=== PATIENT | female | born 1960 | race Caucasian/White ===

== ENCOUNTER 2022-05-08 10:12 | Outpatient (CLI) | payer MEDICARE, BC, SELFPAY ==
--- NOTE | 2022-05-08 10:20 | MR_ITS ---
[facility] [address] [facility] [address] Phone:?[phone] Fax:?[phone] Referring Physician Information: Julio Cesar Antoine M.D. [address] [facility] [address] Phone:?[phone] Fax:?[phone] Patient:Paul Montague D.O.B:?1960 Sex:?Female Phone:?[phone] [facility] MRN:?[id number] Exam Date:?05/08/2022 ? EXAM: MRI OF THE RIGHT SHOULDER CLINICAL INFORMATION: The patient is a 62-year-old with right shoulder pain. PRIOR SURGERY: None reported. COMPARISON STUDIES: There are no prior studies available for comparison. TECHNICAL INFORMATION: Using a 1.5T MR scanner and a localizing shoulder surface coil: 3.0 mm?coronal obliques: PD, T2, STIR 3.0 mm?sagittal obliques: PD, T2 3.0 mm?axials: PD, T2 FINDINGS: Articular/Extraarticular collections: Effusion: Moderate. Low signal intensity debris within the joint space can be seen, in keeping with synovitis. Small loose bodies within the joint space cannot be excluded. Subacromial/subdeltoid: Mild to moderate fluid is seen within the subacromial/subdeltoid bursa, in keeping with changes of bursitis. Subcoracoid: No evidence for bursitis. Osseous structures: Proximal humerus: Cortical irregularity and subcortical cystic change can be seen involving the greater and lesser tuberosity regions, in keeping with the rotator cuff tendinopathy and rotator cuff pathology discussed below. No evidence for greater or lesser tuberosity fracture can be seen. No Hill-Sachs or reverse Hill-Sachs lesion is identified. Glenoid: No acute bony abnormality of the glenoid fossa or glenoid neck can be seen. Acromioclavicular joint: Mild to moderate changes of acromioclavicular joint arthrosis are present. Coracoacromial arch: Acromion morphology: Type II. No evidence for os acromiale. Acromiohumeral space: Within normal limits. Coracohumeral space: Mildly narrowed. Rotator cuff and deltoid: Supraspinatus: Mild to moderate changes of supraspinatus tendinosis can be seen. There are areas of partial-thickness deep surface tearing and fraying of the supraspinatus tendon fibers, seen to best advantage on coronal series 6 images 13 and 12. The tearing involves up to 50% of the tendon thickness and measures approximately 10 mm in greatest dimension. No full-thickness tearing or retraction of the supraspinatus tendon fibers can be seen. No atrophic changes of the supraspinatus muscle belly are present. Infraspinatus: Mild to moderate infraspinatus tendinosis can be seen. There is no evidence for full or partial-thickness tearing. No atrophic changes of the infraspinatus muscle belly are identified. Teres minor: No evidence for tendinosis, tearing, or associated muscle belly atrophy. Subscapularis: Mild to moderate subscapularis tendinosis can be seen. There is no evidence for full or partial-thickness tearing. No atrophic changes of the subscapularis muscle belly are noted. Deltoid: No evidence for strain or tearing. Biceps tendon: Intra-articular biceps tendinosis can be seen with longitudinal splitting. Additional tendinosis and splitting of the tendon can be seen within the biceps sulcus region. There is no evidence for biceps rupture. No dislocation or subluxation is identified. Glenohumeral joint and labrum: Articular Cartilage: Chondromalacia and chondral loss can be seen along the articular surfaces of the humeral head on coronal series 5 image 14. Additional chondral thinning and irregularity along the articular surfaces of the glenoid can be seen. No definite osteoarthritic changes are identified. Labrum: Degeneration of the glenoid labrum can be seen with poorly defined tearing of the superior and posterior portions. No paralabral ganglion cyst formation is identified. Capsular Soft Tissues: No definite capsular abnormalities of the glenohumeral joint are seen. No evidence for capsular tearing is present and there are no MR signs of adhesive capsulitis. CONCLUSION: 1. Supraspinatus, infraspinatus, and subscapularis tendinosis with partial- thickness deep surface tearing and fraying of the supraspinatus tendon fibers. No full-thickness tearing or retraction of the rotator cuff can be seen. 2. Mild to moderate acromioclavicular joint arthrosis. 3. Tendinosis of the long head of the biceps. There is no evidence for rupture or dislocation. 4. Chondromalacia and chondral loss along the articular surfaces of the glenohumeral joint. 5. Glenohumeral joint effusion with synovitis and/or loose bodies. 6. Mild to moderate subacromial/subdeltoid bursitis. AEC Electronically signed on 05/08/2022 1:04:00 PM by Garrick Gasca M.D.
== END 2022-05-08 10:13 | disposition home or self-care (01) ==
LOC: MRI 10:17
PROVIDERS: PCP Family Medicine; Visit Provider Family Medicine
DX: M25.511 Pain in right shoulder (principal); M75.101 Unspecified rotator cuff tear or rupture of right shoulder, not specified as traumatic; M94.211 Chondromalacia, right shoulder; M25.411 Effusion, right shoulder; M75.51 Bursitis of right shoulder
CPT/HCPCS: 73221

== ENCOUNTER 2022-07-08 09:10 | Outpatient (CLI) | payer MEDICARE, BC, SELFPAY ==
[2022-07-08 14:08] LABS: Basophils Absolute Auto 0.01 K/uL (0.00-0.30); Basophils Percent Auto 0.2 % (0.0-3.0); Eosinophils Absolute Auto 0.16 K/uL (0.00-0.50); Eosinophils Percent Auto 2.7 % (0.0-7.0); Hematocrit 42.9 % (33.0-51.0); Hemoglobin* 14.5 gm/dL (12.0-16.0); Immature Granulocytes Abs Auto 0.01 K/uL (0.00-0.30); Immature Granulocytes Pct Auto 0.2 %; Lymphocytes Absolute Auto 2.36 K/uL (0.90-2.90); Lymphocytes Percent Auto 39.7 % (20-44); Mean Corpuscular HGB Conc 34 gm/dL (32-36); Mean Corpuscular Hemoglobin 30 pg (26-34); Mean Corpuscular Volume 90 fL (80-100); Monocytes Percent Auto 7.2 % (0.0-11.0); Neutrophils Absolute Auto 2.97 K/uL (1.7-7.0); Platelet Count* 212 K/uL (140-440); RDW Coefficient of Variation % 12.5 % (11.5-15.5); Red Blood Count 4.79 m/uL (4.00-5.20); White Blood Count* 5.94 K/uL (4.50-11.00)
[2022-07-08 14:19] LABS: Slide Review Reflex No
[2022-07-08 14:47] LABS: Chloride* 106 mmol/L (96-114); Potassium* 4.8 mmol/L (3.6-5.1); Sodium* 142 mmol/L (135-149)
[2022-07-08 14:50] LABS: Blood Urea Nitrogen* 12 mg/dL (7-30); Carbon Dioxide* 28 mmol/L (20-32); Creatinine* 0.5 mg/dL (0.5-1.5); Estimated Glomerular Filt Rate 107 ml/min
[2022-07-08 14:51] LABS: Calcium* 9.3 mg/dL (8.4-10.6); Glucose* 84 mg/dL (60-115)
== END 2022-07-08 09:11 | disposition home or self-care (01) ==
LOC: FBOREF 09:10
PROVIDERS: PCP Family Medicine; Visit Provider Family Medicine
DX: Z01.818 Encounter for other preprocedural examination (principal)
CPT/HCPCS: 80048; 85025

== ENCOUNTER 2022-07-17 10:30 | Day surgery (SDC) | payer MEDICARE, BC, SELFPAY ==
[2022-07-17] VITALS (15 sets, daily range): BP systolic 120–139; BP diastolic 70–83; PULSE 56–73; RESP 12–18; TEMP 36.6–37.1; O2SAT 91–99; BMI 27.1
[2022-07-17] MEDS: EPINEPHrine 1 MG in SODIUM CHLORIDE IRRIG SOLUTION 3,000 ML 9003 MG IRRIGATION ×2 (07:20→14:35)
[2022-07-17] MEDS: MIDAZOLAM HCL 1 MG/ML inj IVP (11:25)
[2022-07-17] MEDS: fentaNYL 100 MCG/2 ML inj IVP (11:25)
[2022-07-17] MEDS: ACETAMINOPHEN 500 MG TABLET 1000 MG PO (11:25)
[2022-07-17] MEDS: LACTATED RINGERS 1000 ML 1,000 ML 100 ML IV (11:30)
[2022-07-17] MEDS: SODIUM CHLORIDE 0.9 % (FLUSH) 10 ML SYRINGE IVF (12:06)
--- NOTE | 2022-07-17 13:51 | SUR.PREOP ---
TIME?OUT:?1353 PT/RN/MDA?VERIFICATION?OF?SURGICAL?SITE,?PROCEDURE,?AND?CONSENT OBTAINED?PRIOR?TO?INVASIVE?PROCEDURE.
--- NOTE | 2022-07-17 14:00 | P.NB_ITS ---
Nerve Block Nerve Block Time Seen by Provider: 13:52 Date Seen: 07/17/22 Type of block requested by surgeon for post-operative analgesia: supraclavicular Side: right Time out performed: Yes Verification of patient name: Yes Verification of date of : Yes Site marking: site marked Name of person performing procedure: Álvaro Continuous monitoring Was continuous monitoring of O2 sat, B/P, electronic device monitor, recorded every 15 minutes?: Yes Procedure Checklist: sterile prep, needles and gloves Ultrasound guided. Images saved: Yes Medications given in 5ml increments after negative aspiration: Ropivicaine %: 0.5 mL: 20 Needle gauge: 22 Decadron (mg): 10 Precedex (mcg): 25 Patient tolerated procedure well: Yes Block Charges Block Charge (with Pro Fee): Brachial Plexus Use of Ultrasound Machine for Block: Yes- US Guidance/pain block
[2022-07-17] MEDS: CEFAZOLIN 2 GM INJ IVP (14:20)
--- NOTE | 2022-07-17 15:12 | P.ORPRC_ITS ---
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 Despite appropriate non operative management, they continue to have symptoms. Operative intervention was recommended. The risks, benefits and expected outcomes were discussed in detail. These included but were not limited to: Infection, bleeding, injury to blood vessel or nerve, venous thromboembolism. All questions were answered to their satisfaction. PROCEDURE: A supraclavicular block was placed by Anesthesia. General anesthesia was administered. The patient was placed in the high beach chair position. The right shoulder was prepped and draped in the usual sterile fashion. The glenohumeral joint was infiltrated with 20 mL of normal saline with epinephrine. The posterior portal was established, the arthroscope was introduced. The anterior portal was established, Diagnostic arthroscopy was performed with findings as follows: The biceps and biceps anchor are intact. The anterior, posterior and superior labrum show degenerative tearing . Articular surfaces on the humeral head and glenoid show focal areas of grade 4 change, with surrounding areas of grade 3 change. There is a large articular cartilage loose body in the axillary recess. The joint surface of the supraspinatus has a minimal amount of degenerative tearing. The shaver was used to debride unstable chondral flaps on glenoid and humeral head. The labrum was circumferentially debrided. The loose body in the axillary recess was removed with the grasper. The undersurface of the supraspinatus was debrided with the shaver. This does not result in high-grade partial-thickness or full-thickness tearing. The arthroscope was placed in the subacromial space, the lateral portal was established. The Arthrex [place] was used to dissect the acromion free. The CA ligament was recessed off the anterior acromion, the AC joint was exposed. Arthroscopic instruments removed the portal sites were closed with 3-0 nylon. A dry dressing, polar Care and sling were applied. The patient tolerated the procedure well. There were no apparent complications. They were carefully transferred to the hospital bed and taken to the postanesthesia care unit in satisfactory condition. PLAN: The patient will be discharged to home. Immediate, active range of motion of the shoulder, as tolerates. They can work on active range of motion of the elbow, wrist and fingers. They will follow up in the office next week for a wound check and an AP and transscapular Y-view of the shoulder prior to being seen.
--- NOTE | 2022-07-17 15:26 | W.ANESCHARGE ---
Anesthesia Charges Start Date/Time Anesthesia Start Date: 07/17/22 Anesthesia Start Time: 14:02 Stop Date/Time Anesthesia Stop Date: 07/17/22 Anesthesia Stop Time: 15:26 Summary Emergency: No
--- NOTE | 2022-07-17 15:30 | W.ANESCHARGE ---
Anesthesia Charges Start Date/Time Anesthesia Start Date: 07/17/22 Anesthesia Start Time: 14:02 Stop Date/Time Anesthesia Stop Date: 07/17/22 Anesthesia Stop Time: 15:26 Summary Emergency: No
[2022-07-17] MEDS: ONDANSETRON 2 MG/ML inj 4 MG IVP (15:47)
== END 2022-07-17 17:03 | disposition home or self-care (01) ==
PROVIDERS: PCP Family Medicine; Visit Provider Orthopaedic Surgery
PROC: (CPT 23412; principal; 2022-07-17 13:30)
DX: M75.111 Incomplete rotator cuff tear or rupture of right shoulder, not specified as traumatic (principal); M19.011 Primary osteoarthritis, right shoulder; M75.21 Bicipital tendinitis, right shoulder
CPT/HCPCS: 29823; 29826; 29824; 1630; 64415; 76942; A9270; J0171; J0330; J0690; J1100; J2250; J2370; J2405; J2704; J2795; J3010; J7120

== ENCOUNTER 2022-08-27 09:50 | Outpatient (CLI) | payer MEDICARE, BC, SELFPAY ==
[2022-08-27 15:08] LABS: Albumin* 4.2 g/dL (3.3-5.0); Chloride* 108 mmol/L (96-114); Sodium* 142 mmol/L (135-149)
[2022-08-27 15:09] LABS: Potassium* 5.2 mmol/L (3.6-5.1)
[2022-08-27 15:10] LABS: Creatinine* 0.5 mg/dL (0.5-1.5); Estimated Glomerular Filt Rate 107 ml/min
[2022-08-27 15:11] LABS: Alanine Aminotransferase* 18 U/L (4-35); Alkaline Phosphatase* 139 U/L (40-150); Aspartate Amino Transferase* 28 U/L (12-35); Bilirubin Total* 0.5 mg/dL (0.1-1.5); Blood Urea Nitrogen* 13 mg/dL (7-30); Calcium* 9.5 mg/dL (8.4-10.6); Carbon Dioxide* 27 mmol/L (20-32); Glucose* 90 mg/dL (60-115); Total Protein* 6.8 g/dL (6.0-8.3)
[2022-08-27 15:12] LABS: Magnesium* 2.2 mg/dL (1.5-2.6)
[2022-08-27 15:27] LABS: Vitamin D 25 Hydroxy* 22 ng/mL (30-80)
[2022-08-27 15:40] LABS: Thyroid Stimulating Hormone* 0.905 uIU/mL (0.270-4.20)
[2022-08-27 15:58] LABS: Vitamin B12* 596 pg/mL (243-894)
[2022-08-28 03:45] LABS: Basophils Absolute Auto 0.04 K/uL (0.00-0.30); Basophils Percent Auto 0.5 % (0.0-3.0); Eosinophils Absolute Auto 0.23 K/uL (0.00-0.50); Eosinophils Percent Auto 2.6 % (0.0-7.0); Hematocrit 42.7 % (33.0-51.0); Hemoglobin* 14.4 gm/dL (12.0-16.0); Immature Granulocytes Abs Auto 0.01 K/uL (0.00-0.30); Immature Granulocytes Pct Auto 0.1 %; Lymphocytes Absolute Auto 2.21 K/uL (0.90-2.90); Lymphocytes Percent Auto 25.5 % (20-44); Mean Corpuscular HGB Conc 34 gm/dL (32-36); Mean Corpuscular Hemoglobin 30 pg (26-34); Mean Corpuscular Volume 89 fL (80-100); Monocytes Percent Auto 5.9 % (0.0-11.0); Neutrophils Absolute Auto 5.68 K/uL (1.7-7.0); Neutrophils Percent Auto 65.4 % (42.0-72.0); Platelet Count* 236 K/uL (140-440); RDW Coefficient of Variation % 11.8 % (11.5-15.5); Red Blood Count 4.81 m/uL (4.00-5.20); White Blood Count* 8.68 K/uL (4.50-11.00)
[2022-08-28 03:48] LABS: Slide Review Reflex No
[2022-08-28 15:50] LABS: Prealbumin 24.7 mg/dL (20.0-40.0)
== END 2022-08-27 09:51 | disposition home or self-care (01) ==
PROVIDERS: PCP Family Medicine; Visit Provider Family Medicine
DX: I10 Essential (primary) hypertension (principal); E55.9 Vitamin D deficiency, unspecified; E53.8 Deficiency of other specified B group vitamins; Z98.84 Bariatric surgery status
CPT/HCPCS: 80053; 82306; 82607; 83735; 84134; 84443; 85025

== ENCOUNTER 2022-09-18 11:00 | Emergency (ER) | payer MEDICARE, BC, SELFPAY ==
[2022-09-18 11:18] VITALS: BP 168/88; PULSE 63; RESP 18; TEMP 36.2; O2SAT 98; BMI 26.7
--- NOTE | 2022-09-18 11:45 | CRLHL7_ITS ---
For Patients: As a result of the Century Cures Act, medical imaging exams and procedure reports are released immediately into your electronic medical record. You may view this report before your referring provider. If you have questions, please contact your health care provider. INDICATION: Acute diffuse abdominal pain TECHNIQUE: Axial images were obtained from the diaphragm to the pubic symphysis. Reformats were obtained in the coronal and sagittal plane. IV Contrast: 71 cc Isovue 370 Oral Contrast: None COMPARISON: None. FINDINGS: Lower chest: Basilar discoid atelectasis. Liver: Normal in contour with hypodense leisure is within the right lobe of liver measuring 7 and 3 millimeters these are too small for characterization. Statistically speaking, in the absence of a known primary malignancy these likely represent incidental findings. Gallbladder and bile ducts: Status post cholecystectomy. Spleen: Unremarkable. Normal in size without mass. Pancreas: Mild pancreatic atrophy. Adrenal glands: Unremarkable. No nodules. Kidneys: Unremarkable. No masses, stones, or hydronephrosis. Vasculature: Atherosclerosis without abdominal aortic aneurysm. GI tract: Status post gastric bypass. There are several loops of jejunum which are borderline in caliber with a suggestion of some mucosal thickening. The ileum is more decompressed although a well-defined single transition point is not seen. Colon is normal caliber with a moderate large amount of stool. Moderate colonic diverticulosis. Pelvis: Status posthysterectomy. Bones: Degenerative disc disease lumbar spine. IMPRESSION: Status post gastric bypass with borderline diameter loops of small bowel without well-defined transition point. A low-grade small bowel obstruction may be difficult to exclude although appearance would favor an enteritis/ileus. Please note that all CT scans at this facility use dose modulation, iterative reconstruction, and/or weight-based dosing when appropriate to reduce radiation dose to as low as reasonably achievable. Dictated by Alireza Yeager MD @ 09/18/2022 12:49:40 PM (Electronically Signed)
--- OUTSIDE RECORDS SUMMARY | 2022-09-18 11:58 | XMS_ITS | Continuity of Care Document ---
:1960 Author Organization [facility] Address [address] [place] [address]- Care Team Providers Name Role Phone Physician, PCP Unknown Primary Care Physician Unavailable Encounter 09/14/22 - 09/14/22 [facility] [address] [place] [address]- Discharge Disposition: Discharged to Home or Self Care Attending Physician: Brendan Vargas DO Allergies, Adverse Reactions, Alerts Substance Reaction Severity Status Atrovent Airway constriction Active oxyCODONE Vomiting Active Immunizations Not Given Vaccine Date Status Refusal Reason influenza virus vaccine 10/15/20 Not Given Patient Refuses Medications acetaminophen 650 mg/20.3 mL oral liquid Take 20.3 mL, PO, Q4h, # 1 Each, 1 Refill(s), Pharmacy: [facility] Start Date: 10/15/20 Status: OrderedAdvair Advair, Each, 0 Start Date: 01/28/21 Status: Orderedalbuterol-ipratropium 2.5 mg-0.5 mg/3 ml inhalation solution 3 mL, Nebul, Q6h, PRN Shortness of Breath, Each, 0 Refill(s) Start Date: 10/10/20 Status: OrderedtraMADol 50 mg oral tablet Take 1 Tab, PO, Q6h, PRN Pain - Moderate, # 5 Each, 0 Refill(s), Pharmacy: [facility] Start Date: 10/15/20 Status: OrderedVentolin HFA 90 mcg/inh inhalation aerosol Take 2 Puff, Inhalation, Q6h, PRN Shortness of Breath, Each, 0 Refill(s) Start Date: 10/10/20 Status: OrderedVitamin B12 1000 mcg/mL injectable solution IM, Month ([id number]), Each, 0 Refill(s) Start Date: 01/28/21 Status: OrderedVitamin D Vitamin D, 1,000 mg, Daily, Each, 0 Start Date: 01/28/21 Status: Ordered Problem List Condition Confirmation Course Effective Dates Status Health Stat us Informant Anxiety Confirmed Active Asthma Confirmed Active Depression Confirmed Active High cholesterol Confirmed Active Hypertension Confirmed Active Obesity Confirmed Active Degenerative joint Confirmed Active disease Procedures Procedure Date Related Diagnosis Body Site Status section1 Completed History of total knee replacement of both Completed knees Hysterectomy Completed 1X4 Social History Social History Type Response Smoking Status Never smoked Sex Patient Care team information Care Team PersonnelName: Physician, PCP Unknown Position: Non User Member Role: Primary Care Physician
--- NOTE | 2022-09-18 12:03 | ED.GENADULT ---
HPI - General Adult General Chief complaint: Abdominal Pain Stated complaint: Pain in upper left abdominal quadrant Time Seen by Provider: 09/18/22 11:21 Source: patient Mode of arrival: ambulatory Limitations: no limitations History of Present Illness HPI narrative: Patient is a 62-year-old female coming in today complaining of abdominal discomfort that started 3 days ago. Pain is intermittent, comes and goes. Nothing seems to make it better or worse. It is located mostly on the left side of the abdomen but radiates across into the epigastric area as well. Patient is concerned because she has felt this kind of pain twice in the past: She tells me that The 1st time she had a perforated stomach and the 2nd time she had a twisted intestine. Both times the pain was an ache as it is now, and both times she required surgery. She denies any fevers or chills, she does have chronic nausea and this is unchanged, no vomiting. Last bowel movement was this morning and was normal. She has noted urinary difficulty such as increased frequency, urgency or dysuria. She has been eating normally. She spoke to her primary care provider who recommended she come to the ER for an abdominal CT scan. Related Data Home Medications Medication Instructions Recorded Confirmed fluticasone 250 mcg-salmeterol 50 1 inh inhalation DAILY 03/11/22 09/18/22 mcg/dose blistr powdr for inhalation (Advair Diskus) ipratropium 0.5 mg-albuterol 3 mg 1 ml inhalation QID 07/06/22 09/18/22 (2.5 mg base)/3 mL nebulization soln Previous Rx's Medication Instructions Recorded cyanocobalamin (vitamin B-12) 1,000 mcg subcut Q4W #3 mL 06/09/22 1,000 mcg/mL injection solution albuterol sulfate 90 mcg/actuation 1 puff inhalation DAILY PRN 07/01/22 aerosol inhaler (Ventolin HFA) bronchospasm #6.7 grams metoclopramide HCl 5 mg tablet 5 mg PO TID #60 tabs 08/27/22 (Reglan) cholecalciferol (vitamin D3) 1,250 1,250 mcg PO QWEEK #12 caps 08/29/22 mcg (50,000 unit) capsule Allergies Allergy/AdvReac Type Severity Reaction Status Date / Time oxycodone AdvReac Intermediate nausea and Verified 09/18/22 12:26 vomiting Angiotensin-converting Allergy Intermediate Cough Uncoded 09/18/22 12:26 enzyme inhibitor Review of Systems Status of ROS: Reports: 10 or more systems reviewed and unremarkable except as noted in History and below [facility] Medical History Arthritis of right acromioclavicular joint B12 deficiency Chronic low back pain Hypertension Mild persistent asthma Perforated chronic gastric ulcer Postprandial nausea Posttraumatic stress disorder Vitamin D deficiency Surgical History History of arthroscopy of both knees History of gastric bypass (09/2020) History of shoulder surgery (07/17/22) History of tonsillectomy and adenoidectomy History of total bilateral knee replacement Hx of section S/P OWEN-BSO Social History Narrative: , former smoker Smoking Status: Former smoker How often do you have a drink containing alcohol: never AUDIT-C Alcohol total score: 0 Non-prescribed substance use: denies use Caffeine: Yes (coffee) Are you using contraception or practicing any form of control: No (meopause - hysterectomy at 29) Exam Narrative: Exam Narrative: Well-nourished well-developed patient in no acute distress. Alert and oriented. Answers questions appropriately. Mood and affect are appropriate. Thoughts are goal oriented and rational. No tangential or magical thinking noted. Patient speaks in full sentences without needing to catch their breath. HEENT: Normocephalic atraumatic. Pupils are equally round reactive to light. Extraocular muscles are intact. Conjunctivae are moist without any icterus noted. Moist mucous membranes. Posterior pharynx is normal. Neck is soft without any lymphadenopathy or thyromegaly. No masses are appreciated. Cardiovascular: Heart is regular rate and rhythm S1 and S2 are present without any murmurs. Lungs: Clear to auscultation bilaterally no wheezes rhonchi or rales are appreciated. Patient takes deep breaths without any discomfort. Abdomen: Soft and nondistended with normal bowel sounds. No guarding or rebound. No masses or organomegaly appreciated. Minimal left upper quadrant tenderness. Extremities: Bilateral lower extremities are without edema. Skin: Well perfused without any obvious rashes. Const: Vital Signs, click to edit/add: Vital Signs - 24 hr 09/18/22 11:18 Temperature 97.1 F L Pulse Rate [Right Pulse Oximeter] 63 Respiratory Rate 18 Blood Pressure [Ri ght Upper Arm] 168/88 H Pulse Oximetry 98 Oxygen Delivery Me thod Room Air Course Course Hospital Course: IV was established and labs were drawn. Labs were unremarkable. Abdominal CT showing a small area of either enteritis or ileus. Vital Signs Vital signs: Initial Vital Signs Temperature 97.1 F L 09/18/22 11:18 Temperature Source Temporal Artery Scan 09/18/22 11:18 Pulse Rate 63 09/18/22 11:18 Respiratory Rate 18 09/18/22 11:18 Blood Pressure 168/88 H 09/18/22 11:18 Blood Pressure Mean 114 09/18/22 11:18 Blood Pressure Position Sitting 09/18/22 11:18 Pulse Oximetry 98 09/18/22 11:18 Oxygen Delivery Method 09/18/22 11:18 Vital Signs Temperature 97.1 F L 09/18/22 11:18 Pulse Rate 63 09/18/22 11:18 Respiratory Rate 18 09/18/22 11:18 Blood Pressure 168/88 H 09/18/22 11:18 Pulse Oximetry 98 09/18/22 11:18 Oxygen Delivery Method 09/18/22 11:18 Temperature 97.1 F L 09/18/22 11:18 Pulse Rate 63 09/18/22 11:18 Respiratory Rate 18 09/18/22 11:18 Blood Pressure 168/88 H 09/18/22 11:18 Pulse Oximetry 98 09/18/22 11:18 Oxygen Delivery Method 09/18/22 11:18 Medical Decision Making MDM Narrative Medical decision making narrative: 62-year-old female with mild abdominal discomfort-CT scan showing and either ileus or small area of enteritis. Given her lab work is entirely normal and that her pain is mild, I do think that we can treat this with conservative management at this time. Patient states that she does have protein shakes which she will stick to for the next day or 2. We discussed bowel rest, Tylenol, increase fluid. We discussed reasons to return to the ER including fevers, worsening pain or vomiting. Patient was agreeable with everything we discussed had no other questions or concerns at this time. Differential Diagnosis Differential Diagnosis: We considered bowel perforation, ulcers, volvulus. Medical Records Medical records reviewed: Yes I reviewed the patient's medical records Lab Data Lab results reviewed: Yes I reviewed the patient's lab results Labs: Lab Results 09/18/22 09/18/22 09/18/22 Range/Units 11:46 12:10 12:10 WBC 6.53 (4.50-11.00) K/uL RBC 4.76 (4.00-5.20) m/uL Hgb 14.1 (12.0-16.0) gm/dL Hct 42.9 (33.0-51.0) % MCV 90 (80-100) fL MCH 30 (26-34) pg MCHC 33 (32-36) gm/dL RDW Coeff of Tanja 12.5 (11.5-15.5) % Plt Count 218 (140-440) K/uL Neut % (Auto) 54.3 (42.0-72.0) % Lymph % (Auto) 34.9 (20-44) % Saunders % (Auto) 7.7 (0.0-11.0) % Eos % (Auto) 2.9 (0.0-7.0) % Baso % (Auto) 0.2 (0.0-3.0) % Neut # (Auto) 3.55 (1.7-7.0) K/uL Lymph # (Auto) 2.28 (0.90-2.90) K/uL Saunders # (Auto) 0.50 (0.00-0.90) K/UL Eos # (Auto) 0.19 (0.00-0.50) K/uL Baso # (Auto) 0.01 (0.00-0.30) K/uL Sodium 142 (135-149) mmol/L Potassium 4.0 (3.6-5.1) mmol/L Chloride 108 (96-114) mmol/L Carbon Dioxide 28 (20-32) mmol/L BUN 13 (7-30) mg/dL Creatinine 0.5 (0.5-1.5) mg/dL Estimated Creat Clear 46.73 Estimated GFR 107 ml/min Glucose 91 (60-115) mg/dL Lactate (0.5-1.9) mmol/L Calcium 8.9 (8.4-10.6) mg/dL Total Bilirubin (0.1-1.5) mg/dL Direct Bilirubin (0.0-0.5) mg/dL AST (12-35) U/L ALT (4-35) U/L Alkaline Phosphatase (40-150) U/L C-Reactive Protein (0.5-1.0) mg/dL Total Protein (6.0-8.3) g/dL Albumin (3.3-5.0) g/dL Lipase (23-300) U/L Urine Color Yellow (Yellow) Urine Appearance Clear (Clear) Urine pH 6.0 (5.0-8.5) Ur Specific [place] 1.020 (1.000-1.030) Urine Protein Negative (Negative) Urine Glucose (UA) Negative (Negative) Urine Ketones Negative (Negative) Urine Blood Negative (Negative) Urine Nitrite Negative (Negative) Urine Bilirubin Negative (Negative) Urine Urobilinogen 0.2 (0.2-1.0) Ur Leukocyte Esterase Negative (Negative) Urine RBC 0-2 (0-2) Urine WBC 0-2 (0-5) Ur Squamous Epith Cells Few (None-Few) Urine Bacteria Moderate A (None) 09/18/22 09/18/22 Range/Units 12:10 12:10 WBC (4.50-11.00) K/uL RBC (4.00-5.20) m/uL Hgb (12.0-16.0) gm/dL Hct (33.0-51.0) % MCV (80-100) fL MCH (26-34) pg MCHC (32-36) gm/dL RDW Coeff of Tanja (11.5-15.5) % Plt Count (140-440) K/uL Neut % (Auto) (42.0-72.0) % Lymph % (Auto) (20-44) % Saunders % (Auto) (0.0-11.0) % Eos % (Auto) (0.0-7.0) % Baso % (Auto) (0.0-3.0) % Neut # (Auto) (1.7-7.0) K/uL Lymph # (Auto) (0.90-2.90) K/uL Saunders # (Auto) (0.00-0.90) K/UL Eos # (Auto) (0.00-0.50) K/uL Baso # (Auto) (0.00-0.30) K/uL Sodium (135-149) mmol/L Potassium (3.6-5.1) mmol/L Chloride (96-114) mmol/L Carbon Dioxide (20-32) mmol/L BUN (7-30) mg/dL Creatinine (0.5-1.5) mg/dL Estimated Creat Clear Estimated GFR ml/min Glucose (60-115) mg/dL Lactate 1.1 (0.5-1.9) mmol/L Calcium (8.4-10.6) mg/dL Total Bilirubin 0.5 (0.1-1.5) mg/dL Direct Bilirubin 0.3 (0.0-0.5) mg/dL AST 38 H (12-35) U/L ALT 30 (4-35) U/L Alkaline Phosphatase 114 (40-150) U/L C-Reactive Protein < 0.5 L (0.5-1.0) mg/dL Total Protein 7.3 (6.0-8.3) g/dL Albumin 4.4 (3.3-5.0) g/dL Lipase 63 (23-300) U/L Urine Color (Yellow) Urine Appearance (Clear) Urine pH (5.0-8.5) Ur Specific [place] (1.000-1.030) Urine Protein (Negative) Urine Glucose (UA) (Negative) Urine Ketones (Negative) Urine Blood (Negative) Urine Nitrite (Negative) Urine Bilirubin (Negative) Urine Urobilinogen (0.2-1.0) Ur Leukocyte Esterase (Negative) Urine RBC (0-2) Urine WBC (0-5) Ur Squamous Epith Cells (None-Few) Urine Bacteria (None) Imaging Data CT scan - abdomen: Attestation: I have reviewed the pertinent imaging results. Radiologist's impression: Study:?CT Abdomen/Pelvis W/ 71CC [id number]/2023 12:28:34 PM Ordering Physician:Lisa Reese Final Report: INDICATION: Acute diffuse abdominal pain TECHNIQUE: Axial images were obtained from the diaphragm to the pubic symphysis. Reformats were obtained in the coronal and sagittal plane. IV Contrast: 71 cc Isovue 370 Oral Contrast: None COMPARISON: None. FINDINGS: Lower chest: Basilar discoid atelectasis. Liver: Normal in contour with hypodense leisure is within the right lobe of liver measuring 7 and 3 millimeters these are too small for characterization. Statistically speaking, in the absence of a known primary malignancy these likely represent incidental findings. Gallbladder and bile ducts: Status post cholecystectomy. Spleen: Unremarkable. Normal in size without mass. Pancreas: Mild pancreatic atrophy. Adrenal glands: Unremarkable. No nodules. Kidneys: Unremarkable. No masses, stones, or hydronephrosis. Vasculature: Atherosclerosis without abdominal aortic aneurysm. GI tract: Status post gastric bypass. There are several loops of jejunum which are borderline in caliber with a suggestion of some mucosal thickening. The ileum is more decompressed although a well-defined single transition point is not seen. Colon is normal caliber with a moderate large amount of stool. Moderate colonic diverticulosis. Pelvis: Status posthysterectomy. Bones: Degenerative disc disease lumbar spine. IMPRESSION: Status post gastric bypass with borderline diameter loops of small bowel without well-defined transition point. A low-grade small bowel obstruction may be difficult to exclude although appearance would favor an enteritis/ileus. Discharge Plan Discharge Clinical Impression: Abdominal pain Patient Disposition: Home, Self-Care Condition: Stable Additional Instructions: Your lab work was entirely normal today which is reassuring that there is no infection or organ dysfunction occurring. Your abdominal CT scan it did show an area that was consistent with either enteritis - which is an inflammation of the small intestine wall, or ileus - which is when the bowels slow down their movement. The treatment for either 1 is what we call bowel rest-increasing fluid intake but decreasing food intake. You should not need to do this for more than 1-2 days. If you develop worsening pain, fevers, or vomiting I do recommend you return to the ER. Prescriptions: No Action fluticasone propion-salmeterol [Advair Diskus] 250-50 mcg/dose blister with device 1 inh inhalation DAILY metoclopramide HCl [Reglan] 5 mg tablet 5 mg PO TID Qty: 60 0RF Rx Instructions: Take 30 minutes AC ipratropium-albuterol 0.5 mg-3 mg(2.5 mg base)/3 mL solution for nebulization 1 ml inhalation QID cyanocobalamin (vitamin B-12) 1,000 mcg/mL solution 1,000 mcg subcut Q4W Qty: 3 3RF albuterol sulfate [Ventolin HFA] 90 mcg/actuation HFA aerosol inhaler 1 puff inhalation DAILY PRN (Reason: bronchospasm) Qty: 6.7 9RF cholecalciferol (vitamin D3) 1,250 mcg (50,000 unit) capsule 1,250 mcg PO QWEEK Qty: 12 3RF Follow Up/Referrals: Julio Cesar Antoine MD [Primary Care Provider] - Stand Alone Forms: [facility] Info Instructions
[2022-09-18 12:23] LABS: Basophils Absolute Auto 0.01 K/uL (0.00-0.30); Basophils Percent Auto 0.2 % (0.0-3.0); Eosinophils Absolute Auto 0.19 K/uL (0.00-0.50); Eosinophils Percent Auto 2.9 % (0.0-7.0); Hematocrit 42.9 % (33.0-51.0); Hemoglobin* 14.1 gm/dL (12.0-16.0); Lymphocytes Absolute Auto 2.28 K/uL (0.90-2.90); Lymphocytes Percent Auto 34.9 % (20-44); Mean Corpuscular HGB Conc 33 gm/dL (32-36); Mean Corpuscular Hemoglobin 30 pg (26-34); Mean Corpuscular Volume 90 fL (80-100); Monocytes Percent Auto 7.7 % (0.0-11.0); Neutrophils Absolute Auto 3.55 K/uL (1.7-7.0); Neutrophils Percent Auto 54.3 % (42.0-72.0); Platelet Count* 218 K/uL (140-440); RDW Coefficient of Variation % 12.5 % (11.5-15.5); Red Blood Count 4.76 m/uL (4.00-5.20); White Blood Count* 6.53 K/uL (4.50-11.00)
[2022-09-18 12:26] LABS: Slide Review Reflex No
[2022-09-18 12:28] LABS: Lactate* 1.1 mmol/L (0.5-1.9)
[2022-09-18 12:30] VITALS: BP 146/85; PULSE 65; O2SAT 99
[2022-09-18 12:36] LABS: Appearance Urine Clear (Clear); Bilirubin Urine Negative (Negative); Blood Urine Negative (Negative); Color Urine Yellow (Yellow); Glucose Urine Negative (Negative); Ketones Urine Negative (Negative); Leukocyte Esterase Urine Negative (Negative); Nitrite Urine Negative (Negative); Protein Urine Negative (Negative); Urobilinogen Urine 0.2 (0.2-1.0)
[2022-09-18 12:48] LABS: Albumin* 4.4 g/dL (3.3-5.0)
[2022-09-18 12:48] LABS: Bacteria Urine Moderate; RBC Urine 0-2 (0-2); Squamous Epithelial Cell Urine Few (None-Few); WBC Urine 0-2 (0-5)
[2022-09-18 12:51] LABS: Alkaline Phosphatase* 114 U/L (40-150); Aspartate Amino Transferase* 38 U/L (12-35); Bilirubin Direct* 0.3 mg/dL (0.0-0.5); Bilirubin Total* 0.5 mg/dL (0.1-1.5); Lipase* 63 U/L (23-300); Total Protein* 7.3 g/dL (6.0-8.3)
[2022-09-18 12:52] LABS: Alanine Aminotransferase* 30 U/L (4-35); Chloride* 108 mmol/L (96-114); Sodium* 142 mmol/L (135-149)
[2022-09-18 12:55] LABS: Blood Urea Nitrogen* 13 mg/dL (7-30); Carbon Dioxide* 28 mmol/L (20-32); Creatinine* 0.5 mg/dL (0.5-1.5); Est. Creatinine Clearance* 46.73; Estimated Glomerular Filt Rate 107 ml/min
[2022-09-18 12:56] LABS: Calcium* 8.9 mg/dL (8.4-10.6); Glucose* 91 mg/dL (60-115)
[2022-09-18 12:57] LABS: C Reactive Protein* < 0.5 mg/dL (0.5-1.0)
[2022-09-18 13:35] LABS: Erythrocyte SedimentationRate* 2 mm/hr (2-20)
== END 2022-09-18 13:31 | disposition home or self-care (01) ==
PROVIDERS: Emergency Provider Family Medicine; PCP Family Medicine
DX: R10.9 Unspecified abdominal pain (principal)
CPT/HCPCS: 36415; 74177; 80048; 80076; 81001; 83605; 83690; 85025; 85651; 86140; 87086; 87186; 99284; Q9967

== ENCOUNTER 2022-11-23 07:00 | Day surgery (SDC) | payer MEDICARE, BC, SELFPAY ==
[2022-11-23] VITALS (21 sets, daily range): BP systolic 97–154; BP diastolic 57–93; PULSE 64–74; RESP 12–16; TEMP 36.2–36.6; O2SAT 92–100; BMI 32.9
[2022-11-23] MEDS: LACTATED RINGERS 1000 ML 1,000 ML 100 ML IV (07:20)
[2022-11-23] MEDS: SODIUM CHLORIDE 0.9 % (FLUSH) 10 ML SYRINGE IVF (07:57)
--- NOTE | 2022-11-23 08:07 | W.ANESCHARGE ---
Anesthesia Charges Start Date/Time Anesthesia Start Date: 11/23/22 Anesthesia Start Time: 14:02 Stop Date/Time Anesthesia Stop Date: 11/23/22 Anesthesia Stop Time: 15:26
[2022-11-23] MEDS: CEFAZOLIN 2 GM INJ IVP (08:22)
[2022-11-23] MEDS: BUPIVACAINE 0.25% 30 ML INJECTION (09:19)
--- NOTE | 2022-11-23 09:51 | P.GSOP_ITS ---
Operative Note Date of procedure: 11/23/22 Pre-op diagnosis: 1. Symptomatic Incisional hernia and umbilical hernia. Post-op diagnosis: Same Type of Procedure: 1. Open incisional hernia repair and umbilical hernia repair with mesh. Indications: 62-year-old female with multiple abdominal surgeries including gastric bypass, perforation of the gastric remnant with exploration and repair, as well as laparoscopic lysis of adhesions for internal hernia presented to clinic for evaluation of an enlarging ventral bulge. Patient states that she initially noticed a bulge above her belly button several weeks prior to her presentation. She had an episode of the bulge being ?hard?. By next day it was softening. She presented to see her primary care doctor and was told that she has an incisional hernia. Patient described dull pressure at the bulge and stated that the bulge was almost always out. Patient had an abdominal CT obtained on September 18 2022 and that showed a small umbilical hernia. On clinical exam she had a well-healed upper abdominal exploratory laparotomy incision. Above the umbilicus there was a palpable bulge that was approximately the size of the plum. There was also small umbilical hernia palpated. Given patient's clinical history and the enlarging nature of her bulge, an open incision hernia repair was recommended. The procedure was discussed in detail. The risks associated procedure including infection, bleeding, hernia recurrence, the need for additional procedures, and injury to intra-abdominal organs were all discussed with the patient, and she agreed to proceed. Procedure Description: After discussing the risks and benefits of the procedure, the patient signed informed consent.? The operative site was marked and the patient was brought to the operating room and placed on the operating table in supine position.? Care was taken to pad the patient's pressure points.?? The patient was then intubated by anesthesia.?? The operative site was then prepped and draped in the usual sterile fashion.? A time-out was then performed. A vertical surgical incision was made through a well healed surgical scar above the umbilicus with a scalpel. Subcutaneous tissue was divided with cautery. The hernia sac was identified just above the umbilicus. Subcutaneous tissue was dissected away from the hernia sac with cautery. The hernia sac was entered with Metzenbaum scissors and no intra-abdominal structures were incarcerated in the hernia sac. The fascia was grasped and a retro rectus space was developed with cautery. This was developed circumferentially on the right and left side. The linea Alba was not clearly defined superiorly due to patient's scar tissue. I was also palpating another fascial defect just superior to the main one from patient's prior surgery. Inferiorly the umbilicus was mobilized off the anterior fascia and an umbilical fascial defect was palpated. This was fairly small. The retro rectus space was developed circumferentially to be able to place the mesh that would overlap all the hernia defects. Hemostasis was achieved with cautery. The hernia sac was then excised with cautery. Posterior sheath was closed with 2 running 0 Vicryl sutures. The main hernia defect was measuring 7 x 3 cm. Ventrio mesh 12 x 8 cm was then placed into this retrorectus space. The mesh was extra-abdominal. It was anchored to the anterior fascia with two 0-0 Nurolon sutures superiorly and inferiorly. Local anesthetic was injected into the anterior fascia. The anterior fascia was closed over mesh with a running 0-0 Maxon suture. The umbilicus was tacked down to the anterior fascia with interrupted 3-0 Vicryl sutures. Subcutaneous fat was reapproximated with interrupted 2-0 Vicryl sutures. Dermis was reapproximated with interrupted 3-0 sutures. The skin was closed with a running 4-0 Monocryl stitch. Steri-Strips and sterile dressings were placed over the incision. Abdominal binder was placed around the patient. ? The patient was then woken and transported to the recovery area in stable condition. ? The patient tolerated the procedure well. Findings: Cambodian cheese defects palpated superior to the main fascial defect. A small umbilical fascial defect was also identified. All incisional hernias and umbilical hernia were repaired with 12 x 8 cm mesh. Implants: Ventrio mesh Anesthesia: GETA Surgeon: Brad Harper MD Estimated blood loss (mL): 10 Condition: stable Disposition: PACU
--- NOTE | 2022-11-23 10:00 | W.ANESCHARGE ---
Anesthesia Charges Start Date/Time Anesthesia Start Date: 11/23/22 Anesthesia Start Time: 08:12 Stop Date/Time Anesthesia Stop Date: 11/23/22 Anesthesia Stop Time: 09:51
[2022-11-23] MEDS: fentaNYL 100 MCG/2 ML inj 50 MCG IVP ×3 (10:02→10:23)
[2022-11-23] MEDS: LACTATED RINGERS 1000 ML 1,000 ML 35 ML IV (10:35)
--- NOTE | 2022-11-23 10:35 | W.ANESCHARGE ---
Anesthesia Charges Start Date/Time Anesthesia Start Date: 11/23/22 Anesthesia Start Time: 08:12 Stop Date/Time Anesthesia Stop Date: 11/23/22 Anesthesia Stop Time: 09:51
--- NOTE | 2022-11-23 10:36 | P.NB_ITS ---
Nerve Block Nerve Block Time Seen by Provider: 10:34 Date Seen: 11/23/22 Type of block requested by surgeon for post-operative analgesia: TAP Side: bilateral Time out performed: Yes Verification of patient name: Yes Verification of date of : Yes Site marking: site marked Name of person performing procedure: Álvaro Continuous monitoring Was continuous monitoring of O2 sat, B/P, cardiac nurse, recorded every 15 minutes?: Yes Procedure Checklist: sterile prep, needles and gloves Ultrasound guided. Images saved: Yes Medications given in 5ml increments after negative aspiration: Marcaine %: 0.25 mL: 20 Needle gauge: 20 and Exparel mL: 10 Patient tolerated procedure well: Yes Additional comments: Needle noted adjacent to nerve Block Charges Block Charge (with Pro Fee): TAP Bilateral Use of Ultrasound Machine for Block: Yes- US Guidance/pain block
[2022-11-23] MEDS: ONDANSETRON 2 MG/ML inj 4 MG IVP (10:48)
[2022-11-23] MEDS: METOCLOPRAMIDE HCL 5 MG/ML INJ 10 MG IVP (11:33)
[2022-11-23] MEDS: HYDROCODONE-ACETAMIN 5-325 MG 1 TAB PO (12:16)
== END 2022-11-23 13:00 | disposition home or self-care (01) ==
PROVIDERS: PCP Family Medicine; Visit Provider Surgery
PROC: (CPT 49593; principal; 2022-11-23 08:15)
DX: K43.2 Incisional hernia without obstruction or gangrene (principal); K42.9 Umbilical hernia without obstruction or gangrene
CPT/HCPCS: 49593; 00752; 76942; A4467; A9270; C1781; C9290; J0330; J0690; J1100; J1170; J1885; J2250; J2405; J2704; J2765; J3010; J3490; J7120

== ENCOUNTER 2023-02-25 16:27 | Emergency (ER) | payer MEDICARE, BC, SELFPAY ==
[2023-02-25 16:41] VITALS: BP 155/72; PULSE 74; RESP 16; TEMP 36.2; O2SAT 97; BMI 27.4
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
--- NOTE | 2023-02-25 17:49 | ED.GENADULT ---
HPI - General Adult General Chief complaint: Extremity Pain/Injury, Lower Stated complaint: L foot injury, steel dropped on it Time Seen by Provider: 02/25/23 17:13 Source: patient Mode of arrival: ambulatory Limitations: no limitations History of Present Illness HPI narrative: 62-year-old female coming in today with foot pain. States that she dropped a 50 lb piece of metal on her foot shortly before presenting to the ED. Denies other injury. Related Data Home Medications Medication Instructions Recorded Confirmed fluticasone 250 mcg-salmeterol 50 1 inh inhalation DAILY 03/11/22 02/23/23 mcg/dose blistr powdr for inhalation (Advair Diskus) ipratropium 0.5 mg-albuterol 3 mg 1 ml inhalation QID 07/06/22 02/23/23 (2.5 mg base)/3 mL nebulization soln metoclopramide HCl 5 mg tablet 5 mg PO TID PRN 11/02/22 02/23/23 (Reglan) Previous Rx's Medication Instructions Recorded albuterol sulfate 90 mcg/actuation 2 puff inhalation Q6H PRN 09/21/22 aerosol inhaler (Ventolin HFA) bronchospasm #8.5 grams cyanocobalamin (vitamin B-12) 1,000 mcg subcut Q4W #3 mL 11/02/22 1,000 mcg/mL injection solution ondansetron 4 mg disintegrating 4 mg PO Q8H PRN nausea and 11/02/22 tablet vomiting #20 tabs scopolamine base 1 mg over 3 days 1 patch transdermal Q3D PRN nausea 11/02/22 transdermal patch and vomiting #4 ea cholecalciferol (vitamin D3) 1,250 1,250 mcg PO QWEEK #12 caps 12/21/22 mcg (50,000 unit) capsule fluoxetine 20 mg capsule (Prozac) 20 mg PO QDAY #30 caps 02/23/23 lorazepam 1 mg tablet (Ativan) 0.5 - 1 mg (0.5 - 1 x 1 mg) PO BID 02/23/23 PRN anxiety #30 tabs Allergies Allergy/AdvReac Type Severity Reaction Status Date / Time CRIS Inhibitors AdvReac Intermediate Cough Verified 02/23/23 11:38 oxycodone AdvReac Intermediate nausea and Verified 02/23/23 11:38 vomiting Review of Systems Status of ROS: Reports: 6 or more systems reviewed and unremarkable except as noted in History and below [facility] Medical History ELAN (generalized anxiety disorder) ?F41.1 - Generalized anxiety disorder (ICD-10) Ventral hernia ?K43.9 - Ventral hernia without obstruction or gangrene (ICD-10) Postprandial nausea ?R11.0 - Nausea (ICD-10) Arthritis of right acromioclavicular joint ?M19.011 - Primary osteoarthritis, right shoulder (ICD-10) B12 deficiency ?E53.8 - Deficiency of other specified B group vitamins (ICD-10) Perforated chronic gastric ulcer ?K25.5 - Chronic or unspecified gastric ulcer with perforation (ICD-10) Vitamin D deficiency ?E55.9 - Vitamin D deficiency, unspecified (ICD-10) Posttraumatic stress disorder ?F43.10 - Post-traumatic stress disorder, unspecified (ICD-10) Mild persistent asthma ?J45.30 - Mild persistent asthma, uncomplicated (ICD-10) Hypertension ?I10 - Essential (primary) hypertension (ICD-10) Chronic low back pain ?M54.50 - Low back pain, unspecified (ICD-10) ?G89.29 - Other chronic pain (ICD-10) Surgical History S/P hernia repair ?Z98.890 - Other specified postprocedural states (ICD-10) ?Z87.19 - Personal history of other diseases of the digestive system (ICD-10) H/O laparoscopy ?Z98.890 - Other specified postprocedural states (ICD-10) S/P cholecystectomy ?Z90.49 - Acquired absence of other specified parts of digestive tract (ICD-10) S/P exploratory laparotomy ?Z98.890 - Other specified postprocedural states (ICD-10) H/O exploratory laparotomy ?Z98.890 - Other specified postprocedural states (ICD-10) History of shoulder surgery (07/17/22) ?Z98.890 - Other specified postprocedural states (ICD-10) History of arthroscopy of both knees ?Z98.890 - Other specified postprocedural states (ICD-10) S/P OWEN-BSO ?Z90.710 - Acquired absence of both cervix and uterus (ICD-10) ?Z90.722 - Acquired absence of ovaries, bilateral (ICD-10) ?Z90.79 - Acquired absence of other genital organ(s) (ICD-10) History of tonsillectomy and adenoidectomy ?Z90.89 - Acquired absence of other organs (ICD-10) Hx of section ?Z98.891 - History of uterine scar from previous surgery (ICD-10) History of total bilateral knee replacement ?Z96.653 - Presence of artificial knee joint, bilateral (ICD-10) 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 Patient is currently staying home. What is your current living situation?: I presently have a place to live Problems where you live: no known problems In the past 12 months, utilities in danger of being shut off: yes In the past 12 mos, have been you worried that your food would run out before you had money to buy more?: never true In the past 12 mos, the food you bought just didn't last and you didn't have money to buy more?: never true Smoking Status: Never smoker How often do you have a drink containing alcohol: never AUDIT-C Alcohol total score: 0 Non-prescribed substance use: denies use Caffeine: Yes (coffee) How often does anyone, including family, friends and others, physically hurt you: How often does anyone, including family, friends and others, insult or talk down to you: How often does anyone, including family, friends and others, threaten you with harm: How often does anyone, including family, friends and others, scream or curse at you: Little interest or pleasure in doing things: not at all Feeling down, depressed, or hopeless: not at all Are you using contraception or practicing any form of control: No (meopause - hysterectomy at 29) Exam Narrative: Exam Narrative: Well-nourished well-developed patient in no acute distress. Alert and oriented. Answers questions appropriately. Mood and affect are appropriate. Thoughts are goal oriented and rational. No tangential or magical thinking noted. Patient speaks in full sentences without needing to catch her breath. HEENT: Normocephalic atraumatic. Pupils are equally round reactive to light. Extraocular muscles are intact. Conjunctivae are moist without any icterus noted. Moist mucous membranes. Extremities: Bilateral lower extremities are without edema. Normal DP and PT pulses. Left foot has a small ecchymoses on the dorsal surface of the 2nd toe. No significant swelling noted, no other ecchymosis, no broken skin, no significant tenderness to palpation. Skin: Well perfused without any obvious rashes. Const: Vital Signs, click to edit/add: Vital Signs - 24 hr 02/25/23 16:41 Temperature 97.2 F L Pulse Rate [Right Pulse Oximeter] 74 Respiratory Rate 16 Blood Pressure [Ri ght Upper Arm] 155/72 H Pulse Oximetry 97 Oxygen Delivery Me thod Room Air Course Course Hospital Course: X-ray of the foot was done, read by me, does not show any acute fractures. Vital Signs Vital signs: Initial Vital Signs Temperature 97.2 F L 02/25/23 16:41 Temperature Source Temporal Artery Scan 02/25/23 16:41 Pulse Rate 74 02/25/23 16:41 Pulse Rhythm Regular 02/25/23 16:41 Respiratory Rate 16 02/25/23 16:41 Blood Pressure 155/72 H 02/25/23 16:41 Blood Pressure Mean 99 02/25/23 16:41 Blood Pressure Position Sitting 02/25/23 16:41 Pulse Oximetry 97 02/25/23 16:41 Oxygen Delivery Method Room Air 02/25/23 16:41 Vital Signs Temperature 97.2 F L 02/25/23 16:41 Pulse Rate 74 02/25/23 16:41 Respiratory Rate 16 02/25/23 16:41 Blood Pressure 155/72 H 02/25/23 16:41 Pulse Oximetry 97 02/25/23 16:41 Oxygen Delivery Method Room Air 02/25/23 16:41 Temperature 97.2 F L 02/25/23 16:41 Pulse Rate 74 02/25/23 16:41 Respiratory Rate 16 02/25/23 16:41 Blood Pressure 155/72 H 02/25/23 16:41 Pulse Oximetry 97 02/25/23 16:41 Oxygen Delivery Method Room Air 02/25/23 16:41 Medical Decision Making MDM Narrative Medical decision making narrative: 62-year-old female contusion to the left foot we discussed symptomatic measures. Patient did think that a hard-soled shoe would be ideal for her since she is having pain with walking, so that was provided. We discussed follow-up as needed. Imaging Data Foot x-ray: Attestation: I have reviewed the pertinent imaging results. Radiologist's impression: FINDINGS: The left foot is examined with AP, lateral, and oblique views. There is no sign of fracture or dislocation. The soft tissues are normal in appearance without sign of radio-opaque foreign body. No degenerative changes are seen. IMPRESSION: Normal left foot. Discharge Plan Discharge Clinical Impression: Contusion of foot Patient Disposition: Home, Self-Care Condition: Stable Additional Instructions: Rest, elevate and ice the foot. Do not apply ice directly to skin. Use walking shoe when out walking for the next at least several days and then as needed. Follow-up with your primary care provider if you are not noticing that the foot is getting better over the next several days. Prescriptions: No Action fluticasone propion-salmeterol [Advair Diskus] 250-50 mcg/dose blister with device 1 inh inhalation DAILY metoclopramide HCl [Reglan] 5 mg tablet 5 mg PO TID PRN Rx Instructions: Take 30 minutes AC scopolamine base 1 mg over 3 days patch 3 day 1 patch transdermal Q3D PRN (Reason: nausea and vomiting) Qty: 4 1RF cyanocobalamin (vitamin B-12) 1,000 mcg/mL solution 1,000 mcg subcut Q4W Qty: 3 3RF ondansetron 4 mg tablet,disintegrating 4 mg PO Q8H PRN (Reason: nausea and vomiting) Qty: 20 1RF fluoxetine [Prozac] 20 mg capsule 20 mg PO QDAY Qty: 30 1RF lorazepam [Ativan] 1 mg tablet 0.5 - 1 mg PO BID PRN (Reason: anxiety) Qty: 30 0RF ipratropium-albuterol 0.5 mg-3 mg(2.5 mg base)/3 mL solution for nebulization 1 ml inhalation QID albuterol sulfate [Ventolin HFA] 90 mcg/actuation HFA aerosol inhaler 2 puff inhalation Q6H PRN (Reason: bronchospasm) Qty: 8.5 9RF cholecalciferol (vitamin D3) 1,250 mcg (50,000 unit) capsule 1,250 mcg PO QWEEK Qty: 12 3RF Follow Up/Referrals: Julio Cesar Antoine MD [Primary Care Provider] - Stand Alone Forms: [facility] Info Instructions
== END 2023-02-25 18:00 | disposition home or self-care (01) ==
PROVIDERS: Emergency Provider Family Medicine; PCP Family Medicine
DX: S90.32XA Contusion of left foot, initial encounter (principal); W20.8XXA Other cause of strike by thrown, projected or falling object, initial encounter
CPT/HCPCS: 73630; 99283; 99284

== ENCOUNTER 2023-07-29 11:34 | Emergency (ER) | payer MEDICARE, BC, SELFPAY ==
[2023-07-29] VITALS (24 sets, daily range): BP systolic 138–173; BP diastolic 78–104; PULSE 54–71; RESP 18; TEMP 36.4; O2SAT 93–99; BMI 27.4
--- NOTE | 2023-07-29 12:15 | ED_ITS ---
HPI - Chest Pain General Time Seen by Provider: 12:15 <Suyapa Flynn Filed: 07/29/23 13:37> Date Seen: 07/29/23 <Suyapa Flynn Filed: 07/29/23 13:37> Chief Complaint: Chest Pain <Suyapa Flynn Filed: 07/29/23 13:37> Stated Complaint: chest tightness, dull ache L side <Suyapa Flynn Filed: 07/29/23 13:37> Time Seen by Provider: 07/29/23 11:49 <Suyapa Flynn Filed: 07/29/23 13:37> Source: patient <Suyapa Flynn Filed: 07/29/23 13:37> Mode of arrival: ambulatory <Suyapa Flynn Filed: 07/29/23 13:37> Limitations: no limitations <Suyapa Flynn Filed: 07/29/23 13:37> History of Present Illness HPI narrative: Patient presents with an episode of left-sided chest pain radiating to her left scapula and down her left arm today which lasted for approximately 20-30 minutes. Patient has been experiencing these episodes daily for the past couple of months. Her pain is alleviated by rest and chewing 3-4 baby aspirin. The pain is aggravated by exercise. Currently, the patient's pain is a 1/10, but during the episodes it shoots to a 10/10. She describes the pain as a dull ache which then worsens to a sharp pain. Over the past few days the patient has been feeling more fatigued than normal. Denies fevers, chills, unexpected weight changes, cough, shortness of breath, abdominal pain, nausea, vomiting, urinary or bowel changes, or any other complaints at this time. No recent illness. No recent travel. No one else at home is sick. She takes 81 mg baby aspirin daily. Patient used to have hypertension, but states that after her gastric bypass she is no longer on medications. Denies hypercholesteremia. Her grandmother of a heart attack at age 93. Patient takes 50,000 of vitamin- D, Ativan, inhaler, and Prozac. She has a history of carpal tunnel in her left wrist. <Suyapa Flynn Filed: 07/29/23 13:37> Related Data Home Medications: Home Medications Medication Instructions Recorded Confirmed ipratropium 0.5 mg-albuterol 3 mg 1 ml inhalation QID 07/06/22 04/29/23 (2.5 mg base)/3 mL nebulization soln metoclopramide HCl 5 mg tablet 5 mg PO TID PRN 11/02/22 04/29/23 (Reglan) Previous Rx's Medication Instructions Recorded cyanocobalamin (vitamin B-12) 1,000 mcg subcut Q4W #3 mL 11/02/22 1,000 mcg/mL injection solution scopolamine base 1 mg over 3 days 1 patch transdermal Q3D PRN nausea 11/02/22 transdermal patch and vomiting #4 ea cholecalciferol (vitamin D3) 1,250 1,250 mcg PO QWEEK #12 caps 12/21/22 mcg (50,000 unit) capsule albuterol sulfate 90 mcg/actuation 2 puff inhalation Q6H PRN 03/09/23 aerosol inhaler (Ventolin HFA) bronchospasm #8.5 grams fluoxetine 40 mg capsule 40 mg PO QDAY #90 caps 04/29/23 ondansetron 4 mg disintegrating 4 mg PO Q8H PRN nausea and 04/29/23 tablet vomiting #20 tabs fluticasone 250 mcg-salmeterol 50 1 inh inhalation DAILY #60 ea 05/13/23 mcg/dose blistr powdr for inhalation (Advair Diskus) lorazepam 1 mg tablet (Ativan) 0.5 - 1 mg (0.5 - 1 x 1 mg) PO BID 06/25/23 PRN anxiety #30 tabs <Suyapa Cuevas - Last Filed: 07/29/23 13:37> Allergies/Adverse Reactions: Allergies Allergy/AdvReac Type Severity Reaction Status Date / Time CRIS Inhibitors AdvReac Intermediate Cough Verified 04/29/23 08:05 oxycodone AdvReac Intermediate nausea and Verified 04/29/23 08:05 vomiting <Suyapa Cuevas - Last Filed: 07/29/23 13:37> Review of Systems Const Reports: fatigue; Denies: fever, chills or change in weight <uSyapa Cuevas - Last Filed: 07/29/23 13:37> Eyes Denies: change in vision or blurry vision <Suyapa Cuevas - Last Filed: 07/29/23 13:37> ENMT Reports: neck pain (L side); Denies: throat pain <[facility] Last Filed: 07/29/23 13:37> Cardio Reports: chest pain; Denies: shortness of breath with exertion or shortness of breath when lying down <[facility] Last Filed: 07/29/23 13:37> Resp Denies: shortness of breath, cough, wheezing or pain on inspiration <[facility] Last Filed: 07/29/23 13:37> GI Denies: abdominal pain, nausea, vomiting, heartburn, diarrhea or constipation <[facility] Last Filed: 07/29/23 13:37> Denies: painful urination, urinary frequency, urinary urgency or urinary incontinence <[facility] Filed: 07/29/23 13:37> Musculo Reports: back pain (L scapular region) and neck pain (L side); Denies: extremity swelling, joint pain, limited range of motion or joint swelling <[facility] Last Filed: 07/29/23 13:37> Integ/Breast Denies: rash <[facility] Filed: 07/29/23 13:37> Neuro Denies: headache, numbness in extremities, weakness in extremities or dizziness <[facility] Last Filed: 07/29/23 13:37> Psych Denies: anxiety <[facility] Filed: 07/29/23 13:37> Endo Reports: fatigue <[facility] Filed: 07/29/23 13:37> Allergy/Immuno Denies: wheezing <[facility] Filed: 07/29/23 13:37> [facility], [facility] Medical History: Medical History (Updated 07/29/23 @ 15:47 by Rafael Molina MD) ELAN (generalized anxiety disorder) ?F41.1 - Generalized anxiety disorder (ICD-10) Ventral hernia ?K43.9 - Ventral hernia without obstruction or gangrene (ICD-10) Postprandial nausea ?R11.0 - Nausea (ICD-10) Arthritis of right acromioclavicular joint ?M19.011 - Primary osteoarthritis, right shoulder (ICD-10) B12 deficiency ?E53.8 - Deficiency of other specified B group vitamins (ICD-10) Perforated chronic gastric ulcer ?K25.5 - Chronic or unspecified gastric ulcer with perforation (ICD-10) Vitamin D deficiency ?E55.9 - Vitamin D deficiency, unspecified (ICD-10) Posttraumatic stress disorder ?F43.10 - Post-traumatic stress disorder, unspecified (ICD-10) Mild persistent asthma ?J45.30 - Mild persistent asthma, uncomplicated (ICD-10) Hypertension ?I10 - Essential (primary) hypertension (ICD-10) Chronic low back pain ?M54.50 - Low back pain, unspecified (ICD-10) ?G89.29 - Other chronic pain (ICD-10) <Suyapa Cuevas - Last Filed: 07/29/23 13:37> Surgical History: Surgical History (Updated 03/21/23 @ 17:56 by Julio Cesar Antoine MD) S/P hernia repair ?Z98.890 - Other specified postprocedural states (ICD-10) ?Z87.19 - Personal history of other diseases of the digestive system (ICD-10) H/O laparoscopy ?Z98.890 - Other specified postprocedural states (ICD-10) S/P cholecystectomy ?Z90.49 - Acquired absence of other specified parts of digestive tract (ICD- 10) S/P exploratory laparotomy ?Z98.890 - Other specified postprocedural states (ICD-10) H/O exploratory laparotomy ?Z98.890 - Other specified postprocedural states (ICD-10) History of shoulder surgery (07/17/22) ?Z98.890 - Other specified postprocedural states (ICD-10) History of arthroscopy of both knees ?Z98.890 - Other specified postprocedural states (ICD-10) S/P OWEN-BSO ?Z90.710 - Acquired absence of both cervix and uterus (ICD-10) ?Z90.722 - Acquired absence of ovaries, bilateral (ICD-10) ?Z90.79 - Acquired absence of other genital organ(s) (ICD-10) History of tonsillectomy and adenoidectomy ?Z90.89 - Acquired absence of other organs (ICD-10) Hx of section ?Z98.891 - History of uterine scar from previous surgery (ICD-10) History of total bilateral knee replacement ?Z96.653 - Presence of artificial knee joint, bilateral (ICD-10) History of gastric bypass (09/2020) ?Z98.84 - Bariatric surgery status (ICD-10) <Suyapa Cuevas - Last Filed: 07/29/23 13:37> Social History: Social History Narrative: , former smoker. Patient is currently staying home. What is your current living situation?: I presently have a place to live Problems where you live: no known problems In the past 12 months, utilities in danger of being shut off: yes In the past 12 mos, have been you worried that your food would run out before you had money to buy more?: never true In the past 12 mos, the food you bought just didn't last and you didn't have money to buy more?: never true Smoking Status: Never smoker Do you use any of these nicotine containing products: None Second hand tobacco smoke exposure: No How often do you have a drink containing alcohol: never How often do you have six or more drinks on one occasion: Never AUDIT-C Alcohol total score: 0 Non-prescribed substance use: denies use Caffeine: Yes (coffee) How often does anyone, including family, friends and others, physically hurt you : How often does anyone, including family, friends and others, insult or talk down to you: How often does anyone, including family, friends and others, threaten you with harm: How often does anyone, including family, friends and others, scream or curse at you: Little interest or pleasure in doing things: not at all Feeling down, depressed, or hopeless: not at all Are you using contraception or practicing any form of control: No (meopause - hysterectomy at 29) service: No <Suyapa Cuevas - Last Filed: 07/29/23 13:37> Exam Narrative Exam Narrative: General: Well-nourished, healthy appearing, in no apparent distress, female appearing her stated age. HENMT: Normocephalic, atraumatic, hearing grossly normal bilaterally. MMM, oropharynx normal. Eye: PERRLA, EOMs intact bilaterally, conjunctivae normal. Neck: Supple, no lymphadenopathy, no JVD. Thyroid normal. No carotid bruits. Heart: Regular rate and rhythm, S1 and S2, no rubs clicks or gallops. No tenderness to palpation. Lung: Symmetrical rise bilaterally, clear to auscultation. No wheezing, rhonchi, crackles. Abdomen: Inspection normal. Soft, nondistended, no tenderness to palpation. Back: Inspection normal, no CVA tenderness. <Suyapa Cuevas - Last Filed: 07/29/23 13:37> Const Vital Signs, click to edit/add: Vital Signs - 24 hr 07/29/23 11:43 07/29/23 11:44 07/29/23 11:45 Temperature Pulse Rate 65 63 63 Pulse Rate [Pulse Oximeter] Respiratory Rate Blood Pressure 173/98 H Blood Pressure [Left Upper Arm] Pulse Oximetry 99 99 99 Oxygen Delivery Method 07/29/23 11:47 07/29/23 12:00 07/29/23 12:02 Temperature 97.5 F L Pulse Rate 65 67 Pulse Rate [Pulse Oximeter] 71 Respiratory Rate 18 Blood Pressure 155/104 H Blood Pressure [Left Upper Arm] 173/98 H Pulse Oximetry 98 97 97 Oxygen Delivery Method Room Air 07/29/23 12:15 07/29/23 12:30 07/29/23 12:32 Temperature Pulse Rate 64 62 59 L Pulse Rate [Pulse Oximeter] Respiratory Rate Blood Pressure 147/90 H Blood Pressure [Left Upper Arm] Pulse Oximetry 99 97 96 Oxygen Delivery Method 07/29/23 12:45 07/29/23 13:00 07/29/23 13:02 Temperature Pulse Rate 61 62 65 Pulse Rate [Pulse Oximeter] Respiratory Rate Blood Pressure 148/87 H Blood Pressure [Left Upper Arm] Pulse Oximetry 96 96 95 Oxygen Delivery Method 07/29/23 13:15 07/29/23 13:30 07/29/23 13:32 Temperature Pulse Rate 62 57 L 59 L Pulse Rate [Pulse Oximeter] Respiratory Rate Blood Pressure 141/80 H Blood Pressure [Left Upper Arm] Pulse Oximetry 97 96 96 Oxygen Delivery Method 07/29/23 13:45 07/29/23 14:04 07/29/23 14:05 Temperature Pulse Rate 57 L 71 65 Pulse Rate [Pulse Oximeter] Respiratory Rate Blood Pressure Blood Pressure [Left Upper Arm] Pulse Oximetry 97 93 97 Oxygen Delivery Method 07/29/23 14:15 07/29/23 14:30 07/29/23 14:32 Temperature Pulse Rate 55 L 62 54 L Pulse Rate [Pulse Oximeter] Respiratory Rate Blood Pressure 138/80 Blood Pressure [Left Upper Arm] Pulse Oximetry 97 97 97 Oxygen Delivery Method 07/29/23 14:45 07/29/23 15:00 07/29/23 15:05 Temperature Pulse Rate 57 L 57 L 58 L Pulse Rate [Pulse Oximeter] Respiratory Rate Blood Pressure 138/78 Blood Pressure [Left Upper Arm] Pulse Oximetry 96 96 97 Oxygen Delivery Method <Suyapa Gall - Last Filed: 07/29/23 13:37> Vital Signs - 24 hr 07/29/23 11:43 07/29/23 11:44 07/29/23 11:45 Temperature Pulse Rate 65 63 63 Pulse Rate [Pulse Oximeter] Respiratory Rate Blood Pressure 173/98 H Blood Pressure [Left Upper Arm] Pulse Oximetry 99 99 99 Oxygen Delivery Method 07/29/23 11:47 07/29/23 12:00 07/29/23 12:02 Temperature 97.5 F L Pulse Rate 65 67 Pulse Rate [Pulse Oximeter] 71 Respiratory Rate 18 Blood Pressure 155/104 H Blood Pressure [Left Upper Arm] 173/98 H Pulse Oximetry 98 97 97 Oxygen Delivery Method Room Air 07/29/23 12:15 07/29/23 12:30 07/29/23 12:32 Temperature Pulse Rate 64 62 59 L Pulse Rate [Pulse Oximeter] Respiratory Rate Blood Pressure 147/90 H Blood Pressure [Left Upper Arm] Pulse Oximetry 99 97 96 Oxygen Delivery Method 07/29/23 12:45 07/29/23 13:00 07/29/23 13:02 Temperature Pulse Rate 61 62 65 Pulse Rate [Pulse Oximeter] Respiratory Rate Blood Pressure 148/87 H Blood Pressure [Left Upper Arm] Pulse Oximetry 96 96 95 Oxygen Delivery Method 07/29/23 13:15 07/29/23 13:30 07/29/23 13:32 Temperature Pulse Rate 62 57 L 59 L Pulse Rate [Pulse Oximeter] Respiratory Rate Blood Pressure 141/80 H Blood Pressure [Left Upper Arm] Pulse Oximetry 97 96 96 Oxygen Delivery Method 07/29/23 13:45 07/29/23 14:04 07/29/23 14:05 Temperature Pulse Rate 57 L 71 65 Pulse Rate [Pulse Oximeter] Respiratory Rate Blood Pressure Blood Pressure [Left Upper Arm] Pulse Oximetry 97 93 97 Oxygen Delivery Method 07/29/23 14:15 07/29/23 14:30 07/29/23 14:32 Temperature Pulse Rate 55 L 62 54 L Pulse Rate [Pulse Oximeter] Respiratory Rate Blood Pressure 138/80 Blood Pressure [Left Upper Arm] Pulse Oximetry 97 97 97 Oxygen Delivery Method 07/29/23 14:45 07/29/23 15:00 07/29/23 15:05 Temperature Pulse Rate 57 L 57 L 58 L Pulse Rate [Pulse Oximeter] Respiratory Rate Blood Pressure 138/78 Blood Pressure [Left Upper Arm] Pulse Oximetry 96 96 97 Oxygen Delivery Method <Rafael Molina MD - Last Filed: 07/29/23 15:49> Course Course ED Course: AIDET performed, vitals are stable at this time, workup will include ACS rule out, will obtain troponinI, EKG, CBC, CMP, lipase, IV placed, will give 0.4 mg nitro glycerin sublingual, as well as 324 mg baby aspirin, 15 mg IV Toradol for headache, wells criteria for PE is low risk, based on history and physical exam less likely PE or dissection, will plan to rule out and then set patient up for an exercise stress echo as an outpatient basis. Patient's calculated heart score for major cardiac events is low risk. Differential diagnosis include but not limited to ACS, NSTEMI, STEMI, aortic dissection, pulmonary embolism, pleurisy, costochondritis, pneumonia, myocarditis, pericarditis, GERD, pancreatitis, pneumothorax as well as other etiologies. <Rafael Molina MD - Last Filed: 07/29/23 15:49> Reevaluation(s) Time of Reevaluation #1: 13:54 <Rafael Molina MD - Last Filed: 07/29/23 15:49> Reevaluation #1: Sublingual nitroglycerin, no real changes, may patient's headache worse, this improved after IV Toradol 15 mg. EKG showed a normal sinus rhythm, bpm 67, no ectopy or acute ST changes, no comparisons. Point of care troponin 0.00, CBC showed mild anemia hemoglobin 10.0, no leukocytosis, metabolic panel within normal limits, patient is feeling better after above care given, will plan to obtain imaging XR chest PA and lateral <Rafael Molina MD - Last Filed: 07/29/23 15:49> Time of Reevaluation #2: 14:48 <Rafael Molina MD - Last Filed: 07/29/23 15:49> Reevaluation #2: Imaging showed no acute cardiopulmonary process. Plan to repeat 2nd troponinI to make sure no delta, patient is pain-free at this time. <Rafael Molina MD - Last Filed: 07/29/23 15:49> Time of Reevaluation #3: 15:48 <Rafael Molina MD - Last Filed: 07/29/23 15:49> Reevaluation #3: Second troponin<0.01, patient is doing well emergency department, exercise stress test set for 08/10, she also reach out to Dr. Antoine set up follow-up appointment over the next 7-10 days, return if worsening symptoms. <Rafael Molina MD - Last Filed: 07/29/23 15:49> Vital Signs Vital signs: Initial Vital Signs Pulse Rate 65 07/29/23 11:43 Blood Pressure 173/98 H 07/29/23 11:43 Blood Pressure Mean 123 H 07/29/23 11:43 Pulse Oximetry 99 07/29/23 11:43 Vital Signs Pulse Rate 65 07/29/23 11:43 Blood Pressure 173/98 H 07/29/23 11:43 Pulse Oximetry 99 07/29/23 11:43 Temperature 97.5 F L 07/29/23 11:47 Pulse Rate 58 L 07/29/23 15:05 Respiratory Rate 18 07/29/23 11:47 Blood Pressure 138/78 07/29/23 15:05 Pulse Oximetry 97 07/29/23 15:05 Oxygen Delivery Method Room Air 07/29/23 11:47 <Suyapa Cuevas - Last Filed: 07/29/23 13:37> Initial Vital Signs Pulse Rate 65 07/29/23 11:43 Blood Pressure 173/98 H 07/29/23 11:43 Blood Pressure Mean 123 H 07/29/23 11:43 Pulse Oximetry 99 07/29/23 11:43 Vital Signs Pulse Rate 65 07/29/23 11:43 Blood Pressure 173/98 H 07/29/23 11:43 Pulse Oximetry 99 07/29/23 11:43 Temperature 97.5 F L 07/29/23 11:47 Pulse Rate 58 L 07/29/23 15:05 Respiratory Rate 18 07/29/23 11:47 Blood Pressure 138/78 07/29/23 15:05 Pulse Oximetry 97 07/29/23 15:05 Oxygen Delivery Method Room Air 07/29/23 11:47 <Rafael Molina MD - Last Filed: 07/29/23 15:49> Medications Administered Medications: Discontinued Medications Generic Name Dose Route Start Last Admin Trade Name Freq PRN Reason Stop Dose Admin Aspirin 324 mg 07/29/23 12:43 07/29/23 13:03 Aspirin 81 Mg Tab.Chew PO 07/29/23 12:44 324 mg ONCE ONE Administration Sodium Chloride 1,000 mls @ 1,000 mls/hr 07/29/23 12:43 07/29/23 13:56 0.9 % Sodium Chloride 1000 Ml IV 07/29/23 13:42 Infused .Q1H KEYANA Infusion Nitroglycerin 0.4 mg 07/29/23 12:43 07/29/23 13:03 Nitroglycerin 0.4 Mg Tab.Subl SUBLINGUAL 07/29/23 12:44 0.4 mg ONCE ONE Administration <Suyapa Cuevas - Last Filed: 07/29/23 13:37> Discontinued Medications Generic Name Dose Route Start Last Admin Trade Name Freq PRN Reason Stop Dose Admin Aspirin 324 mg 07/29/23 12:43 07/29/23 13:03 Aspirin 81 Mg Tab.Chew PO 07/29/23 12:44 324 mg ONCE ONE Administration Sodium Chloride 1,000 mls @ 1,000 mls/hr 07/29/23 12:43 07/29/23 13:56 0.9 % Sodium Chloride 1000 Ml IV 07/29/23 13:42 Infused .Q1H KEYANA Infusion Nitroglycerin 0.4 mg 07/29/23 12:43 07/29/23 13:03 Nitroglycerin 0.4 Mg Tab.Subl SUBLINGUAL 07/29/23 12:44 0.4 mg ONCE ONE Administration <Rafael Molina MD - Last Filed: 07/29/23 15:49> MDM - Chest Pain MDM Narrative Medical decision making narrative: Patient is a 63-year-old female with a pertinent history of hypertension, asthma, and gastric bypass who presents today with an episode of exercise induced left-sided chest pain radiating to her left scapula and down her left arm. Patient has been experiencing similar episodes daily for the past few months. She takes 81 mg aspirin daily, but during these 20 to 30 minute episodes of chest pain she chews 3-4 additional tablets. Her chest pain is alleviated by rest. On exam, patient is afebrile, well-appearing, and answering questions appropriately without any difficulty. She is hypertensive, otherwise vital signs are stable. Patient is experiencing some heaviness in her chest, will give aspirin and nitro. Regular rate and rhythm and lungs are clear to auscultation, physical exam is otherwise unremarkable. No tenderness to palpation of the chest, therefore low suspicion of costochondritis. Based on her history, it is likely the patient is experiencing stable angina, but will order troponin, EKG, and labs to rule out unstable angina, CAD, STEMI, and NSTEMI. EKG is unremarkable today, no comparisons. Considered a D-dimer, but per Wells criteria, patient is not tachycardic, tachypneic, or hypoxic, with no pleuritic chest pain or shortness of breath on physical exam, I do not feel this is necessary at this time. Patient's heart score is low (3) with a negative Troponin, will repeat in 2 hours. Second troponin was Patient is anemic as CBC shows low hemoglobin of 10.3, low MCV at 73, low MCH at 22. Will recommend the patient follow up with her primary care provider to have this further assessed and possibly started on iron pills. Her AST is mildly elevated today. Patient is scheduled for a treadmill stress test for August 10. <Suyapa Cuevas Gee Filed: 07/29/23 13:37> Differential Diagnosis Differential diagnosis: Likely stable angina, unstable angina pectoris, atypical chest pain, st elevation myocardial infarction and chest pain <Suyapa Flynn Filed: 07/29/23 13:37> Medical Records Data Attestation: I reviewed the patient's medical records. <Suyapa Flynn Filed: 07/29/23 13:37> Lab Data Attestation: I reviewed the patient's lab results. <Suyapa Flynn Filed: 07/29/23 13:37> Labs: Lab Results 07/29/23 07/29/23 Range/Units 12:05 14:48 WBC 6.50 (4.50-11.00) K/uL RBC 4.69 (4.00-5.20) m/uL Hgb 10.3 L (12.0-16.0) gm/dL Hct 34.1 (33.0-51.0) % MCV 73 L (80-100) fL MCH 22 L (26-34) pg MCHC 30 L (32-36) gm/dL RDW Coeff of Tanja 17.6 H (11.5-15.5) % Plt Count 264 (140-440) K/uL Neut % (Auto) 57.1 (42.0-72.0) % Lymph % (Auto) 31.4 (20-44) % [place] % (Auto) 8.0 (0.0-11.0) % Eos % (Auto) 2.8 (0.0-7.0) % Baso % (Auto) 0.5 (0.0-3.0) % Neut # (Auto) 3.72 (1.7-7.0) K/uL Lymph # (Auto) 2.04 (0.90-2.90) K/uL [place] # (Auto) 0.50 (0.00-0.90) K/UL Eos # (Auto) 0.18 (0.00-0.50) K/uL Baso # (Auto) 0.03 (0.00-0.30) K/uL Abs Immat Gran (auto) 0.01 (0.00-0.30) K/uL Imm/Tot Granulo (auto) 0.2 % Sodium 138 (135-149) mmol/L Potassium 4.0 (3.6-5.1) mmol/L Chloride 106 (96-114) mmol/L Carbon Dioxide 25 (20-32) mmol/L Anion Gap 7 (7-15) mEq/L BUN 11 (7-30) mg/dL Creatinine 0.6 (0.5-1.5) mg/dL Estimated Creat Clear 46.13 Estimated GFR 101 ml/min Glucose 96 (60-115) mg/dL Calcium 8.7 (8.4-10.6) mg/dL Total Bilirubin 0.2 (0.1-1.5) mg/dL AST 37 H (12-35) U/L ALT 22 (4-35) U/L Alkaline Phosphatase 107 (40-150) U/L Troponin I < 0.01 L (0.01-0.04) ng/mL Total Protein 6.9 (6.0-8.3) g/dL Albumin 4.2 (3.3-5.0) g/dL Lipase 54 (23-300) U/L POC Troponin I 0.00 L (0.01-0.04) ng/ml <Suyapa Cuevas - Gee Filed: 07/29/23 13:37> Lab Results 07/29/23 07/29/23 Range/Units 12:05 14:48 WBC 6.50 (4.50-11.00) K/uL RBC 4.69 (4.00-5.20) m/uL Hgb 10.3 L (12.0-16.0) gm/dL Hct 34.1 (33.0-51.0) % MCV 73 L (80-100) fL MCH 22 L (26-34) pg MCHC 30 L (32-36) gm/dL RDW Coeff of Tanja 17.6 H (11.5-15.5) % Plt Count 264 (140-440) K/uL Neut % (Auto) 57.1 (42.0-72.0) % Lymph % (Auto) 31.4 (20-44) % [place] % (Auto) 8.0 (0.0-11.0) % Eos % (Auto) 2.8 (0.0-7.0) % Baso % (Auto) 0.5 (0.0-3.0) % Neut # (Auto) 3.72 (1.7-7.0) K/uL Lymph # (Auto) 2.04 (0.90-2.90) K/uL [place] # (Auto) 0.50 (0.00-0.90) K/UL Eos # (Auto) 0.18 (0.00-0.50) K/uL Baso # (Auto) 0.03 (0.00-0.30) K/uL Abs Immat Gran (auto) 0.01 (0.00-0.30) K/uL Imm/Tot Granulo (auto) 0.2 % Sodium 138 (135-149) mmol/L Potassium 4.0 (3.6-5.1) mmol/L Chloride 106 (96-114) mmol/L Carbon Dioxide 25 (20-32) mmol/L Anion Gap 7 (7-15) mEq/L BUN 11 (7-30) mg/dL Creatinine 0.6 (0.5-1.5) mg/dL Estimated Creat Clear 46.13 Estimated GFR 101 ml/min Glucose 96 (60-115) mg/dL Calcium 8.7 (8.4-10.6) mg/dL Total Bilirubin 0.2 (0.1-1.5) mg/dL AST 37 H (12-35) U/L ALT 22 (4-35) U/L Alkaline Phosphatase 107 (40-150) U/L Troponin I < 0.01 L (0.01-0.04) ng/mL Total Protein 6.9 (6.0-8.3) g/dL Albumin 4.2 (3.3-5.0) g/dL Lipase 54 (23-300) U/L POC Troponin I 0.00 L (0.01-0.04) ng/ml <Rafael Molina MD - Last Filed: 07/29/23 15:49> ECG Data Attestation: I personally reviewed and interpreted this ECG as follows: <Suyapa Mason Filed: 07/29/23 13:37> ECG interpretation date: 07/29/23 <Suyapa Mason [employer] Last Filed: 07/29/23 13:37> ECG interpretation time: 12:25 <Suyapa PerfectPost Filed: 07/29/23 13:37> Prior ECG tracings: not available for review <Suyapa PerfectPost Filed: 07/29/23 13:37> Interpretation: Normal sinus rhythm 67 bpm No axis deviation Normal OH interval Normal QT interval Nonspecific ST changes No comparison <Suyapa PerfectPost Filed: 07/29/23 13:37> Discharge Plan Discharge Clinical Impression: Chest pain <Suyapa PerfectPost Filed: 07/29/23 13:37> Patient Disposition: Home, Self-Care <[employer] Filed: 07/29/23 13:37> Condition: Improved <[employer] Filed: 07/29/23 13:37> Instructions: Chest Pain (ED), Chest Pain (DC) <Suyapa Cuevas - Filed: 07/29/23 13:37> Additional Instructions: Your Stress Treadmill Echo is scheduled for 08/10 with a 1:45pm arrival time. Please enter through the [place] [facility] and check in at the dental front office assistant. Please follow the instructions that was provided to you on the Stress Test pamphlet. You will receive a reminder call a day before your Stress Test. If you have any questions or need to reschedule, please call [phone]. To follow up with Dr. Antoine, over the next 7-10 days for ER follow-up and recheck. Return if worsening symptoms. <Suyapa Flynn Filed: 07/29/23 13:37> Prescriptions: No Action metoclopramide HCl [Reglan] 5 mg tablet 5 mg PO TID PRN Rx Instructions: Take 30 minutes AC scopolamine base 1 mg over 3 days patch 3 day 1 patch transdermal Q3D PRN (Reason: nausea and vomiting) Qty: 4 1RF cyanocobalamin (vitamin B-12) 1,000 mcg/mL solution 1,000 mcg subcut Q4W Qty: 3 3RF fluoxetine 40 mg capsule 40 mg PO QDAY Qty: 90 1RF ondansetron 4 mg tablet,disintegrating 4 mg PO Q8H PRN (Reason: nausea and vomiting) Qty: 20 1RF ipratropium-albuterol 0.5 mg-3 mg(2.5 mg base)/3 mL solution for nebulization 1 ml inhalation QID cholecalciferol (vitamin D3) 1,250 mcg (50,000 unit) capsule 1,250 mcg PO QWEEK Qty: 12 3RF albuterol sulfate [Ventolin HFA] 90 mcg/actuation HFA aerosol inhaler 2 puff inhalation Q6H PRN (Reason: bronchospasm) Qty: 8.5 9RF fluticasone propion-salmeterol [Advair Diskus] 250-50 mcg/dose blister with device 1 inh inhalation DAILY Qty: 60 5RF lorazepam [Ativan] 1 mg tablet 0.5 - 1 mg PO BID PRN (Reason: anxiety) Qty: 30 0RF <Suyapa Flynn Filed: 07/29/23 13:37> Follow Up/Referrals: Julio Cesar Antoine MD [Primary Care Provider] - <Suyapa Cuevas - Last Filed: 07/29/23 13:37> Stand Alone Forms: MyHealth Info Instructions <Suyapa Cuevas - Last Filed: 07/29/23 13:37>
[2023-07-29 12:17] LABS: Basophils Absolute Auto 0.03 K/uL (0.00-0.30); Basophils Percent Auto 0.5 % (0.0-3.0); Eosinophils Absolute Auto 0.18 K/uL (0.00-0.50); Eosinophils Percent Auto 2.8 % (0.0-7.0); Hematocrit 34.1 % (33.0-51.0); Hemoglobin* 10.3 gm/dL (12.0-16.0); Immature Granulocytes Abs Auto 0.01 K/uL (0.00-0.30); Immature Granulocytes Pct Auto 0.2 %; Lymphocytes Absolute Auto 2.04 K/uL (0.90-2.90); Lymphocytes Percent Auto 31.4 % (20-44); Mean Corpuscular HGB Conc 30 gm/dL (32-36); Mean Corpuscular Hemoglobin 22 pg (26-34); Mean Corpuscular Volume 73 fL (80-100); Neutrophils Absolute Auto 3.72 K/uL (1.7-7.0); Neutrophils Percent Auto 57.1 % (42.0-72.0); Platelet Count* 264 K/uL (140-440); RDW Coefficient of Variation % 17.6 % (11.5-15.5); Red Blood Count 4.69 m/uL (4.00-5.20)
[2023-07-29 12:31] LABS: Slide Review Reflex No
[2023-07-29 12:33] LABS: Albumin* 4.2 g/dL (3.3-5.0); Chloride* 106 mmol/L (96-114); Sodium* 138 mmol/L (135-149)
[2023-07-29 12:36] LABS: Alanine Aminotransferase* 22 U/L (4-35); Alkaline Phosphatase* 107 U/L (40-150); Anion Gap 7 mEq/L (7-15); Aspartate Amino Transferase* 37 U/L (12-35); Bilirubin Total* 0.2 mg/dL (0.1-1.5); Blood Urea Nitrogen* 11 mg/dL (7-30); Carbon Dioxide* 25 mmol/L (20-32); Creatinine* 0.6 mg/dL (0.5-1.5); Est. Creatinine Clearance* 46.13; Estimated Glomerular Filt Rate 101 ml/min; Glucose* 96 mg/dL (60-115); Total Protein* 6.9 g/dL (6.0-8.3)
[2023-07-29 12:37] LABS: Calcium* 8.7 mg/dL (8.4-10.6); Lipase* 54 U/L (23-300)
[2023-07-29] MEDS: 0.9 % SODIUM CHLORIDE 1000 ml 1,000 ML IV (13:03)
[2023-07-29] MEDS: NITROGLYCERIN 0.4 MG TAB.SUBL SUBLINGUAL (13:03)
[2023-07-29] MEDS: ASPIRIN 81 MG TAB.CHEW 324 MG PO (13:03)
--- NOTE | 2023-07-29 13:12 | ED.NURSE ---
reports that the pain is gone after the nitro and aspirin, headache remains. is feeling blah though.
--- NOTE | 2023-07-29 13:49 | CRLHL7_ITS ---
For Patients: As a result of the Century Cures Act, medical imaging exams and procedure reports are released immediately into your electronic medical record. You may view this report before your referring provider. If you have questions, please contact your health care provider. Indication: Left-sided chest pain Technique: Chest 2 views Comparison: None Findings/Impression: Cardiovascular and mediastinum: Normal heart size with atherosclerotic calcification. Lungs and pleural spaces: Lungs are clear. No sign of infiltrate or mass. No sign of pleural effusion. No pneumothorax. Bones and soft tissues: Surgical clips within the upper abdomen. Borderline diameter loops of small bowel within the left upper quadrant. Dictated by Alireza Yeager MD @ 07/29/2023 2:29:58 PM (Electronically Signed)
[2023-07-29 15:33] LABS: Troponin I* < 0.01 ng/mL (0.01-0.04)
== END 2023-07-29 16:03 | disposition home or self-care (01) ==
PROVIDERS: Emergency Provider Student in an Organized Health Care Education/Training Program; PCP Family Medicine
DX: R07.9 Chest pain, unspecified (principal)
CPT/HCPCS: 36415; 71046; 80053; 83690; 84484; 85025; 93005; 96360; 99283; 99284; 99285; A9270; J7030

== ENCOUNTER 2023-08-10 13:27 | Outpatient (CLI) | payer MEDICARE, BC, SELFPAY ==
[2023-08-10 14:38] VITALS: BP 144/80; PULSE 73; RESP 16
--- NOTE | 2023-08-10 16:22 | P.STN_ITS ---
Stress Test Note Date Date of test: 08/10/23 Providers Primary care provider: Julio Cesar Antoine Stress test physician: Wily Lopez Stress Test Note Stress test ordered: Stress Echo Indication for test: Chest pain Results discussion: Patient is a very pleasant 63-year-old female who presents here with the above- stated complaint, cardiac stress test medical history form is reviewed entirely, and the risks benefits and side effects of this test are discussed in detail she except season would like to proceed. Pretest EKG shows normal sinus rhythm with a ventricular rate of 59, blood pressure 150/84. No acute ST wave changes are notable. Standard Ender protocol is employed over a time course of 5 minutes 32 seconds and she achieved a metabolic equivalent of 7.1 Mets, test is terminated because of attainment of maximum heart rate, overall fatigue. She did not have any chest pain suggestive of ischemia, there is no significant ST wave changes suggestive also. There is no dysrhythmias. Impression: Negative electrographic portion of stress echo Follow up suggested: Await echo images, these will be read by Cardiology, clinical correlation with these will be needed. She left this testing facility in excellent condition.
== END 2023-08-10 13:28 | disposition home or self-care (01) ==
LOC: STRESS 13:28
PROVIDERS: PCP Family Medicine; Visit Provider Family Medicine
DX: R07.89 Other chest pain (principal)
CPT/HCPCS: 93016; 93325; 93351

== ENCOUNTER 2023-08-16 15:00 | Outpatient (CLI) | payer MEDICARE, BC, SELFPAY | END 2023-08-16 15:01 | disposition home or self-care (01) | PROVIDERS: PCP Family Medicine; Visit Provider Family Medicine | DX: D50.9 Iron deficiency anemia, unspecified (principal) | CPT/HCPCS: 82728; 83540; 85025 ==

== ENCOUNTER 2023-08-27 07:22 | Outpatient (RCR) | payer MEDICARE, BC, SELFPAY ==
--- NOTE | 2023-08-17 15:17 | URNOTE ---
REceived request for prior auth for Ferric Carboxymaltose ([id number]). No PA required as Pt has medicare primary. Services are based on medical necessity and follow medicare guidelines
[2023-08-20 08:24] VITALS: BP 137/78; PULSE 67; RESP 16; TEMP 36.7; O2SAT 99
[2023-08-20] MEDS: FERRIC CARBOXYMALTOSE 750 MG in 0.9 % SODIUM CHLORIDE 250 ml 250 ML 1060 MG IVPB (08:49)
[2023-08-20 09:18] VITALS: BP 137/82; PULSE 67; RESP 16; TEMP 36.7; O2SAT 97
[2023-08-20 10:00] VITALS: BP 144/84; PULSE 76; RESP 16; TEMP 36.7; O2SAT 97
[2023-08-27 09:10] VITALS: BP 108/73; PULSE 68; RESP 16; TEMP 36.4; O2SAT 97
[2023-08-27] MEDS: FERRIC CARBOXYMALTOSE 750 MG in 0.9 % SODIUM CHLORIDE 250 ml 250 ML 1060 MG IVPB (09:25)
[2023-08-27] MEDS: 0.9 % SODIUM CHLORIDE 250 ml IV (09:26)
[2023-08-27] MEDS: SODIUM CHLORIDE 0.9 % (FLUSH) 10 ML SYRINGE IVF (09:26)
[2023-08-27 10:03] VITALS: BP 131/74; PULSE 58; RESP 14; TEMP 36.9; O2SAT 95
[2023-08-27 11:02] VITALS: BP 148/78; PULSE 60; RESP 14; TEMP 36.8; O2SAT 97
== END 2024-02-16 23:59 | disposition home or self-care (01) ==
LOC: CCIC 07:22
PROVIDERS: PCP Family Medicine; Referring Provider Family Medicine; Visit Provider Family Medicine
DX: D50.9 Iron deficiency anemia, unspecified (principal)
CPT/HCPCS: 96365; 96374; J1439; J7050

== ENCOUNTER 2023-09-02 11:27 | Outpatient (CLI) | payer MEDICARE, BC, SELFPAY ==
--- NOTE | 2023-09-02 12:50 | W.ANESCHARGE ---
Anesthesia Charges Start Date/Time Anesthesia Start Date: 09/02/23 Anesthesia Start Time: 12:25 Stop Date/Time Anesthesia Stop Date: 09/02/23 Anesthesia Stop Time: 12:56
--- NOTE | 2023-09-02 12:58 | W.ANESCHARGE ---
Anesthesia Charges Start Date/Time Anesthesia Start Date: 09/02/23 Anesthesia Start Time: 12:25 Stop Date/Time Anesthesia Stop Date: 09/02/23 Anesthesia Stop Time: 12:56
== END 2023-09-02 11:28 | disposition home or self-care (01) ==
LOC: OP CLINIC 11:28
PROVIDERS: PCP Family Medicine; Visit Provider Internal Medicine
DX: D50.9 Iron deficiency anemia, unspecified (principal); K57.30 Diverticulosis of large intestine without perforation or abscess without bleeding; K21.9 Gastro-esophageal reflux disease without esophagitis; Z87.11 Personal history of peptic ulcer disease
CPT/HCPCS: 00813; 43239; 45378; 88305; J2704

== ENCOUNTER 2023-09-09 10:32 | Outpatient (CLI) | payer MEDICARE, BC, SELFPAY ==
--- OUTSIDE RECORDS SUMMARY | 2023-09-09 10:35 | XMS_ITS | Referral Summary ---
Author Name Unknown Organization [facility] Address [address] [place] [address] Phone Care Team Providers Care Customer Engineering Specialist Name Role Phone Julio Cesar Antoine Primary Care Provider [phone] Brendan Vargas Unavailable [phone] Source Comments This disclosure is being made pursuant to the Care Everywhere program,applicable federal and state laws, and may not contain all informationavailable regarding this patient.[facility] Practices Allergies Active Allergy Reactions Criticality Noted Date Comments Oxycodone Nausea & Vomiting Low 04/06/2022 Medications Medication Sig Dispensed Refills Start Date End Date Status fluticasone-salme terol (ADVAIR DISKUS 250-50) 250-50 mcg/dose diskus inhaler Use 1 puff by inhalation 2 times daily. 0 Active albuterol 90 mcg/actuation HFA inhaler Use 2 puffs by inhalation every 4 hours as needed. 0 Active OTHER BariMelts Multivitamin - Take 1 tablet by mouth daily. 0 Active acetaminophen 160 mg/5 mL oral suspensionIndicat ions:Perforated viscus Take 20.5 mL (650 mg total) by mouth every 6 hours. 472 mL 0 04/09/2022 Active pantoprazole 40 mg delayed release tabletIndications :Perforated viscus,Pneumoperi toneum Take 1 tablet (40 mg total) by mouth daily. 30 tablet 0 04/09/2022 Active cholecalciferol (VITAMIN D3) 25 mcg (1,000 unit) capsule Take 1,000 mg by mouth daily. 0 01/28/2021 Active cyanocobalamin (VITAMIN B-12) 1,000 mcg/mL injection Inject intramuscularly every month. 0 01/28/2021 Active Active Problems Problem Noted Date Diagnosed Date S/P exploratory laparotomy 04/24/2022 Asthma 04/09/2022 Overview: Monitor vitals, resume home medications as appropriate Hypercholesterolemia 04/09/2022 Overview: Resume home medications as appropriate Hypertension 04/09/2022 Overview: Monitor vitals, resume home medications as appropriate Pneumoperitoneum 04/06/2022 Overview: Patient taken to the OR and found to have a perforation in the distal gastric remnant. Surgically repaired and treated with antibiotics. Social History Tobacco Use Types Packs/Day Years Used Date Smoking Tobacco: Former Cigarettes Q uit: 08/30/2010 Smokeless Tobacco: Never Alcohol Use Standard Drinks/Week Comments Never 0 (1 standard drink = 0.6 oz pur e alcohol) Sex and Gender Information Value Date Recorded Sex Assigned at Not on file Gender Identity Not on file Sexual Orientation Not on file Last Filed Vital Signs Vital Sign Reading Time Taken Comments Blood Pressure 140/81 04/24/2022 1:51 PM CDT Pulse 77 04/24/2022 1:51 PM CDT Temperature 36.5 ??C (97.7 ??F) 04/24/2022 1:51 PM CD T Respiratory Rate 18 04/09/2022 12:38 PM CDT Oxygen Saturation 97% 04/09/2022 7:32 AM CDT Inhaled Oxygen Concentration - - Weight 67.4 kg (148 lb 9.4 oz) 04/24/2022 1:51 P M CDT Height 157.5 cm (5' 2) 04/24/2022 1:51 PM CDT Body Mass Index 27.18 04/24/2022 1:51 PM CDT Plan of Treatment Not on file Advance Directives For more information, please contact: [phone] Latest Code Status on File Code Status Date Activated Date Inactivated Comments Full Code 04/06/2022 8:57 AM 04/09/2022 5:04 PM Code Status History Code Status Date Activated Date Inactivated Comments Full Code 04/06/2022 2:42 AM 04/06/2022 8:57 AM Care Teams Customer Engineering Specialist Relationship Specialty Start Date End Date Julio Cesar Antoine [address] [place], [place] [address] [address] PCP - General Family Practice 04/06/22 Brendan Vargas [address] [place] [address] Restaurant Bartender General Surgery 04/07/22
--- OUTSIDE RECORDS SUMMARY | 2023-09-09 10:35 | XMS_ITS | Encounter Summary ---
Author Name Unknown Organization [facility] Address [address] [place] [address] Phone Care Team Providers Care Darklight Inspector Name Role Phone Julio Cesar Antoine Primary Care Provider [phone] Brendan Vargas Unavailable [phone] Encounter Details Date Type Department Care Team (Late st Contact Info) Description 04/09/2022 Pharmacy Visit [facility] [address] [place] [address] Social History Tobacco Use Types Packs/Day Years Used Date Smoking Tobacco: Former Cigarettes Q uit: 08/30/2010 Smokeless Tobacco: Never Alcohol Use Standard Drinks/Week Comments Never 0 (1 standard drink = 0.6 oz pur e alcohol) Sex and Gender Information Value Date Recorded Sex Assigned at Not on file Gender Identity Not on file Sexual Orientation Not on file documented as of this encounter Plan of Treatment Not on file documented as of this encounter Visit Diagnoses Not on filedocumented in this encounter Care Teams Darklight Inspector Relationship Specialty Start Date End Date Julio Cesar Antoine [address] [place] [id number] PCP - General Family Practice 04/06/22 Brendan Vargas [address] [place] [address] Molasses Preparer General Surgery 04/07/22 documented as of this encounter
--- OUTSIDE RECORDS SUMMARY | 2023-09-09 10:35 | XMS_ITS | Clinical Summary ---
Author Name Unknown Organization [facility] Address [address] [place] [address] Phone Care Team Providers Care Seat Nailer Name Role Phone Julio Cesar Antoine Primary Care Provider [phone] Brendan Vargas Unavailable [phone] Source Comments This disclosure is being made pursuant to the Care Everywhere program,applicable federal and state laws, and may not contain all informationavailable regarding this patient.[facility] and [facility] Practices Allergies Active Allergy Reactions Criticality Noted [...] 04/24/2022 1:51 PM CDT Plan of Treatment Health Maintenance Due Date Last Done Comments Prediabetes and Type 2 Diabetes Screening 1961 [id number] Vaccine (#1) 1961 Annual Physical Visit 1964 HIV [place] Screening 1976 HCV Screening 1979 Tetanus Diphtheria Pertussis (1 - Tdap) 1980 Cervical Cancer Screening 1982 Lipid Disorder Screening [address] Colonography 2006 Colonoscopy 2006 Colorectal Screening 2006 FIT-DNA 2006 FIT 2006 FOBT 2006 Flex Sigmoidoscopy 2006 Zoster Vaccine (1 of 2) 2011 RSV Vaccine (1 - 1-dose 60+ series) 2021 Influenza Vaccine: Seasonal (#1) 03/30/2023 Advance Directives For more information, please contact: [phone] Latest Code Status on File Code Status Date Activated Date Inactivated Comments Full Code 04/06/2022 8:57 AM 04/09/2022 5:04 PM Code Status History Code Status Date Activated Date Inactivated Comments Full Code 04/06/2022 2:42 AM 04/06/2022 8:57 AM Care Teams Seat Nailer Relationship Specialty Start Date End Date Julio Cesar Antoine [address] [place] [address] PCP - General Family Practice 04/06/22 Brendan Vargas [address] [place] [address] Shaker Out General Surgery 04/07/22
--- OUTSIDE RECORDS SUMMARY | 2023-09-09 10:35 | XMS_ITS | Clinical Summary ---
Author Name Unknown Organization [facility] Address [address] [place] [id number] Care Team Providers Care Slate Trimmer Name Role Phone Patient, None Per Primary Care Provider Unavaila ble Source Comments This disclosure is being made pursuant to the [employer] program and maynot contain all information available regarding this patient.[facility] Medications Medication Sig Dispensed Refills Start Date End Date Status fluticasone-salmete rol (ADVAIR DISKUS) 250-50 MCG/ACT inhaler Inhale 1 puff into the lungs 2 (two) times daily. 0 Active albuterol (PROVENTIL) (2.5 MG/3ML) 0.083% nebulizer solution Take 2.5 mg by nebulization every 4 (four) hours as needed for Wheezing. 0 Active Active Problems No known active problems Social History Tobacco Use Types Packs/Day Years Used Date Smoking Tobacco: Former Smokeless Tobacco: Never Sex and Gender Information Value Date Recorded Sex Assigned at Not on file Gender Identity Not on file Sexual Orientation Not on file Job Start Date Occupation Industry Not on file Not on file Not on file Last Filed Vital Signs Vital Sign Reading Time Taken Comments Blood Pressure 149/86 04/05/2022 9:39 PM CDT Pulse 82 04/05/2022 9:25 PM CDT Temperature 36.4 ??C (97.5 ??F) 04/05/2022 9:25 PM CD T Respiratory Rate 16 04/05/2022 9:25 PM CDT Oxygen Saturation 94% 04/05/2022 9:39 PM CDT Inhaled Oxygen Concentration - - Weight 69.4 kg (153 lb) 04/05/2022 5:13 PM CDT Height 157.5 cm (5' 2) 04/05/2022 5:13 PM CDT Body Mass Index 27.98 04/05/2022 5:13 PM CDT Plan of Treatment Health Maintenance Due Date Last Done Comments Breast Cancer Screening-Mammogram 1961 CT Colonography 1961 Colonoscopy 1961 Colorectal Cancer Screening 1961 Fecal DNA Test 1961 Lab-Cholesterol Screening 1961 Lab-Hepatitis C Screening 1961 Sigmoidoscopy 1961 COVID-19 Vaccine (#1) 1961 Annual Wellness Visit 1979 Tetanus/Pertussis Vaccine Teen/Adult (1 - Tdap) 1980 FOBT/FIT 1981 Cervical Cancer Screening-Pap Smear 1982 Zoster (Shingles) Vaccine 50 + (1 of 2) 2011 RSV Adult (1 - 1-dose 60+ series) 2021 Influenza Vaccine (#1) 2023 HIB Vaccine Aged Out No longer eligi ble based on patient's age to complete this topic HPV Vaccine ([id number],M: 9-22) Aged Out No longer eligible based on patient's age to complete this topic Hepatitis A Vaccine Aged Out No longe r eligible based on patient's age to complete this topic IPV Vaccine Aged Out No longer eligi ble based on patient's age to complete this topic Meningococcal Conjugate Vaccine Aged Out No longer eligible based on patient's age to complete this topic Pneumococcal Vaccines 0-64 yo Aged Out No longer eligible based on patient's age to complete this topic RSV < 20 Months Aged Out No longer el igible based on patient's age to complete this topic Care Teams Slate Trimmer Relationship Specialty Start Date End Date Patient, None Per PCP - General 04/05/22
--- OUTSIDE RECORDS SUMMARY | 2023-09-09 10:35 | XMS_ITS | Clinical Summary ---
Author Name Unknown Organization [employer] Address [place], [place] [address] Care Team Providers Care Manager Cardiovascular Name Role Phone Julio Cesar Antoine MD Primary Care Provider + [facility] - Unavailabl e Allergies Active Allergy Reactions Criticality Noted Date Comments Ipratropium *Unknown,Angioedema 08/01/2022 Oxycodone *Unknown,Nausea And Vomiting Low 022 Medications Medication Sig Dispensed Refills Start Date End Date Status CITALOPRAM HYDROBROMIDE (CELEXA ORAL) Take 20 mg by mouth at bedtime. 0 Active ASPIRIN ORAL Take 81 mg by mouth once daily. 0 Active metoprolol (LOPRESSOR) 25 mg tablet Take 0.5 tablets by mouth 2 times daily. 30 tablet 0 07/06/2012 Active rx HYDROcodone-acetamin ophen, 5-325 mg, (NORCO) tablet (ED DC MED)Indications:Acut e pain of right wrist Take 1 tablet by mouth every 4 hours if needed 4 tablet 0 07/21/2017 Active traMADoL (ULTRAM) 50 mg tablet Take 50 mg by mouth every 8 hours if needed for Pain. 0 Active fluticasone propion-salmeteroL (ADVAIR) 250-50 mcg/Dose diskus inhaler Inhale 1 Puff by mouth every 12 hours. 0 Active albuterol HFA (PRO-AIR; VENTOLIN; PROVENTIL) 90 mcg/actuation inhaler Inhale 1 Puff by mouth once daily if needed. 0 Active cyanocobalamin (VITAMIN B12) 1,000 mcg/mL injection Inject 1,000 mcg intramuscular every 4 weeks. 0 Active HYDROcodone-acetamin ophen (NORCO) 5-325 mg per tablet Take 1 Tablet by mouth every 6 hours if needed for Pain. Max acetaminophen dose: 4000 mg in 24 hrs. 0 Active scopolamine 1mg over 3 days (TRANSDERM SCOP) patch Apply 1 Patch on dry, clean, hairless skin every 72 hours if needed. 0 Active multivitamin (MVI) tablet Take 1 Tablet by mouth once daily. (BariMelts fast-melting tablets) 0 Active BIOTIN ORAL Take 1 Tablet by mouth once daily. (Dissolvable tablet) 0 Active traMADoL (ULTRAM) 50 mg tabletIndications:Sm all bowel volvulus (HC) Take 1 Tablet (50 mg) by mouth every 4 hours if needed for Severe Pain. 15 Tablet 0 08/03/2022 Active acetaminophen (TYLENOL EXTRA STRGTH) 500 mg tablet Take 2 Tablets (1,000 mg) by mouth every 6 hours if needed for Pain (For mild pain 1st choice. May take either Tylenol tablet or liquid, if both ordered.). Max acetaminophen dose: 4000mg in 24 hrs. 0 08/03/2022 Active ondansetron (ZOFRAN ODT) 4 mg disintegrating tabletIndications:Sm all bowel volvulus (HC) Place 1 Tablet (4 mg) on the tongue every 8 hours if needed for Nausea/Vomiting. 30 Tablet 0 08/03/2022 Active scopolamine 1mg over 3 days (TRANSDERM SCOP) patchIndications:Pos t-operative nausea and vomiting Apply 1 Patch on dry, clean, hairless skin every 72 hours. 4 Patch 0 08/03/2022 Active Active Problems Problem Noted Date Diagnosed Date Anxiety 08/01/2022 Depressive disorder 08/01/2022 Hypercholesterolemia 08/01/2022 Obesity 08/01/2022 Osteoarthritis 08/01/2022 Asthma 04/09/2022 Overview: Monitor vitals, resume home medications as appropriate Hypertension 04/09/2022 Overview: Monitor vitals, resume home medications as appropriate Pneumoperitoneum 04/06/2022 Overview: Patient taken to the OR and found to have a perforation in the distal gastric remnant. Surgically repaired and treated with antibiotics. Chest pain, unspecified 07/05/2012 Anxiety state, unspecified 07/05/2012 Unspecified asthma(493.90) 07/05/2012 Overview: Has been hospitalized for this many years ago. Small bowel volvulus Encounters Date Type Department Care Team Description 08/10/2023 2:00 PM UNIT ASSISTANT Orders Only [facility] & [address] [address] 2 scans: (2-Ord) ECHO STRESS EXERCISE WO CONTRAST W COLOR ([id number]) from Last 3 Months Family History Medical History Relation Name Comments Good Health Brother 4 Cancer Father Good Health Mother Good Health Sister 3 Relation Name Status Comments Brother 1 Alive Brother 2 Other 1/2 sib, good h ealth Brother 3 Other 1/2 sib, good h ealthg Brother 4 Father Mother Alive Sister 1 Alive Sister 2 Other 1/2 sib, good h ealth Sister 3 Social History Tobacco Use Types Packs/Day Years Used Date Smoking Tobacco: Former Cigarettes Q uit: 07/07/2011 Alcohol Use Standard Drinks/Week Comments Not Asked 0 (1 standard drink = 0.6 oz pur e alcohol) Social Connections Answer Date Recorded Frequency of Communication with Friends and Fami ly Not on file 12/08/2022 Sex and Gender Information Value Date Recorded Sex Assigned at Not on file Gender Identity Not on file Sexual Orientation Not on file Obstetrics History Last Filed Vital Signs Vital Sign Reading Time Taken Comments Blood Pressure 145/70 08/03/2022 8:00 AM UNIT ASSISTANT Pulse 86 08/03/2022 8:00 AM UNIT ASSISTANT Temperature 36.7 ??C (98 ??F) 08/03/2022 8:00 AM UNIT ASSISTANT Respiratory Rate 16 08/03/2022 8:00 AM UNIT ASSISTANT Oxygen Saturation 95% 08/03/2022 8:00 AM UNIT ASSISTANT Inhaled Oxygen Concentration - - Weight 66.7 kg (147 lb) 08/01/2022 10:35 PM UNIT ASSISTANT Height 157.5 cm (5' 2) 08/01/2022 10:35 PM UNIT ASSISTANT Body Mass Index 26.89 08/01/2022 10:35 PM UNIT ASSISTANT Plan of Treatment Health Maintenance Due Date Last Done Comments COVID-19 vaccine series (#1) 1961 Tdap 1972 Depression screening for age 12+ 1973 HIV for age 15-65 1976 BMI (ht and wt on same day) for age 18+ 1979 Hepatitis C screening for ag e 18-79 1979 Tetanus booster 1981 Pap test for age 21-65 1982 Colonoscopy through age 75 2006 Mammogram for age 45-75 2006 Zoster (shingles) series for age 50+ (1 of 2) 2011 Lipids for age 45-75 07/06/2017 07/06/2012 Influenza for age 50-64 04/30/2023 Pneumococcal series for age 6-64 Aged Out No longer eligible based on patient's age to complete this topic Procedures Procedure Name Priority Date/Time Associated Diagnosis Comments ECHO STRESS EXERCISE WO CONTRAST W COLOR Routine 08/10/2023 2:36 PM UNIT ASSISTANT Chest pain from Last 3 Months Results * ECHO STRESS EXERCISE WO CONTRAST W COLOR (08/10/2023 2:36 PM UNIT ASSISTANT) LVEDD 4.4 cm Anatomical Region Laterality Modality Ultrasound 08/10/2023 2:12 PM UNIT ASSISTANT Narrative 08/10/2023 2:56 PM UNIT ASSISTANT STRESS ECHOCARDIOGRAM ROSEANNA MONTAGUE ?Accession#: ?? [id number] : ?1960 63 years Study Date: ?? 08/10/2023 2:12:56 PM Gender: F ? BP: ? 150/84 mmHg Height: 157.00 cm ? BSA: ?1.69 m? ? ? Weight: 68.00 kg ?Tech: ? MHR ?Referring MD: RAFAEL MOLINA Site: ? [facility] Reading Location: MOBILE OP Patient Location: Outpatient. Procedure: Stress Echo and Color Doppler. Ender stress echo. Indication for study: chest pain Cardiac Rhythm: Regular.Study quality: Fair. Final Impressions: 1. Fair exercise duration and workload. 2. Maximum stress test with 88.2% of age predicted maximum heart rate achieved. 3. During stress exam the patient developed shortness of breath and knee pain. 4. See separate report for EKG interpretation. 5. Post stress, normal left ventricular size, normal global systolic function with an estimated EF of >75%. 6. Negative stress echo for ischemia. Stress Data: ? HR ?Systolic Diastolic Time Duration Minutes Seconds Baseline 55 bpm ?150 ?84 mmHg ?5 :32 ? Peak ? 139 bpm ?? 158 ?78 mmHg Max Pred HR ?158 % of Max ? 88% Double Product [id number] Echo Findings:This is a negative stress echo test for ischemia. Post stress, normal left ventricular size, normal global systolic function with an estimated EF of >75%. LV regional wall motion abnormalities are not present post exercise. EKG:See separate report for EKG interpretation. Exam Protocol:The patient presents with no significant symptoms at baseline. The patient exercised 5 min 32 sec to stage II according to the Ender stress echo protocol. Test terminated due to shortness of breath and knee pain. 7.0 METS were achieved. The patient achieved a heart rate of 139 bpm which is 88.2% of maximum predicted heart rate. Maximum systolic blood pressure was 158 [place] [address]. Maximum stress test with 88.2% of age predicted maximum heart rate achieved. The blood pressure response was normal. Exercise duration and workload were fair. The patient developed shortness of breath and knee pain during the stress exam. Symptoms resolved with rest. Low (less than 1% annual mortality rate) non invasive risk stratification. Chamber Sizes and Function Normal left ventricular size, normal global systolic function. LV regional wall motion abnormalities are not present. Valves, RV Pressures and Diastolic Function The aortic valve is trileaflet and calcified, no stenosis and no regurgitation. The mitral valve is sclerotic, trace mitral regurgitation. MEASUREMENTS AND CALCULATIONS 2-D Measurements and LV Function: LVID (d) ?4.4 cm LV FS% (2D) ?? 26 % LVID (s) ?3.3 cm LVOT diameter 2.0 cm IVS (d) ? 1.3 cm HR ?55 bpm LVPW (d) ?1.1 cm RV Max 4C (d) 2.7 cm Ao Sinus ?3.[address] junct 2.7 cm Asc Ao ?2.6 cm LA ?3.9 cm . This study was interpreted by an [facility] accredited facility. CC: [facility]. ??Final ?? Procedure Note Kulwant Gomez MD - 08/11/2023 STRESS ECHOCARDIOGRAM ROSEANNA MONTAGUE : 1960 63 years Study Date: 08/10/2023 2:12:56 PM Gender: F BP: 150/84 mmHg Height: 157.00 cm BSA: 1.69 m? ? ? Weight: 68.00 kg Tech: R Referring MD: RAFAEL MOLINA Site: [facility] Reading Location: MOBILE OP Patient Location: Outpatient. Procedure: Stress Echo and Color Doppler. Ender stress echo. Indication for study: chest pain Cardiac Rhythm: Regular.Study quality: Fair. Final Impressions: 1. Fair exercise duration and workload. 2. Maximum stress test with 88.2% of age predicted maximum heart rateachieved. 3. During stress exam the patient developed shortness of breath and kneepain. 4. See separate report for EKG interpretation. 5. Post stress, normal left ventricular size, normal global systolicfunction with an estimated EF of >75%. 6. Negative stress echo for ischemia. Stress Data: HR Systolic Diastolic Time Duration Minutes Seconds Baseline 55 bpm 150 84 mmHg 5 :32 Peak 139 bpm 158 78 mmHg Max Pred HR 158 % of Max 88% Double Product [id number] Echo Findings:This is a negative stress echo test for ischemia. Poststress, normal left ventricular size, normal global systolic function withan estimated EF of >75%. LV regional wall motion abnormalities are notpresent post exercise. EKG:See separate report for EKG interpretation. Exam Protocol:The patient presents with no significant symptoms atbaseline. The patient exercised 5 min 32 sec to stage II according to [facility] stress echo protocol. Test terminated due to shortness of breath andknee pain. 7.0 METS were achieved. The patient achieved a heart rate of139 bpm which is 88.2% of maximum predicted heart rate. Maximum systolicblood pressure was 158 [place] [address]. Maximumstress test with 88.2% of age predicted maximum heart rate achieved. Theblood pressure response was normal. Exercise duration and workload werefair. The patient developed shortness of breath and knee pain during thestress exam. Symptoms resolved with rest. Low (less than 1% annualmortality rate) non invasive risk stratification. Chamber Sizes and Function Normal left ventricular size, normal global systolic function. LV regionalwall motion abnormalities are not present. Valves, RV Pressures and Diastolic Function The aortic valve is trileaflet and calcified, no stenosis and noregurgitation. The mitral valve is sclerotic, trace mitralregurgitation. MEASUREMENTS AND CALCULATIONS 2-D Measurements and LV Function: LVID (d) 4.4 cm LV FS% (2D) 26 % LVID (s) 3.3 cm LVOT diameter 2.0 cm IVS (d) 1.3 cm HR 55 bpm LVPW (d) 1.1 cm RV Max 4C (d) 2.7 cm Ao Sinus 3.[address] junct 2.7 cm Asc Ao 2.6 cm LA 3.9 cm . This study was interpreted by an [facility] accredited facility. CC: [facility] (med records) [facility]. Final Rafael Molina MD ECHO ORD from Last 3 Months Advance Directives Latest Code Status on File Code Status Date Activated Date Inactivated Comments Full Code 08/02/2022 12:22 AM 08/03/2022 4:29 PM Question Answer Comments Code Status Discussion: Other Code Status History Code Status Date Activated Date Inactivated Comments Full Code 07/05/2012 10:28 PM 07/06/2012 3:11 PM Care Teams Manager Cardiovascular Relationship Specialty Start Date End Date Julio Cesar Antoine MD [address] [place] [address] PCP - General Family Practice 08/01/22 A[facility] - [address] [place] [address] 08/01/22
== END 2023-09-09 10:33 | disposition home or self-care (01) ==
PROVIDERS: PCP Family Medicine; Visit Provider Family Medicine
DX: I10 Essential (primary) hypertension (principal); D50.9 Iron deficiency anemia, unspecified; E53.8 Deficiency of other specified B group vitamins; E55.9 Vitamin D deficiency, unspecified
CPT/HCPCS: 82728; 85025

== ENCOUNTER 2023-10-14 10:16 | Outpatient (CLI) | payer MEDICARE, BC, SELFPAY ==
--- OUTSIDE RECORDS SUMMARY | 2023-10-14 10:21 | XMS_ITS | Clinical Summary ---
Author Name Unknown Organization [facility] Address [address] [place] [address] Phone Care Team Providers Care Surveillance Operator Name Role Phone Julio Cesar Antoine Primary Care Provider [phone] Brendan Vargas Unavailable [phone] Source Comments This disclosure is being made pursuant to the Care Everywhere program,applicable federal and state laws, and may not contain all informationavailable regarding this patient.[facility] Practices Allergies Active Allergy Reactions Criticality [...] Prediabetes and Type 2 Diabetes Screening 1961 Annual Physical Visit 1964 HIV Jeff Screening 1976 HCV Screening 1979 Tetanus Diphtheria Pertussis (1 - Tdap) 1980 Cervical Cancer Screening 1982 Lipid Disorder Screening [address] Colonography 2006 Colonoscopy 2006 Colorectal Screening 2006 FIT-DNA 2006 FIT 2006 FOBT 2006 Flex Sigmoidoscopy 2006 Zoster Vaccine (1 of 2) 2011 RSV Vaccine (1 - 1-dose 60+ series) 2021 Influenza Vaccine: Seasonal (#1) 03/30/2023 [id number] Vaccine ( season) 20 23 Advance Directives For more information, please contact: [phone] Latest Code Status on File Code Status Date Activated Date Inactivated Comments Full Code 04/06/2022 8:57 AM 04/09/2022 5:04 PM Code Status History Code Status Date Activated Date Inactivated Comments Full Code 04/06/2022 2:42 AM 04/06/2022 8:57 AM Care Teams Surveillance Operator Relationship Specialty Start Date End Date Julio Cesar Antoine [address] [place] [address] PCP - General Family Practice 04/06/22 Brendan Vargas [address] [place] [address] Residential Manager General Surgery 04/07/22
--- OUTSIDE RECORDS SUMMARY | 2023-10-14 10:21 | XMS_ITS | Clinical Summary ---
Author Name Unknown Organization [employer] Address [place], [place] [address] Care Team Providers Care Corporate Safety Coordinator Name Role Phone Julio Cesar Antoine MD Primary Care Provider + [facility] - Unavailabl e Allergies Active Allergy Reactions [...] Encounters Date Type Department Care Team Description 09/02/2023 Lab Requisition [facility] [phone] José Luis Shields MD 08/10/2023 2:00 PM ADMINISTRATOR PESTICIDE Orders Only [facility] at [facility] & [address] [address] 2 scans: (2-Ord) ECHO STRESS EXERCISE WO CONTRAST W COLOR ([id number]) from Last 3 Months Family History Medical [...] Comments Blood Pressure 145/70 08/03/2022 8:00 AM ADMINISTRATOR PESTICIDE Pulse 86 08/03/2022 8:00 AM ADMINISTRATOR PESTICIDE Temperature 36.7 ??C (98 ??F) 08/03/2022 8:00 AM ADMINISTRATOR PESTICIDE Respiratory Rate 16 08/03/2022 8:00 AM ADMINISTRATOR PESTICIDE Oxygen Saturation 95% 08/03/2022 8:00 AM ADMINISTRATOR PESTICIDE Inhaled Oxygen Concentration - - Weight 66.7 kg (147 lb) 08/01/2022 10:35 PM ADMINISTRATOR PESTICIDE Height 157.5 cm (5' 2) 08/01/2022 10:35 PM ADMINISTRATOR PESTICIDE Body Mass Index 26.89 08/01/2022 10:35 PM ADMINISTRATOR PESTICIDE Plan of Treatment Health Maintenance Due Date [...] Procedure Name Priority Date/Time Associated Diagnosis Comments LAB TRACKING EVENT Routine 09/02/2023 12 :33 PM ADMINISTRATOR PESTICIDE PATH TISSUE EXAM Routine 09/02/2023 12:3 3 PM ADMINISTRATOR PESTICIDE ECHO STRESS EXERCISE WO CONTRAST W COLOR Routine 08/10/2023 2:36 PM ADMINISTRATOR PESTICIDE Chest pain from Last 3 Months Results * LAB TRACKING EVENT (09/02/2023 12:33 PM ADMINISTRATOR PESTICIDE) Other (Other) Client Collect / Unknown 09/02/2023 12:33 PM ADMINISTRATOR PESTICIDE 09/02/2023 9:06 PM ADMINISTRATOR PESTICIDE José Luis Shields MD LAB BILL ONLY [facility] [address] [place] [address], * PATH TISSUE EXAM (09/02/2023 12:33 PM ADMINISTRATOR PESTICIDE) Case Report Pathology Report ?Case: [id number] ? Authorizing Provider: ??Cornelius, Ordonez, MD ?Collected: ? 09/02/2023 1233 ? Ordering Location: ? [facility] ?Received: ?09/02/20232112 ? Pathologist: ? Ifrah, Edison Garcia, ? MD ? Specimens: ?? A) - Duodenal ? B) - Stomach ? 09/03/2023 3:36 PM ADMINISTRATOR PESTICIDE [facility] Final Diagnosis A) DUODENUM, BIOPSY: 1. Normal duodenal mucosa 2. Negative for celiac disease and other enteropathy B) DESIGNATED STOMACH, BIOPSY: 1. Normal duodenal mucosa only 2. Negative for celiac disease and other enteropathy 3. No gastric mucosa is present for evaluation 09/03/2023 3:36 PM [facility] Clinical Information Ms. Montague is a 63 y.o. undergoing evaluation for iron deficiency anemia. EGD reveals a regular Z-line at 35 cm. The esophagus was normal. The stomach was normal. The duodenum was normal. 09/03/2023 3:36 PM [facility] Gross Description A) Received in formalin is a molina mucosal fragment measuring 8 mm in greatest dimension, which is entirely submitted in one cassette. It is labeled with the patient's name and designated duodenum. B) Received in formalin are 3 molina mucosal fragments averaging 3 mm in greatest dimension, which are entirely submitted in one cassette. It is labeled with the patient's name and designated random stomach. Paola Langford 09/02/2023 9:18 PM 09/03/2023 3:36 PM [facility] Microscopic Description The final diagnosis is based on microscopic examination of appropriate sections of all specimens. 09/03/2023 3:36 PM ADMINISTRATOR PESTICIDE [facility] Additional Information Interpreted at [facility] - [address] [facility] [address], [place] [address] 09/03/2023 3:36 PM ADMINISTRATOR PESTICIDE [facility] Other SPECIMEN FROM STOMACH / Unknown 09/02/2023 12:33 PM ADMINISTRATOR PESTICIDE 09/02/2023 9:13 PM ADMINISTRATOR PESTICIDE Specimen (specimen) SPECIMEN FROM STOMACH / Unknown 09/02/2023 12:33 PM ADMINISTRATOR PESTICIDE 09/02/2023 9:13 PM ADMINISTRATOR PESTICIDE José Luis Shields MD PATHOLOGY/CYTOLOGY [facility] [address] * ECHO STRESS EXERCISE WO CONTRAST W COLOR (08/10/2023 2:36 PM ADMINISTRATOR PESTICIDE) LVEDD 4.4 cm Anatomical Region Laterality Modality Ultrasound 08/10/2023 2:12 PM ADMINISTRATOR PESTICIDE Narrative 08/10/2023 2:56 PM ADMINISTRATOR PESTICIDE STRESS ECHOCARDIOGRAM ROSEANNA MONTAGUE ?Accession#: ?? [id number] : ?1960 63 years Study Date: ?? 08/10/2023 2:12:56 PM Gender: F ? BP: ? 150/84 mmHg Height: 157.00 cm ? BSA: ?1.69 m? ? ? Weight: 68.00 kg ?Tech: ? MHR ?Referring MD: RAFAEL TRIANA Site: ? [facility] Reading Location: MOBILE OP Patient Location: [...] % of Max ? 88% Double Product [id number] Echo Findings:This is a negative stress echo [...] [place] [address]. Maximum stress test with 88.2% of age [...] . This study was interpreted by an [facility] accredited facility. CC: [facility] (med records) [facility]. ??Final ?? Procedure Note Kulwant Gomez MD - 08/11/2023 STRESS ECHOCARDIOGRAM ROSEANNA MONTAGUE : 1960 63 years Study Date: 08/10/2023 2:12:56 PM Gender: F BP: 150/84 mmHg Height: 157.00 cm BSA: 1.69 m? ? ? Weight: 68.00 kg Tech: R Referring MD: RAFAEL TRIANA Site: [facility] Reading Location: MOBILE OP Patient [...] 158 % of Max 88% Double Product [id number] Echo Findings:This is a negative stress echo test for ischemia. Poststress, normal left ventricular size, normal global systolic function withan estimated EF of >75%. LV regional wall motion abnormalities are notpresent post exercise. EKG:See separate report for EKG interpretation. Exam Protocol:The patient presents with no significant symptoms atbaseline. The patient exercised 5 min 32 sec to stage II according to [facility] stress echo protocol. Test terminated due to shortness of breath andknee pain. 7.0 METS were achieved. The patient achieved a heart rate of139 bpm which is 88.2% of maximum predicted heart rate. Maximum systolicblood pressure was 158 [place] [address]. Maximumstress test with 88.2% of age predicted [...] interpreted by an [facility] accredited facility. CC: [facility] (med [facility]) [facility]. Final Rafael Triana MD ECHO ORD from Last 3 Months Advance Directives Latest Code Status on File Code Status Date Activated Date Inactivated Comments Full Code 08/02/2022 12:22 AM 08/03/2022 4:29 PM Question Answer Comments Code Status Discussion: Other Code Status History Code Status Date Activated Date Inactivated Comments Full Code 07/05/2012 10:28 PM 07/06/2012 3:11 PM Care Teams Corporate Safety Coordinator Relationship Specialty Start Date End Date Julio Cesar Antoine MD [address] [place] [address] PCP - General Family Practice 08/01/22 [facility] - [address] [place] [address] 08/01/22
--- OUTSIDE RECORDS SUMMARY | 2023-10-14 10:21 | XMS_ITS | Referral Summary ---
Author Name Unknown Organization [facility] Address [address] [place] [address] Phone Care Team Providers Care Switch Tender Name Role Phone Julio Cesar Antoine Primary Care Provider [phone] Brendan Vargas Unavailable [phone] Source Comments This disclosure is being made pursuant to the Care Everywhere program,applicable federal and state laws, and may not contain all informationavailable regarding this patient.[facility] and [facility] Practices Allergies Active Allergy Reactions Criticality [...] Advance Directives For more information, please contact: [phone] Latest Code Status on File Code Status Date Activated Date Inactivated Comments Full Code 04/06/2022 8:57 AM 04/09/2022 5:04 PM Code Status History Code Status Date Activated Date Inactivated Comments Full Code 04/06/2022 2:42 AM 04/06/2022 8:57 AM Care Teams Switch Tender Relationship Specialty Start Date End Date Julio Cesar Antoine [address] [place], [place] [address] [address] PCP - General Family Practice 04/06/22 Brendan Vargas [address] [place] [address] Plan Nurse General Surgery 04/07/22
--- OUTSIDE RECORDS SUMMARY | 2023-10-14 10:21 | XMS_ITS | Clinical Summary ---
Author Name Unknown Organization [facility] Address [address] [place] [address] Care Team Providers Care Enterprise Resource Planning Consultant Name Role Phone Patient, None Per Primary Care Provider Unavaila ble Source Comments This disclosure is being made pursuant to the [employer] program and maynot contain all information available regarding this patient.[facility] Medications Medication Sig Dispensed Refills Start Date [...] age to complete this topic Care Teams Enterprise Resource Planning Consultant Relationship Specialty Start Date End Date Patient, None Per PCP - General 04/05/22
--- OUTSIDE RECORDS SUMMARY | 2023-10-14 10:21 | XMS_ITS | Encounter Summary ---
Author Name Unknown Organization [facility] Address [address] [place] [address] Phone Care Team Providers Care Lightout Examiner Name Role Phone Julio Cesar Antoine Primary Care Provider [phone] Brendan Vargas Unavailable [phone] Encounter Details Date Type Department Care Team (Late st Contact Info) Description 04/09/2022 Pharmacy Visit [facility] [address] [place] [address] Social History Tobacco Use Types [...] on filedocumented in this encounter Care Teams Lightout Examiner Relationship Specialty Start Date End Date Julio Cesar Antoine [address] [place] [address] PCP - General Family Practice 04/06/22 Brendan Vargas [address] [place] [address] Roofer Helper [employer] General Surgery 04/07/22 documented as of this encounter
== END 2023-10-14 10:17 | disposition home or self-care (01) ==
PROVIDERS: PCP Family Medicine; Visit Provider Family Medicine
DX: D50.9 Iron deficiency anemia, unspecified (principal)
CPT/HCPCS: 82728; 83540; 83550

== ENCOUNTER 2023-12-31 19:31 | Emergency (ER) | payer MEDICARE, BC, SELFPAY ==
[2023-12-31 19:58] VITALS: BP 178/84; PULSE 64; RESP 20; TEMP 37; O2SAT 97; BMI 28.3
--- NOTE | 2023-12-31 20:02 | XR_ITS ---
Patient: ALISTAIR SKY Facility:?[facility] Patient ID:?[id number] Site Patient ID:?[id number] Site :?1960 Study:?XRay-Extremity Left [id number]-2/3/2024 8:33:17 PM Ordering Physician:CIELO Final Report: Indication: Elbow pain and swelling. Technique: Three view(s) of the left elbow. Comparison: None available. Findings: There is an elbow joint effusion that raises concern for radiographically occult radial neck fracture if there is history of trauma. Elbow alignment is anatomic and joint spaces are maintained. Mild enthesopathic changes are seen at the olecranon process as well as the medial and lateral epicondyles. Amorphous appearing calcifications adjacent to the medial epicondyle are likely degenerative versus secondary to calcific periarthritis. Soft tissues are unremarkable. Impression: Elbow joint effusion. If this patient has history of trauma, findings are concerning for a radiographically occult radial head/neck fracture. If there is no history of trauma, findings may be infectious, inflammatory or secondary to overuse. Dictated by Sara Braun MD @ 12/31/2023 8:42:44 PM Signed by:?Sara Braun MD @12/31/2023 8:42:44 PM (Electronic Signature)
--- NOTE | 2023-12-31 20:58 | ED_ITS ---
HPI - General Adult General Time Seen by Provider: 20:58 Date Seen: 12/31/23 Chief complaint: Extremity Pain/Injury, Upper Stated complaint: L elbow pain-possible trauma Time Seen by Provider: 12/31/23 20:57 Source: patient and RN notes reviewed Mode of arrival: ambulatory Limitations: no limitations History of Present Illness HPI narrative: This 63-year-old female is coming in with left elbow pain that has gotten progressively worse since Wednesday night. She has tried Tylenol, tried ice. It is getting more and more painful, hurts to move her arm. The only thing that she can remember doing is going down the stairs on Wednesday, missing the last step and reaching behind her with her left arm to catch herself from falling. There was no significant pain at the time. She has had no fevers or chills. No other joints are bothering her. She has no history of gout, no history of joint issues. She has had a gastric bypass, has had a history of perforated gastric ulcer per report. She really is not able to take oral NSAIDs. She does states she drove herself here. Any movement of the arms excruciating, points to the medial elbow where it is bothering her. She got a neoprene type splint, did not help at all. She has carpal tunnel in this hand, does have some chronic numbness tingling in the fingers. She does have an appointment with Dr. Antoine next Wednesday but states she just cannot wait until then. Related Data Home Medications Medication Instructions Recorded Confirmed ipratropium 0.5 mg-albuterol 3 mg 1 ml inhalation QID PRN 07/06/22 10/14/23 (2.5 mg base)/3 mL nebulization soln metoclopramide HCl 5 mg tablet 5 mg PO TID PRN 11/02/22 12/31/23 (Reglan) Previous Rx's Medication Instructions Recorded scopolamine base 1 mg over 3 days 1 patch transdermal Q3D PRN nausea 11/02/22 transdermal patch and vomiting #4 ea cholecalciferol (vitamin D3) 1,250 1,250 mcg PO QWEEK #12 caps 12/21/22 mcg (50,000 unit) capsule albuterol sulfate 90 mcg/actuation 2 puff inhalation Q6H PRN 03/09/23 aerosol inhaler (Ventolin HFA) bronchospasm #8.5 grams fluoxetine 40 mg capsule 40 mg PO QDAY #90 caps 04/29/23 ondansetron 4 mg disintegrating 4 mg PO Q8H PRN nausea and 04/29/23 tablet vomiting #20 tabs fluticasone 250 mcg-salmeterol 50 1 inh inhalation DAILY #60 ea 05/13/23 mcg/dose blistr powdr for inhalation (Advair Diskus) omeprazole 20 mg capsule,delayed 20 mg PO BID #60 caps 08/17/23 release cyanocobalamin (vitamin B-12) 1,000 mcg subcut Q4W #3 mL 11/03/23 1,000 mcg/mL injection solution lorazepam 1 mg tablet (Ativan) 0.5 - 1 mg (0.5 - 1 x 1 mg) PO BID 11/03/23 PRN anxiety #30 tabs Allergies Allergy/AdvReac Type Severity Reaction Status Date / Time CRIS Inhibitors AdvReac Intermediate Cough Verified 12/31/23 19:58 oxycodone AdvReac Intermediate nausea and Verified 12/31/23 19:58 vomiting Review of Systems Narrative: As per HPI. [facility] Medical History Primary hypertension ?I10 - Essential (primary) hypertension (ICD-10) Iron deficiency anemia ?D50.9 - Iron deficiency anemia, unspecified (ICD-10) GERD (gastroesophageal reflux disease) ?K21.9 - Gastro-esophageal reflux disease without esophagitis (ICD-10) ELAN (generalized anxiety disorder) ?F41.1 - Generalized anxiety disorder (ICD-10) Ventral hernia ?K43.9 - Ventral hernia without obstruction or gangrene (ICD-10) Postprandial nausea ?R11.0 - Nausea (ICD-10) Arthritis of right acromioclavicular joint ?M19.011 - Primary osteoarthritis, right shoulder (ICD-10) B12 deficiency ?E53.8 - Deficiency of other specified B group vitamins (ICD-10) Perforated chronic gastric ulcer ?K25.5 - Chronic or unspecified gastric ulcer with perforation (ICD-10) Vitamin D deficiency ?E55.9 - Vitamin D deficiency, unspecified (ICD-10) Posttraumatic stress disorder ?F43.10 - Post-traumatic stress disorder, unspecified (ICD-10) Mild persistent asthma ?J45.30 - Mild persistent asthma, uncomplicated (ICD-10) Chronic low back pain ?M54.50 - Low back pain, unspecified (ICD-10) ?G89.29 - Other chronic pain (ICD-10) Surgical History S/P hernia repair ?Z98.890 - Other specified postprocedural states (ICD-10) ?Z87.19 - Personal history of other diseases of the digestive system (ICD-10) H/O laparoscopy ?Z98.890 - Other specified postprocedural states (ICD-10) S/P cholecystectomy ?Z90.49 - Acquired absence of other specified parts of digestive tract (ICD- 10) S/P exploratory laparotomy ?Z98.890 - Other specified postprocedural states (ICD-10) H/O exploratory laparotomy ?Z98.890 - Other specified postprocedural states (ICD-10) History of shoulder surgery (07/17/22) ?Z98.890 - Other specified postprocedural states (ICD-10) History of arthroscopy of both knees ?Z98.890 - Other specified postprocedural states (ICD-10) S/P OWEN-BSO ?Z90.710 - Acquired absence of both cervix and uterus (ICD-10) ?Z90.722 - Acquired absence of ovaries, bilateral (ICD-10) ?Z90.79 - Acquired absence of other genital organ(s) (ICD-10) History of tonsillectomy and adenoidectomy ?Z90.89 - Acquired absence of other organs (ICD-10) Hx of section ?Z98.891 - History of uterine scar from previous surgery (ICD-10) History of total bilateral knee replacement ?Z96.653 - Presence of artificial knee joint, bilateral (ICD-10) 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 Patient is currently staying home. What is your current living situation?: I presently have a place to live Problems where you live: no known problems In the past 12 months, utilities in danger of being shut off: yes In the past 12 mos, have been you worried that your food would run out before you had money to buy more?: never true In the past 12 mos, the food you bought just didn't last and you didn't have money to buy more?: never true Smoking Status: Former smoker Do you use any of these nicotine containing products: None Second hand tobacco smoke exposure: No How often do you have a drink containing alcohol: never How often do you have six or more drinks on one occasion: Never AUDIT-C Alcohol total score: 0 Non-prescribed substance use: denies use Caffeine: Yes (coffee) How often does anyone, including family, friends and others, physically hurt you : How often does anyone, including family, friends and others, insult or talk down to you: How often does anyone, including family, friends and others, threaten you with harm: How often does anyone, including family, friends and others, scream or curse at you: Little interest or pleasure in doing things: not at all Feeling down, depressed, or hopeless: not at all Are you using contraception or practicing any form of control: No (meopause - hysterectomy at 29) service: No Exam Const: Vital Signs, click to edit/add: Vital Signs - 24 hr 12/31/23 19:58 Temperature 98.6 F Pulse Rate [Right Pulse Oximeter] 64 Respiratory Rate 20 Blood Pressure [Ri ght Upper Arm] 178/84 H Pulse Oximetry 97 Oxygen Delivery Me thod Room Air Patient is alert, interactive, no apparent distress as long as I am not attempting to touch her medial elbow or manipulate her elbow at all. Any palpation of the medial elbow or attempts at moving the elbow or extremely painful for her. Normal vascularity the fingers and wrist is noted. No acute neurologic change, skin is warm and dry. She really does not tolerate any extension of her elbow, is most comfortable just with her arm around 90?. She is not tender over the radial head but is exquisitely tender over the medial epicondyle area. Really not tender over the olecranon process. There is no warmth or erythema, do not feel a significant effusion. Documenting provider has reviewed patient's vital signs: yes Course Course ED Course: I did have her elbow x-ray report from Radiology when I did see her, we reviewed there is an effusion. She is not tender laterally over where a radial head fracture would be. She has medial elbow pain that is quite exquisite. I did do a long-arm posterior splint, she did have some pain with getting the splint on but after the splint was in place it did provide her with some comfort. We did discuss doing IM Toradol which she should be safe to do. We will give her 30 mg IM. She will be fine driving with this. I do think we will proceed with a CT of her left elbow given the exquisite tenderness and unanswered questions as to why this is. Reevaluation(s) Time of Reevaluation #1: 21:47 Reevaluation #1: Patient is back from having her CT imaging. She does feel that the posterior splint is helping to stabilize her elbow, does feel better. Time of Reevaluation #2: 22:34 Reevaluation #2: Reviewed with patient her CT findings. Did discuss conversation with Dr. Singer as well. Will get her a sling. Will discharge her to home, will send her with a prescription of tramadol from [facility], 15 tablets provided which is the smallest amount. Consultations Consultation #1: Spoke with orthopedist on-call Dr. Singer. We reviewed images, patient history. He agrees with immobilization, follow up with Orthopedics next week. Did ask what potentially would be next steps, we did talk about MRI if she is not improving or has ongoing issues. Note, MRI is not indicated emergently at this time nor is it available for us at this time. Time: 22:22 Vital Signs Vital signs: Initial Vital Signs Temperature 98.6 F 12/31/23 19:58 Temperature Source Temporal Artery Scan 12/31/23 19:58 Pulse Rate 64 12/31/23 19:58 Pulse Rhythm Regular 12/31/23 19:58 Pulse Strength 3+ Normal 12/31/23 19:58 Respiratory Rate 20 12/31/23 19:58 Blood Pressure 178/84 H 12/31/23 19:58 Blood Pressure Mean 115 H 12/31/23 19:58 Blood Pressure Position Sitting 12/31/23 19:58 Pulse Oximetry 97 12/31/23 19:58 Oxygen Delivery Method Room Air 12/31/23 19:58 Vital Signs Temperature 98.6 F 12/31/23 19:58 Pulse Rate 64 12/31/23 19:58 Respiratory Rate 20 12/31/23 19:58 Blood Pressure 178/84 H 12/31/23 19:58 Pulse Oximetry 97 12/31/23 19:58 Oxygen Delivery Method Room Air 12/31/23 19:58 Temperature 98.6 F 12/31/23 19:58 Pulse Rate 64 12/31/23 19:58 Respiratory Rate 20 12/31/23 19:58 Blood Pressure 178/84 H 12/31/23 19:58 Pulse Oximetry 97 12/31/23 19:58 Oxygen Delivery Method Room Air 12/31/23 19:58 Medications Administered Medications: Discontinued Medications Generic Name Dose Route Start Last Admin Trade Name Freq PRN Reason Stop Dose Admin Ketorolac Tromethamine 30 mg 12/31/23 21:12 12/31/23 21:19 Ketorolac 30 Mg/Ml Inj IM 12/31/23 21:13 30 mg ONCE ONE Administration Medical Decision Making Imaging Data XR left elbow: Attestation: I have reviewed the pertinent imaging results. Radiologist's impression: Patient: ALISTAIR Chapman [facility] Facility:?[facility] Patient ID:?[id number] Site Patient ID:?[id number] Site :?1960 Study:?XRay-Extremity Left ALERC5V-2/3/2024 8:33:17 PM Ordering Physician:CIELO Final Report: Indication: Elbow pain and swelling. Technique: Three view(s) of the left elbow. Comparison: None available. Findings: There is an elbow joint effusion that raises concern for radiographically occult radial neck fracture if there is history of trauma. Elbow alignment is anatomic and joint spaces are maintained. Mild enthesopathic changes are seen at the olecranon process as well as the medial and lateral epicondyles. Amorphous a ppearing calcifications adjacent to the medial epicondyle are likely degenerative versus secondary to calcific periarthritis. Soft tissues are unremarkable. Impression: Elbow joint effusion. If this patient has history of trauma, findings are concerning for a radiographically occult radial head/neck fracture. If there is no history of trauma, findings may be infectious, inflammatory or secondary to overuse. Dictated by Sara Braun MD @ 12/31/2023 8:42:44 PM (Electronic Signature) CT- Other: Attestation: I have reviewed the pertinent imaging results. Radiologist's impression: Patient: ALISTAIR SKY Facility:?[facility] Patient ID:?[id number] Site Patient ID:?[id number] Site :?1960 Study:?CT-Extremity Left ELBOW-12/31/2023 9:44:10 PM Ordering Physician:MARY ANN BOYD Final Report: Indication: Severe pain, no trauma Technique: Noncontrast CT of the left elbow. Please note that all CT scans at this facility use dose modulation, iterative reconstruction, and/or weight-based dosing when appropriate to reduce radiation dose to as low as reasonably achievable. Comparison: Left elbow radiographs from the same day. Findings: Elbow joint effusion. No acute fracture or dislocation. No aggressive osseous lesion. Amorphous calcifications about the medial epicondyle. Mild degenerative changes of the ulnohumeral joint. The soft tissues are unremarkable. Impression: 1. Elbow joint effusion without acute bony abnormality. 2. Amorphous calcifications about the medial epicondyle, suspicious for acute calcific periarthritis. Please note that all CT scans at this facility use dose modulation, iterative reconstruction, and/or weight-based dosing when appropriate to reduce radiation dose to as low as reasonably achievable. Dictated by Kulwant Beebe MD @ 12/31/2023 10:02:24 PM (Electronic Signature) Discharge Plan Discharge Clinical Impression: Left elbow pain, Effusion of elbow joint, left Patient Disposition: Home, Self-Care Condition: Stable Additional Instructions: Use sling for comfort. Leave posterior splint on, this needs to stay clean and dry. Can ice the medial elbow area to help decrease pain and swelling. Tylenol 1000 mg 3 times a day baseline for pain. Have written for tramadol, follow prescription instructions for dosing. Need to contact the orthopedic clinic on Wednesday to get scheduled for follow-up with them, phone number is [phone]. If there is any issue with getting in, let them know that we did speak with Dr. Singer Wednesday night. Prescriptions: No Action metoclopramide HCl [Reglan] 5 mg tablet 5 mg PO TID PRN Rx Instructions: Take 30 minutes AC scopolamine base 1 mg over 3 days patch 3 day 1 patch transdermal Q3D PRN (Reason: nausea and vomiting) Qty: 4 1RF fluoxetine 40 mg capsule 40 mg PO QDAY Qty: 90 1RF ondansetron 4 mg tablet,disintegrating 4 mg PO Q8H PRN (Reason: nausea and vomiting) Qty: 20 1RF ipratropium-albuterol 0.5 mg-3 mg(2.5 mg base)/3 mL solution for nebulization 1 ml inhalation QID PRN cholecalciferol (vitamin D3) 1,250 mcg (50,000 unit) capsule 1,250 mcg PO QWEEK Qty: 12 3RF albuterol sulfate [Ventolin HFA] 90 mcg/actuation HFA aerosol inhaler 2 puff inhalation Q6H PRN (Reason: bronchospasm) Qty: 8.5 9RF fluticasone propion-salmeterol [Advair Diskus] 250-50 mcg/dose blister with device 1 inh inhalation DAILY Qty: 60 5RF omeprazole 20 mg capsule,delayed release(DR/EC) 20 mg PO BID Qty: 60 5RF lorazepam [Ativan] 1 mg tablet 0.5 - 1 mg PO BID PRN (Reason: anxiety) Qty: 30 0RF cyanocobalamin (vitamin B-12) 1,000 mcg/mL solution 1,000 mcg subcut Q4W Qty: 3 3RF Follow Up/Referrals: Julio Cesar Antoine MD [Primary Care Provider] - Stand Alone Forms: [facility] Instructions Procedures Orthopedic Splinting/Casting Posterior long-arm, left side: Side: left Upper extremity immobilizer: posterior splint (Posterior long-arm splint placed with Ortho Glass, attempted to get elbow as close to 90? as possible.) Applied by clinician: /DO Conclusion: patient tolerated procedure
--- NOTE | 2023-12-31 21:11 | CT_ITS ---
Patient: ALISTAIR SKY Facility:?[facility] Patient ID:?[id number] Site Patient ID:?[id number] Site :?1960 Study:?CT-Extremity Left ELBOW-12/31/2023 9:44:10 PM Ordering Physician:DIANE BOYD Final Report: Indication: Severe pain, no trauma Technique: Noncontrast CT of the left elbow. Please note that all CT scans at this facility use dose modulation, iterative reconstruction, and/or weight-based dosing when appropriate to reduce radiation dose to as low as reasonably achievable. Comparison: Left elbow radiographs from the same day. Findings: Elbow joint effusion. No acute fracture or dislocation. No aggressive osseous lesion. Amorphous calcifications about the medial epicondyle. Mild degenerative changes of the ulnohumeral joint. The soft tissues are unremarkable. Impression: 1. Elbow joint effusion without acute bony abnormality. 2. Amorphous calcifications about the medial epicondyle, suspicious for acute calcific periarthritis. Please note that all CT scans at this facility use dose modulation, iterative reconstruction, and/or weight-based dosing when appropriate to reduce radiation dose to as low as reasonably achievable. Dictated by Kulwant Beebe MD @ 12/31/2023 10:02:24 PM Signed by:?Kulwant Beebe MD @12/31/2023 10:02:24 PM (Electronic Signature)
[2023-12-31] MEDS: KETOROLAC 30 MG/ML inj IM (21:19)
--- OUTSIDE RECORDS SUMMARY | 2023-12-31 21:19 | XMS_ITS | Clinical Summary ---
Author Name Unknown Organization [facility] Address [address] [place] [address] Phone Care Team Providers Care Chemical Processing Supervisor Name Role Phone Julio Cesar Antoine Primary Care Provider [phone] Brendan Vargas Unavailable [phone] Source Comments This disclosure is being made pursuant to the Care Everywhere program,applicable federal and state laws, and may not contain all informationavailable regarding this patient.[facility] and [facility] Practices Allergies Active [...] Diabetes Screening 1960 Annual Physical Visit 1964 Pneumococcal Vaccine (1 of 2 - PCV) 1967 HIV [place] Screening 1976 HCV Screening 1979 Tetanus Diphtheria Pertussis (1 - Tdap) 1980 Cervical Cancer Screening 1982 Lipid Disorder Screening [address] Colonography 2006 Colonoscopy 2006 Colorectal Screening 2006 FIT-DNA 2006 FIT 2006 FOBT 2006 Flex Sigmoidoscopy 2006 Zoster Vaccine (1 of 2) 2011 RSV Vaccine (1 - 1-dose 60+ series) 2021 DNIPE-MXCA-QaG-2 Vaccine ( season) 20 Influenza Vaccine: Seasonal (Season Ended) 2024 Advance Directives For more information, please contact: [phone] * Full Code (Latest Code Status on File) Date Activated Date Inactivated Comments 04/06/2022 8:57 AM 04/09/2022 5:04 PM * Full Code Date Activated Date Inactivated Comments 04/06/2022 2:42 AM 04/06/2022 8:57 AM Care Teams Chemical Processing Supervisor Relationship Specialty Start Date End Date Julio Cesar Antoine [address] [facility] [place] [address] PCP - General Family Practice 04/06/22 Brendan Vargas [address] [place] [address] State Manager General Surgery 04/07/22
--- OUTSIDE RECORDS SUMMARY | 2023-12-31 21:19 | XMS_ITS | Clinical Summary ---
Author Name Unknown Organization [facility] Address [address] [place] [address] Care Team Providers Care Knuckle Bender Name Role Phone Patient, None Per Primary Care Provider Unavaila ble Source Comments This disclosure is being made pursuant to the VoteIt program and maynot contain all information available regarding this patient.[facility] Medications Medication Sig Dispensed Refills Start Date [...] age to complete this topic Care Teams Knuckle Bender Relationship Specialty Start Date End Date Patient, None Per PCP - General 04/05/22
--- OUTSIDE RECORDS SUMMARY | 2023-12-31 21:19 | XMS_ITS | Referral Summary ---
Author Name Unknown Organization [facility] Address [address] [place] [address] Phone Care Team Providers Care Prison Teacher Name Role Phone Julio Cesar Antoine Primary Care Provider [phone] Brendan Vargas Unavailable [phone] Source Comments This disclosure is being made pursuant to the Care Everywhere program,applicable federal and state laws, and may not contain all informationavailable regarding this patient.[facility] and [facility] Practices Allergies Active Allergy Reactions Criticality [...] Advance Directives For more information, please contact: [phone] * Full Code (Latest Code Status on File) Date Activated Date Inactivated Comments 04/06/2022 8:57 AM 04/09/2022 5:04 PM * Full Code Date Activated Date Inactivated Comments 04/06/2022 2:42 AM 04/06/2022 8:57 AM Care Teams Prison Teacher Relationship Specialty Start Date End Date Julio Cesar Antoine [address] [place], [place] [address] [address] PCP - General Family Practice 04/06/22 Brendan Vargas [address] [place] [address] Customs Broker General Surgery 04/07/22
--- OUTSIDE RECORDS SUMMARY | 2023-12-31 21:19 | XMS_ITS | Encounter Summary ---
Author Name Unknown Organization [facility] Address [address] [place] [address] Phone Care Team Providers Care Enamel Pulverizer Name Role Phone Julio Cesar Antoine Primary Care Provider [phone] Brendna Vargas Unavailable [phone] Encounter Details Date Type Department Care Team (Late st Contact Info) Description 04/09/2022 Pharmacy Visit RX DISCHARGE PHARMACY [address] [place] [address] Social History Tobacco Use Types [...] on filedocumented in this encounter Care Teams Enamel Pulverizer Relationship Specialty Start Date End Date Julio Cesar Antoine [address] [place] [address] PCP - General Family Practice 04/06/22 Brendan Vargas [address] [place] [address] Assistant Office Manager General Surgery 04/07/22 documented as of this encounter
--- OUTSIDE RECORDS SUMMARY | 2023-12-31 21:20 | XMS_ITS | Clinical Summary ---
Author Name Unknown Organization [employer] [facility] Address [place], [place] [address] Care Team Providers Care Machine Set Up Operator Paper Goods Name Role Phone Julio Cesar Antoine MD Primary Care Provider + Alycia [facility] - Unavailabl e Allergies Active Allergy Reactions Criticality Noted Date Comments Ipratropium *Unknown,Angioedema 08/01/2022 Oxycodone *Unknown,Nausea And Vomiting Low 022 Medications Medication Sig Dispensed Refills Start Date End Date Status CITALOPRAM HYDROBROMIDE (CELEXA ORAL) Take 20 mg by mouth at bedtime. Active ASPIRIN ORAL Take 81 mg by mouth once daily. Active metoprolol (LOPRESSOR) 25 mg tablet Take 0.5 tablets by mouth 2 times daily. 30 tablet 0 07/06/2012 Active rx HYDROcodone-acetamin ophen, 5-325 mg, (NORCO) tablet (ED DC MED)Indications:Acut e pain of right wrist Take 1 tablet by mouth every 4 hours if needed 4 tablet 07/21/2017 Active traMADoL (ULTRAM) 50 mg tablet Take 50 mg by mouth every 8 hours if needed for Pain. Active fluticasone propion-salmeteroL (ADVAIR) 250-50 mcg/Dose diskus inhaler Inhale 1 Puff by mouth every 12 hours. Active albuterol HFA (PRO-AIR; VENTOLIN; PROVENTIL) 90 mcg/actuation inhaler Inhale 1 Puff by mouth once daily if needed. Active cyanocobalamin (VITAMIN B12) 1,000 mcg/mL injection Inject 1,000 mcg intramuscular every 4 weeks. Active HYDROcodone-acetamin ophen (NORCO) 5-325 mg per tablet Take 1 Tablet by mouth every 6 hours if needed for Pain. Max acetaminophen dose: 4000 mg in 24 hrs. Active scopolamine 1mg over 3 days (TRANSDERM SCOP) patch Apply 1 Patch on dry, clean, hairless skin every 72 hours if needed. Active multivitamin (MVI) tablet Take 1 Tablet by mouth once daily. (BariMelts fast-melting tablets) Active BIOTIN ORAL Take 1 Tablet by mouth once daily. (Dissolvable tablet) Active traMADoL (ULTRAM) 50 mg tabletIndications:Sm all bowel volvulus (HC) Take 1 Tablet (50 mg) by mouth every 4 hours if needed for Severe Pain. 15 Tablet 08/03/2022 Active acetaminophen (TYLENOL EXTRA STRGTH) 500 [...] hours if needed for Nausea/Vomiting. 30 Tablet 08/03/2022 Active scopolamine 1mg over 3 days (TRANSDERM SCOP) patchIndications:Pos t-operative nausea and vomiting Apply 1 Patch on dry, clean, hairless skin every 72 hours. 4 Patch 08/03/2022 Active Active Problems Problem Noted Date [...] this many years ago. Small bowel volvulus Family History Medical History Relation Name Comments [...] Comments Blood Pressure 145/70 08/03/2022 8:00 AM WEIGHT REDUCTION SPECIALIST Pulse 86 08/03/2022 8:00 AM WEIGHT REDUCTION SPECIALIST Temperature 36.7 ??C (98 ??F) 08/03/2022 8:00 AM WEIGHT REDUCTION SPECIALIST Respiratory Rate 16 08/03/2022 8:00 AM WEIGHT REDUCTION SPECIALIST Oxygen Saturation 95% 08/03/2022 8:00 AM WEIGHT REDUCTION SPECIALIST Inhaled Oxygen Concentration - - Weight 66.7 kg (147 lb) 08/01/2022 10:35 PM WEIGHT REDUCTION SPECIALIST Height 157.5 cm (5' 2) 08/01/2022 10:35 PM WEIGHT REDUCTION SPECIALIST Body Mass Index 26.89 08/01/2022 10:35 PM WEIGHT REDUCTION SPECIALIST Plan of Treatment Health Maintenance Due Date Last Done Comments Tdap 1972 Depression screening for age 12+ [...] 2011 Lipids for age 45-75 07/06/2017 07/06/2012 COVID-19 vaccine series (2022-24 season) 2023 Influenza for age 50-64 04/30/2024 Pneumococcal series for age 6-64 Aged Out No longer eligible based on patient's age to complete this topic Procedures Procedure Name Priority Date/Time Associated Diagnosis Comments LIPID PANEL Early AM 07/06/2012 6:15 AM WEIGHT REDUCTION SPECIALIST from Last 3 Months or Most Recently Relevant to Health Maintenance Results * (ABNORMAL) LIPID PANEL (07/06/2012 6:15 AM WEIGHT REDUCTION SPECIALIST) CHOLESTEROL,TOTA L 220(H) 100 - 199 mg/dL [facility] TRIGLYCERIDES 109 <150 mg/dL [facility] HDL CHOLESTEROL 39(L) >40 mg/dL [facility] CHOL/HDL RATIO 5.64(H) <4.50 [facility] NON-HDL CHOLESTEROL 181 Undefined mg/dL [facility] LDL CHOLESTEROL 159(H) <131 mg/dL [facility] PATIENT STATUS Fasting [facility] Blood specimen (specimen) BLOOD SPECIMEN / Unknown 07/06/2012 6:15 AM WEIGHT REDUCTION SPECIALIST 07/05/2012 10:36 PM WEIGHT REDUCTION SPECIALIST Jody Zapata MD CHEMISTRY [facility] [place]NAL ZIP [id number] [place], [place] [id number] from Last 3 Months or Most Recently Relevant to Health Maintenance Advance Directives * Full Code (Latest Code Status on File) Date Activated Date Inactivated Comments 08/02/2022 12:22 AM 08/03/2022 4:29 PM Question Answer Comments Code Status Discussion: Other * Full Code Date Activated Date Inactivated Comments 07/05/2012 10:28 PM 07/06/2012 3:11 PM Care Teams Machine Set Up Operator Paper Goods Relationship Specialty Start Date End Date Julio Cesar Antoine MD [address] [place] [address] PCP - General Family Practice 08/01/22 Alycia [facility] - [address] [place] [address] 08/01/22
== END 2023-12-31 22:48 | disposition home or self-care (01) ==
PROVIDERS: Emergency Provider Family Medicine; PCP Family Medicine
DX: M25.422 Effusion, left elbow (principal)
CPT/HCPCS: 73080; 73200; 96372; 99284; J1885

== ENCOUNTER 2024-01-07 09:08 | Outpatient (CLI) | payer MEDICARE, BC, SELFPAY ==
--- OUTSIDE RECORDS SUMMARY | 2024-01-07 09:10 | XMS_ITS | Referral Summary ---
Author Name Unknown Organization [facility] Care Address [address] [place] [address] Phone Care Team Providers Care Automotive Brake Specialist Name Role Phone Julio Cesar Antoine Primary Care Provider [phone] Brendan Vargas Unavailable [phone] Source Comments This disclosure is being made pursuant to the Care Everywhere program,applicable federal and state laws, and may not contain all informationavailable regarding this patient.[facility] Practices Allergies Active Allergy Reactions Criticality [...] Advance Directives For more information, please contact: [phone] * Full Code (Latest Code Status on File) Date Activated Date Inactivated Comments 04/06/2022 8:57 AM 04/09/2022 5:04 PM * Full Code Date Activated Date Inactivated Comments 04/06/2022 2:42 AM 04/06/2022 8:57 AM Care Teams Automotive Brake Specialist Relationship Specialty Start Date End Date Julio Cesar Antoine [address] [place], [place] [address] [address] PCP - General Family Practice 04/06/22 Brendan Vargas [address] [place] [address] Oncology Social Work General Surgery 04/07/22
--- OUTSIDE RECORDS SUMMARY | 2024-01-07 09:10 | XMS_ITS | Clinical Summary ---
Author Name Unknown Organization [facility] Care Address [address] [place] [address] Phone Care Team Providers Care Senior Web Developer Name Role Phone Julio Cesar Antoine Primary Care Provider [phone] Brendan Vargas Unavailable [phone] Source Comments This disclosure is being made pursuant to the Care Everywhere program,applicable federal and state laws, and may not contain all informationavailable regarding this patient.[facility] and [facility] Practices Allergies Active Allergy Reactions [...] (1 of 2 - PCV) 1967 HIV [place] Screening 1976 HCV Screening 1979 Tetanus Diphtheria Pertussis (1 - Tdap) 1980 Cervical Cancer Screening 1982 Lipid Disorder Screening [address] Colonography 2006 Colonoscopy 2006 Colorectal Screening 2006 FIT-DNA 2006 FIT 2006 FOBT 2006 Flex Sigmoidoscopy 2006 Zoster Vaccine (1 of 2) 2011 RSV Vaccine (1 - 1-dose 60+ series) 2021 [id number]-[id number]-[id number]-2 Vaccine ( season) 20 Influenza Vaccine: Seasonal (Season Ended) 2024 Advance Directives For more information, please contact: [phone] * Full Code (Latest Code Status on File) Date Activated Date Inactivated Comments 04/06/2022 8:57 AM 04/09/2022 5:04 PM * Full Code Date Activated Date Inactivated Comments 04/06/2022 2:42 AM 04/06/2022 8:57 AM Care Teams Senior Web Developer Relationship Specialty Start Date End Date Julio Cesar Antoine [address] [place] [address] PCP - General Family Practice 04/06/22 Brendan Vargas [address] [place] [address] Car Hiker General Surgery 04/07/22
--- OUTSIDE RECORDS SUMMARY | 2024-01-07 09:10 | XMS_ITS | Encounter Summary ---
Author Name Unknown Organization [facility] Care Address [address] [place] [address] Phone Care Team Providers Care Raise Drill Operator Name Role Phone Julio Cesar Antoine Primary Care Provider [phone] Brendan Vargas Unavailable [phone] Encounter Details Date Type Department Care Team (Late st Contact Info) Description 04/09/2022 Pharmacy Visit [facility] - Pharmacy - Discharge [address] [place] [address] Social History Tobacco Use Types [...] on filedocumented in this encounter Care Teams Raise Drill Operator Relationship Specialty Start Date End Date Julio Cesar Antoine [address] [place] [address] PCP - General Family Practice 04/06/22 Brendan Vargas [address] [place] [address] Shuttlecock Feather Trimmer General Surgery 04/07/22 documented as of this encounter
--- OUTSIDE RECORDS SUMMARY | 2024-01-07 09:10 | XMS_ITS | Clinical Summary ---
Author Name Unknown Organization [employer] [facility] Address [place], [place] [address] Care Team Providers Care Chain Maker Loom Control Name Role Phone Julio Cesar Antoine MD Primary Care Provider + Alycia [facility] - Unavailabl e Allergies Active Allergy Reactions [...] Comments Blood Pressure 145/70 08/03/2022 8:00 AM CIGARETTE STAMPER Pulse 86 08/03/2022 8:00 AM CIGARETTE STAMPER Temperature 36.7 ??C (98 ??F) 08/03/2022 8:00 AM CIGARETTE STAMPER Respiratory Rate 16 08/03/2022 8:00 AM CIGARETTE STAMPER Oxygen Saturation 95% 08/03/2022 8:00 AM CIGARETTE STAMPER Inhaled Oxygen Concentration - - Weight 66.7 kg (147 lb) 08/01/2022 10:35 PM CIGARETTE STAMPER Height 157.5 cm (5' 2) 08/01/2022 10:35 PM CIGARETTE STAMPER Body Mass Index 26.89 08/01/2022 10:35 PM CIGARETTE STAMPER Plan of Treatment Health Maintenance Due Date [...] LIPID PANEL Early AM 07/06/2012 6:15 AM CIGARETTE STAMPER from Last 3 Months or Most Recently Relevant to Health Maintenance Results * (ABNORMAL) LIPID PANEL (07/06/2012 6:15 AM CIGARETTE STAMPER) CHOLESTEROL,TOTA L 220(H) 100 - 199 mg/dL [facility] TRIGLYCERIDES 109 <150 mg/dL [facility] HDL CHOLESTEROL 39(L) >40 mg/dL [facility] CHOL/HDL RATIO 5.64(H) <4.50 [facility] NON-HDL CHOLESTEROL 181 Undefined mg/dL [facility] LDL CHOLESTEROL 159(H) <131 mg/dL [facility] PATIENT STATUS Fasting [facility] Blood specimen (specimen) BLOOD SPECIMEN / Unknown 07/06/2012 6:15 AM CIGARETTE STAMPER 07/05/2012 10:36 PM CIGARETTE STAMPER Jody Zapata MD CHEMISTRY [facility] INTERNAL ZIP [id number] [place], [place] [id number] from Last 3 Months or Most Recently Relevant to Health Maintenance Advance Directives * Full Code (Latest Code Status on File) Date Activated Date Inactivated Comments 08/02/2022 12:22 AM 08/03/2022 4:29 PM Question Answer Comments Code Status Discussion: Other * Full Code Date Activated Date Inactivated Comments 07/05/2012 10:28 PM 07/06/2012 3:11 PM Care Teams Chain Maker Loom Control Relationship Specialty Start Date End Date Julio Cesar Antoine MD [address] [place] [address] PCP - General Family Practice 08/01/22 Alycia [facility] - [address] [place] [address] 08/01/22
--- OUTSIDE RECORDS SUMMARY | 2024-01-07 09:10 | XMS_ITS | Clinical Summary ---
Author Name Unknown Organization [facility] Address [address] [place] [address] Care Team Providers Care Audio Production Instructor Name Role Phone Patient, None Per Primary Care Provider Unavaila ble Source Comments This disclosure is being made pursuant to the Telepathy program and maynot contain all information available regarding this patient.[facility] Medications Medication Sig Dispensed Refills Start Date [...] age to complete this topic Care Teams Audio Production Instructor Relationship Specialty Start Date End Date Patient, None Per PCP - General 04/05/22
--- NOTE | 2024-01-07 09:15 | MR_ITS ---
[facility] [address] [facility] [address] Phone:?[phone] Fax:?[phone] Referring Physician Information: Robinson Moran M.D. [address] [place] [address] Phone:?[phone] Fax:?[phone] Patient:Paul Montague D.O.B:?1960 Sex:?Female Phone:?[phone] [facility] MRN:?[id number] Exam Date:?01/07/2024 EXAM: MRI of the LEFT ELBOW, without contrast CLINICAL INFORMATION: Female, 63 years old, with left elbow pain. INDICATION: Evaluate medial ulnar collateral ligament. PRIOR SURGERY: None reported. PLAIN FILMS: None available. COMPARISONS: No prior MRIs available. TECHNICAL INFORMATION: Using a 1.5T MR scanner and a localizing surface coil: coronals: T1, PD, T2, STIR sagittals: PD, T2 axials: PD, T2 SEDATION: None CONTRAST: None FINDINGS: Elbow joint: Effusion: Small elbow joint effusion. Ganglion cyst: None. Radiohumeral plica: No pathologic thickening or enlargement. Osteochondral surfaces: No osteochondral abnormality. Loose bodies: No demonstrable loose bodies. Bursae: No pathologic olecranon or bicipitoradial bursal thickening/bursitis. Bones: Humerus: No fracture, osteochondritis dissecans or marrow edema/pathology. Radius: No fracture or marrow edema. Ulna: No fracture or marrow edema. Myotendinous structures: Biceps: Intact, without tendinopathy or tear. Triceps: Intact posterior tendinous and anterior muscular insertions and lateral aponeurotic component, without tendinopathy, strain or tear. Brachialis: No strain/tear. Supinator: No strain/tear. Forearm extensors: No tear or tendinopathy. Forearm flexors: No tear or tendinopathy. Ligaments: Medial ulnar collateral: Abnormal intrasubstance signal and ill-defined low- intermediate grade partial tearing of the anterior bundle is present at its humeral attachment (coronal STIR series 5 images 14-16). The sublime tubercle attachment and posterior bundle are unremarkable. Radial collateral proper: Normal. Lateral ulnar collateral: Normal. Annular: Normal. Nerves: Ulnar: Normal, without appreciable edema, thickening or mass. No anconeus epitrochlearis accessory muscle over the cubital tunnel. Median: Normal. Radial: Normal. IMPRESSION: 1. Grade 2 sprain of the anterior bundle of the medial ulnar collateral ligament, which demonstrates low-intermediate grade partial tearing at its humeral attachment. 2. Small elbow joint effusion. No chondromalacia or osteochondral lesion. 3. No myotendinous abnormality. 4. No other ligamentous sprain/tear. 5. No fracture or osseous stress reaction. BC Electronically signed on 01/07/2024 1:16:00 PM by Steffen Oneil M.D.
== END 2024-01-07 09:09 | disposition home or self-care (01) ==
LOC: MRI 09:08
PROVIDERS: PCP Family Medicine; Visit Provider Orthopaedic Surgery
DX: M25.522 Pain in left elbow (principal); S53.442A Ulnar collateral ligament sprain of left elbow, initial encounter; M25.422 Effusion, left elbow
CPT/HCPCS: 73221

== ENCOUNTER 2024-04-07 11:14 | Outpatient (CLI) | payer MEDICARE, BC, SELFPAY ==
--- OUTSIDE RECORDS SUMMARY | 2024-04-07 11:19 | XMS_ITS | Clinical Summary ---
Author Organization [employer] [facility] Address [place], [place] [address] Care Team Providers Care Orchard Hand Name Role Phone Julio Cesar Antoine MD Primary Care Provider + Alycia [facility] - Unavailabl e Allergies Active Allergy Reactions [...] Comments Blood Pressure 145/70 08/03/2022 8:00 AM POWER PROJECT MANAGER Pulse 86 08/03/2022 8:00 AM POWER PROJECT MANAGER Temperature 36.7 ??C (98 ??F) 08/03/2022 8:00 AM POWER PROJECT MANAGER Respiratory Rate 16 08/03/2022 8:00 AM POWER PROJECT MANAGER Oxygen Saturation 95% 08/03/2022 8:00 AM POWER PROJECT MANAGER Inhaled Oxygen Concentration - - Weight 66.7 kg (147 lb) 08/01/2022 10:35 PM POWER PROJECT MANAGER Height 157.5 cm (5' 2) 08/01/2022 10:35 PM POWER PROJECT MANAGER Body Mass Index 26.89 08/01/2022 10:35 PM POWER PROJECT MANAGER Plan of Treatment Health Maintenance Due Date [...] LIPID PANEL Early AM 07/06/2012 6:15 AM POWER PROJECT MANAGER from Last 3 Months or Most Recently Relevant to Health Maintenance Results * (ABNORMAL) LIPID PANEL (07/06/2012 6:15 AM POWER PROJECT MANAGER) CHOLESTEROL,TOTA L 220(H) 100 - 199 mg/dL [facility] TRIGLYCERIDES 109 <150 mg/dL [facility] HDL CHOLESTEROL 39(L) >40 mg/dL [facility] CHOL/HDL RATIO 5.64(H) <4.50 [facility] NON-HDL CHOLESTEROL 181 Undefined mg/dL [facility] LDL CHOLESTEROL 159(H) <131 mg/dL [facility] PATIENT STATUS Fasting [facility] Blood specimen (specimen) BLOOD SPECIMEN / Unknown 07/06/2012 6:15 AM POWER PROJECT MANAGER 07/05/2012 10:36 PM POWER PROJECT MANAGER Jody Zapata MD CHEMISTRY [facility] INTERNAL ZIP [address] [place] [id number] from Last 3 Months or Most Recently Relevant to Health Maintenance Advance Directives * Full Code (Latest Code Status on File) Date Activated Date Inactivated Comments 08/02/2022 12:22 AM 08/03/2022 4:29 PM Question Answer Comments Code Status Discussion: Other * Full Code Date Activated Date Inactivated Comments 07/05/2012 10:28 PM 07/06/2012 3:11 PM Care Teams Orchard Hand Relationship Specialty Start Date End Date Julio Cesar Antoine MD [address] [place] [address] PCP - General Family Practice 08/01/22 Alycia [facility] - [address] [place] [address] 08/01/22
--- OUTSIDE RECORDS SUMMARY | 2024-04-07 11:19 | XMS_ITS | Clinical Summary ---
Author Organization [facility] Care Address [address] [place] [address] Phone Care Team Providers Care Manager Of Photography Name Role Phone Julio Cesar Antoine Primary Care Provider [phone] Brendan Vargas Unavailable [phone] Source Comments This disclosure is being made pursuant to the Care Everywhere program,applicable federal and state laws, and may not contain all informationavailable regarding this patient.[facility] and [facility] Practices [...] (1 of 2 - PCV) 1967 HIV [place] Screening 1976 HCV Screening 1979 Tetanus Diphtheria Pertussis (1 - Tdap) 1980 Cervical Cancer Screening 1982 Lipid Disorder Screening [address] Colonography 2006 Colonoscopy 2006 Colorectal Screening 2006 FIT-DNA 2006 FIT 2006 FOBT 2006 Flex Sigmoidoscopy 2006 Zoster Vaccine (1 of 2) 2011 RSV Vaccine (1 - 1-dose 60+ series) 2021 [id number]-[id number]-TuX-2 Vaccine ( season) 20 Influenza Vaccine: Seasonal (#1) 04/30/2024 Advance Directives For more information, please contact: [phone] * Full Code (Latest Code Status on File) Date Activated Date Inactivated Comments 04/06/2022 8:57 AM 04/09/2022 5:04 PM * Full Code Date Activated Date Inactivated Comments 04/06/2022 2:42 AM 04/06/2022 8:57 AM Care Teams Manager Of Photography Relationship Specialty Start Date End Date Julio Cesar Antoine [address] [place] [address] PCP - General Family Practice 04/06/22 Brendan Vargas [address] [place] [address] Dialysis Chief Equipment Technician General Surgery 04/07/22
--- OUTSIDE RECORDS SUMMARY | 2024-04-07 11:19 | XMS_ITS | Encounter Summary ---
Author Organization [facility] Care Address [address] [place] [address] Phone Care Team Providers Care Mixing Picker Tender Name Role Phone Julio Cesar Antoine Primary Care Provider [phone] Brendan Vargas Unavailable [phone] Encounter Details Date Type Department Care Team (Late st Contact Info) Description 04/09/2022 Pharmacy Visit [facility] - Pharmacy - Discharge [address] [place] [address] Social History Tobacco Use Types [...] Diagnoses Not on filedocumented in this encounter Additional Health Concerns Assessment Noted Time A fall risk assessment has been complete d for the patient 04/06/2022 9:07 AM CDT documented as of this encounter Care Teams Mixing Picker Tender Relationship Specialty Start Date End Date Julio Cesar Antoine [address] [place] [address] PCP - General Family Practice 04/06/22 Brendan Vargas [address] [place] [address] Director Digital Analytics General Surgery 04/07/22 documented as of this encounter
--- OUTSIDE RECORDS SUMMARY | 2024-04-07 11:19 | XMS_ITS | Referral Summary ---
Author Organization [facility] Care Address [address] [place] [address] Phone Care Team Providers Care Driving Instructor Name Role Phone Julio Cesar Antoine Primary Care Provider [phone] Brendan Vargas Unavailable [phone] Source Comments This disclosure is being made pursuant to the Care Everywhere program,applicable federal and state laws, and may not contain all informationavailable regarding this patient.[facility] Practices Allergies Active Allergy Reactions [...] Advance Directives For more information, please contact: [phone] * Full Code (Latest Code Status on File) Date Activated Date Inactivated Comments 04/06/2022 8:57 AM 04/09/2022 5:04 PM * Full Code Date Activated Date Inactivated Comments 04/06/2022 2:42 AM 04/06/2022 8:57 AM Care Teams Driving Instructor Relationship Specialty Start Date End Date Julio Cesar Antoine [address] [place] [address] [place] [address] PCP - General Family Practice 04/06/22 Brendan Vargas [address] [place] [place] [address] Computational Chemist General Surgery 04/07/22
--- OUTSIDE RECORDS SUMMARY | 2024-04-07 11:19 | XMS_ITS | Clinical Summary ---
Author Organization [employer] [facility] [employer] Address [address] [place] [address] Care Team Providers Care Director Geothermal Operations Name Role Phone Patient, None Per Primary Care Provider Unavaila ble Source Comments This disclosure is being made pursuant to the [employer] [place] program and maynot contain all information available regarding this patient.[facility] Medications Medication Sig Dispensed Refills Start Date End Date Status fluticasone-salmete rol (ADVAIR DISKUS) 250-50 MCG/ACT inhaler Inhale 1 puff into the lungs 2 (two) times daily. Active albuterol (PROVENTIL) (2.5 MG/3ML) 0.083% nebulizer solution Take 2.5 mg by nebulization every 4 (four) hours as needed for Wheezing. Active Active Problems No known active problems [...] 1960 Lab-Hepatitis C Screening 1961 Sigmoidoscopy 1961 Annual Wellness Visit 1979 Tetanus/Pertussis Vaccine Teen/Adult (1 - Tdap) 1980 FOBT/FIT 1981 Cervical Cancer Screening-Pap Smear 1982 Zoster (Shingles) Vaccine 50 + (1 of 2) 2011 RSV Adult (1 - 1-dose 60+ series) 2021 COVID-19 Vaccine ( - 2022-2 4 season) 2023 Influenza Vaccine (#1) 2024 HIB Vaccine Aged Out No longer eligi [...] age to complete this topic Care Teams Director Geothermal Operations Relationship Specialty Start Date End Date Patient, None Per PCP - General 04/05/22
== END 2024-04-07 11:15 | disposition home or self-care (01) ==
PROVIDERS: PCP Family Medicine; Visit Provider Family Medicine
DX: E16.2 Hypoglycemia, unspecified (principal); D50.9 Iron deficiency anemia, unspecified; I10 Essential (primary) hypertension; Z98.84 Bariatric surgery status
CPT/HCPCS: 80053; 82150; 82728; 83690; 85025

== ENCOUNTER 2024-04-12 07:18 | Outpatient (CLI) | payer MEDICARE, BC, SELFPAY ==
--- OUTSIDE RECORDS SUMMARY | 2024-04-12 07:20 | XMS_ITS | Clinical Summary ---
Author Organization [facility] Address [address] [place] [address] Phone Care Team Providers Care Supervisor Education Name Role Phone Julio Cesar Antoine Primary Care Provider [phone] Brendan Vargas Unavailable [phone] Source Comments This disclosure is being made pursuant to the Care Everywhere program,applicable federal and state laws, and may not contain all informationavailable regarding this patient.[facility] and [facility] Practices Allergies Active Allergy [...] of 2 - PCV) 1967 HIV [place] Screening 1976 HCV Screening 1979 Tetanus Diphtheria Pertussis (1 - Tdap) 1980 Cervical Cancer Screening 1982 Lipid Disorder Screening [address] Colonography 2006 Colonoscopy 2006 Colorectal Screening 2006 FIT-DNA 2006 FIT 2006 FOBT 2006 Flex Sigmoidoscopy 2006 Zoster Vaccine (1 of 2) 2011 RSV Vaccine (1 - 1-dose 60+ series) 2021 ZANTH-AZWW-SnJ-2 Vaccine ( season) 20 Influenza Vaccine: Seasonal (#1) 04/30/2024 Advance Directives For more information, please contact: [phone] * Full Code (Latest Code Status on File) Date Activated Date Inactivated Comments 04/06/2022 8:57 AM 04/09/2022 5:04 PM * Full Code Date Activated Date Inactivated Comments 04/06/2022 2:42 AM 04/06/2022 8:57 AM Care Teams Supervisor Education Relationship Specialty Start Date End Date Julio Cesar Antoine [address] [place] [id number] PCP - General Family Practice 04/06/22 Brendan Vargas [address] [place] [address] Lieutenant Fire Fighter General Surgery 04/07/22
--- OUTSIDE RECORDS SUMMARY | 2024-04-12 07:21 | XMS_ITS | Clinical Summary ---
Author Organization [facility] Address [place], [place] [address] Care Team Providers Care Slicing Machine Tender Name Role Phone Julio Cesar Antoine MD Primary Care Provider + [facility] - Unavailabl e Allergies Active Allergy [...] Comments Blood Pressure 145/70 08/03/2022 8:00 AM BORE MILL OPERATOR FOR PLASTIC Pulse 86 08/03/2022 8:00 AM BORE MILL OPERATOR FOR PLASTIC Temperature 36.7 ??C (98 ??F) 08/03/2022 8:00 AM BORE MILL OPERATOR FOR PLASTIC Respiratory Rate 16 08/03/2022 8:00 AM BORE MILL OPERATOR FOR PLASTIC Oxygen Saturation 95% 08/03/2022 8:00 AM BORE MILL OPERATOR FOR PLASTIC Inhaled Oxygen Concentration - - Weight 66.7 kg (147 lb) 08/01/2022 10:35 PM BORE MILL OPERATOR FOR PLASTIC Height 157.5 cm (5' 2) 08/01/2022 10:35 PM BORE MILL OPERATOR FOR PLASTIC Body Mass Index 26.89 08/01/2022 10:35 PM BORE MILL OPERATOR FOR PLASTIC Plan of Treatment Health Maintenance Due Date [...] LIPID PANEL Early AM 07/06/2012 6:15 AM BORE MILL OPERATOR FOR PLASTIC from Last 3 Months or Most Recently Relevant to Health Maintenance Results * (ABNORMAL) LIPID PANEL (07/06/2012 6:15 AM BORE MILL OPERATOR FOR PLASTIC) CHOLESTEROL,TOTA L 220(H) 100 - 199 mg/dL [facility] TRIGLYCERIDES 109 <150 mg/dL [facility] HDL CHOLESTEROL 39(L) >40 mg/dL [facility] CHOL/HDL RATIO 5.64(H) <4.50 [facility] NON-HDL CHOLESTEROL 181 Undefined mg/dL [facility] LDL CHOLESTEROL 159(H) <131 mg/dL [facility] PATIENT STATUS Fasting [facility] Blood specimen (specimen) BLOOD SPECIMEN / Unknown 07/06/2012 6:15 AM BORE MILL OPERATOR FOR PLASTIC 07/05/2012 10:36 PM BORE MILL OPERATOR FOR PLASTIC Jody Zapata MD CHEMISTRY [facility] INTERNAL ZIP [id number] [place] [address] [phone] from Last 3 Months or Most Recently Relevant to Health Maintenance Advance Directives * Full Code (Latest Code Status on File) Date Activated Date Inactivated Comments 08/02/2022 12:22 AM 08/03/2022 4:29 PM Question Answer Comments Code Status Discussion: Other * Full Code Date Activated Date Inactivated Comments 07/05/2012 10:28 PM 07/06/2012 3:11 PM Care Teams Slicing Machine Tender Relationship Specialty Start Date End Date Julio Cesar Antoine MD [address] [place] [address] PCP - General Family Practice 08/01/[address] [facility] - [address] [place] [address] 08/01/22
--- OUTSIDE RECORDS SUMMARY | 2024-04-12 07:21 | XMS_ITS | Clinical Summary ---
Author Organization [facility] Address [address] [place] [address] Care Team Providers Care Chief Ii Dispatcher Name Role Phone Patient, None Per Primary Care Provider Unavaila ble Source Comments This disclosure is being made pursuant to the Crowdfynd program and maynot contain all information available regarding this patient.[facility] Medications Medication Sig Dispensed Refills Start Date [...] age to complete this topic Care Teams Chief Ii Dispatcher Relationship Specialty Start Date End Date Patient, None Per PCP - General 04/05/22
--- OUTSIDE RECORDS SUMMARY | 2024-04-12 07:21 | XMS_ITS | Encounter Summary ---
Author Organization [facility] Address [address] [place] [address] Phone Care Team Providers Care Dog License Officer Supervisor Name Role Phone Julio Cesar Antoine Primary Care Provider [phone] Brendan Vargas Unavailable [phone] Encounter Details Date Type Department Care Team (Late st Contact Info) Description 04/09/2022 Pharmacy Visit [facility] - Pharmacy - Discharge [address] [place] [address] Social History Tobacco Use Types [...] documented as of this encounter Care Teams Dog License Officer Supervisor Relationship Specialty Start Date End Date Julio Cesar Antoine [address] [place] [address] PCP - General Family Practice 04/06/22 Brendan Vargas [address] [place] [place] [address] Security Services Manager General Surgery 04/07/22 documented as of this encounter
--- OUTSIDE RECORDS SUMMARY | 2024-04-12 07:21 | XMS_ITS | Referral Summary ---
Author Organization [facility] Address [address] [place] [address] Phone Care Team Providers Care Social Service Assistant Name Role Phone Julio Cesar Antoine Primary Care Provider [phone] Brendan Vargas Unavailable [phone] Source Comments This disclosure is being made pursuant to the Care Everywhere program,applicable federal and state laws, and may not contain all informationavailable regarding this patient.[facility] and [facility] Practices Allergies Active Allergy Reactions Criticality Noted [...] Advance Directives For more information, please contact: [phone] * Full Code (Latest Code Status on File) Date Activated Date Inactivated Comments 04/06/2022 8:57 AM 04/09/2022 5:04 PM * Full Code Date Activated Date Inactivated Comments 04/06/2022 2:42 AM 04/06/2022 8:57 AM Care Teams Social Service Assistant Relationship Specialty Start Date End Date Julio Cesar Antoine [address] [place] [address] [place] [address] PCP - General Family Practice 04/06/22 Brendan Vargas [address] [place] [address] Bowling Pin Refinisher General Surgery 04/07/22
--- NOTE | 2024-04-12 08:00 | CRLHL7_ITS ---
For Patients: As a result of the Century Cures Act, medical imaging exams and procedure reports are released immediately into your electronic medical record. You may view this report before your referring provider. If you have questions, please contact your health care provider. INDICATION: Upper left abdominal pain, nausea, post periodic surgery, hypoglycemia TECHNIQUE: CT abdomen and pelvis acquired with 79 mL Isovue 370 IV contrast. COMPARISON: 09/18/[address] FINDINGS: Lower chest: Unremarkable. Liver: Tiny right hepatic lobe cysts. Normal in size and attenuation. No suspicious masses. Gallbladder and bile ducts: Cholecystectomy. Pancreas: Unremarkable. No mass or inflammation. Spleen: Unremarkable. Normal in size. No masses. Adrenal glands: Unremarkable. No nodules. Kidneys: Unremarkable. No masses, stones, or hydronephrosis. GI tract: Gastric bypass. Sigmoid diverticulosis. No diverticulitis. No obstruction or inflammation. Normal appendix. Vasculature: Mild atherosclerosis. Mesenteric arteries are patent. Lymph nodes: No lymphadenopathy. Omentum/Peritoneum/Abdominal Wall: Unremarkable. No sign of mass or infiltration. No free air or significant free fluid. Pelvis: Unremarkable. Bones: Unremarkable for age. IMPRESSION: 1. No specific cause for left upper abdominal pain identified. 2. Gastric bypass changes. Please note that all CT scans at this facility use dose modulation, iterative reconstruction, and/or weight-based dosing when appropriate to reduce radiation dose to as low as reasonably achievable. Dictated by Gerardo Thomas MD @ 04/12/2024 11:32:00 AM (Electronically Signed)
== END 2024-04-12 07:19 | disposition home or self-care (01) ==
LOC: CT 07:19
PROVIDERS: PCP Family Medicine; Visit Provider Family Medicine
DX: R10.12 Left upper quadrant pain (principal); E16.2 Hypoglycemia, unspecified; Z98.84 Bariatric surgery status
CPT/HCPCS: 74177; Q9967

== ENCOUNTER 2024-07-05 10:23 | Observation (INO) | payer MEDICARE, BC, SELFPAY ==
[2024-07-05] VITALS (42 sets, daily range): BP systolic 97–122; BP diastolic 59–71; PULSE 66–94; RESP 16–18; TEMP 36.4–37.1; O2SAT 91–96; BMI 29.3; BMI 30.7
--- NOTE | 2024-07-05 11:16 | ED_ITS ---
HPI - General Adult General Chief complaint: Unspecified Complaint, Adult Stated complaint: dizzy,low blood sugar, chest pain x 2 days Time Seen by Provider: 07/05/24 10:46 History of Present Illness HPI narrative: 64-year-old female comes in stating that she is not feeling well. She reports some episodes of lightheadedness. Last evening she got up in the night to the bathroom and felt lightheaded such that she needed to lay back down to avoid passing out. She does arrive here with blood pressure that is lower than what is normal for her. She does not report any fever or signs of infection. She does have a history of gastric bypass and anemia but her last hemoglobin and iron levels were in normal range. She does have episodes of upper epigastric pain and yesterday stated that she had some chest pain but also this was in her upper abdomen. She took her 's nitroglycerin and states that she started to feel better. She does not report any exercise intolerance. She has not had any nausea or vomiting or shortness of breath. She also states that she has episodes where her blood glucose gets low. She states that she has checked glucose levels that have been down in the 40s and 50s on various occasions. There are other times where it spikes rather high after taking food. She reports readings at 250 or 300 after taking food. She does have an appointment with an refinery operator visbreaking in a couple weeks. Related Data Home Medications ?Medication ?Instructions ?Recorded ?Confirmed ipratropium 0.5 mg-albuterol 3 mg 1 ml inhalation QID PRN 07/06/22 04/07/24 (2.5 mg base)/3 mL nebulization soln metoclopramide HCl 5 mg tablet 5 mg PO TID PRN 11/02/22 04/07/24 (Reglan) Previous Rx's ?Medication ?Instructions ?Recorded cholecalciferol (vitamin D3) 1,250 1,250 mcg PO QWEEK #12 caps 12/21/22 mcg (50,000 unit) capsule fluoxetine 40 mg capsule 40 mg PO QDAY #90 caps 04/29/23 ondansetron 4 mg disintegrating 4 mg PO Q8H PRN nausea and 04/29/23 tablet vomiting #20 tabs fluticasone 250 mcg-salmeterol 50 1 inh inhalation DAILY #60 ea 05/13/23 mcg/dose blistr powdr for inhalation (Advair Diskus) omeprazole 20 mg capsule,delayed 20 mg PO BID #60 caps 08/17/23 release cyanocobalamin (vitamin B-12) 1,000 mcg subcut Q4W #3 mL 11/03/23 1,000 mcg/mL injection solution Diabetic Test Strips #50 ea 01/28/24 albuterol sulfate 90 mcg/actuation 2 puff inhalation Q6H PRN 03/22/24 aerosol inhaler (Ventolin HFA) bronchospasm #8.5 grams lorazepam 1 mg tablet (Ativan) 0.5 - 1 mg (0.5 - 1 x 1 mg) PO BID 07/03/24 PRN anxiety #30 tabs Allergies Allergy/AdvReac Type Severity Reaction Status Date / Time CRIS Inhibitors AdvReac Intermediate Cough Verified 04/07/24 10:37 oxycodone AdvReac Intermediate nausea and Verified 04/07/24 10:37 vomiting Review of Systems Status of ROS: Reports: 10 or more systems reviewed and unremarkable except as noted in History and below Narrative: Constitutional: No fevers, no weight gain or loss. Eyes: No discharge. No vision changes. HENT: No congestion, no sore throat, no ear pain. Cardiovascular: No palpitations. Respiratory: No shortness of breath, no wheezes, no cough. Gastrointestinal: No abdominal pain, no vomiting, no diarrhea. Genitourinary: No dysuria, no hematuria. Musculoskeletal: Normal range of motion. Skin: No rashes, no pruritis. Neurological: No weakness, sensory change, speech change. She reports lightheadedness episodes as described above. Endo/Heme/Allergies: No bruising or bleeding. No polydipsia. Pysch: no suicidality, no anxiety, no insomnia. All other systems reviewed and are negative. [facility] Medical History (Updated 07/05/24 @ 15:12 by Baltazar Villarreal MD) Primary hypertension ?I10 - Essential (primary) hypertension (ICD-10) Iron deficiency anemia ?D50.9 - Iron deficiency anemia, unspecified (ICD-10) GERD (gastroesophageal reflux disease) ?K21.9 - Gastro-esophageal reflux disease without esophagitis (ICD-10) ELAN (generalized anxiety disorder) ?F41.1 - Generalized anxiety disorder (ICD-10) Ventral hernia ?K43.9 - Ventral hernia without obstruction or gangrene (ICD-10) Postprandial nausea ?R11.0 - Nausea (ICD-10) Arthritis of right acromioclavicular joint ?M19.011 - Primary osteoarthritis, right shoulder (ICD-10) B12 deficiency ?E53.8 - Deficiency of other specified B group vitamins (ICD-10) Perforated chronic gastric ulcer ?K25.5 - Chronic or unspecified gastric ulcer with perforation (ICD-10) Vitamin D deficiency ?E55.9 - Vitamin D deficiency, unspecified (ICD-10) Posttraumatic stress disorder ?F43.10 - Post-traumatic stress disorder, unspecified (ICD-10) Mild persistent asthma ?J45.30 - Mild persistent asthma, uncomplicated (ICD-10) Chronic low back pain ?M54.50 - Low back pain, unspecified (ICD-10) ?G89.29 - Other chronic pain (ICD-10) Surgical History (Updated 04/07/24 @ 11:49 by Julio Cesar Antoine MD) History of gastric bypass (09/2020) ?Z98.84 - Bariatric surgery status (ICD-10) S/P hernia repair (11/23/22) ?Z98.890 - Other specified postprocedural states (ICD-10) ?Z87.19 - Personal history of other diseases of the digestive system (ICD-10) H/O laparoscopy ?Z98.890 - Other specified postprocedural states (ICD-10) S/P cholecystectomy ?Z90.49 - Acquired absence of other specified parts of digestive tract (ICD- 10) S/P exploratory laparotomy ?Z98.890 - Other specified postprocedural states (ICD-10) H/O exploratory laparotomy ?Z98.890 - Other specified postprocedural states (ICD-10) History of shoulder surgery (07/17/22) ?Z98.890 - Other specified postprocedural states (ICD-10) History of arthroscopy of both knees ?Z98.890 - Other specified postprocedural states (ICD-10) S/P OWEN-BSO ?Z90.710 - Acquired absence of both cervix and uterus (ICD-10) ?Z90.722 - Acquired absence of ovaries, bilateral (ICD-10) ?Z90.79 - Acquired absence of other genital organ(s) (ICD-10) History of tonsillectomy and adenoidectomy ?Z90.89 - Acquired absence of other organs (ICD-10) Hx of section ?Z98.891 - History of uterine scar from previous surgery (ICD-10) History of total bilateral knee replacement ?Z96.653 - Presence of artificial knee joint, bilateral (ICD-10) Social History (Updated 01/06/24 @ 08:50 by Sia Andrade ~ [facility], [facility]) Narrative: , former smoker. Patient is currently staying home. What is your current living situation?: I presently have a place to live Problems where you live: no known problems In the past 12 months, utilities in danger of being shut off: no In past 12 months, lack of transportation kept you from medical appts, meetings, work, or getting things needed for daily living: no In the past 12 mos, have been you worried that your food would run out before you had money to buy more?: never true In the past 12 mos, the food you bought just didn't last and you didn't have money to buy more?: never true Smoking Status: Former smoker Do you use any of these nicotine containing products: None Second hand tobacco smoke exposure: No How often do you have a drink containing alcohol: never How often do you have six or more drinks on one occasion: Never AUDIT-C Alcohol total score: 0 Non-prescribed substance use: denies use Caffeine: Yes (coffee) How often does anyone, including family, friends and others, physically hurt you : never How often does anyone, including family, friends and others, insult or talk down to you: never How often does anyone, including family, friends and others, threaten you with harm: never How often does anyone, including family, friends and others, scream or curse at you: never Little interest or pleasure in doing things: several days Feeling down, depressed, or hopeless: several days Are you using contraception or practicing any form of control: No (meopause - hysterectomy at 29) service: No Exam Narrative: Exam Narrative: Constitutional: Well-developed, well-nourished, no acute distress. HEENT: Normocephalic, atraumatic. Neck: Normal range of motion. Nontender. Supple. Heart: Regular. No murmurs. Normal rate. Intact distal pulses. Lungs: Clear to auscultation. No chest discomfort. No wheezes, rhonchi, or rales. Abdomen: Normal bowel sounds. Nontender. No rebound tenderness. Genitalia: Deferred. Back: No midline tenderness. Normal range of motion. Extremities: Normal range of motion. No injury. Skin: Intact. No rash. Warm. No erythema or pallor. Neurologic: No altered sensation. No weakness. Alert and oriented. Psychiatric: No suicidality. No anxiety or depression. No insomnia. Nursing notes and vitals signs are reviewed. Const: Vital Signs, click to edit/add: Vital Signs - 24 hr 07/05/24 10:39 07/05/24 10:46 07/05/24 10:50 Temperature 97.6 F Pulse Rate Pulse Rate [Pulse Oximeter] 79 Respiratory Rate 18 Blood Pressure Blood Pressure [Ri ght Upper Arm] 101/62 Pulse Oximetry 94 93 94 Oxygen Delivery Me thod Room Air 07/05/24 11:00 07/05/24 11:02 07/05/24 11:10 Temperature Pulse Rate Pulse Rate [Pulse Oximeter] Respiratory Rate Blood Pressure Blood Pressure [Ri ght Upper Arm] Pulse Oximetry 95 94 92 Oxygen Delivery Me thod 07/05/24 11:15 07/05/24 11:20 07/05/24 11:22 Temperature Pulse Rate 83 Pulse Rate [Pulse Oximeter] Respiratory Rate Blood Pressure Blood Pressure [Ri ght Upper Arm] Pulse Oximetry 93 92 92 Oxygen Delivery Me thod 07/05/24 11:30 07/05/24 11:40 07/05/24 11:42 Temperature Pulse Rate Pulse Rate [Pulse Oximeter] Respiratory Rate Blood Pressure Blood Pressure [Ri ght Upper Arm] Pulse Oximetry 95 93 95 Oxygen Delivery Me thod 07/05/24 11:42 07/05/24 11:45 07/05/24 11:50 Temperature Pulse Rate 72 Pulse Rate [Pulse Oximeter] Respiratory Rate Blood Pressure Blood Pressure [Ri ght Upper Arm] Pulse Oximetry 95 92 94 Oxygen Delivery Me thod 07/05/24 12:00 07/05/24 12:02 07/05/24 12:10 Temperature Pulse Rate 68 67 Pulse Rate [Pulse Oximeter] Respiratory Rate Blood Pressure Blood Pressure [Ri ght Upper Arm] Pulse Oximetry 92 93 93 Oxygen Delivery Me thod 07/05/24 12:15 07/05/24 12:20 07/05/24 12:22 Temperature Pulse Rate 66 79 Pulse Rate [Pulse Oximeter] Respiratory Rate Blood Pressure 97/59 L Blood Pressure [Ri ght Upper Arm] Pulse Oximetry 94 95 95 Oxygen Delivery Me thod 07/05/24 12:30 07/05/24 12:40 07/05/24 12:42 Temperature Pulse Rate 76 75 Pulse Rate [Pulse Oximeter] Respiratory Rate Blood Pressure 104/67 Blood Pressure [Ri ght Upper Arm] Pulse Oximetry 95 95 94 Oxygen Delivery Me thod 07/05/24 12:45 07/05/24 12:50 07/05/24 13:00 Temperature Pulse Rate 78 Pulse Rate [Pulse Oximeter] Respiratory Rate Blood Pressure Blood Pressure [Ri ght Upper Arm] Pulse Oximetry 91 93 94 Oxygen Delivery Me thod 07/05/24 13:02 07/05/24 13:10 07/05/24 13:15 Temperature Pulse Rate 72 Pulse Rate [Pulse Oximeter] Respiratory Rate Blood Pressure Blood Pressure [Ri ght Upper Arm] Pulse Oximetry 94 94 94 Oxygen Delivery Me thod 07/05/24 13:20 07/05/24 13:22 07/05/24 13:30 Temperature Pulse Rate Pulse Rate [Pulse Oximeter] Respiratory Rate Blood Pressure Blood Pressure [Ri ght Upper Arm] Pulse Oximetry 94 93 92 Oxygen Delivery Me thod 07/05/24 13:40 07/05/24 13:42 07/05/24 13:45 Temperature Pulse Rate 71 Pulse Rate [Pulse Oximeter] Respiratory Rate Blood Pressure Blood Pressure [Ri ght Upper Arm] Pulse Oximetry 93 92 93 Oxygen Delivery Me thod 07/05/24 13:50 07/05/24 14:00 07/05/24 14:02 Temperature Pulse Rate 85 85 Pulse Rate [Pulse Oximeter] Respiratory Rate 16 Blood Pressure 112/67 Blood Pressure [Ri ght Upper Arm] Pulse Oximetry 96 96 96 Oxygen Delivery Me thod 07/05/24 14:15 07/05/24 14:22 Temperature Pulse Rate 92 89 Pulse Rate [Pulse Oximeter] Respiratory Rate Blood Pressure 112/71 Blood Pressure [Ri ght Upper Arm] Pulse Oximetry 94 94 Oxygen Delivery Me thod Course Vital Signs Vital signs: Initial Vital Signs Temperature 97.6 F 07/05/24 10:39 Temperature Source Temporal Artery Scan 07/05/24 10:39 Pulse Rate 79 07/05/24 10:39 Respiratory Rate 18 07/05/24 10:39 Blood Pressure 101/62 07/05/24 10:39 Blood Pressure Mean 75 07/05/24 10:39 Pulse Oximetry 94 07/05/24 10:39 Oxygen Delivery Method Room Air 07/05/24 10:39 Vital Signs Temperature 97.6 F 07/05/24 10:39 Pulse Rate 79 07/05/24 10:39 Respiratory Rate 18 07/05/24 10:39 Blood Pressure 101/62 07/05/24 10:39 Pulse Oximetry 94 07/05/24 10:39 Oxygen Delivery Method Room Air 07/05/24 10:39 Temperature 97.6 F 07/05/24 10:39 Pulse Rate 89 07/05/24 14:22 Respiratory Rate 16 07/05/24 14:02 Blood Pressure 112/71 07/05/24 14:22 Pulse Oximetry 94 07/05/24 14:22 Oxygen Delivery Method Room Air 07/05/24 10:39 Medications Administered Medications: Discontinued Medications Generic Name Dose Route Start Last Admin Trade Name Freq PRN Reason Stop Dose Admin Sodium Chloride 500 mls @ 500 mls/hr 07/05/24 11:15 07/05/24 12:50 0.9 % Sodium Chloride 500 Ml IV 07/05/24 12:14 Infused .Q1H ONE Infusion Medical Decision Making MDM Narrative Medical decision making narrative: This patient comes in reporting symptoms as described above including lightheadedness and black tarry stool. She did have another stool here which tested positive for occult blood. This is typical of an upper GI bleed. Her hemoglobin is a bit over 11 so she has some cushion in this regard. Her blood pressure was a bit soft upon arrival. She did received 2 doses of IV fluids each at 500 mL of normal saline. Her most recent blood pressure was a systolic value of 112. Other lab results are reassuring. I did speak with the surgeon on-call regarding these findings who plans to do an upper GI scope tomorrow. The patient did receive an IV dose of Protonix. Hospitalist also her is informed about plans to admission and will arrange for this. Lab Data Labs: Lab Results 07/05/24 07/05/24 07/05/24 Range/Units 11:11 11:12 11:36 WBC 12.15 H (4.50-11.00) K/uL RBC 3.90 L (4.00-5.20) m/uL Hgb 11.6 L (12.0-16.0) gm/dL Hct 34.9 (33.0-51.0) % MCV 90 (80-100) fL MCH 30 (26-34) pg MCHC 33 (32-36) gm/dL RDW Coeff of Tanja 12.8 (11.5-15.5) % Plt Count 213 (140-440) K/uL Neut % (Auto) 86.6 H (42.0-72.0) % Lymph % (Auto) 8.4 L (20-44) % Mason % (Auto) 4.4 (0.0-11.0) % Eos % (Auto) 0.2 (0.0-7.0) % Baso % (Auto) 0.2 (0.0-3.0) % Neut # (Auto) 10.50 H (1.7-7.0) K/uL Lymph # (Auto) 1.00 (0.90-2.90) K/uL Mason # (Auto) 0.50 (0.00-0.90) K/UL Eos # (Auto) 0.00 (0.00-0.50) K/uL Baso # (Auto) 0.00 (0.00-0.30) K/uL Abs Immat Gran (auto) 0.00 (0.00-0.30) K/uL Imm/Tot Granulo (auto) 0.2 % ESR 2 (2-20) mm/hr Sodium 137 (135-149) mmol/L Potassium 4.6 (3.6-5.1) mmol/L Chloride 106 (96-114) mmol/L Carbon Dioxide 23 (20-32) mmol/L Anion Gap 8 (7-15) mEq/L BUN 46 H (7-30) mg/dL Creatinine 0.5 (0.5-1.5) mg/dL Estimated Creat Clear 45.54 Estimated GFR 105 ml/min Glucose 107 (60-115) mg/dL Calcium 8.4 (8.4-10.6) mg/dL Total Bilirubin 0.5 (0.1-1.5) mg/dL Direct Bilirubin 0.3 (0.0-0.5) mg/dL AST 26 (12-35) U/L ALT 21 (4-35) U/L Alkaline Phosphatase 77 (40-150) U/L C-Reactive Protein < 0.5 L (0.5-1.0) mg/dL Total Protein 5.7 L (6.0-8.3) g/dL Albumin 3.5 (3.3-5.0) g/dL Lipase 233 (23-300) U/L Vitamin B12 368 (243-894) pg/mL TSH 0.958 (0.270-4.20) uIU/mL Stool Occult Blood Positive A (Negative) SARS-CoV-2 (PCR) Negative SARS-CoV-2 (Negative) Influenza Type A (PCR) Negative PCR FLU A (Negative) Influenza Type B (PCR) Negative PCR FLU B (Negative) RSV (PCR) Negative PCR RSV (Negative) POC Troponin I 0.01 (0.01-0.04) ng/ml ECG Data Attestation: I personally reviewed and interpreted this ECG as follows: Interpretation: Normal sinus rhythm. Rate is 82 beats per minute. There are no ST or T-wave abnormalities. Discharge Plan Discharge Clinical Impression: Acute upper gastrointestinal bleeding Prescriptions: No Action metoclopramide HCl [Reglan] 5 mg tablet 5 mg PO TID PRN Rx Instructions: Take 30 minutes AC fluoxetine 40 mg capsule 40 mg PO QDAY Qty: 90 1RF ondansetron 4 mg tablet,disintegrating 4 mg PO Q8H PRN (Reason: nausea and vomiting) Qty: 20 1RF ipratropium-albuterol 0.5 mg-3 mg(2.5 mg base)/3 mL solution for nebulization 1 ml inhalation QID PRN cholecalciferol (vitamin D3) 1,250 mcg (50,000 unit) capsule 1,250 mcg PO QWEEK Qty: 12 3RF fluticasone propion-salmeterol [Advair Diskus] 250-50 mcg/dose blister with device 1 inh inhalation DAILY Qty: 60 5RF omeprazole 20 mg capsule,delayed release(DR/EC) 20 mg PO BID Qty: 60 5RF cyanocobalamin (vitamin B-12) 1,000 mcg/mL solution 1,000 mcg subcut Q4W Qty: 3 3RF (DME) Diabetic Test Strips Misc See Rx Instructions .ROUTE .MEDSUPPLY Qty: 50 10RF Rx Instructions: As directed, testing QID albuterol sulfate [Ventolin HFA] 90 mcg/actuation HFA aerosol inhaler 2 puff inhalation Q6H PRN (Reason: bronchospasm) Qty: 8.5 9RF lorazepam [Ativan] 1 mg tablet 0.5 - 1 mg PO BID PRN (Reason: anxiety) Qty: 30 0RF Follow Up/Referrals: Julio Cesar Antoine MD [Primary Care Provider] -
[2024-07-05] MEDS: 0.9 % SODIUM CHLORIDE 500 ML 500 ML IV ×2 (11:29→14:55)
--- OUTSIDE RECORDS SUMMARY | 2024-07-05 11:47 | XMS_ITS | Encounter Summary ---
Author Organization [facility] Address [address] [place] [address] Phone Care Team Providers Care Golf Course Starter Name Role Phone Julio Cesar Antoine Primary Care Provider [phone] Brendan Vargas Unavailable [phone] Encounter Details Date Type Department Care Team (Late st Contact Info) Description 04/09/2022 Pharmacy Visit [facility] - Pharmacy - Discharge [address] [place] [address] Social History Tobacco Use Types [...] documented as of this encounter Care Teams Golf Course Starter Relationship Specialty Start Date End Date Julio Cesar Antoine [address] [place] [address] PCP - General Family Practice 04/06/22 Brendan Vargas [address] [place] [address] Environmental Compliance Manager General Surgery 04/07/22 documented as of this encounter
--- OUTSIDE RECORDS SUMMARY | 2024-07-05 11:47 | XMS_ITS | Referral Summary ---
Author Organization [facility] Address [address] [place] [address] Phone Care Team Providers Care Sales Technician Name Role Phone Julio Cesar Antoine Primary Care Provider [phone] Brendan Vargas Unavailable [phone] Source Comments This disclosure is being made pursuant to the Care Everywhere program,applicable federal and state laws, and may not contain all informationavailable regarding this patient.[facility] Practices Allergies Active Allergy Reactions Criticality Noted [...] Advance Directives For more information, please contact: [phone] * Full Code (Latest Code Status on File) Date Activated Date Inactivated Comments 04/06/2022 8:57 AM 04/09/2022 5:04 PM * Full Code Date Activated Date Inactivated Comments 04/06/2022 2:42 AM 04/06/2022 8:57 AM Care Teams Sales Technician Relationship Specialty Start Date End Date Julio Cesar Antoine [address] [place] [address] [place] [address] PCP - General Family Practice 04/06/22 Brendan Vargas [address] [place] [address] Associate Programmer General Surgery 04/07/22
--- OUTSIDE RECORDS SUMMARY | 2024-07-05 11:47 | XMS_ITS | Clinical Summary ---
Author Organization [facility] Address [address] [place] [address] Care Team Providers Care Aviation Electrical Technician Name Role Phone Patient, None Per Primary Care Provider Unavaila ble Source Comments This disclosure is being made pursuant to the Jajah program and maynot contain all information available regarding this patient.[facility] Medications Medication Sig Dispensed Refills Start Date [...] COVID-19 Vaccine ( - 2022-2 4 season) 2024 Influenza Vaccine (#1) 2024 HIB Vaccine Aged [...] age to complete this topic Care Teams Aviation Electrical Technician Relationship Specialty Start Date End Date Patient, None Per PCP - General 04/05/22
--- OUTSIDE RECORDS SUMMARY | 2024-07-05 11:47 | XMS_ITS | Clinical Summary ---
Author Organization [facility] Address [place], [place] [address] Care Team Providers Care Machine Heddle Cleaner Name Role Phone Julio Cesar Antoine MD Primary Care Provider + [facility] - Unavailabl e Allergies Active Allergy Reactions [...] 08/01/2022 Obesity 08/01/2022 Osteoarthritis 08/01/2022 Asthma 04/09/2022 Overview (08/01/2022): Monitor vitals, resume home medications as appropriate Hypertension 04/09/2022 Overview (08/01/2022): Monitor vitals, resume home medications as appropriate Pneumoperitoneum 04/06/2022 Overview (08/01/2022): Patient taken to the OR and found to have a perforation in the distal gastric remnant. Surgically repaired and treated with antibiotics. Chest pain, unspecified 07/05/2012 Anxiety state, unspecified 07/05/2012 Unspecified asthma(493.90) 07/05/2012 Overview (07/05/2012): Has been hospitalized for this many years [...] Comments Blood Pressure 145/70 08/03/2022 8:00 AM DISTILLERY MILLER Pulse 86 08/03/2022 8:00 AM DISTILLERY MILLER Temperature 36.7 ??C (98 ??F) 08/03/2022 8:00 AM DISTILLERY MILLER Respiratory Rate 16 08/03/2022 8:00 AM DISTILLERY MILLER Oxygen Saturation 95% 08/03/2022 8:00 AM DISTILLERY MILLER Inhaled Oxygen Concentration - - Weight 66.7 kg (147 lb) 08/01/2022 10:35 PM DISTILLERY MILLER Height 157.5 cm (5' 2) 08/01/2022 10:35 PM DISTILLERY MILLER Body Mass Index 26.89 08/01/2022 10:35 PM DISTILLERY MILLER Plan of Treatment Health Maintenance Due Date [...] age 45-75 07/06/2017 07/06/2012 COVID-19 vaccine series ( - 2023-25 season) 2024 Influenza for age 50-64 04/30/2024 Pneumococcal series for age 6-64 Aged Out No longer eligible based on patient's age to complete this topic Procedures Procedure Name Priority Date/Time Associated Diagnosis Comments LIPID PANEL Early AM 07/06/2012 6:15 AM DISTILLERY MILLER from Last 3 Months or Most Recently Relevant to Health Maintenance Results * (ABNORMAL) LIPID PANEL (07/06/2012 6:15 AM DISTILLERY MILLER) CHOLESTEROL,TOTA L 220(H) 100 - 199 mg/dL [facility] TRIG[facility]ER[facility] 109 <150 mg/dL [facility] HDL CHOLESTEROL 39(L) >40 mg/dL [facility] CHOL/HDL RATIO 5.64(H) <4.50 [facility] NON-HDL CHOLESTEROL 181 Undefined mg/dL [facility] LDL CHOLESTEROL 159(H) <131 mg/dL [facility] PATIENT STATUS Fasting [facility] Blood specimen (specimen) BLOOD SPECIMEN / Unknown 07/06/2012 6:15 AM DISTILLERY MILLER 07/05/2012 10:36 PM DISTILLERY MILLER Jody Zapata MD CHEMISTRY [facility] INTERNAL ZIP [address] [place] [id number] from Last 3 Months or Most Recently Relevant to Health Maintenance Advance Directives * Full Code (Latest Code Status on File) Date Activated Date Inactivated Comments 08/02/2022 12:22 AM 08/03/2022 4:29 PM Question Answer Comments Code Status Discussion: Other * Full Code Date Activated Date Inactivated Comments 07/05/2012 10:28 PM 07/06/2012 3:11 PM Care Teams Machine Heddle Cleaner Relationship Specialty Start Date End Date Julio Cesar Antoine MD [address] [place] [address] PCP - General Family Practice 08/01/22 [facility] - [address] [place] [address] 08/01/22
--- OUTSIDE RECORDS SUMMARY | 2024-07-05 11:47 | XMS_ITS | Clinical Summary ---
Author Organization [facility] Address [address] [place] [address] Phone Care Team Providers Care Pot Fisher Name Role Phone Julio Cesar Antoine Primary Care Provider [phone] Brendan Vargas Unavailable [phone] Source Comments This disclosure is being made pursuant to the Care Everywhere program,applicable federal and state laws, and may not contain all informationavailable regarding this patient.[facility] and [facility] Practices Allergies Active Allergy Reactions Criticality Noted [...] (1 of 2 - PCV) 1967 HIV [place] Screening 1976 HCV Screening 1979 Tetanus Diphtheria Pertussis (1 - Tdap) 1980 Cervical Cancer Screening 1982 Lipid Disorder Screening [address] Colonography 2006 Colonoscopy 2006 Colorectal Screening 2006 FIT-DNA 2006 FIT 2006 FOBT 2006 Flex Sigmoidoscopy 2006 Zoster Vaccine (1 of 2) 2011 RSV Vaccine (1 - Risk 60-74 years 1-dose series) 04/01 [id number] Vaccine ( season) 20 Influenza Vaccine: Seasonal (#1) 04/30/2024 Advance Directives For more information, please contact: [phone] * Full Code (Latest Code Status on File) Date Activated Date Inactivated Comments 04/06/2022 8:57 AM 04/09/2022 5:04 PM * Full Code Date Activated Date Inactivated Comments 04/06/2022 2:42 AM 04/06/2022 8:57 AM Care Teams Pot Fisher Relationship Specialty Start Date End Date Julio Cesar Antoine [address] [facility] [address] PCP - General Family Practice 04/06/22 Brendan Vargas [address] [place] [address] Manager Of Network General Surgery 04/07/22
[2024-07-05 11:53] LABS: Troponin, Point-of-Care* 0.01 ng/ml (0.01-0.04)
[2024-07-05 11:56] LABS: Basophils Percent Auto 0.2 % (0.0-3.0); Eosinophils Percent Auto 0.2 % (0.0-7.0); Hematocrit 34.9 % (33.0-51.0); Hemoglobin* 11.6 gm/dL (12.0-16.0); Immature Granulocytes Pct Auto 0.2 %; Lymphocytes Percent Auto 8.4 % (20-44); Mean Corpuscular HGB Conc 33 gm/dL (32-36); Mean Corpuscular Hemoglobin 30 pg (26-34); Mean Corpuscular Volume 90 fL (80-100); Monocytes Percent Auto 4.4 % (0.0-11.0); Neutrophils Percent Auto 86.6 % (42.0-72.0); Platelet Count* 213 K/uL (140-440); RDW Coefficient of Variation % 12.8 % (11.5-15.5); White Blood Count* 12.15 K/uL (4.50-11.00)
[2024-07-05 12:04] LABS: Albumin* 3.5 g/dL (3.3-5.0)
[2024-07-05 12:07] LABS: Aspartate Amino Transferase* 26 U/L (12-35); Bilirubin Direct* 0.3 mg/dL (0.0-0.5); Bilirubin Total* 0.5 mg/dL (0.1-1.5); Total Protein* 5.7 g/dL (6.0-8.3)
[2024-07-05 12:08] LABS: Alanine Aminotransferase* 21 U/L (4-35); Alkaline Phosphatase* 77 U/L (40-150); Creatinine* 0.5 mg/dL (0.5-1.5); Est. Creatinine Clearance* 45.54; Estimated Glomerular Filt Rate 105 ml/min; Lipase* 233 U/L (23-300)
[2024-07-05 12:09] LABS: Blood Urea Nitrogen* 46 mg/dL (7-30); Carbon Dioxide* 23 mmol/L (20-32); Slide Review Reflex No
[2024-07-05 12:10] LABS: Calcium* 8.4 mg/dL (8.4-10.6); Glucose* 107 mg/dL (60-115)
[2024-07-05 12:25] LABS: PCR FLU A Negative PCR FLU A (Negative); PCR FLU B Negative PCR FLU B (Negative); PCR RSV Negative PCR RSV (Negative); SARS PCR* Negative SARS-CoV-2 (Negative)
[2024-07-05 12:26] LABS: C Reactive Protein* < 0.5 mg/dL (0.5-1.0)
[2024-07-05 12:40] LABS: Erythrocyte SedimentationRate* 2 mm/hr (2-20)
[2024-07-05 12:45] LABS: Anion Gap 8 mEq/L (7-15); Chloride* 106 mmol/L (96-114); Potassium* 4.6 mmol/L (3.6-5.1); Sodium* 137 mmol/L (135-149)
[2024-07-05 12:57] LABS: Vitamin B12* 368 pg/mL (243-894)
[2024-07-05 13:16] LABS: Thyroid Stimulating Hormone* 0.958 uIU/mL (0.270-4.20)
[2024-07-05 14:10] LABS: Fecal Occult Blood* Positive (Negative)
[2024-07-05] MEDS: PANTOPRAZOLE SODIUM 40 MG INJ IVP (15:13)
--- NOTE | 2024-07-05 17:53 | P.IMHP_ITS ---
Hospitalist- H&P: LUIS M History of Present Illness Date Seen: 07/05/24 Chief complaint: dizzy,low blood sugar, chest pain x 2 days Narrative: Roseanna Montague is a 64 year old female past medical history significant for gastric bypass 2020, hernia repair, hypertension not currently on medications, iron deficiency anemia, perforated chronic gastric ulcer, intermittent hypoglycemia, lightheadedness, generalized anxiety disorder, chronic low back pain, PTSD, dissociative disorder is admitted to the medical floor from the ED for concern of GI bleed. Patient reports increasing lightheadedness over the last 24 hours, worse outside of her usual intermittent lightheadedness, feeling as though she was going to black out but did not have any syncopal episodes. Early this morning during her lightheadedness, she did go to the bathroom and had a large black stool. Her stools prior to this the last several days have been normal, brown. She does have intermittent episodes of diarrhea following her bypass but this has not been worse than usual recently. Has had some nausea overnight and did have 1 clear emesis following water intake. She had a 2nd stool in the ED which was guaiac positive. She denies current headache, though did have 1 two nights ago. Dizziness currently is better when lying still. In the past it has been worse with standing or turning or when she feels her glucose may be low. Denies vertiginous like symptoms. Denies syncopal episodes. Did have chest pain a couple of days ago as well which she treated with her 's nitro. Described the pain as tight and boring into her back. She tells me she has had chest pains in the past as well and that her EKGs were normal. Currently denies chest pain or shortness of breath. Denies recent fevers or chills. Denies abdominal pain. ED provider discussed with General surgery, , recommending admission an upper GI endoscopy tomorrow early afternoon. Will be NPO after midnight. Patient is a former smoker, having quit 8 years ago. Denies alcohol use, previously having a glass of wine with holidays, however essentially has no alcohol since her bypass in 2020. Denies regular NSAID use since her bypass surgery as well. Admits to taking 2 baby aspirin rarely for a headache, her last dose being 2 days ago. She takes a PPI daily. Previous surgeries have resulted in what she reports as horrible nausea complications when given general anesthesia. She tells me that the anesthesiologist at this hospital is aware of this and has treated it adequately, typically with 2 scopolamine patches, Zofran, Reglan. Denies personal or family bleeding disorders. Review of Systems Narrative: REVIEW OF SYSTEMS: Complete review of systems performed and negative unless otherwise stated in HPI or below. [facility] Medical History (Updated 07/05/24 @ 18:19 by Anna Partida PA-C) Lightheadedness ?R42 - Dizziness and giddiness (ICD-10) Primary hypertension ?I10 - Essential (primary) hypertension (ICD-10) Iron deficiency anemia ?D50.9 - Iron deficiency anemia, unspecified (ICD-10) GERD (gastroesophageal reflux disease) ?K21.9 - Gastro-esophageal reflux disease without esophagitis (ICD-10) ELNA (generalized anxiety disorder) ?F41.1 - Generalized anxiety disorder (ICD-10) Ventral hernia ?K43.9 - Ventral hernia without obstruction or gangrene (ICD-10) Postprandial nausea ?R11.0 - Nausea (ICD-10) Arthritis of right acromioclavicular joint ?M19.011 - Primary osteoarthritis, right shoulder (ICD-10) B12 deficiency ?E53.8 - Deficiency of other specified B group vitamins (ICD-10) Perforated chronic gastric ulcer ?K25.5 - Chronic or unspecified gastric ulcer with perforation (ICD-10) Vitamin D deficiency ?E55.9 - Vitamin D deficiency, unspecified (ICD-10) Posttraumatic stress disorder ?F43.10 - Post-traumatic stress disorder, unspecified (ICD-10) Mild persistent asthma ?J45.30 - Mild persistent asthma, uncomplicated (ICD-10) Chronic low back pain ?M54.50 - Low back pain, unspecified (ICD-10) ?G89.29 - Other chronic pain (ICD-10) Surgical History (Updated 07/05/24 @ 18:14 by Anna Partida PA-C) History of gastric bypass (09/2020) ?Z98.84 - Bariatric surgery status (ICD-10) S/P hernia repair (11/23/22) ?Z98.890 - Other specified postprocedural states (ICD-10) ?Z87.19 - Personal history of other diseases of the digestive system (ICD-10) H/O laparoscopy ?Z98.890 - Other specified postprocedural states (ICD-10) S/P cholecystectomy ?Z90.49 - Acquired absence of other specified parts of digestive tract (ICD- 10) S/P exploratory laparotomy ?Z98.890 - Other specified postprocedural states (ICD-10) H/O exploratory laparotomy ?Z98.890 - Other specified postprocedural states (ICD-10) History of shoulder surgery (07/17/22) ?Z98.890 - Other specified postprocedural states (ICD-10) History of arthroscopy of both knees ?Z98.890 - Other specified postprocedural states (ICD-10) S/P OWEN-BSO ?Z90.710 - Acquired absence of both cervix and uterus (ICD-10) ?Z90.722 - Acquired absence of ovaries, bilateral (ICD-10) ?Z90.79 - Acquired absence of other genital organ(s) (ICD-10) History of tonsillectomy and adenoidectomy ?Z90.89 - Acquired absence of other organs (ICD-10) Hx of section ?Z98.891 - History of uterine scar from previous surgery (ICD-10) History of total bilateral knee replacement ?Z96.653 - Presence of artificial knee joint, bilateral (ICD-10) Social History Narrative: , former smoker. Patient is currently staying home. What is your current living situation?: I presently have a place to live Problems where you live: no known problems Problems where you live details: none In the past 12 months, utilities in danger of being shut off: no In past 12 months, lack of transportation kept you from medical appts, meetings, work, or getting things needed for daily living: no In the past 12 mos, have been you worried that your food would run out before you had money to buy more?: never true In the past 12 mos, the food you bought just didn't last and you didn't have money to buy more?: never true Smoking Status: Never smoker Do you use any of these nicotine containing products: None Second hand tobacco smoke exposure: No How often do you have a drink containing alcohol: never How often do you have six or more drinks on one occasion: Never AUDIT-C Alcohol total score: 0 Non-prescribed substance use: denies use Caffeine: Yes (coffee) How often does anyone, including family, friends and others, physically hurt you : never How often does anyone, including family, friends and others, insult or talk down to you: never How often does anyone, including family, friends and others, threaten you with harm: never How often does anyone, including family, friends and others, scream or curse at you: never Little interest or pleasure in doing things: several days Feeling down, depressed, or hopeless: several days Are you using contraception or practicing any form of control: No (meopause - hysterectomy at 29) service: No Meds Home Medications and Allergies Home Medications ?Medication ?Instructions ?Recorded ?Confirmed ?Type ipratropium 0.5 mg-albuterol 3 mg 3 ml inhalation QID PRN 07/06/22 07/05/24 History (2.5 mg base)/3 mL nebulization soln metoclopramide HCl 5 mg tablet 5 mg PO TID PRN 11/02/22 07/05/24 History (Reglan) fluticasone 250 mcg-salmeterol 50 1 inh inhalation HS 07/05/24 07/05/24 History mcg/dose blistr powdr for inhalation (Advair Diskus) omeprazole 20 mg capsule,delayed 20 mg PO DAILY 07/05/24 07/05/24 History release Allergies Allergy/AdvReac Type Severity Reaction Status Date / Time CRIS Inhibitors AdvReac Intermediate Cough Verified 04/07/24 10:37 oxycodone AdvReac Intermediate nausea and Verified 04/07/24 10:37 vomiting Exam Narrative: Exam Narrative: PHYSICAL EXAM General: Pleasant, conversant, quite anxious but otherwise NAD HEENT: Normocephalic, atraumatic, sclera white, EOMI, mild nystagmus left lateral, oral mucosa moist Cardiovascular: RRR, S1S2. Trace pitting edema Pulmonary: CTA bilaterally without rhonchi, rales, expiratory wheezes. No dyspnea on room air Abdominal: Soft, nondistended, NTTP, no guarding Neurological: Alert, answering questions appropriately, cranial nerves intact, no focal findings Extremities: No gross joint deformity or swelling. AROMI. Neurovascularly intact Skin: Warm, dry. Const: Vital Signs, click to edit/add: Vital Signs - 24 hr 07/05/24 10:39 07/05/24 10:46 07/05/24 10:50 Temperature 97.6 F Pulse Rate Pulse Rate [Pulse Oximeter] 79 Pulse Rate [Right Radial] Respiratory Rate 18 Blood Pressure Blood Pressure [Ri ght Arm] Blood Pressure [Ri ght Upper Arm] 101/62 Pulse Oximetry 94 93 94 Oxygen Delivery Me thod Room Air 07/05/24 11:00 07/05/24 11:02 07/05/24 11:10 Temperature Pulse Rate Pulse Rate [Pulse Oximeter] Pulse Rate [Right Radial] Respiratory Rate Blood Pressure Blood Pressure [Ri ght Arm] Blood Pressure [Ri ght Upper Arm] Pulse Oximetry 95 94 92 Oxygen Delivery Me thod 07/05/24 11:15 07/05/24 11:20 07/05/24 11:22 Temperature Pulse Rate 83 Pulse Rate [Pulse Oximeter] Pulse Rate [Right Radial] Respiratory Rate Blood Pressure Blood Pressure [Ri ght Arm] Blood Pressure [Ri ght Upper Arm] Pulse Oximetry 93 92 92 Oxygen Delivery Me thod 07/05/24 11:30 07/05/24 11:40 07/05/24 11:42 Temperature Pulse Rate Pulse Rate [Pulse Oximeter] Pulse Rate [Right Radial] Respiratory Rate Blood Pressure Blood Pressure [Ri ght Arm] Blood Pressure [Ri ght Upper Arm] Pulse Oximetry 95 93 95 Oxygen Delivery Me thod 07/05/24 11:42 07/05/24 11:45 07/05/24 11:50 Temperature Pulse Rate 72 Pulse Rate [Pulse Oximeter] Pulse Rate [Right Radial] Respiratory Rate Blood Pressure Blood Pressure [Ri ght Arm] Blood Pressure [Ri ght Upper Arm] Pulse Oximetry 95 92 94 Oxygen Delivery Me thod 07/05/24 12:00 07/05/24 12:02 07/05/24 12:10 Temperature Pulse Rate 68 67 Pulse Rate [Pulse Oximeter] Pulse Rate [Right Radial] Respiratory Rate Blood Pressure Blood Pressure [Ri ght Arm] Blood Pressure [Ri ght Upper Arm] Pulse Oximetry 92 93 93 Oxygen Delivery Me thod 07/05/24 12:15 07/05/24 12:20 07/05/24 12:22 Temperature Pulse Rate 66 79 Pulse Rate [Pulse Oximeter] Pulse Rate [Right Radial] Respiratory Rate Blood Pressure 97/59 L Blood Pressure [Ri ght Arm] Blood Pressure [Ri ght Upper Arm] Pulse Oximetry 94 95 95 Oxygen Delivery Me thod 07/05/24 12:30 07/05/24 12:40 07/05/24 12:42 Temperature Pulse Rate 76 75 Pulse Rate [Pulse Oximeter] Pulse Rate [Right Radial] Respiratory Rate Blood Pressure 104/67 Blood Pressure [Ri ght Arm] Blood Pressure [Ri ght Upper Arm] Pulse Oximetry 95 95 94 Oxygen Delivery Ia thod 07/05/24 12:45 07/05/24 12:50 07/05/24 13:00 Temperature Pulse Rate 78 Pulse Rate [Pulse Oximeter] Pulse Rate [Right Radial] Respiratory Rate Blood Pressure Blood Pressure [Ri ght Arm] Blood Pressure [Ri ght Upper Arm] Pulse Oximetry 91 93 94 Oxygen Delivery Ia thod 07/05/24 13:02 07/05/24 13:10 07/05/24 13:15 Temperature Pulse Rate 72 Pulse Rate [Pulse Oximeter] Pulse Rate [Right Radial] Respiratory Rate Blood Pressure Blood Pressure [Ri ght Arm] Blood Pressure [Ri ght Upper Arm] Pulse Oximetry 94 94 94 Oxygen Delivery Ia thod 07/05/24 13:20 07/05/24 13:22 07/05/24 13:30 Temperature Pulse Rate Pulse Rate [Pulse Oximeter] Pulse Rate [Right Radial] Respiratory Rate Blood Pressure Blood Pressure [Ri ght Arm] Blood Pressure [Ri ght Upper Arm] Pulse Oximetry 94 93 92 Oxygen Delivery Ia thod 07/05/24 13:40 07/05/24 13:42 07/05/24 13:45 Temperature Pulse Rate 71 Pulse Rate [Pulse Oximeter] Pulse Rate [Right Radial] Respiratory Rate Blood Pressure Blood Pressure [Ri ght Arm] Blood Pressure [Ri ght Upper Arm] Pulse Oximetry 93 92 93 Oxygen Delivery Ia thod 07/05/24 13:50 07/05/24 14:00 07/05/24 14:02 Temperature Pulse Rate 85 85 Pulse Rate [Pulse Oximeter] Pulse Rate [Right Radial] Respiratory Rate 16 Blood Pressure 112/67 Blood Pressure [Ri ght Arm] Blood Pressure [Ri ght Upper Arm] Pulse Oximetry 96 96 96 Oxygen Delivery Ia thod 07/05/24 14:15 07/05/24 14:22 07/05/24 15:40 Temperature 98.1 F Pulse Rate 92 89 Pulse Rate [Pulse Oximeter] Pulse Rate [Right Radial] 80 Respiratory Rate 18 Blood Pressure 112/71 Blood Pressure [Ri ght Arm] 122/66 Blood Pressure [Ri ght Upper Arm] Pulse Oximetry 94 94 95 Oxygen Delivery Me thod Room Air Hospitalist - H&P: Result Labs Labs: Short CBC 07/05/24 Range/Units 11:36 WBC 12.15 H (4.50-11.00) K/uL Hgb 11.6 L (12.0-16.0) gm/dL Hct 34.9 (33.0-51.0) % Plt Count 213 (140-440) K/uL BMP 07/05/24 11:36 Sodium 137 Potassium 4.6 Chloride 106 Carbon Dioxide 23 BUN 46 H Creatinine 0.5 Glucose 107 Calcium 8.4 Liver Function 07/05/24 Range/Units 11:36 Total Bilirubin 0.5 (0.1-1.5) mg/dL Direct Bilirubin 0.3 (0.0-0.5) mg/dL AST 26 (12-35) U/L ALT 21 (4-35) U/L Alkaline Phosphatase 77 (40-150) U/L Albumin 3.5 (3.3-5.0) g/dL Assessment and Plan Assessment and plan (1) Acute upper gastrointestinal bleeding: Problem comment: -black tarry stool x 2 today -history of gastric bypass 2020, reports followed by complications and further surgeries, perforated chronic gastric ulcer -minimal clear diet for now, NPO at midnight with IVF -nausea management as needed. Reporting no abdominal pain -IV PPI -Endoscopy with Dr. Rosas Status: Acute (2) History of gastric bypass: Problem comment: -[address] [facility] in [facility]. Reports complications and revisions, last 2022 Status: Acute (3) Perforated chronic gastric ulcer: Problem comment: -hold home omeprazole -IV PPI during hospitalization Status: Acute (4) Hypoglycemia: Problem comment: -intermittent, symptomatic, checking blood sugars daily, most recent A1c 5.4.. Followed by PCP, Dr. Antoine -glucose checks ACHS -outpatient Endocrinology consult 07/17/24 Status: Acute (5) Lightheadedness: Problem comment: -per Dr. Antoine's note 01/27/24 : Lightheadedness with associated tremors and nausea: Given the patient's history of gastric bypass, it is plausible that her symptoms may be indicative of dumping syndrome or orthostatic hypotension. We will provide a glucose monitor to check her blood glucose levels when she has these episodes. She has been advised to consume small, frequent meals which are rich in protein and monitor blood pressure during these episodes -as above, outpatient Endocrinology 07/17/24 Status: Acute (6) Iron deficiency anemia: Problem comment: -hgb 11.6 following 2 black tarry stools which is reassuring -most recently 08-13 -recheck in am awaiting scope Status: Acute (7) GERD (gastroesophageal reflux disease): Problem comment: -continue IV PPI Status: Acute Total Time Spent Total Time Spent: Total time spent caring for the patient today was 75 minutes. This includes time spent for the visit reviewing the chart, time spent during the visit, time spent after the visit and documentation and planning in coordination of care.
[2024-07-05] MEDS: SODIUM CHLORIDE 0.9 % (FLUSH) 10 ML SYRINGE 5 ML IVF (20:46)
[2024-07-06] VITALS (12 sets, daily range): BP systolic 109–134; BP diastolic 60–80; PULSE 71–96; RESP 14–20; TEMP 36.5–37.4; O2SAT 93–96
[2024-07-06 06:25] LABS: Hematocrit 29.1 % (33.0-51.0); Hemoglobin* 9.5 gm/dL (12.0-16.0); Mean Corpuscular HGB Conc 33 gm/dL (32-36); Mean Corpuscular Hemoglobin 29 pg (26-34); Mean Corpuscular Volume 90 fL (80-100); Platelet Count* 161 K/uL (140-440); Red Blood Count 3.25 m/uL (4.00-5.20); White Blood Count* 5.11 K/uL (4.50-11.00)
[2024-07-06 06:26] LABS: Slide Review Reflex No
[2024-07-06 06:40] LABS: Chloride* 108 mmol/L (96-114); Sodium* 138 mmol/L (135-149)
[2024-07-06 06:42] LABS: Anion Gap 3 mEq/L (7-15); Bilirubin Total* 0.3 mg/dL (0.1-1.5); Carbon Dioxide* 27 mmol/L (20-32); Creatinine* 0.5 mg/dL (0.5-1.5); Est. Creatinine Clearance* 45.54; Estimated Glomerular Filt Rate 105 ml/min
[2024-07-06 06:43] LABS: Alanine Aminotransferase* 16 U/L (4-35); Alkaline Phosphatase* 68 U/L (40-150); Aspartate Amino Transferase* 23 U/L (12-35); Blood Urea Nitrogen* 23 mg/dL (7-30); Calcium* 8.3 mg/dL (8.4-10.6); Glucose* 90 mg/dL (60-115)
[2024-07-06] MEDS: 0.9 % SODIUM CHLORIDE 1000 ml 1,000 ML 125 ML IV (07:41)
--- NOTE | 2024-07-06 08:00 | PC.NURSE ---
Shift note ([id number]): Patient pleasant, alert and oriented. Had a drink at midnight; has been NPO since that time. Ambulating well with stand by assist. Reported cramping in her abdomen near naval rated 2/10. Declined PRN pain interventions when offered. Had a small loose black-maroon stool this morning. Dr Rosas called this am for pt update. ?
[2024-07-06] MEDS: SODIUM CHLORIDE 0.9 % (FLUSH) 10 ML SYRINGE 5 ML IVF (08:58)
[2024-07-06] MEDS: PANTOPRAZOLE SODIUM 40 MG INJ IVP (08:58)
[2024-07-06] MEDS: ACETAMINOPHEN 325 MG TABLET 975 MG PO (09:33)
[2024-07-06 10:11] LABS: Hemoglobin* 9.8 gm/dL (12.0-16.0)
--- NOTE | 2024-07-06 10:26 | PM.IMPN1 ---
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 Reporting no abdominal pain -IV PPI -Endoscopy with Dr. Rosas 07/06/2024 Status: Acute (2) History of gastric bypass: Problem details: -2020 at [facility] in [facility]. Reports complications and revisions, last 2022 Status: Acute (3) Perforated chronic gastric ulcer: Problem details: -hold home omeprazole -IV PPI during hospitalization Status: Acute (4) Hypoglycemia: Problem details: -intermittent, symptomatic, checking blood sugars daily, most recent A1c 5.4.. Followed by PCP, Dr. Antoine -glucose checks ACHS -outpatient Endocrinology consult 07/17/24 Status: Acute (5) Lightheadedness: Problem details: -per Dr. Antoine's note 01/27/24 : Lightheadedness with associated tremors and nausea: Given the patient's history of gastric bypass, it is plausible that her symptoms may be indicative of dumping syndrome or orthostatic hypotension. We will provide a glucose monitor to check her blood glucose levels when she has these episodes. She has been advised to consume small, frequent meals which are rich in protein and monitor blood pressure during these episodes -as above, outpatient Endocrinology 07/17/24 Status: Acute (6) Iron deficiency anemia: Problem details: -hgb 11.6 following 2 black tarry stools which is reassuring -most recently 08-13 -07/06/2024 hemoglobin 9.5 at 6:00 a.m. with repeat hemoglobin at 10:00 a.m. still pending Status: Acute (7) GERD (gastroesophageal reflux disease): Problem details: -continue IV PPI Status: Acute Plan 1. Reviewed impression with patient 2. Reviewed plans and recommendations with patient 3. Answered patient's questions to her satisfaction 4. Check orthostatic blood pressures and pulses this morning prior to EGD 5. Patient agreeable with above stated plans and recommendations Time Spent With Patient Total time spent: 35 minute Subjective Date Seen: 07/06/24 Interval history: Hospital day 2. One day history of melena and anemia. History of gastric bypass 2020 with revision in 2022. History of perforation of blind Lola limb status post surgical repair. Chest pain she presented with has since resolved. Orthostasis has similarly resolved. No further melena. Denies nausea or vomiting. Baseline hemoglobin around 14. On presentation hemoglobin was 11.5. This morning hemoglobin is down to 9.5, status post IV fluid resuscitation on presentation. Exam Narrative: Exam Narrative: Examined patient in her hospital room. Appears comfortable and in no acute distress. Vision and hearing are adequate. Alert and oriented x4. Friendly, articulate, cooperative. Independent in transfer, station, and gait. No obvious orthostasis. Lungs are clear to auscultation. Heart tones with regular rhythm. Abdomen with active bowel sounds, soft, nontender. No rebound or guarding. Extremities without edema. No focal motor neurologic deficits. Const: Vital Signs, click to edit/add: Vital Signs - 24 hr 07/05/24 10:39 07/05/24 10:46 07/05/24 10:50 Temperature 97.6 F Pulse Rate Pulse Rate [Pulse Oximeter] 79 Pulse Rate [Right Radial] Respiratory Rate 18 Blood Pressure Blood Pressure [Ri ght Arm] Blood Pressure [Ri ght Upper Arm] 101/62 Pulse Oximetry 94 93 94 Oxygen Delivery Me thod Room Air 07/05/24 11:00 07/05/24 11:02 07/05/24 11:10 Temperature Pulse Rate Pulse Rate [Pulse Oximeter] Pulse Rate [Right Radial] Respiratory Rate Blood Pressure Blood Pressure [Ri ght Arm] Blood Pressure [Ri ght Upper Arm] Pulse Oximetry 95 94 92 Oxygen Delivery Me thod 07/05/24 11:15 07/05/24 11:20 07/05/24 11:22 Temperature Pulse Rate 83 Pulse Rate [Pulse Oximeter] Pulse Rate [Right Radial] Respiratory Rate Blood Pressure Blood Pressure [Ri ght Arm] Blood Pressure [Ri ght Upper Arm] Pulse Oximetry 93 92 92 Oxygen Delivery Me thod 07/05/24 11:30 07/05/24 11:40 07/05/24 11:42 Temperature Pulse Rate Pulse Rate [Pulse Oximeter] Pulse Rate [Right Radial] Respiratory Rate Blood Pressure Blood Pressure [Ri ght Arm] Blood Pressure [Ri ght Upper Arm] Pulse Oximetry 95 93 95 Oxygen Delivery Me thod 07/05/24 11:42 07/05/24 11:45 07/05/24 11:50 Temperature Pulse Rate 72 Pulse Rate [Pulse Oximeter] Pulse Rate [Right Radial] Respiratory Rate Blood Pressure Blood Pressure [Ri ght Arm] Blood Pressure [Ri ght Upper Arm] Pulse Oximetry 95 92 94 Oxygen Delivery Me thod 07/05/24 12:00 07/05/24 12:02 07/05/24 12:10 Temperature Pulse Rate 68 67 Pulse Rate [Pulse Oximeter] Pulse Rate [Right Radial] Respiratory Rate Blood Pressure Blood Pressure [Ri ght Arm] Blood Pressure [Ri ght Upper Arm] Pulse Oximetry 92 93 93 Oxygen Delivery Me thod 07/05/24 12:15 07/05/24 12:20 07/05/24 12:22 Temperature Pulse Rate 66 79 Pulse Rate [Pulse Oximeter] Pulse Rate [Right Radial] Respiratory Rate Blood Pressure 97/59 L Blood Pressure [Ri ght Arm] Blood Pressure [Ri ght Upper Arm] Pulse Oximetry 94 95 95 Oxygen Delivery Me thod 07/05/24 12:30 07/05/24 12:40 07/05/24 12:42 Temperature Pulse Rate 76 75 Pulse Rate [Pulse Oximeter] Pulse Rate [Right Radial] Respiratory Rate Blood Pressure 104/67 Blood Pressure [Ri ght Arm] Blood Pressure [Ri ght Upper Arm] Pulse Oximetry 95 95 94 Oxygen Delivery Me thod 07/05/24 12:45 07/05/24 12:50 07/05/24 13:00 Temperature Pulse Rate 78 Pulse Rate [Pulse Oximeter] Pulse Rate [Right Radial] Respiratory Rate Blood Pressure Blood Pressure [Ri ght Arm] Blood Pressure [Ri ght Upper Arm] Pulse Oximetry 91 93 94 Oxygen Delivery Me thod 07/05/24 13:02 07/05/24 13:10 07/05/24 13:15 Temperature Pulse Rate 72 Pulse Rate [Pulse Oximeter] Pulse Rate [Right Radial] Respiratory Rate Blood Pressure Blood Pressure [Ri ght Arm] Blood Pressure [Ri ght Upper Arm] Pulse Oximetry 94 94 94 Oxygen Delivery Me thod 07/05/24 13:20 07/05/24 13:22 07/05/24 13:30 Temperature Pulse Rate Pulse Rate [Pulse Oximeter] Pulse Rate [Right Radial] Respiratory Rate Blood Pressure Blood Pressure [Ri ght Arm] Blood Pressure [Ri ght Upper Arm] Pulse Oximetry 94 93 92 Oxygen Delivery Me thod 07/05/24 13:40 07/05/24 13:42 07/05/24 13:45 Temperature Pulse Rate 71 Pulse Rate [Pulse Oximeter] Pulse Rate [Right Radial] Respiratory Rate Blood Pressure Blood Pressure [Ri ght Arm] Blood Pressure [Ri ght Upper Arm] Pulse Oximetry 93 92 93 Oxygen Delivery Me thod 07/05/24 13:50 07/05/24 14:00 07/05/24 14:02 Temperature Pulse Rate 85 85 Pulse Rate [Pulse Oximeter] Pulse Rate [Right Radial] Respiratory Rate 16 Blood Pressure 112/67 Blood Pressure [Ri ght Arm] Blood Pressure [Ri ght Upper Arm] Pulse Oximetry 96 96 96 Oxygen Delivery Me thod 07/05/24 14:15 07/05/24 14:22 07/05/24 15:40 Temperature 98.1 F Pulse Rate 92 89 Pulse Rate [Pulse Oximeter] Pulse Rate [Right Radial] 80 Respiratory Rate 18 Blood Pressure 112/71 Blood Pressure [Ri ght Arm] 122/66 Blood Pressure [Ri ght Upper Arm] Pulse Oximetry 94 94 95 Oxygen Delivery Me thod Room Air 07/05/24 20:00 07/06/24 00:00 07/06/24 00:35 Temperature 98.8 F Pulse Rate 86 Pulse Rate [Pulse Oximeter] Pulse Rate [Right Radial] 94 90 Respiratory Rate 17 18 Blood Pressure Blood Pressure [Ri ght Arm] 107/62 115/68 Blood Pressure [Ri ght Upper Arm] Pulse Oximetry 94 93 Oxygen Delivery Me thod Room Air Room Air 07/06/24 04:00 07/06/24 07:17 07/06/24 07:35 Temperature 98.2 F 98 F Pulse Rate 75 Pulse Rate [Pulse Oximeter] Pulse Rate [Right Radial] 80 82 Respiratory Rate 20 14 Blood Pressure Blood Pressure [Ri ght Arm] 109/60 110/62 Blood Pressure [Ri ght Upper Arm] Pulse Oximetry 93 94 Oxygen Delivery Me thod Room Air Room Air 07/06/24 07:35 Temperature Pulse Rate Pulse Rate [Pulse Oximeter] Pulse Rate [Right Radial] 82 Respiratory Rate 14 Blood Pressure Blood Pressure [Ri ght Arm] Blood Pressure [Ri ght Upper Arm] Pulse Oximetry Oxygen Delivery Me thod Labs Labs: Laboratory Results - last 24 hr 07/05/24 07/05/24 07/05/24 11:11 11:12 11:36 WBC 12.15 H RBC 3.90 L Hgb 11.6 L Hct 34.9 MCV 90 MCH 30 MCHC 33 RDW Coeff of Tanja 12.8 Plt Count 213 Neut % (Auto) 86.6 H Lymph % (Auto) 8.4 L [place] % (Auto) 4.4 Eos % (Auto) 0.2 Baso % (Auto) 0.2 Neut # (Auto) 10.50 H Lymph # (Auto) 1.00 [place] # (Auto) 0.50 Eos # (Auto) 0.00 Baso # (Auto) 0.00 Abs Immat Gran (auto) 0.00 Imm/Tot Granulo (auto) 0.2 ESR 2 Sodium 137 Potassium 4.6 Chloride 106 Carbon Dioxide 23 Anion Gap 8 BUN 46 H Creatinine 0.5 Estimated Creat Clear 45.54 Estimated GFR 105 Glucose 107 Calcium 8.4 Magnesium Total Bilirubin 0.5 Direct Bilirubin 0.3 AST 26 ALT 21 Alkaline Phosphatase 77 C-Reactive Protein < 0.5 L Total Protein 5.7 L Albumin 3.5 Lipase 233 Vitamin B12 368 TSH 0.958 Stool Occult Blood Positive A SARS-CoV-2 (PCR) Negative SARS-CoV-2 Influenza Type A (PCR) Negative PCR FLU A Influenza Type B (PCR) Negative PCR FLU B RSV (PCR) Negative PCR RSV POC Troponin I 0.01 07/06/24 06:15 WBC 5.11 RBC 3.25 L Hgb 9.5 L Hct 29.1 L MCV 90 MCH 29 MCHC 33 RDW Coeff of Tanja Plt Count 161 Neut % (Auto) Lymph % (Auto) [place] % (Auto) Eos % (Auto) Baso % (Auto) Neut # (Auto) Lymph # (Auto) [place] # (Auto) Eos # (Auto) Baso # (Auto) Abs Immat Gran (auto) Imm/Tot Granulo (auto) ESR Sodium 138 Potassium 4.0 Chloride 108 Carbon Dioxide 27 Anion Gap 3 L BUN 23 Creatinine 0.5 Estimated Creat Clear 45.54 Estimated GFR 105 Glucose 90 Calcium 8.3 L Magnesium 2.0 Total Bilirubin 0.3 Direct Bilirubin AST 23 ALT 16 Alkaline Phosphatase 68 C-Reactive Protein Total Protein 5.0 L Albumin 3.0 L Lipase Vitamin B12 TSH Stool Occult Blood SARS-CoV-2 (PCR) Influenza Type A (PCR) Influenza Type B (PCR) RSV (PCR) POC Troponin I ECG Attestation: I personally reviewed and interpreted this ECG as follows: Interpretation: Normal sinus rhythm. No ischemic or infarct patterns.
--- NOTE | 2024-07-06 12:02 | PM.GSCN ---
History of Present Illness Consult details Date Seen: 07/06/24 Consult date: 07/06/24 Narrative: Patient presented to the emergency department last night for dark tarry stools and dizziness. Yesterday morning she had a large bowel movement that was very dark in color. She has never had anything like this before. She also reports some associated nausea and dizziness, which brought her in. Her surgical history is positive for a gastric bypass in 2020. A Year after that surgery she had ?a hole in the side of her stomach?. This happened while she was in [place] and she ended up undergoing an exploratory laparotomy for repair. She was never told that this was an ulcer, although the history is suspicious for a perforated ulcer. She does take omeprazole, but not every day. She denies any current smoking, NSAID use. She does take aspirin as needed for headaches, but this is very infrequent per patient. She has a history of a ventral hernia repair with placement of a 12 x 8 cm retro rectus mesh. Her last colonoscopy was at [facility] and between 5-10 years. She denies a history of polyps or family history of colon cancer. On admission patient's hemoglobin was 11.6. This morning hemoglobin was 9.5, recheck 4 hours later 9.8. She had a small dark tarry stool this morning, nothing since. She has some persistent nausea, no emesis. Intermittent lower abdominal cramping, denies any persistent pain or worsening pain. She remains hemodynamically stable and has not required any blood products since admission. Review of Systems Status of ROS: Reports: 10 or more systems reviewed and unremarkable except as noted in History and below [facility] Medical History (Updated 07/06/24 @ 10:37 by Jon Gilbert MD) Lightheadedness ?R42 - Dizziness and giddiness (ICD-10) Primary hypertension ?I10 - Essential (primary) hypertension (ICD-10) Iron deficiency anemia ?D50.9 - Iron deficiency anemia, unspecified (ICD-10) GERD (gastroesophageal reflux disease) ?K21.9 - Gastro-esophageal reflux disease without esophagitis (ICD-10) ELAN (generalized anxiety disorder) ?F41.1 - Generalized anxiety disorder (ICD-10) Ventral hernia ?K43.9 - Ventral hernia without obstruction or gangrene (ICD-10) Postprandial nausea ?R11.0 - Nausea (ICD-10) Arthritis of right acromioclavicular joint ?M19.011 - Primary osteoarthritis, right shoulder (ICD-10) B12 deficiency ?E53.8 - Deficiency of other specified B group vitamins (ICD-10) Perforated chronic gastric ulcer ?K25.5 - Chronic or unspecified gastric ulcer with perforation (ICD-10) Vitamin D deficiency ?E55.9 - Vitamin D deficiency, unspecified (ICD-10) Posttraumatic stress disorder ?F43.10 - Post-traumatic stress disorder, unspecified (ICD-10) Mild persistent asthma ?J45.30 - Mild persistent asthma, uncomplicated (ICD-10) Chronic low back pain ?M54.50 - Low back pain, unspecified (ICD-10) ?G89.29 - Other chronic pain (ICD-10) Surgical History (Updated 07/05/24 @ 18:14 by Anna Partida PA-C) History of gastric bypass (09/2020) ?Z98.84 - Bariatric surgery status (ICD-10) S/P hernia repair (11/23/22) ?Z98.890 - Other specified postprocedural states (ICD-10) ?Z87.19 - Personal history of other diseases of the digestive system (ICD-10) H/O laparoscopy ?Z98.890 - Other specified postprocedural states (ICD-10) S/P cholecystectomy ?Z90.49 - Acquired absence of other specified parts of digestive tract (ICD-10) S/P exploratory laparotomy ?Z98.890 - Other specified postprocedural states (ICD-10) H/O exploratory laparotomy ?Z98.890 - Other specified postprocedural states (ICD-10) History of shoulder surgery (07/17/22) ?Z98.890 - Other specified postprocedural states (ICD-10) History of arthroscopy of both knees ?Z98.890 - Other specified postprocedural states (ICD-10) S/P OWEN-BSO ?Z90.710 - Acquired absence of both cervix and uterus (ICD-10) ?Z90.722 - Acquired absence of ovaries, bilateral (ICD-10) ?Z90.79 - Acquired absence of other genital organ(s) (ICD-10) History of tonsillectomy and adenoidectomy ?Z90.89 - Acquired absence of other organs (ICD-10) Hx of section ?Z98.891 - History of uterine scar from previous surgery (ICD-10) History of total bilateral knee replacement ?Z96.653 - Presence of artificial knee joint, bilateral (ICD-10) Social History Narrative: , former smoker. Patient is currently staying home. What is your current living situation?: I presently have a place to live Problems where you live: no known problems Problems where you live details: none In the past 12 months, utilities in danger of being shut off: no In past 12 months, lack of transportation kept you from medical appts, meetings, work, or getting things needed for daily living: no In the past 12 mos, have been you worried that your food would run out before you had money to buy more?: never true In the past 12 mos, the food you bought just didn't last and you didn't have money to buy more?: never true Smoking Status: Former smoker Do you use any of these nicotine containing products: None Second hand tobacco smoke exposure: No How often do you have a drink containing alcohol: never How often do you have six or more drinks on one occasion: Never AUDIT-C Alcohol total score: 0 Non-prescribed substance use: denies use Caffeine: Yes (coffee) How often does anyone, including family, friends and others, physically hurt you: never How often does anyone, including family, friends and others, insult or talk down to you: never How often does anyone, including family, friends and others, threaten you with harm: never How often does anyone, including family, friends and others, scream or curse at you: never Little interest or pleasure in doing things: several days Feeling down, depressed, or hopeless: several days Are you using contraception or practicing any form of control: No (meopause - hysterectomy at 29) service: No Meds Home Medications and Allergies Home Medications ?Medication ?Instructions ?Recorded ?Confirmed ?Type ipratropium 0.5 mg-albuterol 3 mg 3 ml inhalation QID PRN 07/06/22 07/05/24 History (2.5 mg base)/3 mL nebulization soln metoclopramide HCl 5 mg tablet 5 mg PO TID PRN 11/02/22 07/05/24 History (Reglan) fluticasone 250 mcg-salmeterol 50 1 inh inhalation HS 07/05/24 07/05/24 History mcg/dose blistr powdr for inhalation (Advair Diskus) omeprazole 20 mg capsule,delayed 20 mg PO DAILY 07/05/24 07/05/24 History release Allergies Allergy/AdvReac Type Severity Reaction Status Date / Time CRIS Inhibitors AdvReac Intermediate Cough Verified 04/07/24 10:37 oxycodone AdvReac Intermediate nausea and Verified 04/07/24 10:37 vomiting Exam Narrative: Exam Narrative: General: Alert and oriented, no acute distress Respiratory: Equal breath rise bilaterally, maintained on room air CV: Well perfused Abdomen: Soft, nontender and nondistended Const: Vital Signs, click to edit/add: Vital Signs - 24 hr 07/05/24 12:10 07/05/24 12:15 07/05/24 12:20 Temperature Pulse Rate 66 Pulse Rate [Right Radial] Pulse Rate [orthos tatic lying Right] Pulse Rate [orthos tatic sitting Righ t] Pulse Rate [orthos tatic standing Rig ht] Respiratory Rate Blood Pressure Blood Pressure [Ri ght Arm] Blood Pressure [or thostatic lying Ri ght Arm] Blood Pressure [or thostatic sitting Right Arm] Blood Pressure [or thostatic standing Right Arm] Pulse Oximetry 93 94 95 Oxygen Delivery Me thod 07/05/24 12:22 07/05/24 12:30 07/05/24 12:40 Temperature Pulse Rate 79 76 Pulse Rate [Right Radial] Pulse Rate [orthos tatic lying Right] Pulse Rate [orthos tatic sitting Righ t] Pulse Rate [orthos tatic standing Rig ht] Respiratory Rate Blood Pressure 97/59 L Blood Pressure [Ri ght Arm] Blood Pressure [or thostatic lying Ri ght Arm] Blood Pressure [or thostatic sitting Right Arm] Blood Pressure [or thostatic standing Right Arm] Pulse Oximetry 95 95 95 Oxygen Delivery Me thod 07/05/24 12:42 07/05/24 12:45 07/05/24 12:50 Temperature Pulse Rate 75 78 Pulse Rate [Right Radial] Pulse Rate [orthos tatic lying Right] Pulse Rate [orthos tatic sitting Righ t] Pulse Rate [orthos tatic standing Rig ht] Respiratory Rate Blood Pressure 104/67 Blood Pressure [Ri ght Arm] Blood Pressure [or thostatic lying Ri ght Arm] Blood Pressure [or thostatic sitting Right Arm] Blood Pressure [or thostatic standing Right Arm] Pulse Oximetry 94 91 93 Oxygen Delivery Me thod 07/05/24 13:00 07/05/24 13:02 07/05/24 13:10 Temperature Pulse Rate Pulse Rate [Right Radial] Pulse Rate [orthos tatic lying Right] Pulse Rate [orthos tatic sitting Righ t] Pulse Rate [orthos tatic standing Rig ht] Respiratory Rate Blood Pressure Blood Pressure [Ri ght Arm] Blood Pressure [or thostatic lying Ri ght Arm] Blood Pressure [or thostatic sitting Right Arm] Blood Pressure [or thostatic standing Right Arm] Pulse Oximetry 94 94 94 Oxygen Delivery Mt thod 07/05/24 13:15 07/05/24 13:20 07/05/24 13:22 Temperature Pulse Rate 72 Pulse Rate [Right Radial] Pulse Rate [orthos tatic lying Right] Pulse Rate [orthos tatic sitting Righ t] Pulse Rate [orthos tatic standing Rig ht] Respiratory Rate Blood Pressure Blood Pressure [Ri ght Arm] Blood Pressure [or thostatic lying Ri ght Arm] Blood Pressure [or thostatic sitting Right Arm] Blood Pressure [or thostatic standing Right Arm] Pulse Oximetry 94 94 93 Oxygen Delivery Mt thod 07/05/24 13:30 07/05/24 13:40 07/05/24 13:42 Temperature Pulse Rate Pulse Rate [Right Radial] Pulse Rate [orthos tatic lying Right] Pulse Rate [orthos tatic sitting Righ t] Pulse Rate [orthos tatic standing Rig ht] Respiratory Rate Blood Pressure Blood Pressure [Ri ght Arm] Blood Pressure [or thostatic lying Ri ght Arm] Blood Pressure [or thostatic sitting Right Arm] Blood Pressure [or thostatic standing Right Arm] Pulse Oximetry 92 93 92 Oxygen Delivery Me thod 07/05/24 13:45 07/05/24 13:50 07/05/24 14:00 Temperature Pulse Rate 71 85 Pulse Rate [Right Radial] Pulse Rate [orthos tatic lying Right] Pulse Rate [orthos tatic sitting Righ t] Pulse Rate [orthos tatic standing Rig ht] Respiratory Rate Blood Pressure Blood Pressure [Ri ght Arm] Blood Pressure [or thostatic lying Ri ght Arm] Blood Pressure [or thostatic sitting Right Arm] Blood Pressure [or thostatic standing Right Arm] Pulse Oximetry 93 96 96 Oxygen Delivery Me thod 07/05/24 14:02 07/05/24 14:15 07/05/24 14:22 Temperature Pulse Rate 85 92 89 Pulse Rate [Right Radial] Pulse Rate [orthos tatic lying Right] Pulse Rate [orthos tatic sitting Righ t] Pulse Rate [orthos tatic standing Rig ht] Respiratory Rate 16 Blood Pressure 112/67 112/71 Blood Pressure [Ri ght Arm] Blood Pressure [or thostatic lying Ri ght Arm] Blood Pressure [or thostatic sitting Right Arm] Blood Pressure [or thostatic standing Right Arm] Pulse Oximetry 96 94 94 Oxygen Delivery Me thod 07/05/24 15:40 07/05/24 20:00 07/06/24 00:00 Temperature 98.1 F 98.8 F Pulse Rate Pulse Rate [Right Radial] 80 94 90 Pulse Rate [orthos tatic lying Right] Pulse Rate [orthos tatic sitting Righ t] Pulse Rate [orthos tatic standing Rig ht] Respiratory Rate 18 17 18 Blood Pressure Blood Pressure [Ri ght Arm] 122/66 107/62 115/68 Blood Pressure [or thostatic lying Ri ght Arm] Blood Pressure [or thostatic sitting Right Arm] Blood Pressure [or thostatic standing Right Arm] Pulse Oximetry 95 94 93 Oxygen Delivery Me thod Room Air Room Air Room Air 07/06/24 00:35 07/06/24 04:00 07/06/24 07:17 Temperature 98.2 F Pulse Rate 86 75 Pulse Rate [Right Radial] 80 Pulse Rate [orthos tatic lying Right] Pulse Rate [orthos tatic sitting Righ t] Pulse Rate [orthos tatic standing Rig ht] Respiratory Rate 20 Blood Pressure Blood Pressure [Ri ght Arm] 109/60 Blood Pressure [or thostatic lying Ri ght Arm] Blood Pressure [or thostatic sitting Right Arm] Blood Pressure [or thostatic standing Right Arm] Pulse Oximetry 93 Oxygen Delivery Me thod Room Air 07/06/24 07:35 07/06/24 07:35 07/06/24 10:47 Temperature 98 F Pulse Rate Pulse Rate [Right Radial] 82 82 Pulse Rate [orthos tatic lying Right] 72 Pulse Rate [orthos tatic sitting Righ t] 83 Pulse Rate [orthos tatic standing Rig ht] 96 Respiratory Rate 14 14 Blood Pressure Blood Pressure [Ri ght Arm] 110/62 Blood Pressure [or thostatic lying Ri ght Arm] 128/69 Blood Pressure [or thostatic sitting Right Arm] 134/70 Blood Pressure [or thostatic standing Right Arm] 129/80 Pulse Oximetry 94 Oxygen Delivery Me thod Room Air 07/06/24 11:00 Temperature 97.7 F Pulse Rate Pulse Rate [Right Radial] 72 Pulse Rate [orthos tatic lying Right] Pulse Rate [orthos tatic sitting Righ t] Pulse Rate [orthos tatic standing Rig ht] Respiratory Rate 16 Blood Pressure Blood Pressure [Ri ght Arm] 128/69 Blood Pressure [or thostatic lying Ri ght Arm] Blood Pressure [or thostatic sitting Right Arm] Blood Pressure [or thostatic standing Right Arm] Pulse Oximetry 96 Oxygen Delivery Me thod Room Air Results Labs Labs: Abnormal lab results 07/05/24 07/05/24 07/06/24 Range/Units 11:11 11:36 06:15 WBC 12.15 H (4.50-11.00) K/uL RBC 3.90 L 3.25 L (4.00-5.20) m/uL Hgb 11.6 L 9.5 L (12.0-16.0) gm/dL Hct 29.1 L (33.0-51.0) % Neut % (Auto) 86.6 H (42.0-72.0) % Lymph % (Auto) 8.4 L (20-44) % Neut # (Auto) 10.50 H (1.7-7.0) K/uL Anion Gap 3 L (7-15) mEq/L BUN 46 H (7-30) mg/dL Calcium 8.3 L (8.4-10.6) mg/dL C-Reactive Protein < 0.5 L (0.5-1.0) mg/dL Total Protein 5.7 L 5.0 L (6.0-8.3) g/dL Albumin 3.0 L (3.3-5.0) g/dL Stool Occult Blood Positive A (Negative) 11/07/24 Range/Units 09:48 WBC (4.50-11.00) K/uL RBC (4.00-5.20) m/uL Hgb 9.8 L (12.0-16.0) gm/dL Hct (33.0-51.0) % Neut % (Auto) (42.0-72.0) % Lymph % (Auto) (20-44) % Neut # (Auto) (1.7-7.0) K/uL Anion Gap (7-15) mEq/L BUN (7-30) mg/dL Calcium (8.4-10.6) mg/dL C-Reactive Protein (0.5-1.0) mg/dL Total Protein (6.0-8.3) g/dL Albumin (3.3-5.0) g/dL Stool Occult Blood (Negative) Diabetes panel 07/05/24 07/06/24 Range/Units 11:36 06:15 Sodium 137 138 (135-149) mmol/L Potassium 4.6 4.0 (3.6-5.1) mmol/L Chloride 106 108 (96-114) mmol/L Carbon Dioxide 23 27 (20-32) mmol/L BUN 46 H 23 (7-30) mg/dL Creatinine 0.5 0.5 (0.5-1.5) mg/dL Glucose 107 90 (60-115) mg/dL Calcium 8.4 8.3 L (8.4-10.6) mg/dL AST 26 23 (12-35) U/L ALT 21 16 (4-35) U/L Alkaline Phosphatase 77 68 (40-150) U/L Total Protein 5.7 L 5.0 L (6.0-8.3) g/dL Albumin 3.5 3.0 L (3.3-5.0) g/dL Thyroid panel 07/05/24 Range/Units 11:36 TSH 0.958 (0.270-4.20) uIU/mL Calcium panel 07/05/24 07/06/24 Range/Units 11:36 06:15 Calcium 8.4 8.3 L (8.4-10.6) mg/dL Albumin 3.5 3.0 L (3.3-5.0) g/dL Pituitary panel 07/05/24 07/06/24 Range/Units 11:36 06:15 Sodium 137 138 (135-149) mmol/L Potassium 4.6 4.0 (3.6-5.1) mmol/L Chloride 106 108 (96-114) mmol/L Carbon Dioxide 23 27 (20-32) mmol/L BUN 46 H 23 (7-30) mg/dL Creatinine 0.5 0.5 (0.5-1.5) mg/dL Glucose 107 90 (60-115) mg/dL Calcium 8.4 8.3 L (8.4-10.6) mg/dL TSH 0.958 (0.270-4.20) uIU/mL Adrenal panel 07/05/24 07/06/24 Range/Units 11:36 06:15 Sodium 137 138 (135-149) mmol/L Potassium 4.6 4.0 (3.6-5.1) mmol/L Chloride 106 108 (96-114) mmol/L Carbon Dioxide 23 27 (20-32) mmol/L BUN 46 H 23 (7-30) mg/dL Creatinine 0.5 0.5 (0.5-1.5) mg/dL Glucose 107 90 (60-115) mg/dL Calcium 8.4 8.3 L (8.4-10.6) mg/dL Total Bilirubin 0.5 0.3 (0.1-1.5) mg/dL AST 26 23 (12-35) U/L ALT 21 16 (4-35) U/L Alkaline Phosphatase 77 68 (40-150) U/L Total Protein 5.7 L 5.0 L (6.0-8.3) g/dL Albumin 3.5 3.0 L (3.3-5.0) g/dL All other labs normal. Progress Note:A&P Assessment and plan (1) Acute upper gastrointestinal bleeding: Status: Acute Assessment and Plan: Patient is a 64-year-old female with history of gastric bypass, previous gastric perforation and ventral hernia repair who presents with suspicion for acute GI bleeding. Given her history of a bypass there is a concern for possible marginal ulcer. At this time she is hemodynamically stable with hemoglobin stable at 9.8, low concern for ongoing bleeding. Agree with pursuing an upper endoscopy this afternoon. Would also recommend testing her stool for H pylori.
--- NOTE | 2024-07-06 13:21 | W.ANESCHARGE ---
Anesthesia Charges Start Date/Time Anesthesia Start Date: 07/06/24 Anesthesia Start Time: 12:55 Stop Date/Time Anesthesia Stop Date: 07/06/24 Anesthesia Stop Time: 13:17
[2024-07-06 14:29] LABS: Hemoglobin* 9.6 gm/dL (12.0-16.0)
--- NOTE | 2024-07-06 18:19 | PC.NURSE ---
Addendum entered by Page Martini RN 07/06/24 18:23: Tele=NSR Original Note: End of Shift: Patient pleasant and cooperative. Patient vitally stable, lungs clear, BS WNL, IV running NS at 125. Patient SBA when ambulating. Patient did have a headache earlier in the day, tylenol given once, otherwise no pain. Patient does get nausea/dizziness with activity at times, but decline zophran. Patient tolerating regular diet, eating 50% of dinner. Patient urinating and continues to have black stools.
[2024-07-07 03:00] VITALS: BP 129/87; PULSE 72; RESP 16; TEMP 36.6; O2SAT 96
--- NOTE | 2024-07-07 06:16 | PC.NURSE ---
End of shift [id number]:? Pt AxOx4, cooperative, and pleasant. SL. VSS. LSCTA.?Pt indep in room. Pt denied pain during shift. Pt stated slight crampy of the stomach but tolerable. Bowel sounds active. Pt denies N/V/D/SOB. Patient tolerates regular diet/fluids well. Patient continent of the bladder and passing flatus, no BM. Pt appears resting with call light in reach.
[2024-07-07 06:50] LABS: Hematocrit 27.4 % (33.0-51.0); Hemoglobin* 9.3 gm/dL (12.0-16.0); Mean Corpuscular HGB Conc 34 gm/dL (32-36); Mean Corpuscular Hemoglobin 30 pg (26-34); Mean Corpuscular Volume 89 fL (80-100); Platelet Count* 157 K/uL (140-440); Red Blood Count 3.09 m/uL (4.00-5.20); White Blood Count* 4.81 K/uL (4.50-11.00)
[2024-07-07 06:53] LABS: Slide Review Reflex No
[2024-07-07 07:45] VITALS: BP 120/78; PULSE 75; PULSE 87; RESP 16; TEMP 36.6; O2SAT 97
[2024-07-07 08:00] VITALS: PULSE 86
[2024-07-07] MEDS: SODIUM CHLORIDE 0.9 % (FLUSH) 10 ML SYRINGE 5 ML IVF (08:50)
[2024-07-07] MEDS: PANTOPRAZOLE SODIUM 40 MG INJ IVP (08:50)
[2024-07-07] MEDS: ONDANSETRON 2 MG/ML inj 4 MG IVP (08:50)
--- NOTE | 2024-07-07 11:31 | P.DS_ITS ---
DS: Providers Provider Time Seen by Provider: 09:45 Date Seen: 07/07/24 Date of admission: 07/05/24 15:22 Primary care physician: Julio Cesar Antoine MD Admitting Clinician: Mary Ann Castorena MD Consults: 07/05/24 18:13 Consult to Physician [CONS] Routine Comment: Consulting Provider: Olivia Rosas Has provider been notified: Yes Attending Physician on discharge: Liss Peres MD Date of Discharge: 07/07/24 DS: Diagnosis Discharge Diagnosis (1) Acute upper gastrointestinal bleeding: Status: Acute Problem details: -black tarry stool x 2 on 07/05/24 -history of gastric bypass 2020, reports followed by complications and further surgeries, history of perforated blind Lola limb status post surgical repair -Reporting no abdominal pain -Endoscopy with Dr. Harper 07/06/2024 found no site of ulceration or active bleeding. Biopsies taken. Recommended PPI daily and outpatient colonoscopy. I discussed these recommendations with patient, who demonstrated understanding. (2) Iron deficiency anemia: Status: Acute Problem details: -Suspect secondary to GI bleeding as above. -hgb 11.6 following 2 black tarry stools which is reassuring -most recently 08-13 -07/06/2024 hemoglobin 9.5, then 9.8, then 9.6 -07/07 Hgb 9.3 this am on discharge. No further melena. Lightheadedness improved to baseline. Holding off on iron supplements due to h/o gastric bypass, nausea, possible dumping syndrome, etc. F/u Hgb in clinic Wednesday. (3) History of gastric bypass: Status: Inactive Problem details: -2020 at [facility] in [facility]. Reports complications and revisions, last 2022 (4) Perforated chronic gastric ulcer: Status: Inactive Problem details: -continue PPI daily (5) Lightheadedness: Status: Chronic Problem details: -acute on chronic. Acute episode has resolved. -per Dr. Antoine's note 01/27/24 : Lightheadedness with associated tremors and nausea: Given the patient's history of gastric bypass, it is plausible that her symptoms may be indicative of dumping syndrome or orthostatic hypotension. We will provide a glucose monitor to check her blood glucose levels when she has these episodes. She has been advised to consume small, frequent meals which are rich in protein and monitor blood pressure during these episodes -as above, outpatient Endocrinology 07/17/24 (6) Hypoglycemia: Status: Chronic Problem details: -intermittent, symptomatic, checking blood sugars daily, most recent A1c 5.4.. Followed by PCP, Dr. Antoine -outpatient Endocrinology consult 07/17/24 (7) GERD (gastroesophageal reflux disease): Status: Chronic Problem details: -continue IV PPI DS: Summary Hospital Course Hospital Course: Per H&P: Roseanna Montague is a 64 year old female past medical history significant for gastric bypass 2020, hernia repair, hypertension not currently on medications, iron deficiency anemia, perforated chronic gastric ulcer, intermittent hypoglycemia, lightheadedness, generalized anxiety disorder, chronic low back pain, PTSD, dissociative disorder is admitted to the medical floor from the ED for concern of GI bleed. Patient reports increasing lightheadedness over the last 24 hours, worse outside of her usual intermittent lightheadedness, feeling as though she was going to black out but did not have any syncopal episodes. Early this morning during her lightheadedness, she did go to the bathroom and had a large black stool. Her stools prior to this the last several days have been normal, brown. She does have intermittent episodes of diarrhea following her bypass but this has not been worse than usual recently. Has had some nausea overnight and did have 1 clear emesis following water intake. She had a 2nd stool in the ED which was guaiac positive. She denies current headache, though did have 1 two nights ago. Dizziness currently is better when lying still. In the past it has been worse with standing or turning or when she feels her glucose may be low. Denies vertiginous like symptoms. Denies syncopal episodes. Did have chest pain a couple of days ago as well which she treated with her 's nitro. Described the pain as tight and boring into her back. She tells me she has had chest pains in the past as well and that her EKGs were normal. Currently denies chest pain or shortness of breath. Denies recent fevers or chills. Denies abdominal pain. ED provider discussed with General surgery, , recommending admission an upper GI endoscopy tomorrow early afternoon. Will be NPO after midnight. Patient is a former smoker, having quit 8 years ago. Denies alcohol use, previously having a glass of wine with holidays, however essentially has no alcohol since her bypass in 2020. Denies regular NSAID use since her bypass surgery as well. Admits to taking 2 baby aspirin rarely for a headache, her last dose being 2 days ago. She takes a PPI daily. Previous surgeries have resulted in what she reports as horrible nausea complications when given general anesthesia. She tells me that the anesthesiologist at this hospital is aware of this and has treated it adequately, typically with 2 scopolamine patches, Zofran, Reglan. Denies personal or family bleeding disorders. Patient underwent EGD as above. She is able to tolerate her usual diet and is discharged home in improved condition with stable Hgb as above. Discharging home today. F/u with PCP Wednesday and Dr. Harper for outpatient colonoscopy. Time Spent with Patient Time attestation: Total time spent providing and/or coordinating discharge services: Exam Narrative: Exam Narrative: General: No acute distress. Awake, alert, oriented x3. No pallor. No jaundice. Oropharynx: Clear. Mucous membranes moist. Cardiovascular: Regular rate and rhythm. No murmurs, gallops, or rubs. Respiratory: Clear to auscultation bilaterally. No wheezes or crackles. Abdomen: Bowel sounds present. Soft, nondistended, nontender. Extremities: No pedal edema. Const: Vital Signs, click to edit/add: Vital Signs - 24 hr 07/06/24 15:11 07/06/24 15:56 07/06/24 15:56 Temperature 99.4 F Pulse Rate 71 Pulse Rate [Right Radial] 80 80 Respiratory Rate 18 18 Blood Pressure [Ri ght Arm] 124/69 Pulse Oximetry 95 Oxygen Delivery Me thod Room Air 07/06/24 19:00 07/06/24 22:25 07/06/24 23:00 Temperature 98.9 F 98.4 F Pulse Rate 84 Pulse Rate [Right Radial] 81 92 Respiratory Rate 16 16 Blood Pressure [Ri ght Arm] 132/80 122/66 Pulse Oximetry 95 94 Oxygen Delivery Me thod Room Air Room Air 07/07/24 03:00 07/07/24 08:00 Temperature 97.8 F Pulse Rate 86 Pulse Rate [Right Radial] 72 Respiratory Rate 16 Blood Pressure [Ri ght Arm] 129/87 Pulse Oximetry 96 Oxygen Delivery Me thod Room Air DS: Data Data Completed and Pending Completed studies during hospitalization: 07/06/24 EGD (Dr. Harper) 07/05/2024 EKG: Normal sinus rhythm, 82 beats per minute, nonspecific T-wave abnormality, abnormal EKG. Labs on day of discharge: Labs from last 24 hours 07/07/24 07/06/24 06:15 14:20 WBC 4.81 RBC 3.09 L Hgb 9.3 L 9.6 L Hct 27.4 L MCV 89 MCH 30 MCHC 34 Plt Count 157 Discharge Plan Discharge Disposition: Home, Self-Care Date of Admission: 07/05/24 15:22 Attending Provider on Discharge: Liss Peres Consulting Providers: Olivia Rosas; Brad Harper Primary Care Provider: Julio Cesar Antoine Discharge Medications: New omeprazole magnesium [Prilosec OTC] 20 mg tablet,delayed release (DR/EC) 20 mg PO DAILY Qty: 30 2RF Continued metoclopramide HCl [Reglan] 5 mg tablet 5 mg PO TID PRN Rx Instructions: Take 30 minutes AC ondansetron 4 mg tablet,disintegrating 4 mg PO Q8H PRN (Reason: nausea and vomiting) Qty: 20 1RF ipratropium-albuterol 0.5 mg-3 mg(2.5 mg base)/3 mL solution for nebulization 3 ml inhalation QID PRN fluticasone propion-salmeterol [Advair Diskus] 250-50 mcg/dose blister with device 1 inh inhalation HS omeprazole 20 mg capsule,delayed release(DR/EC) 20 mg PO DAILY cholecalciferol (vitamin D3) 1,250 mcg (50,000 unit) capsule 1,250 mcg PO QWEEK Qty: 12 3RF cyanocobalamin (vitamin B-12) 1,000 mcg/mL solution 1,000 mcg subcut Q4W Qty: 3 3RF (DME) Diabetic Test Strips Misc See Rx Instructions .ROUTE .MEDSUPPLY Qty: 50 10RF Rx Instructions: As directed, testing QID albuterol sulfate [Ventolin HFA] 90 mcg/actuation HFA aerosol inhaler 2 puff inhalation Q6H PRN (Reason: bronchospasm) Qty: 8.5 9RF lorazepam [Ativan] 1 mg tablet 0.5 - 1 mg PO BID PRN (Reason: anxiety) Qty: 30 0RF Discharge Orders: Discharge Order (Routine); Ordered 07/07/24 Ordered By: Liss Peres Additional Instructions: - avoid NSAIDs, including aspirin - follow-up with your primary care provider on Wednesday with a hemoglobin checked - return for any bright red blood in the stool, worsening lightheadedness, or chest pain, or shortness of breath. - contact Dr. Harper's office to schedule outpatient diagnostic colonoscopy for GI bleeding, iron deficiency anemia. Activity Level: No Restrictions Discharge Diet: Regular Follow Up Appointments: Julio Cesar Antoine MD [Primary Care Provider] - (Wednesday with hemoglobin) Forms: [employer] Info Instructions
[2024-07-07 14:02] LABS: Insulin, Random 11 uIU/mL
== END 2024-07-07 12:40 | disposition home or self-care (01) ==
LOC: ED 12:05 → MEDSURG 15:23
PROVIDERS: Internal Medicine; Physician Assistant; Admitting Provider Family Medicine; Emergency Provider Emergency Medicine Emergency Medical Services; PCP Family Medicine; Visit Provider Family Medicine
DX: K92.2 Gastrointestinal hemorrhage, unspecified (principal); D50.9 Iron deficiency anemia, unspecified; E16.2 Hypoglycemia, unspecified; R42 Dizziness and giddiness; R11.0 Nausea; K92.1 Melena; K25.5 Chronic or unspecified gastric ulcer with perforation; K21.9 Gastro-esophageal reflux disease without esophagitis; I10 Essential (primary) hypertension; F41.1 Generalized anxiety disorder; E53.8 Deficiency of other specified B group vitamins; G89.29 Other chronic pain; M54.50 Low back pain, unspecified; E55.9 Vitamin D deficiency, unspecified; J45.30 Mild persistent asthma, uncomplicated; F43.10 Post-traumatic stress disorder, unspecified; Z98.84 Bariatric surgery status; Z87.891 Personal history of nicotine dependence; Z87.19 Personal history of other diseases of the digestive system; Z90.49 Acquired absence of other specified parts of digestive tract; Z98.890 Other specified postprocedural states
CPT/HCPCS: 00731; 36415; 43239; 80048; 80053; 80076; 82270; 82607; 82962; 83525; 83690; 83735; 84443; 84484; 85018; 85025; 85027; 85651; 86140; 87338; 87631; 88305; 93005; 96361; 96374; 96375; 96376; 99285; G0378; A9270; J2405; J2470; J2704; J3490; J7030

== ENCOUNTER 2024-07-17 06:08 | Outpatient (CLI) | payer MEDICARE, BC, SELFPAY ==
--- OUTSIDE RECORDS SUMMARY | 2024-07-17 06:10 | XMS_ITS | Clinical Summary ---
Author Organization [facility] Address [address] [place] [address] Care Team Providers Care Computer Systems Support Specialist Name Role Phone Patient, None Per Primary Care Provider Unavaila ble Source Comments This disclosure is being made pursuant to the [employer] program and maynot contain all information available regarding this patient.[facility] Medications fluticasone-una meterol (ADVAIR DISKUS) 250-50 MCG/ACT inhaler Inhale 1 puff into the lungs 2 (two) times daily. Active albuterol (PROVENTIL) (2.5 MG/3ML) 0.083% nebulizer solution Take 2.5 mg by nebulization every 4 (four) hours as needed for Wheezing. Active Active Problems No known active problems Social History Tobacco Use Types Packs/Day Years Used Date Smoking Tobacco: Former Smokeless Tobacco: Never Comments Unknown Sex and Gender Information Value Date Recorded Sex Assigned at Not on file Legal Sex Female 5:10 PM CDT Gender Identity Not on file Sexual Orientation [...] Vaccine 50 + (1 of 2) 2011 COVID-19 Vaccine ( - 2023-2 5 season) 2024 Influenza Vaccine (#1) 2024 RSV Adult (1 - 1-dose 75+ series) 2036 HIB Vaccine Aged Out No longer eligi [...] on patient's age to complete this topic Insurance MEDICARE [facility] OUT OF STATE Care Teams Computer Systems Support Specialist Relationship Specialty Start Date End Date Patient, None Per PCP - General 04/05/22
--- OUTSIDE RECORDS SUMMARY | 2024-07-17 06:10 | XMS_ITS | Encounter Summary ---
Author Organization [facility] Care Address [address] [place] [address] Phone Care Team Providers Care Plastic Surgery Specialist Name Role Phone Julio Cesar Antoine Primary Care Provider [phone] Brendan Vargas Unavailable [phone] Encounter Details Date Type Department Care Team (Late st Contact Info) Description 04/09/2022 Pharmacy Visit [facility] - Pharmacy - Discharge [address] [place] [address] Social History Tobacco Use Types Packs/Day Years Used Date Smoking Tobacco: Former Cigarettes Q uit: 08/30/2010 Smokeless Tobacco: Never Alcohol Use Standard Drinks/Week Comments Never 0 (1 standard drink = 0.6 oz pur e alcohol) Comments Unknown Sex and Gender Information Value Date Recorded Sex Assigned at Not on file Legal Sex Female 8:26 PM CDT Gender Identity Not on file [...] documented as of this encounter Care Teams Plastic Surgery Specialist Relationship Specialty Start Date End Date Julio Cesar Antoine [address] [facility] [place] [address] PCP - General Family Practice 04/06/22 Brendan Vargas [address] [place] [address] Founder & Ceo General Surgery 04/07/22 documented as of this encounter
--- OUTSIDE RECORDS SUMMARY | 2024-07-17 06:10 | XMS_ITS | Referral Summary ---
Author Organization [facility] Care Address [address] [place] [address] Phone Care Team Providers Care Program Admin Name Role Phone Julio Cesar Antoine Primary Care Provider [phone] Brendan Vargas Unavailable [phone] Source Comments This disclosure is being made pursuant to the Care Everywhere program,applicable federal and state laws, and may not contain all informationavailable regarding this patient.[facility] and [facility] Practices Allergies Active Allergy Reactions Criticality Noted Date Comments Oxycodone Nausea & Vomiting Low 04/06/2022 Medications fluticasone-sa lmeterol (ADVAIR DISKUS 250-50) 250-50 mcg/dose diskus inhaler Use 1 puff by inhalation 2 times daily. Active albuterol 90 mcg/actuation HFA inhaler Use 2 puffs by inhalation every 4 hours as needed. Active OTHER BariMelts Multivitamin - Take 1 tablet by mouth daily. Active acetaminophen 160 mg/5 mL oral suspensionIndi cations:Perfor ated viscus Take 20.5 mL (650 mg total) by mouth every 6 hours. 472 mL 04/09/2022 3:22 PM CDT 04/09/20 22 Active pantoprazole 40 mg delayed release tabletIndicati ons:Perforated viscus,Pneumop eritoneum Take 1 tablet (40 mg total) by mouth daily. 30 tablet 04/09/2022 3:22 PM CDT 04/09/20 22 Active cholecalcifero l (VITAMIN D3) 25 mcg (1,000 unit) capsule Take 1,000 mg by mouth daily. 01/29/20 21 Active cyanocobalamin (VITAMIN B-12) 1,000 mcg/mL injection Inject intramuscularly every month. 01/29/20 21 Active Active Problems Problem Noted Date Diagnosed Date S/P exploratory laparotomy 04/24/2022 Asthma 04/09/2022 Overview (04/09/2022): Monitor vitals, resume home medications as appropriate Hypercholesterolemia 04/09/2022 Overview (04/09/2022): Resume home medications as appropriate Hypertension 04/09/2022 Overview (04/09/2022): Monitor vitals, resume home medications as appropriate Pneumoperitoneum 04/06/2022 Overview (04/09/2022): Patient taken to the OR and found to have a perforation in the distal gastric remnant. Surgically repaired and treated with antibiotics. Social History Tobacco Use Types Packs/Day Years Used Date Smoking Tobacco: Former Cigarettes Q uit: 08/30/2010 Smokeless Tobacco: Never Alcohol Use Standard Drinks/Week Comments Never 0 (1 standard drink = 0.6 oz pur e alcohol) Abuse Risk Answer Date Recorded Are you in an UNsafe relationship? Not on file 11/08/2023 Does your partner/boyfriend or girlfriend hit, kick, hurt, or threaten you? Not on file 11/08/2023 Have you suffered any injury as a result of abuse in the past year? Not on file 11/08/2023 Does your partner/boyfriend or girlfriend ever try to control you by threatening you or your family? Not on file 024 Are you currently being forc ed to engage in sexual activity? Not on file 11/08/2023 Are you being abused or thre atened in your work or home environment? Not on file 11/08/2023 Are you being forced to work? Not on file Is the patient a ? dependent adult? ? Not on file 11/08/2023 Do you feel unsafe at home? Does not apply 10/28 Has anyone tried to force yo u to sign papers or to use your money against your will? Does not apply 11/08/2023 Comments Unknown Sex and Gender Information Value [...] CDT Plan of Treatment Not on file Insurance /BS PLUS MEDICAID OF [place] MEDICARE A & B Advance Directives For more information, please contact: [phone] * Full Code (Latest Code Status on File) Date Activated Date Inactivated Comments 04/06/2022 8:57 AM 04/09/2022 5:04 PM * Full Code Date Activated Date Inactivated Comments 04/06/2022 2:42 AM 04/06/2022 8:57 AM Care Teams Program Admin Relationship Specialty Start Date End Date Julio Cesar Antoine [address] [place] [id number] PCP - General Family Practice 04/06/22 Brendan Vargas [address] [place] [address] Hinging Machine Operator General Surgery 04/07/22
--- OUTSIDE RECORDS SUMMARY | 2024-07-17 06:10 | XMS_ITS | Clinical Summary ---
Author Organization [facility] Care Address [address] [place] [address] Phone Care Team Providers Care Automatic Cigar Wrapper Tender Name Role Phone Julio Cesar Antoine Primary Care Provider [phone] Brendan Vargas Unavailable [phone] Source Comments This disclosure is being made pursuant to the Care Everywhere program,applicable federal and state laws, and may not contain all informationavailable regarding this patient.[facility] and [facility] Practices Allergies Active Allergy Reactions Criticality [...] (1 of 2 - PCV) 1967 HIV [place] Screening 1976 HCV Screening 1979 Tetanus Diphtheria Pertussis (1 - Tdap) 1980 Cervical Cancer Screening 1982 Lipid Disorder Screening [address] Colonography 2006 Colonoscopy 2006 Colorectal Screening 2006 FIT-DNA 2006 FIT 2006 FOBT 2006 Flex Sigmoidoscopy 2006 Zoster Vaccine (1 of 2) 2011 RSV Vaccine (1 - Risk 60-74 years 1-dose series) 04/01 [id number] Vaccine (2023- season) 20 24 Influenza Vaccine: Seasonal (#1) 04/30/2024 Insurance BC/BS PLUS MEDICAID OF [place] MEDICARE A & B Advance Directives For more information, please contact: [phone] * Full Code (Latest Code Status on File) Date Activated Date Inactivated Comments 04/06/2022 8:57 AM 04/09/2022 5:04 PM * Full Code Date Activated Date Inactivated Comments 04/06/2022 2:42 AM 04/06/2022 8:57 AM Care Teams Automatic Cigar Wrapper Tender Relationship Specialty Start Date End Date Julio Cesar Antoine [address] [place] [id number] PCP - General Family Practice 04/06/[address] [facility] [place] [address] Car Tester General Surgery 04/07/22
--- NOTE | 2024-07-17 08:22 | W.ANESCHARGE ---
Anesthesia Charges Start Date/Time Anesthesia Start Date: 07/17/24 Anesthesia Start Time: 07:55 Stop Date/Time Anesthesia Stop Date: 07/17/24 Anesthesia Stop Time: 08:22
--- NOTE | 2024-07-17 09:12 | W.ANESCHARGE ---
Anesthesia Charges Start Date/Time Anesthesia Start Date: 07/17/24 Anesthesia Start Time: 07:55 Stop Date/Time Anesthesia Stop Date: 07/17/24 Anesthesia Stop Time: 08:22
== END 2024-07-17 06:09 | disposition home or self-care (01) ==
LOC: OP CLINIC 06:09
PROVIDERS: PCP Family Medicine; Visit Provider Surgery
DX: R19.5 Other fecal abnormalities (principal); D12.3 Benign neoplasm of transverse colon; K57.30 Diverticulosis of large intestine without perforation or abscess without bleeding
CPT/HCPCS: 00811; 45385; 88305; J2704

== ENCOUNTER 2024-08-08 14:44 | Outpatient (CLI) | payer MEDICARE, BC, SELFPAY ==
--- OUTSIDE RECORDS SUMMARY | 2024-08-08 14:47 | XMS_ITS | Encounter Summary ---
Author Organization [place] Address [address] [place] [address] Care Team Providers Care Cafeteria Operator Name Role Phone Julio Cesar Antoine MD Primary Care Provider Encounter Details Date Type Department Care Team ([facility] Contact Info) Description 07/17/2024 4:00 PM REFRIGERATION ENGINE OPERATOR Lab [facility] [address] [place] [address] S/P gastric bypass; Iron deficiency anemia due to chronic blood loss; Intestinal malabsorption, unspecified type Social History Tobacco Use Types Packs/Day Years Used Date Smoking Tobacco: Never Smokeless Tobacco: Never PHQ-2 Answer Date Recorded PHQ-2 Score 2 07/17/2024 Comments No Sex and Gender Information Value Date Recorded Sex Assigned at Not on file Legal Sex Female 7:09 AM CDT Gender Identity Not on file Sexual Orientation Not on file documented as of this encounter Plan of Treatment Upcoming Encounters Date Type Department Care Team ([facility] Contact Info) Description 09/15/2024 10:00 AM REFRIGERATION ENGINE OPERATOR Virtual Visit [facility] [address] [phone] Candy Mackenzie, RD [address] [place] [address] 12/15/2024 2:30 PM CDT Virtual Visit [facility] [address] [phone] Jayde Powell PA-C [address] [place] [address] documented as of this encounter Procedures Procedure Name Priority Date/Time Associated Diagnosis Comments ZINC Routine 07/17/2024 3:26 PM REFRIGERATION ENGINE OPERATOR S/P gastric bypass Intestinal malabsorption, unspecified type VITAMIN D DEFICIENCY SCREENING Routine 07/17/2024 3:26 PM REFRIGERATION ENGINE OPERATOR S/P gastric bypass Intestinal malabsorption, unspecified type VITAMIN A Routine 07/17/2024 3:26 PM REFRIGERATION ENGINE OPERATOR S/P gastric bypass Intestinal malabsorption, unspecified type PARATHYROID HORMONE INTACT Routine 07/17/2024 3:26 PM REFRIGERATION ENGINE OPERATOR S/P gastric bypass IRON AND IRON BINDING CAPACITY Routine 07/17/2024 3:26 PM REFRIGERATION ENGINE OPERATOR S/P gastric bypass Iron deficiency anemia due to chronic blood loss FERRITIN Routine 07/17/2024 3:26 PM REFRIGERATION ENGINE OPERATOR S/P gastric bypass Iron deficiency anemia due to chronic blood loss COMPREHENSIVE METABOLIC PANEL Routine 07/17/2024 3:26 PM REFRIGERATION ENGINE OPERATOR S/P gastric bypass VITAMIN B12 Routine 07/17/2024 3:26 PM REFRIGERATION ENGINE OPERATOR S/P gastric bypass Intestinal malabsorption, unspecified type CBC WITH PLATELETS Routine 07/17/2024 3: 26 PM REFRIGERATION ENGINE OPERATOR S/P gastric bypass Iron deficiency anemia due to chronic blood loss documented in this encounter Results * (ABNORMAL) Comprehensive metabolic panel (07/17/2024 3:26 PM REFRIGERATION ENGINE OPERATOR) Sodium 144 135 - 145 mmol/L 07/18/2024 7:51 PM REFRIGERATION ENGINE OPERATOR [facility] Potassium 4.8 3.4 - 5.3 mmol/L 07/18/2024 7:51 PM REFRIGERATION ENGINE OPERATOR [facility] Carbon Dioxide (CO2) 24 22 - 29 mmol/L 07/18/2024 7:51 PM REFRIGERATION ENGINE OPERATOR [facility] Anion Gap 14 7 - 15 mmol/L 07/18/2024 7:51 PM REFRIGERATION ENGINE OPERATOR [facility] Urea Nitrogen 14.9 8.0 - 23.0 mg/dL 07/18/2024 7:51 PM REFRIGERATION ENGINE OPERATOR [facility] Creatinine 0.75 0.51 - 0.95 mg/dL 07/18/2024 7:51 PM REFRIGERATION ENGINE OPERATOR [facility] GFR Estimate 89 >60 mL/min/1.7 3m2 07/18/2024 7:51 PM REFRIGERATION ENGINE OPERATOR [facility] Comment:eGFR calculated us2020 CKD-EPI equation. Calcium 9.5 8.8 - 10.4 mg/dL 07/18/2024 7:51 PM REFRIGERATION ENGINE OPERATOR [facility] Comment:Reference intervals for this test were updated on 03/14/2024 to reflect our healthy population more accurately. There may be differences in the flagging of prior results with similar values performed with this method. Those prior results can be interpreted in the context of the updated reference intervals. Chloride 106 98 - 107 mmol/L 07/18/2024 7:51 PM REFRIGERATION ENGINE OPERATOR [facility] Glucose 100(H) 70 - 99 mg/dL 07/18/2024 7:51 PM REFRIGERATION ENGINE OPERATOR [facility] Alkaline Phosphatase 110 40 - 150 U/L 07/18/2024 7:51 PM REFRIGERATION ENGINE OPERATOR [facility] AST 28 0 - 45 U/L 07/18/2024 7:51 PM REFRIGERATION ENGINE OPERATOR [facility] ALT 16 0 - 50 U/L 07/18/2024 7:51 PM REFRIGERATION ENGINE OPERATOR [facility] Protein Total 6.6 6.4 - 8.3 g/dL 07/18/2024 7:51 PM REFRIGERATION ENGINE OPERATOR [facility] Albumin 4.2 3.5 - 5.2 g/dL 07/18/2024 7:51 PM REFRIGERATION ENGINE OPERATOR [facility] Bilirubin Total 0.2 <=1.2 mg/dL 07/18/2024 7:51 PM REFRIGERATION ENGINE OPERATOR [facility] Blood BLOOD SPECIMEN / Unknown Venipuncture / Unknown 07/17/2024 3:26 PM REFRIGERATION ENGINE OPERATOR 07/17/2024 3:26 PM REFRIGERATION ENGINE OPERATOR Jayde Powell PA-C LAB - BLOOD ORDERABLES Ann l Result Performing Organization Address [facility] Co de Phone Number [facility] [address] [facility], [address] [place] [phone] * (ABNORMAL) Iron and iron binding capacity (07/17/2024 3:26 PM REFRIGERATION ENGINE OPERATOR) Iron 18(L) 37 - 145 ug/dL 07/18/2024 7:51 PM REFRIGERATION ENGINE OPERATOR [facility] Iron Binding Capacity 339 240 - 430 ug/dL 07/18/2024 7:51 PM REFRIGERATION ENGINE OPERATOR [facility] Iron Sat Index 5(L) 15 - 46 % 07/18/2024 7:51 PM REFRIGERATION ENGINE OPERATOR [facility] Blood BLOOD SPECIMEN / Unknown Venipuncture / Unknown 07/17/2024 3:26 PM REFRIGERATION ENGINE OPERATOR 07/17/2024 3:26 PM REFRIGERATION ENGINE OPERATOR Jayde Powell PA-C LAB - BLOOD ORDERABLES Ann l Result Performing Organization Address [facility] de Phone Number [facility] [address] [facility] [place] [phone] * Zinc (07/17/2024 3:26 PM REFRIGERATION ENGINE OPERATOR) [facility] Zinc, Serum/Plasma 73.0 60.0 - 120.0 ug/dL 07/19/2024 10:43 PM REFRIGERATION ENGINE OPERATOR [facility] Comment: INTERPRETIVE INFORMATION: Zinc, Serum or Plasma Elevated results may be due to skin or collection-related contamination, including the use of a noncertified metal-free collection/transport tube. If contamination concerns exist due to elevated levels of serum/plasma zinc, confirmation with a second specimen collected in a certified metal-free tube is recommended. Circulating zinc concentrations are dependent on albumin status and are depressed with malnutrition. Zinc may also be lowered with infection, inflammation, stress, oral contraceptives, and . Zinc may be elevated with zinc supplementation or fasting. Elevated zinc concentrations may interfere with copper absorption. This test was developed and its performance characteristics determined by [employer]. It has not been cleared or approved by the US Food and Drug Administration. This test was performed in a CLIA certified laboratory and is intended for clinical purposes. Performed By: [facility] [address] [place] [address] Greeting Card Editor: Hubert Allen MD, PhD CLIA Number: [id number] Blood BLOOD SPECIMEN / Unknown Venipuncture / Unknown 07/17/2024 3:26 PM REFRIGERATION ENGINE OPERATOR 07/17/2024 3:26 PM REFRIGERATION ENGINE OPERATOR Jayde Powell PA-C LAB - BLOOD ORDERABLES Ann l Result [employer] [address] [place] [address], [facility] [phone] * Vitamin D Deficiency (07/17/2024 3:26 PM REFRIGERATION ENGINE OPERATOR) Vitamin D, Total (25-Hydroxy) 39 20 - 50 ng/mL 07/18/2024 7:51 PM REFRIGERATION ENGINE OPERATOR [facility] Comment:optimum levels Blood BLOOD SPECIMEN / Unknown Venipuncture / Unknown 07/17/2024 3:26 PM REFRIGERATION ENGINE OPERATOR 07/17/2024 3:26 PM REFRIGERATION ENGINE OPERATOR Narrative [facility] - 07/18/2024 7:51 PM REFRIGERATION ENGINE OPERATOR Season, race, dietary intake, and treatment affect the concentration of 81-qlopgyg-Mkinftm D. Values may decrease during winter months and increase during summer months. Vitamin D determination is routinely performed by an immunoassay specific for 25 hydroxyvitamin D3. If an individual is on vitamin D2(ergocalciferol) supplementation, please specify 25 OH vitamin D2 and D3 level determination by LCMSMS test VITD23. Jayde Powell PA-C LAB - BLOOD ORDERABLES Ann l Result [facility] [address] [facility] [address], [address] [place] [address] * Vitamin B12 (07/17/2024 3:26 PM REFRIGERATION ENGINE OPERATOR) Vitamin B12 554 232 - 1,245 pg/mL 07/18/2024 7:51 PM REFRIGERATION ENGINE OPERATOR [facility] Blood BLOOD SPECIMEN / Unknown Venipuncture / Unknown 07/17/2024 3:26 PM REFRIGERATION ENGINE OPERATOR 07/17/2024 3:26 PM REFRIGERATION ENGINE OPERATOR Krupajodi Powell PA-C LAB - BLOOD ORDERABLES Ann l Result [facility] [address] [facility], [address] [place] [phone] * Vitamin A (07/17/2024 3:26 PM REFRIGERATION ENGINE OPERATOR) Vitamin A 0.55 0.30 - 1.20 mg/L 07/21/2024 11:35 AM REFRIGERATION ENGINE OPERATOR [facility] Retinol Palmitate 0.02 0.00 - 0.10 mg/L 07/21/2024 11:35 AM REFRIGERATION ENGINE OPERATOR [facility] Vitamin A Interp Normal 07/21/20 11:35 AM REFRIGERATION ENGINE OPERATOR [facility] Comment: This test was developed and its performance characteristics determined by [facility]. It has not been cleared or approved by the US Food and Drug Administration. This test was performed in a CLIA certified laboratory and is intended for clinical purposes. Performed By: [facility] [address] [place] [address] Greeting Card Editor: Hubert Allen MD, PhD CLIA Number: [id number] Blood BLOOD SPECIMEN / Unknown Venipuncture / Unknown 07/17/2024 3:26 PM REFRIGERATION ENGINE OPERATOR 07/17/2024 3:26 PM REFRIGERATION ENGINE OPERATOR Jayde Powell PA-C LAB - BLOOD ORDERABLES Ann l Result [facility] [address] [place] [address] [phone] * Parathyroid Hormone Intact (07/17/2024 3:26 PM REFRIGERATION ENGINE OPERATOR) Parathyroid Hormone Intact 44 15 - 65 pg/mL 07/18/2024 5:00 PM REFRIGERATION ENGINE OPERATOR [facility] Blood BLOOD SPECIMEN / Unknown Venipuncture / Unknown 07/17/2024 3:26 PM REFRIGERATION ENGINE OPERATOR 07/17/2024 3:26 PM REFRIGERATION ENGINE OPERATOR Narrative [facility] - 07/18/2024 5:00 PM REFRIGERATION ENGINE OPERATOR This result was obtained with the [employer] PTH STAT assay. This reference range differs from PTH assays used in other [facility] laboratories. Jayde Pradokrystyna [facility] LAB - BLOOD ORDERABLES Ann l Result LABORATORY [facility] [address] [facility], [address] * Ferritin (07/17/2024 3:26 PM REFRIGERATION ENGINE OPERATOR) [facility] Ferritin 43 11 - 328 ng/mL 07/18/2024 7:51 PM REFRIGERATION ENGINE OPERATOR [facility] Blood BLOOD SPECIMEN / Unknown Venipuncture / Unknown 07/17/2024 3:26 PM REFRIGERATION ENGINE OPERATOR 07/17/2024 3:26 PM REFRIGERATION ENGINE OPERATOR Jayde Hill Andre HARP-C LAB - BLOOD ORDERABLES Nan l Result LABORATORY [facility] Lab [address] [facility] * (ABNORMAL) CBC with platelets (07/17/2024 3:26 PM REFRIGERATION ENGINE OPERATOR) [facility] WBC Count 5.6 4.0 - 11.0 10e3/uL 07/17/2024 3:40 PM REFRIGERATION ENGINE OPERATOR [facility] RBC Count 3.22(L) 3.80 - 5.20 10e6/uL 07/17/2024 3:40 PM REFRIGERATION ENGINE OPERATOR [facility] Hemoglobin 9.5(L) 11.7 - 15.7 g/dL 07/17/2024 3:40 PM REFRIGERATION ENGINE OPERATOR [facility] Hematocrit 29.2(L) 35.0 - 47.0 % 07/17/2024 3:40 PM REFRIGERATION ENGINE OPERATOR [facility] MCV 91 78 - 100 fL 07/17/2024 3:40 PM REFRIGERATION ENGINE OPERATOR [facility] MCH 29.5 26.5 - 33.0 pg 07/17/2024 3:40 PM REFRIGERATION ENGINE OPERATOR [facility] MCHC 32.5 31.5 - 36.5 g/dL 07/17/2024 3:40 PM REFRIGERATION ENGINE OPERATOR [facility] RDW 13.6 10.0 - 15.0 % 07/17/2024 3:40 PM REFRIGERATION ENGINE OPERATOR [facility] Platelet Count 310 150 - 450 10e3/uL 07/17/2024 3:40 PM REFRIGERATION ENGINE OPERATOR [facility] Blood BLOOD SPECIMEN / Unknown Venipuncture / Unknown 07/17/2024 3:26 PM REFRIGERATION ENGINE OPERATOR 07/17/2024 3:26 PM REFRIGERATION ENGINE OPERATOR [facility] Jayde Powell PA-C LAB - BLOOD ORDERABLES Ann l Result [facility]ORATORY [facility] [place] [facility] [address] [facility] (no room number, 1st floor of clinic) [place] [address], [facility] documented in this encounter Visit Diagnoses Diagnosis S/P gastric bypass Bariatric surgery status Iron deficiency anemia due to chronic blood loss Iron deficiency anemia secondary to blood loss (chronic) Intestinal malabsorption, unspecified type documented in this encounter Care Teams Cafeteria Operator Relationship Specialty Start Date End Date Julio Cesar Antoine MD [facility] [address] [place] [address] PCP - General Family Medicine 04/12/24 documented as of this encounter
--- OUTSIDE RECORDS SUMMARY | 2024-08-08 14:47 | XMS_ITS | Encounter Summary ---
Author Organization [place] Address [address] [place] [address] Care Team Providers Care Soil Conservationist Name Role Phone Julio Cesar Antoine MD Primary Care Provider Encounter Details Date Type Department Care Team (Late Contact Info) Description 07/17/2024 MyC Medical Advice [facility] Weight Management [address] [phone] Jayde Powell PA-C [address] [place] [phone] Social History Tobacco Use Types Packs/Day Years [...] Upcoming Encounters Date Type Department Care Team (Late Contact Info) Description 09/15/2024 10:00 AM MANAGER AIR Virtual Visit [facility] Weight Management [address] [phone] Candy Mackenzie, ELSA [address] [place] [place] [phone] 12/15/2024 2:30 PM CDT Virtual Visit [facility] [address] 4th [place] [phone] Jayde Powell PA-C [address] [place] [address] documented as of this encounter Visit Diagnoses Not on filedocumented in this encounter Care Teams Soil Conservationist Relationship Specialty Start Date End Date Julio Cesar Antoine MD [facility] [address] [place] [address] PCP - General Family Medicine 04/12/24 documented as of this encounter
--- OUTSIDE RECORDS SUMMARY | 2024-08-08 14:47 | XMS_ITS | Encounter Summary ---
Author Organization [place] Address [address] [place] [address] Care Team Providers Care Station Worker Name Role Phone Julio Cesar Antoine MD Primary Care Provider Encounter Details Date Type Department Care Team (Latest Contact Info) Description 07/17/2024 Travel Social History Tobacco Use Types Packs/Day Years [...] Encounters Date Type Department Care Team (Late st Contact Info) Description 09/15/2024 10:00 AM LICENSED PRACTICAL NURSE Virtual Visit [facility] [address] [phone] Candy Mackenzie, RD [address] [place] [phone] 12/15/2024 2:30 PM CDT Virtual Visit [facility] [address] [phone] Jayde Powell PA-C [address] [place] [phone] documented as of this encounter Visit Diagnoses Not on filedocumented in this encounter Care Teams Station Worker Relationship Specialty Start Date End Date Julio Cesar Antoine MD [facility] [address] [address] PCP - General Family Medicine 04/12/24 documented as of this encounter
--- OUTSIDE RECORDS SUMMARY | 2024-08-08 14:47 | XMS_ITS | Encounter Summary ---
Author Organization [place] Address [address] [place] [address] Care Team Providers Care Trace Evidence Technician Name Role Phone Julio Cesar Antoine MD Primary Care Provider Encounter Details Date Type Department Care Team (Late Contact Info) Description 07/19/2024 [facility] Medical Advice [facility] Weight Management Clinic [address] [place] [phone] Jayde Powell PA-C [address] [place] [address] Iron deficiency anemia due to chronic blood loss (Primary Dx) Social History Tobacco Use Types Packs/Day Years Used Date Smoking Tobacco: Never Smokeless Tobacco: Never PHQ-2 Answer Date Recorded PHQ-2 Score 2 07/17/2024 Comments No Sex and Gender Information Value Date Recorded Sex Assigned at Not on file Legal Sex Female 7:09 AM CDT Gender Identity Not on file Sexual Orientation Not on file documented as of this encounter Miscellaneous Notes * Telephone Encounter - Sade Gaona RN - 07/21/2024 10:20 AM CST Lab results faxed to Dr. Antoine per pt request. SHOOTER documented in this encounter Plan of Treatment Upcoming Encounters Date Type Department Care Team (Late st Contact Info) Description 09/15/2024 10:00 AM WELL SHOOTER Virtual Visit [facility] [address] [phone] Candy Mackenzie, RD [address] [place], [place] [phone] 12/15/2024 2:30 PM CDT Virtual Visit [facility] Weight Management [address] [phone] Jayde Powell PA-C [address] [place] [address] [phone] Scheduled Orders Name Type Priority Associated Diagnoses Orde r Schedule Ferritin Lab Routine Iron deficiency anemia due to chronic blood loss Expected: 08/19/2024 (Approximate), Expires: 07/20/2025 CBC with platelets Lab Routine Iron deficiency anemia due to chronic blood loss Expected: 08/19/2024 (Approximate), Expires: 07/20/2025 Iron and iron binding capacity Lab Routine Iron deficiency anemia due to chronic blood loss Expected: 08/19/2024 (Approximate), Expires: 07/20/2025 documented as of this encounter Visit Diagnoses Diagnosis Iron deficiency anemia due to chronic blood loss- Primary Iron deficiency anemia secondary to blood loss (chronic) documented in this encounter Care Teams Trace Evidence Technician Relationship Specialty Start Date End Date Julio Cesar Antoine MD [facility] [address] [address] PCP - General Family Medicine 04/12/24 documented as of this encounter
--- OUTSIDE RECORDS SUMMARY | 2024-08-08 14:47 | XMS_ITS | Encounter Summary ---
Author Organization [place] Address [address] [place] [address] Care Team Providers Care Intermission Coordinator Name Role Phone Julio Cesar Antoine MD Primary Care Provider Encounter Details Date Type Department Care Team (Late Contact Info) Description 07/20/2024 MyC Medical Advice [facility] Weight Management [address] [phone] Jayde Powell PA-C [address] [place] [address] [phone] Social History Tobacco Use Types Packs/Day Years [...] (Late Contact Info) Description 09/15/2024 10:00 AM CULTURE MEDIA LABORATORY ASSISTANT Virtual Visit [facility] Weight Management [address] [phone] Candy Mackenzie, ELSA [address] [place] [phone] 12/15/2024 2:30 PM CDT Virtual Visit [facility] [address] 4th [place] [phone] Jayde Powell PA-C [address] [place] [phone] documented as of this encounter Visit Diagnoses Not on filedocumented in this encounter Care Teams Intermission Coordinator Relationship Specialty Start Date End Date Julio Cesar Antoine MD [facility] [address] [place] [address] PCP - General Family Medicine 04/12/24 documented as of this encounter
--- OUTSIDE RECORDS SUMMARY | 2024-08-08 14:47 | XMS_ITS | Referral Summary ---
Author Organization [facility] Address [address] [place] [address] Care Team Providers Care Network Relations Consultant Name Role Phone Julio Cesar Antoine MD Primary Care Provider Encounters Date Type Department Care Team Description 08/07/[address] [facility] [address] [phone] Edelmira Soto PA-C Previsit 07/20/[address] [facility] [address] [phone] Jayde Powell PA-C 07/19/[address] [facility] [address] [phone] Jayde Powell PA-C Iron deficiency anemia due to chronic blood loss (Primary Dx) 07/17/[address] [facility] [address] [phone] Jayde Powell PA-C 07/17/2024 4:00 PM INTERNET TECHNOLOGY MANAGER Lab [facility] [address] [place] [address] S/P gastric bypass; Iron deficiency anemia due to chronic blood loss; Intestinal malabsorption, unspecified type 07/17/2024 Travel 07/17/[address] [facility] [address] [phone] Jayde Powell PA-C Previsit 07/17/2024 1:00 PM INTERNET TECHNOLOGY MANAGER Office Visit [facility] [address] [phone] Jayde Powell PA-C Reactive hypoglycemia (Primary Dx); Hypoglycemia; S/P gastric bypass; Intestinal malabsorption, unspecified type; Iron deficiency anemia due to chronic blood loss; Overweight (BMI 25.0-29.9); Hx of obesity 07/12/2024 Travel from Last 3 Months Allergies Active Allergy Reactions Criticality Noted Date Comments Ipratropium Unknown,Anaphylaxis,Angioedema High 10/2021 Oxycodone Unknown,Nausea and Vomiting Low 04/06/20 22 Medications fluticasone-sa lmeterol (ADVAIR) 250-50 MCG/ACT inhaler Inhale 1 puff into the lungs daily. Active albuterol (PROAIR HFA/PROVENTIL HFA/VENTOLIN HFA) 108 (90 Base) MCG/ACT inhaler Inhale 1 puff into the lungs as needed for shortness of breath, wheezing or cough. Active ergocalciferol (ERGOCALCIFERO L) 1.25 MG (29617 UT) capsule Take 50,000 Units by mouth once a week. Active metoclopramide (REGLAN) 5 MG tablet Take 5 mg by mouth as needed. Active acetaminophen (TYLENOL) 500 MG tablet Take 1,000 mg by mouth. 2 Active Blood Glucose Monitoring Suppl (ACCU-CHEK GUIDE) w/Device KIT USE DIRECTED FOR TESTING FOUR TIMES DAILY. 4 Active blood glucose (NO BRAND SPECIFIED) test strip USE TO TEST FOUR TIMES DAILY 4 Active blood glucose monitoring (SOFTCLIX) lancets 4 Active LORazepam (ATIVAN) 1 MG tablet prn 4 Active omeprazole (PRILOSEC) [address] capsule Take 20 mg by mouth 2 times daily. 3 Active ondansetron (ZOFRAN ODT) [address] 4 mg under the tongue. 2 Active scopolamine (TRANSDERM) 1 MG/3DAYS [address] 1 patch onto the skin. 2 Active cyanocobalamin (CYANOCOBALAMI N) 1000 mcg/mL injection ADMINISTER 1 ML UNDER THE SKIN EVERY 4 WEEKS Active Cyanocobalamin (B-12 COMPLIANCE INJECTION IJ) Inject as directed every 30 days. 07/17/20 Discontinu ed(Duplica te Therapy (No AVS / No eCancel)) ondansetron (ZOFRAN) 2 MG/ML SOLN Inject 0.1 mg/kg into the vein as needed for nausea or vomiting. 07/17/20 Discontinu ed(Duplica te Therapy (No AVS / No eCancel)) D3-50 1.25 MG (88083 UT) capsule Take 1,250 mcg by mouth once a week. 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 Feeling dizzy/lightheaded around 30min after eating and with increase in activity. PCP referred her to dietitian. Dietitian advised her to increase complex carbs to 250g daily and decrease in protein. This did not help with symptoms, and lead to a 20lbs weight gain. She has slowly been decreasing her carbs. Today we dicussed pairing carbs with proteins, and decreasing carbs and increasing proteins again. She feels very relieved this will be next steps. Can also consider GLP-1 or TORe procedure if symptoms do not improve. Overweight (BMI 25.0-29.9) 07/23/2024 Small bowel volvulus 07/17/2024 S/P gastric bypass 07/17/2024 Assessment & Plan (07/23/2024 6:27 PM INTERNET TECHNOLOGY MANAGER): S/p RYBP 10/24/20 in [place]. 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 She currently has a GI bleed due to unknown etiology. She is being worked up by GI, EGD and colonoscopy are negative. She does not currently have melena. Anxiety 08/01/2022 Depressive disorder 08/01/2022 Osteoarthrosis 08/01/2022 Pneumoperitoneum 04/06/2022 Overview (07/17/2024): Patient taken to the OR and found to have a perforation in the distal gastric remnant. Surgically repaired and treated with antibiotics. Asthma 07/05/2012 Overview (07/17/2024): Has been hospitalized for this many years ago. Chest pain, unspecified 07/05/2012 Resolved Problems Problem Noted Date Diagnosed Date Resolved Date Hypertension 10/15/2020 07/17/2024 Overview (07/17/2024): Monitor vitals, resume home medications as appropriate Social History Tobacco Use Types Packs/Day Years Used Date Smoking Tobacco: Never Smokeless Tobacco: Never Tobacco Cessation:Counseling Given: Not Answered PHQ-2 Answer Date Recorded PHQ-2 Score 2 07/17/2024 Comments No Sex and Gender Information Value Date Recorded Sex Assigned at Not on file Legal Sex Female 7:09 AM CDT Gender Identity Not on file Sexual Orientation Not on file Last Filed Vital Signs Vital Sign Reading Time Taken Comments Blood Pressure 127/75 07/17/2024 12:36 PM INTERNET TECHNOLOGY MANAGER Pulse 67 07/17/2024 12:36 PM INTERNET TECHNOLOGY MANAGER Temperature - - Respiratory Rate - - Oxygen Saturation 99% 07/17/2024 12:36 PM INTERNET TECHNOLOGY MANAGER Inhaled Oxygen Concentration - - Weight 73.7 kg (162 lb 6.4 oz) 07/17/2024 12:36 PM INTERNET TECHNOLOGY MANAGER Height 157.5 cm (5' 2) 07/17/2024 12:36 PM INTERNET TECHNOLOGY MANAGER Body Mass Index 29.7 07/17/2024 12:36 PM INTERNET TECHNOLOGY MANAGER Plan of Treatment Upcoming Encounters Date Type Department Care Team (Late st Contact Info) Description 09/15/2024 10:00 AM INTERNET TECHNOLOGY MANAGER Virtual Visit [facility] [address] [phone] Candy Mackenzie, RD [address] [place], [place] [phone] 12/15/2024 2:30 PM CDT Virtual Visit [facility] [address] [phone] Jayde Powell PA-C [address] [place] [id number] Procedures Procedure Name Priority Date/Time Associated Diagnosis Comments COMPREHENSIVE METABOLIC PANEL Routine 07/17/2024 3:26 PM INTERNET TECHNOLOGY MANAGER S/P gastric bypass IRON AND IRON BINDING CAPACITY Routine 07/17/2024 3:26 PM INTERNET TECHNOLOGY MANAGER S/P gastric bypass Iron deficiency anemia due to chronic blood loss ZINC Routine 07/17/2024 3:26 PM INTERNET TECHNOLOGY MANAGER S/P gastric bypass Intestinal malabsorption, unspecified type VITAMIN D DEFICIENCY SCREENING Routine 07/17/2024 3:26 PM INTERNET TECHNOLOGY MANAGER S/P gastric bypass Intestinal malabsorption, unspecified type VITAMIN B12 Routine 07/17/2024 3:26 PM INTERNET TECHNOLOGY MANAGER S/P gastric bypass Intestinal malabsorption, unspecified type VITAMIN A Routine 07/17/2024 3:26 PM INTERNET TECHNOLOGY MANAGER S/P gastric bypass Intestinal malabsorption, unspecified type PARATHYROID HORMONE INTACT Routine 07/17/2024 3:26 PM INTERNET TECHNOLOGY MANAGER S/P gastric bypass FERRITIN Routine 07/17/2024 3:26 PM INTERNET TECHNOLOGY MANAGER S/P gastric bypass Iron deficiency anemia due to chronic blood loss CBC WITH PLATELETS Routine 07/17/2024 3: 26 PM INTERNET TECHNOLOGY MANAGER S/P gastric bypass Iron deficiency anemia due to chronic blood loss COLONOSCOPY - HIM SCAN 12:00 AM INTERNET TECHNOLOGY MANAGER from Last 3 Months or Most Recently Relevant to Health Maintenance Results * Zinc (07/17/2024 3:26 PM INTERNET TECHNOLOGY MANAGER) Zinc, Serum/Plasma 73.0 60.0 - 120.0 ug/dL 07/19/2024 10:43 PM INTERNET TECHNOLOGY MANAGER [facility] Comment: INTERPRETIVE INFORMATION: Zinc, Serum or Plasma [...] developed and its performance characteristics determined by [facility]. It has not been cleared or approved by the US Food and Drug Administration. This test was performed in a CLIA certified laboratory and is intended for clinical purposes. Performed By: [facility] [address] [place] [address] Veteran [employer] Reviewer: Hubert Allen MD, PhD CLIA Number: [id number] Blood BLOOD SPECIMEN / Unknown Venipuncture / Unknown 07/17/2024 3:26 PM INTERNET TECHNOLOGY MANAGER 07/17/2024 3:26 PM INTERNET TECHNOLOGY MANAGER Jayde Powell PA-C LAB - BLOOD ORDERABLES Ann l Result [facility] [address] [place] [address], [facility] [phone] * Vitamin D Deficiency (07/17/2024 3:26 PM INTERNET TECHNOLOGY MANAGER) Vitamin D, Total (25-Hydroxy) 39 20 - 50 ng/mL 07/18/2024 7:51 PM INTERNET TECHNOLOGY MANAGER [facility] Comment:optimum levels Blood BLOOD SPECIMEN / Unknown Venipuncture / Unknown 07/17/2024 3:26 PM INTERNET TECHNOLOGY MANAGER 07/17/2024 3:26 PM INTERNET TECHNOLOGY MANAGER Narrative LABORATORY - 07/18/2024 7:51 PM INTERNET TECHNOLOGY MANAGER Season, race, dietary intake, and treatment affect the concentration of 02-fkhfmft-Vezhucv D. Values may decrease during winter months and increase during summer months. Vitamin D determination is routinely performed by an immunoassay specific for 25 hydroxyvitamin D3. If an individual is on vitamin D2(ergocalciferol) supplementation, please specify 25 [place] vitamin D2 and D3 level determination by LCMSMS test VITD23. Jayde Powell PA-C LAB - BLOOD ORDERABLES Ann l Result LABORATORY [facility] [address] [facility][1], Room [address] [phone] * Vitamin A (07/17/2024 3:26 PM INTERNET TECHNOLOGY MANAGER) [facility] Vitamin A 0.55 0.30 - 1.20 mg/L 07/21/2024 11:35 AM INTERNET TECHNOLOGY MANAGER [facility] Retinol Palmitate 0.02 0.00 - 0.10 mg/L 07/21/2024 11:35 AM INTERNET TECHNOLOGY MANAGER [facility] Vitamin A Interp Normal 07/21/20 24 11:35 AM INTERNET TECHNOLOGY MANAGER [facility] Comment: This test was developed and its performance characteristics determined by [facility]. It has not been cleared or approved by the US Food and Drug Administration. This test was performed in a CLIA certified laboratory and is intended for clinical purposes. Performed By: [facility] [address] [place] [address] Veteran Appeals Reviewer: Hubert Allen MD, PhD CLIA Number: [id number] Blood BLOOD SPECIMEN / Unknown Venipuncture / Unknown 07/17/2024 3:26 PM INTERNET TECHNOLOGY MANAGER 07/17/2024 3:26 PM INTERNET TECHNOLOGY MANAGER Jayde Powell PA-C LAB - BLOOD ORDERABLES Ann l Result [facility] [address] [place] [phone], [facility] [phone] * Parathyroid Hormone Intact (07/17/2024 3:26 PM INTERNET TECHNOLOGY MANAGER) Parathyroid Hormone Intact 44 15 - 65 pg/mL 07/18/2024 5:00 PM INTERNET TECHNOLOGY MANAGER [facility] Blood BLOOD SPECIMEN / Unknown Venipuncture / Unknown 07/17/2024 3:26 PM INTERNET TECHNOLOGY MANAGER 07/17/2024 3:26 PM INTERNET TECHNOLOGY MANAGER Narrative [facility] - 07/18/2024 5:00 PM INTERNET TECHNOLOGY MANAGER This result was obtained with the Randy [employer] PTH STAT assay. This reference range differs from PTH assays used in other [facility] laboratories. Jayde Powell PA-C LAB - BLOOD ORDERABLES Ann l Result [facility] [address] [facility][1], Room [address] [id number] * (ABNORMAL) Iron and iron binding capacity (07/17/2024 3:26 PM INTERNET TECHNOLOGY MANAGER) Pathologist [facility] Iron 18(L) 37 - 145 ug/dL 07/18/2024 7:51 PM INTERNET TECHNOLOGY MANAGER [facility] Iron Binding Capacity 339 240 - 430 ug/dL 07/18/2024 7:51 PM INTERNET TECHNOLOGY MANAGER [facility] Iron Sat Index 5(L) 15 - 46 % 07/18/2024 7:51 PM INTERNET TECHNOLOGY MANAGER [facility] Blood BLOOD SPECIMEN / Unknown Venipuncture / Unknown 07/17/2024 3:26 PM INTERNET TECHNOLOGY MANAGER 07/17/2024 3:26 PM INTERNET TECHNOLOGY MANAGER Jayde Powell PA-C LAB - BLOOD ORDERABLES Ann l Result LABORATORY [facility] [address] [facility][1], Room [address] [phone] * Ferritin (07/17/2024 3:26 PM INTERNET TECHNOLOGY MANAGER) Ferritin 43 11 - 328 ng/mL 07/18/2024 7:51 PM INTERNET TECHNOLOGY MANAGER [facility] Blood BLOOD SPECIMEN / Unknown Venipuncture / Unknown 07/17/2024 3:26 PM INTERNET TECHNOLOGY MANAGER 07/17/2024 3:26 PM INTERNET TECHNOLOGY MANAGER Jayde Powell PA-C LAB - BLOOD ORDERABLES Ann castañeda Result [facility] [place] [facility] [address] [facility][1], [address] [place] [phone] * (ABNORMAL) Comprehensive metabolic panel (07/17/2024 3:26 PM INTERNET TECHNOLOGY MANAGER) Sodium 144 135 - 145 mmol/L 07/18/2024 7:51 PM INTERNET TECHNOLOGY MANAGER [facility] Potassium 4.8 3.4 - 5.3 mmol/L 07/18/2024 7:51 PM INTERNET TECHNOLOGY MANAGER [facility] Carbon Dioxide (CO2) 24 22 - 29 mmol/L 07/18/2024 7:51 PM INTERNET TECHNOLOGY MANAGER [facility] Anion Gap 14 7 - 15 mmol/L 07/18/2024 7:51 PM INTERNET TECHNOLOGY MANAGER [facility] Urea Nitrogen 14.9 8.0 - 23.0 mg/dL 07/18/2024 7:51 PM INTERNET TECHNOLOGY MANAGER [facility] Creatinine 0.75 0.51 - 0.95 mg/dL 07/18/2024 7:51 PM INTERNET TECHNOLOGY MANAGER [facility] GFR Estimate 89 >60 mL/min/1.7 3m2 07/18/2024 7:51 PM INTERNET TECHNOLOGY MANAGER [facility] Comment:eGFR calculated us2020 CKD-EPI equation. Calcium 9.5 8.8 - 10.4 mg/dL 07/18/2024 7:51 PM INTERNET TECHNOLOGY MANAGER [facility] Comment:Reference intervals for this test were updated on 03/14/2024 to reflect our healthy population more accurately. There may be differences in the flagging of prior results with similar values performed with this method. Those prior results can be interpreted in the context of the updated reference intervals. Chloride 106 98 - 107 mmol/L 07/18/2024 7:51 PM INTERNET TECHNOLOGY MANAGER [facility] Glucose 100(H) 70 - 99 mg/dL 07/18/2024 7:51 PM INTERNET TECHNOLOGY MANAGER [facility] Alkaline Phosphatase 110 40 - 150 U/L 07/18/2024 7:51 PM INTERNET TECHNOLOGY MANAGER [facility] AST 28 0 - 45 U/L 07/18/2024 7:51 PM INTERNET TECHNOLOGY MANAGER [facility] ALT 16 0 - 50 U/L 07/18/2024 7:51 PM INTERNET TECHNOLOGY MANAGER [facility] Protein Total 6.6 6.4 - 8.3 g/dL 07/18/2024 7:51 PM INTERNET TECHNOLOGY MANAGER [facility] Albumin 4.2 3.5 - 5.2 g/dL 07/18/2024 7:51 PM INTERNET TECHNOLOGY MANAGER [facility] Bilirubin Total 0.2 <=1.2 mg/dL 07/18/2024 7:51 PM INTERNET TECHNOLOGY MANAGER [facility] Blood BLOOD SPECIMEN / Unknown Venipuncture / Unknown 07/17/2024 3:26 PM INTERNET TECHNOLOGY MANAGER 07/17/2024 3:26 PM INTERNET TECHNOLOGY MANAGER Jayde Powell PA-C LAB - BLOOD ORDERABLES Ann l Result [facility] [place] [facility] [address] [facility][1], Room [address] * Vitamin B12 (07/17/2024 3:26 PM INTERNET TECHNOLOGY MANAGER) Pathologist [facility] Vitamin B12 554 232 - 1,245 pg/mL 07/18/2024 7:51 PM INTERNET TECHNOLOGY MANAGER [facility] Blood BLOOD SPECIMEN / Unknown Venipuncture / Unknown 07/17/2024 3:26 PM INTERNET TECHNOLOGY MANAGER 07/17/2024 3:26 PM INTERNET TECHNOLOGY MANAGER Jayde Powell PA-C LAB - BLOOD ORDERABLES Ann l Result [facility] [place] [facility] [address] [facility][1], Room [address] * (ABNORMAL) CBC with platelets (07/17/2024 3:26 PM INTERNET TECHNOLOGY MANAGER) Pathologist [facility] WBC Count 5.6 4.0 - 11.0 10e3/uL 07/17/2024 3:40 PM INTERNET TECHNOLOGY MANAGER [facility] RBC Count 3.22(L) 3.80 - 5.20 10e6/uL 07/17/2024 3:40 PM INTERNET TECHNOLOGY MANAGER [facility] Hemoglobin 9.5(L) 11.7 - 15.7 g/dL 07/17/2024 3:40 PM INTERNET TECHNOLOGY MANAGER [facility] Hematocrit 29.2(L) 35.0 - 47.0 % 07/17/2024 3:40 PM INTERNET TECHNOLOGY MANAGER [facility] MCV 91 78 - 100 fL 07/17/2024 3:40 PM INTERNET TECHNOLOGY MANAGER [facility] MCH 29.5 26.5 - 33.0 pg 07/17/2024 3:40 PM INTERNET TECHNOLOGY MANAGER [facility] MCHC 32.5 31.5 - 36.5 g/dL 07/17/2024 3:40 PM INTERNET TECHNOLOGY MANAGER [facility] RDW 13.6 10.0 - 15.0 % 07/17/2024 3:40 PM INTERNET TECHNOLOGY MANAGER [facility] Platelet Count 310 150 - 450 10e3/uL 07/17/2024 3:40 PM INTERNET TECHNOLOGY MANAGER [facility] Blood BLOOD SPECIMEN / Unknown Venipuncture / Unknown 07/17/2024 3:26 PM INTERNET TECHNOLOGY MANAGER 07/17/2024 3:26 PM INTERNET TECHNOLOGY MANAGER [facility] Jayde Powell PA-C LAB - BLOOD ORDERABLES Ann castañeda Result [facility] [address] [facility] (no room number, 1st floor of clinic) [place] [address], [facility] * Colonoscopy - HIM Scan (09/02/2023 12:00 AM INTERNET TECHNOLOGY MANAGER) 09/02/2023 us Provider Outside PROCEDURES Final Result from Last 3 Months or Most Recently Relevant to Health Maintenance Insurance MEDICARE [facility] Address: [address] [place] [address] Care Teams Network Relations Consultant Relationship Specialty Start Date End Date Julio Cesar Antoine MD [facility] 1978 [address] [place] [address] PCP - General Family Medicine 04/12/24
--- OUTSIDE RECORDS SUMMARY | 2024-08-08 14:47 | XMS_ITS | Encounter Summary ---
Author Organization [facility] Address [address] [place] [address] Care Team Providers Care Tubing Machine Tender Name Role Phone Julio Cesar Antoine MD Primary Care Provider Reason for Visit * Reason Onset Date Comments Previsit 08/07/2024 Encounter Details Date Type Department Care Team (Late st Contact Info) Description 08/07/2024 PRE VISIT [facility] [address] [place] [address] Edelmira Soto PA-C [address] [facility] [address] [place] [address] Previsit Social History Tobacco Use Types Packs/Day Years Used Date Smoking Tobacco: Never Smokeless Tobacco: Never Comments No Sex and Gender Information Value Date Recorded Sex Assigned at Not on file Legal Sex Female 7:09 AM CDT Gender Identity Not on file Sexual Orientation Not on file documented as of this encounter Miscellaneous Notes * Telephone Encounter - Sade Brennan - 04/12/2024 11:47 AM CDT REFERRAL INFORMATION: Referring Provider: Dr. Moran Referring Clinic: [facility] Reason for Visit/Diagnosis: Gastric Bypass done in 10/14/[address] Pa Vargas in [place], [place] at [facility] FUTURE VISIT INFORMATION: Appointment Date: 08/07/2024 Appointment Time: 11 AM NOTES RECORD STATUS DETAILS OFFICE NOTE from Referring Provider Received [facility]: 01/05/24 - PCC OV with Dr. Moran OFFICE NOTE from Other Specialists Care Everywhere / Received [facility]: 04/24/22 - GEN SURG OV with Dr. Chris Mo [facility]: 10/18/20 - GEN SURG OV with Dr. Vargas [facility]: 02/28/20 - PCC OV with [facility]. Antoine [facility] DISCHARGE SUMMARY/ ED VISITS Care Everywhere [facility]: 08/01/22 - Admission with Dr. Barakat 08/01/22 - ED OV with Dr. Coulter [facility]: 04/06/22 - Admission with Dr. Brooks OPERATIVE REPORT Care Everywhere [facility]: 08/02/22 - OP Note for LAPAROSCOPIC DIAGNOSTIC, LYSIS OF ADHESIONS with Dr. Yu [facility]: 04/06/22 - OP Note for EXPLORATORY LAPAROTOMY, MODIFIED YOHANNES PATCH REPAIR OF GASTRIC REMNANT ULCER with Dr. Ramon Mo [facility]: 10/14/20 - OP Note for Lap Lola-en-Y gastric bypass with Cholecystectomy and paraesophageal hiatal hernia repair ([id number]). Transversus abdominis plane block with Dr. Vargas PERTINENT LABS Received IMAGING (CT, MRI, US, XR) Received [facility]: 04/12/24, 09/18/22 - CT Abd/Pelvis Records Requested Facility [facility] Outcome * 04/12/24 11:55 AM Faxed request to [facility] for records to be faxed to the clinic. - Sade * 04/12/24 1:39 PM Records received from [facility] and sent to HIM to be scanned into the chart. - Sade documented in this encounter Plan of Treatment Upcoming Encounters Date Type Department Care Team (Late st Contact Info) Description 09/15/2024 10:00 AM CLOTH DYE RANGE OPERATOR Virtual Visit [facility] [address] [phone] Candy Mackenzie, RD [address] [place] [address] 12/15/2024 2:30 PM CDT Virtual Visit [facility] [address] [place] [address] 4th [place] [phone] Jayde Powell PA-C [address] [place] [address] documented as of this encounter Visit Diagnoses Not on filedocumented in this encounter Care Teams Tubing Machine Tender Relationship Specialty Start Date End Date Julio Cesar Antoine MD [facility] 1978. [place] [address] PCP - General Family Medicine 04/12/24 documented as of this encounter
--- OUTSIDE RECORDS SUMMARY | 2024-08-08 14:47 | XMS_ITS | Encounter Summary ---
Author Organization [facility] Address [address] [place] [address] Care Team Providers Care Secretarial Stenographer Name Role Phone Julio Cesar Antoine MD Primary Care Provider Reason for Visit * Reason Onset Date Comments Previsit 07/17/2024 Encounter Details Date Type Department Care Team (Late st Contact Info) Description 07/17/2024 PRE VISIT [facility] [address] [phone] Jayde Powell PA-C [address] [place] [phone] Previsit Social History Tobacco Use Types Packs/Day Years Used Date Smoking Tobacco: Never Smokeless Tobacco: Never Comments No Sex and Gender Information Value Date Recorded Sex Assigned at Not on file Legal Sex Female 7:09 AM CDT Gender Identity Not on file Sexual Orientation Not on file documented as of this encounter Miscellaneous Notes * Telephone Encounter - Hailey Mcdonald - 07/03/2024 8:54 AM CST REFERRAL INFORMATION: Referring Provider: Ebony Mann Referring Clinic: [facility] Reason for Visit/Diagnosis: Z98.84 (ICD-10-CM) - Bariatric surgery status E16.2 (ICD-10-CM) - Hypoglycemia in onbase, history of gastric bypass FUTURE VISIT INFORMATION: Appointment Date: 07/17/24 Appointment Time: NOTES RECORD STATUS DETAILS OFFICE NOTE from Referring Provider Care Everywhere OFFICE NOTE from Other Specialists Care Everywhere [place]: 01/05/24 - PCC OV with Dr. Moran [facility]: 04/24/22 - GEN SURG OV with Dr. Chris Mo [facility]: 10/18/20 - GEN SURG OV with Dr. Vargas [place]: 02/28/20 - PCC OV with [facility]. Antoine [facility] DISCHARGE SUMMARY/ ED VISITS [facility] Ad[facility] Everywhere [place]: 08/02/22 - OP Note for LAPAROSCOPIC DIAGNOSTIC, LYSIS OF ADHESIONS with Dr. Yu [facility]: 04/06/22 - OP Note for EXPLORATORY LAPAROTOMY, MODIFIED YOHANNES PATCH REPAIR OF GASTRIC REMNANT ULCER with Dr. Ramon Mo [facility]: 10/14/20 - OP Note for Lap Lola-en-Y gastric bypass with Cholecystectomy and paraesophageal hiatal hernia repair (60090). Transversus abdominis plane block with Dr. Vargas [facility] Internal IMAGING (CT, MRI, US, XR) Internal [place]: 04/12/24, 09/18/22 - CT Abd/Pelvis Records Requested Facility Fax: Outcome SURGERY ICU documented in this encounter Plan of Treatment Upcoming Encounters Date Type Department Care Team (Late st Contact Info) Description 09/15/2024 10:00 AM RN SURGERY ICU Virtual Visit [facility] [address] [phone] Candy Mackenzie, RD [address] [place] [address] [phone] 12/15/2024 2:30 PM CDT Virtual Visit [facility] [address] [phone] Jayde Powell PA-C [address] [place] [address] [phone] documented as of this encounter Visit Diagnoses Not on filedocumented in this encounter Care Teams Secretarial Stenographer Relationship Specialty Start Date End Date Julio Cesar Antoine MD [facility] [address]. [place] [address] PCP - General Family Medicine 04/12/24 documented as of this encounter
--- OUTSIDE RECORDS SUMMARY | 2024-08-08 14:47 | XMS_ITS | Clinical Summary ---
Author Organization [facility] Address [address] [place] [address] Care Team Providers Care Property Condition Assessor Name Role Phone Julio Cesar Antoine MD Primary Care Provider [phone] Allergies Active Allergy Reactions Criticality Noted Date [...] cough. Active ergocalciferol (ERGOCALCIFERO L) 1.25 MG (25465 UT) capsule Take 50,000 Units by mouth [...] AVS / No eCancel)) D3-50 1.25 MG (72301 UT) capsule Take 1,250 mcg by mouth once a week. 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 Weight prior [...] Monitor vitals, resume home medications as appropriate Encounters Date Type Department Care Team Description 08/07/2024 PRE VISIT [facility] [address] [phone] Edelmira Soto PA-C Previsit 07/20/2024 My[facility] Medical Advice [facility] [address] [phone] Jayde Powell PA-C 07/19/2024 MyC Medical Advice [facility] [address] [phone] Jayde Powell PA-C Iron deficiency anemia due to chronic blood loss (Primary Dx) 07/17/2024 4:00 PM RAIL OPERATIONS CONTROLLER Lab [facility] [address] [place] [address] S/P gastric bypass; Iron deficiency anemia due to chronic blood loss; Intestinal malabsorption, unspecified type 07/17/2024 1:00 PM RAIL OPERATIONS CONTROLLER Office Visit [facility] [address] [phone] Jayde Powell PA-C Reactive hypoglycemia (Primary Dx); Hypoglycemia; S/P gastric bypass; Intestinal malabsorption, unspecified type; Iron deficiency anemia due to chronic blood loss; Overweight (BMI 25.0-29.9); Hx of obesity 07/17/2024 MyC Medical Advice [facility] [address] [phone] Jayde Powell PA-C 07/17/2024 Travel 07/17/2024 PRE VISIT [facility] [address] [phone] Jayde Powell PA-C Previsit 07/12/2024 Travel from Last 3 Months Social History Tobacco Use Types Packs/Day Years [...] Comments Blood Pressure 127/75 07/17/2024 12:36 PM RAIL OPERATIONS CONTROLLER Pulse 67 07/17/2024 12:36 PM RAIL OPERATIONS CONTROLLER Temperature - - Respiratory Rate - - Oxygen Saturation 99% 07/17/2024 12:36 PM RAIL OPERATIONS CONTROLLER Inhaled Oxygen Concentration - - Weight 73.7 kg (162 lb 6.4 oz) 07/17/2024 12:36 PM RAIL OPERATIONS CONTROLLER Height 157.5 cm (5' 2) 07/17/2024 12:36 PM RAIL OPERATIONS CONTROLLER Body Mass Index 29.7 07/17/2024 12:36 PM RAIL OPERATIONS CONTROLLER Plan of Treatment Upcoming Encounters Date Type Department Care Team (Late st Contact Info) Description 09/15/2024 10:00 AM RAIL OPERATIONS CONTROLLER Virtual Visit [facility] [address] [phone] Candy Mackenzie, RD [address] [place], [place] [phone] 12/15/2024 2:30 PM CDT Virtual Visit [facility] [address] [phone] Jayde Powell, REBA [address] [place] [address] [phone] Health Maintenance Due Date Last Done Comments ADVANCE CARE PLANNING 1961 ANNUAL REVIEW OF HM ORDERS 1961 ASTHMA ACTION PLAN 1961 ASTHMA CONTROL TEST [address] CT COLONOGRAPHY 1961 FIT 1961 FLEX SIG 1961 MAMMO SCREENING 1961 sDNA (Cologuard) 1961 HIV SCREENING 1976 HEPATITIS C SCREENING 1979 MEDICARE ANNUAL WELLNESS VISIT 1979 PAP 1982 LIPID 2001 Pneumococcal Vaccine: Pediatrics (0 to 5 Years) and At-Risk Patients (6 to 64 Years) (2 of 2 - PCV) 06/26/2015 06/26/2014, 05/17/2014 ZOSTER IMMUNIZATION (2 of 2) 01/08/2020 11/13/2019 RSV VACCINE (1 - Risk 60-74 years 1-dose series) 2021 COVID-19 Vaccine ( - 2023-2 5 season) 2024 INFLUENZA VACCINE (#1) 2024 , 06/26/2014 GLUCOSE 07/17/2027 07/17/2024 DTAP/TDAP/TD IMMUNIZATION (3 - Td or Tdap) 08/30/2027 08/30/2017, 03/10/2010 COLONOSCOPY 09/02/2033 09/02/2023 COLORECTAL CANCER SCREENING 09/02/2033 PHQ-2 (once per calendar year) Completed 07/17/2024 HPV IMMUNIZATION Aged Out No longer e ligible based on patient's age to complete this topic MENINGITIS IMMUNIZATION Aged Out No l onger eligible based on patient's age to complete this topic RSV MONOCLONAL ANTIBODY Aged Out No l onger eligible based on patient's age to complete this topic Procedures Procedure Name Priority Date/Time Associated Diagnosis Comments COMPREHENSIVE METABOLIC PANEL Routine 07/17/2024 3:26 PM RAIL OPERATIONS CONTROLLER S/P gastric bypass IRON AND IRON BINDING CAPACITY Routine 07/17/2024 3:26 PM RAIL OPERATIONS CONTROLLER S/P gastric bypass Iron deficiency anemia due to chronic blood loss ZINC Routine 07/17/2024 3:26 PM RAIL OPERATIONS CONTROLLER S/P gastric bypass Intestinal malabsorption, unspecified type VITAMIN D DEFICIENCY SCREENING Routine 07/17/2024 3:26 PM RAIL OPERATIONS CONTROLLER S/P gastric bypass Intestinal malabsorption, unspecified type VITAMIN B12 Routine 07/17/2024 3:26 PM RAIL OPERATIONS CONTROLLER S/P gastric bypass Intestinal malabsorption, unspecified type VITAMIN A Routine 07/17/2024 3:26 PM RAIL OPERATIONS CONTROLLER S/P gastric bypass Intestinal malabsorption, unspecified type PARATHYROID HORMONE INTACT Routine 07/17/2024 3:26 PM RAIL OPERATIONS CONTROLLER S/P gastric bypass FERRITIN Routine 07/17/2024 3:26 PM RAIL OPERATIONS CONTROLLER S/P gastric bypass Iron deficiency anemia due to chronic blood loss CBC WITH PLATELETS Routine 07/17/2024 3: 26 PM RAIL OPERATIONS CONTROLLER S/P gastric bypass Iron deficiency anemia due to chronic blood loss COLONOSCOPY - HIM SCAN 12:00 AM RAIL OPERATIONS CONTROLLER from Last 3 Months or Most Recently Relevant to Health Maintenance Results * Zinc (07/17/2024 3:26 PM RAIL OPERATIONS CONTROLLER) Zinc, Serum/Plasma 73.0 60.0 - 120.0 ug/dL 07/19/2024 10:43 PM RAIL OPERATIONS CONTROLLER [facility] Comment: INTERPRETIVE INFORMATION: Zinc, Serum or [...] developed and its performance characteristics determined by [facility]. It has not been cleared or approved by the US Food and Drug Administration. This test was performed in a CLIA certified laboratory and is intended for clinical purposes. Performed By: [facility] [address] [place] [address] Warp Hanger: Hubert Allen MD, PhD CLIA Number: [id number] Blood BLOOD SPECIMEN / Unknown Venipuncture / Unknown 07/17/2024 3:26 PM RAIL OPERATIONS CONTROLLER 07/17/2024 3:26 PM RAIL OPERATIONS CONTROLLER Jayde Powell PA-C LAB - BLOOD ORDERABLES Ann l Result [facility] [address] [place] [phone], [facility] [phone] * Vitamin D Deficiency (07/17/2024 3:26 PM RAIL OPERATIONS CONTROLLER) [facility] Vitamin D, Total (25-Hydroxy) 39 20 - 50 ng/mL 07/18/2024 7:51 PM RAIL OPERATIONS CONTROLLER [facility] Comment:optimum levels Blood BLOOD SPECIMEN / Unknown Venipuncture / Unknown 07/17/2024 3:26 PM RAIL OPERATIONS CONTROLLER 07/17/2024 3:26 PM RAIL OPERATIONS CONTROLLER Narrative [facility] - 07/18/2024 7:51 PM RAIL OPERATIONS CONTROLLER Season, race, dietary intake, and treatment affect the concentration of 36-lxuxset-Xbdjhit D. Values may decrease during winter months and increase during summer months. Vitamin D determination is routinely performed by an immunoassay specific for 25 hydroxyvitamin D3. If an individual is on vitamin D2(ergocalciferol) supplementation, please specify 25 OH vitamin D2 and D3 level determination by LCMSMS test VITD23. Jayde Powell PA-C LAB - BLOOD ORDERABLES Ann l Result [facility] [place] [facility] [address] [facility], Room [address] [phone] * Vitamin A (07/17/2024 3:26 PM RAIL OPERATIONS CONTROLLER) Vitamin A 0.55 0.30 - 1.20 mg/L 07/21/2024 11:35 AM RAIL OPERATIONS CONTROLLER [facility] Retinol Palmitate 0.02 0.00 - 0.10 mg/L 07/21/2024 11:35 AM RAIL OPERATIONS CONTROLLER [facility] Seeking Vitamin A Interp Normal 07/21/20 11:35 AM RAIL OPERATIONS CONTROLLER [facility] Comment: This test was developed and its performance characteristics determined by [facility]. It has not been cleared or approved by the US Food and Drug Administration. This test was performed in a CLIA certified laboratory and is intended for clinical purposes. Performed By: [facility] [address] [place] [address] Warp Hanger: Hubert Allen MD, PhD CLIA Number: [id number] Blood BLOOD SPECIMEN / Unknown Venipuncture / Unknown 07/17/2024 3:26 PM RAIL OPERATIONS CONTROLLER 07/17/2024 3:26 PM RAIL OPERATIONS CONTROLLER Jayde Powell PA-C LAB - BLOOD ORDERABLES Ann l Result [facility] [address] [place] [address], [facility] [phone] * Parathyroid Hormone Intact (07/17/2024 3:26 PM RAIL OPERATIONS CONTROLLER) Parathyroid Hormone Intact 44 15 - 65 pg/mL 07/18/2024 5:00 PM RAIL OPERATIONS CONTROLLER [facility] Blood BLOOD SPECIMEN / Unknown Venipuncture / Unknown 07/17/2024 3:26 PM RAIL OPERATIONS CONTROLLER 07/17/2024 3:26 PM RAIL OPERATIONS CONTROLLER Narrative [facility] - 07/18/2024 5:00 PM RAIL OPERATIONS CONTROLLER This result was obtained with the Randy [employer] PTH STAT assay. This reference range differs from PTH assays used in other [facility] laboratories. KrupaLiz Powell PA-C LAB - BLOOD ORDERABLES Ann l Result [facility] [place] [facility] [address] [facility], Room [address] * (ABNORMAL) Iron and iron binding capacity (07/17/2024 3:26 PM RAIL OPERATIONS CONTROLLER) Pathologist [facility] Iron 18(L) 37 - 145 ug/dL 07/18/2024 7:51 PM RAIL OPERATIONS CONTROLLER [facility] Iron Binding Capacity 339 240 - 430 ug/dL 07/18/2024 7:51 PM RAIL OPERATIONS CONTROLLER [facility] Iron Sat Index 5(L) 15 - 46 % 07/18/2024 7:51 PM RAIL OPERATIONS CONTROLLER [facility] Blood BLOOD SPECIMEN / Unknown Venipuncture / Unknown 07/17/2024 3:26 PM RAIL OPERATIONS CONTROLLER 07/17/2024 3:26 PM RAIL OPERATIONS CONTROLLER KrupaLiz Powell PA-C LAB - BLOOD ORDERABLES Ann l Result LABORATORY [facility] [place] [facility] [address] [facility], Room [address] * Ferritin (07/17/2024 3:26 PM RAIL OPERATIONS CONTROLLER) [facility] Ferritin 43 11 - 328 ng/mL 07/18/2024 7:51 PM RAIL OPERATIONS CONTROLLER [facility] Blood BLOOD SPECIMEN / Unknown Venipuncture / Unknown 07/17/2024 3:26 PM RAIL OPERATIONS CONTROLLER 07/17/2024 3:26 PM RAIL OPERATIONS CONTROLLER KrupaLiz Powell PA-C LAB - BLOOD ORDERABLES Ann l Result [facility] [place] [facility] [address] [facility], Room [address] [place] [address] * (ABNORMAL) Comprehensive metabolic panel (07/17/2024 3:26 PM RAIL OPERATIONS CONTROLLER) Sodium 144 135 - 145 mmol/L 07/18/2024 7:51 PM RAIL OPERATIONS CONTROLLER [facility] Potassium 4.8 3.4 - 5.3 mmol/L 07/18/2024 7:51 PM RAIL OPERATIONS CONTROLLER [facility] Carbon Dioxide (CO2) 24 22 - 29 mmol/L 07/18/2024 7:51 PM RAIL OPERATIONS CONTROLLER [facility] Anion Gap 14 7 - 15 mmol/L 07/18/2024 7:51 PM RAIL OPERATIONS CONTROLLER [facility] Urea Nitrogen 14.9 8.0 - 23.0 mg/dL 07/18/2024 7:51 PM RAIL OPERATIONS CONTROLLER [facility] Creatinine 0.75 0.51 - 0.95 mg/dL 07/18/2024 7:51 PM RAIL OPERATIONS CONTROLLER [facility] GFR Estimate 89 >60 mL/min/1.7 3m2 07/18/2024 7:51 PM RAIL OPERATIONS CONTROLLER [facility] Comment:eGFR calculated usin 2020 CKD-EPI equation. Calcium 9.5 8.8 - 10.4 mg/dL 07/18/2024 7:51 PM RAIL OPERATIONS CONTROLLER [facility] Comment:Reference intervals for this test were updated on 03/14/2024 to reflect our healthy population more accurately. There may be differences in the flagging of prior results with similar values performed with this method. Those prior results can be interpreted in the context of the updated reference intervals. Chloride 106 98 - 107 mmol/L 07/18/2024 7:51 PM RAIL OPERATIONS CONTROLLER [facility] Glucose 100(H) 70 - 99 mg/dL 07/18/2024 7:51 PM RAIL OPERATIONS CONTROLLER [facility] Alkaline Phosphatase 110 40 - 150 U/L 07/18/2024 7:51 PM RAIL OPERATIONS CONTROLLER [facility] AST 28 0 - 45 U/L 07/18/2024 7:51 PM RAIL OPERATIONS CONTROLLER [facility] ALT 16 0 - 50 U/L 07/18/2024 7:51 PM RAIL OPERATIONS CONTROLLER [facility] Protein Total 6.6 6.4 - 8.3 g/dL 07/18/2024 7:51 PM RAIL OPERATIONS CONTROLLER [facility] Albumin 4.2 3.5 - 5.2 g/dL 07/18/2024 7:51 PM RAIL OPERATIONS CONTROLLER [facility] Bilirubin Total 0.2 <=1.2 mg/dL 07/18/2024 7:51 PM RAIL OPERATIONS CONTROLLER [facility] Blood BLOOD SPECIMEN / Unknown Venipuncture / Unknown 07/17/2024 3:26 PM RAIL OPERATIONS CONTROLLER 07/17/2024 3:26 PM RAIL OPERATIONS CONTROLLER KrupaLiz Powell PA-C LAB - BLOOD ORDERABLES Ann l Result [facility] [place] [facility] [address] [facility], [address] * Vitamin B12 (07/17/2024 3:26 PM RAIL OPERATIONS CONTROLLER) [facility] Vitamin B12 554 232 - 1,245 pg/mL 07/18/2024 7:51 PM RAIL OPERATIONS CONTROLLER [facility] Blood BLOOD SPECIMEN / Unknown Venipuncture / Unknown 07/17/2024 3:26 PM RAIL OPERATIONS CONTROLLER 07/17/2024 3:26 PM RAIL OPERATIONS CONTROLLER KrupaLiz Powell PA-C LAB - BLOOD ORDERABLES Ann l Result Performing Organization Address City[facility] de Phone Number LABORATORY [facility] [address] [facility], [address] * (ABNORMAL) CBC with platelets (07/17/2024 3:26 PM RAIL OPERATIONS CONTROLLER) [facility] WBC Count 5.6 4.0 - 11.0 10e3/uL 07/17/2024 3:40 PM RAIL OPERATIONS CONTROLLER [facility] RBC Count 3.22(L) 3.80 - 5.20 10e6/uL 07/17/2024 3:40 PM RAIL OPERATIONS CONTROLLER [facility] Hemoglobin 9.5(L) 11.7 - 15.7 g/dL 07/17/2024 3:40 PM RAIL OPERATIONS CONTROLLER [facility] Hematocrit 29.2(L) 35.0 - 47.0 % 07/17/2024 3:40 PM RAIL OPERATIONS CONTROLLER [facility] MCV 91 78 - 100 fL 07/17/2024 3:40 PM RAIL OPERATIONS CONTROLLER [facility] MCH 29.5 26.5 - 33.0 pg 07/17/2024 3:40 PM RAIL OPERATIONS CONTROLLER [facility] MCHC 32.5 31.5 - 36.5 g/dL 07/17/2024 3:40 PM RAIL OPERATIONS CONTROLLER [facility] RDW 13.6 10.0 - 15.0 % 07/17/2024 3:40 PM RAIL OPERATIONS CONTROLLER [facility] Platelet Count 310 150 - 450 10e3/uL 07/17/2024 3:40 PM RAIL OPERATIONS CONTROLLER [facility] Blood BLOOD SPECIMEN / Unknown Venipuncture / Unknown 07/17/2024 3:26 PM RAIL OPERATIONS CONTROLLER 07/17/2024 3:26 PM RAIL OPERATIONS CONTROLLER Jayde Powell PA-C LAB - BLOOD ORDERABLES Ann castañeda Result [facility] [place] Lab [address] [facility] Lab (no room number, 1st floor of clinic) [place] [address], [facility] * Colonoscopy - HIM Scan (09/02/2023 12:00 AM RAIL OPERATIONS CONTROLLER) 09/02/2023 Provider Outside PROCEDURES Final Result from Last 3 Months or Most Recently Relevant to Health Maintenance Insurance [place]IC[place] [address] [place] [address] [place] [phone] [facility] Care Teams Property Condition Assessor Relationship Specialty Start Date End Date Julio Cesar Antoine MD [facility] [address], [place] [address] PCP - General Family Medicine 04/12/24
--- OUTSIDE RECORDS SUMMARY | 2024-08-08 14:48 | XMS_ITS | Encounter Summary ---
Author Organization [place] Address [address] [place] [id number] Care Team Providers Care Biometrics Head Name Role Phone Julio Cesar Antoine MD Primary Care Provider [phone] Reason for Visit * Reason Comments New Patient New re-establish, MW M * Consultation (Routine: Next available opening) - Pending Review Specialty Diagnoses / Procedures Referred By Freida dubose Referred To Contact Bariatric Diagnoses Bariatric surgery status Hypoglycemia GENERIC EXTERNAL DATA DEPARTMENT Referral ID Status Reason Start Date Expiration Date V isits Requested Visits Authorized [id number] Pending Review 04/11/2024 04/11/2025 1 1 Encounter Details Date Type Department Care Team (Late st Contact Info) Description 07/17/2024 1:00 PM M1 ARMOR CREWMAN Office Visit [facility] [address] [place] [phone] Jayde Powell PA-C [address] [place] [id number] Reactive hypoglycemia (Primary Dx); Hypoglycemia; S/P gastric bypass; Intestinal malabsorption, unspecified type; Iron deficiency anemia due to chronic blood loss; Overweight (BMI 25.0-29.9); Hx of obesity Social History Tobacco Use Types Packs/Day Years [...] on file documented as of this encounter Last Filed Vital Signs Vital Sign Reading Time Taken Comments Blood Pressure 127/75 07/17/2024 12:36 PM M1 ARMOR CREWMAN Pulse 67 07/17/2024 12:36 PM M1 ARMOR CREWMAN Temperature - - Respiratory Rate - - Oxygen Saturation 99% 07/17/2024 12:36 PM M1 ARMOR CREWMAN Inhaled Oxygen Concentration - - Weight 73.7 kg (162 lb 6.4 oz) 07/17/2024 12:36 PM M1 ARMOR CREWMAN Height 157.5 cm (5' 2) 07/17/2024 12:36 PM M1 ARMOR CREWMAN Body Mass Index 29.7 07/17/2024 12:36 PM M1 ARMOR CREWMAN documented in this encounter Patient Instructions * Patient Instructions* Jayde Powell PA-C - 07/17/2024 1:00 PM M1 ARMOR CREWMAN Henri Condon, it was nice to meet you today! Thank you for allowing us the privilege of caring for you. We hope we provided you with the excellent service you deserve. Please let us know if there is anything else we can do for you so that we can be sure you are completely satisfied with your care experience. To ensure the quality of our services you may be receiving a patient satisfaction survey from an independent patient satisfaction monitoring company. The greatest compliment you can give is a Likely to Recommend Your visit was with Jayde Powell PA-C today. Instructions per today's visit: Reactive hypoglycemia - start pairing proteins with carbs. Start logging foods and symptoms. Discusdetails further with dietitian in July. Protein goal - 90-100g daily Carb goal - 50g Start MV daily. Will adjust any other vitamins after labs Bariatric labs ordered Candy Mackenzie RD on 08/18/2024 Jayde Hill in 3 months Important contact and scheduling information: Please call our contact center at [phone] to schedule your next appointments. For any nursing questions or concerns call Dee Werner LPN at [phone] or Sade Myles RN [phone] Please call during clinic hours Wednesday through Wednesday 8:00a - 4:00p if you have questions or you can contact us via [employer] at anytime and we will reply during clinic hours. Lab results will be communicated through My Chart or letter (if My Chart not used). Please call theclinic if you have not received communication after 1 week or if you have any questions.? Clinic If labs were ordered today: Please make an appointment to have them drawn at your convenience. To schedule the Lab Appointment using [employer]: Select Schedule an Appointment Select Lab Only For A couple of questions, select Other For Which locations work for you?, select the location and set up the appointment To schedule by phone call [phone] to schedule a lab only appointment at any [facility] lab. Work with A Health Cigarette And Filter Chief Inspector! Virtual Sessions are Available through [facility] To learn more, call to schedule a free, Health Cigarette And Filter Chief Inspector Q&A appointment: [phone] What is Health Coaching? Do you know what you are supposed to do, but you just aren't doing it? Then, HEALTH COACHING may help you! Get unstuck and move forward with the support of a professionally trained NBC- HWC (National Board-Certified Health and Card Writer Hand) who uses evidence-based approaches to help you move forward withhealthy lifestyle changes in the areas of weight loss, stress management and overall well-being. Health Coaches help you identify goals that will work best for you. Health Coaches provide support and encouragement with overcoming barriers and help you to find inspiration and motivation to lead ahealthy lifestyle. Option one: Health Coaching 3-Pack; Three, 30-minute Health Coaching Visits, for $99 Visits are done virtually (phone or video) This is a self pay service; we do not accept insurance for brenda coaching. Option two: The 24 week Plan; 11 Health Coaching Visits, and a 7 months subscription to [employer]-- on-demand fitness, nutrition and mindfulness classes, for $499 (employee discounts may be available). Participants will also meet regularly with a weight management Medical Provider and a Registered/Licensed Principal Hardware Architect. This is a self-pay service; we do not accept insurance for health coaching. To Schedule a free Health Cigarette And Filter Chief Inspector Q&A appointment to learn more, call [phone]. M [facility] Healthy Lifestyle Group Healthy Lifestyle Group This is a 60 minute virtual coaching group for those who want to lead a healthier lifestyle. Come together to set goals and overcome barriers in a supportive group environment. We will address the four pillars of health--nutrition, exercise, sleep and emotional well-being. This group is highly recommended for those who are participating in the 24 week Healthy Lifestyle Plan and our Health Coaching sessions. WHEN: This group meets the first Wednesday of the month, 12:30 PM - 1:30 PM online, via a zoom meeting. VOCATIONAL NURSE LVN: Led by National Board Certified Health and Card Writer Hand, Paola Avila [facility]. TO REGISTER: Please call the Call Center at [phone] to register. You will get an appointment to attend in [employer]. Fifteen minutes prior to the meeting, complete the e-check in and you will get the link to join the meeting. There is no charge to attend this group and space is limited. 2022 and 2023 Meeting Topics and Dates: July 02: Introduction to Mindfulness (Learn simple and effective mindfulness practices and how it can benefit you) August 06: Let's Talk (guided discussion on our wins and challenges) September 03: New Years Vision: Manifest your Best 2023! (Guided imagery, journaling and discussion) October 01: Let's Talk October 28: 10 Percent Happier by Felix Martinez (Book Bites; a guided discussion on the nuggets of wisdomfrom favorite wellness books; no need to read the book but highly encouraged) December 02: Let's Talk December 30: Essentialism; The Disciplined Pursuit of Less by Mario Carlson (book bites discussion) February 03: Let's Talk March 03: NO MEETING, off for the 02 of March HolMarch 31: The Blue Zones, Secrets for Living a Longer Life by Felix Mclean (book bites discussion) If you would like bariatric surgery specific support group info please let your care team know. Thank you, [facility] Team M1 ARMOR CREWMAN M1 ARMOR CREWMAN documented in this encounter Progress Notes * Jayde Powell PA-C - 07/17/2024 1:00 PM CST Images from the original note were not included. Return Bariatric Surgery Note RE: Roseanna Montague MR#: [id number] : 1960 VISIT DATE: Jul 17, 2024 Dear Julio Cesar Antoine, I had the pleasure of seeing your patient, Roseanna Montague, in my post-bariatric surgery assessment clinic. Assessment & Plan Problem List Items Addressed This Visit S/P gastric bypass S/p [place]YBP 10/24/20 in [place]. 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 She currently has a GI bleed due to unknown etiology. She is being worked up by GI, EGD and colonoscopy are negative. Shedoes not currently have melena. Relevant Orders CBC with platelets (Completed) Ferritin (Completed) Parathyroid Hormone Intact (Completed) Vitamin A (Completed) Vitamin B12 (Completed) Vitamin D Deficiency (Completed) Zinc (Completed) Iron and iron binding capacity (Completed) Comprehensive metabolic panel (Completed) Adult Bariatrics and [facility] Management Clinic Follow-Up Order Reactive hypoglycemia - Primary For the past year started to have reactive hypoglycemia symptoms. Feeling dizzy/lightheaded around 30min after eating and with increase in activity. PCP referred her to dietitian. Dietitian advised her to increase complex carbs to 250g daily and decrease in protein. This did not help with symptoms,and lead to a 20lbs weight gain. She has slowly been decreasing her carbs. Today we dicussed pairing carbs with proteins, and decreasing carbs and increasing proteins again. She feels very relieved this will be next steps. Can also consider GLP-1 or TORe procedure if symptoms do not improve. Overweight (BMI 25.0-29.9) Other Visit Diagnoses Intestinal malabsorption, unspecified type Relevant Orders Vitamin A (Completed) Vitamin B12 (Completed) Vitamin D Deficiency (Completed) Zinc (Completed) Iron deficiency anemia due to chronic blood loss Relevant Medications cyanocobalamin (CYANOCOBALAMIN) 1000 mcg/mL injection Other Relevant Orders CBC with platelets (Completed) Ferritin (Completed) Iron and iron binding capacity (Completed) Hx of obesity Reactive hypoglycemia - start pairing proteins with carbs. Start logging foods and symptoms. Discusdetails further with dietitian in July. Protein goal - 90-100g daily Carb goal - 50g Start MV daily. Will adjust any other vitamins after labs Bariatric labs ordered Candy Mackenzie RD on 08/18/2024 Jayde Hill in 3 months 67 minutes spent by me on the date of the encounter doing chart review, history and exam, documentation and further activities per the note CHIEF COMPLAINT: Post-bariatric surgery follow-up. HISTORY OF PRESENT ILLNESS: 07/17/2024 12:20 PM Questions Regarding Prior Weight Loss Surgery Reviewed With Patient I had the following weight loss procedure Lola-en-y Gastric Bypass What year was your surgery? 2020 How has your weight changed since your last visit? I have gained weight Do you currently have any of the following None of the above Do you have any concerns today? low and spike blood sugars, gastro bleeding,weight gain S/p RYBP 10/24/20 in [place] Weight prior - 236lb Samir weight - 142lb Surgery was also complicated by small bowel volvulus, remnant stomach perfed ulcer, and incisional hernias due to fixing ulcer. After surgery had chronic nausea and took around a year to find a good system (food and portion sizes). Was weight stable around 142. Started to have reactive hypoglycemia - was seen by dietitian whoadvised her to increase her carbs to 200 a day. Due to this has gained around 20lbs. Currently has a GI bleed and is being work up by GI. Just completed colonoscopy and EGD which showed no bleed. Still has further work up. Anti-obesity medications: has not been on AOMs in the past. Recent diet changes: Eating 3-4 meals a day. Was eating a lot of carbs to help with hypoglycemia - was told by dietitian to eat 200+ daily. Has emilie refocusing on protein and decrease in carbs. Makes all her foods fresh. Portion sizes around 1 cup - dietitian advised 2 cups. No hunger concerns. Doesnot tolerate rice, bread, pasta. -Protein? 80g, previously was doing 90-100g. Has been focusing on increasing protein again. Does 2 protein shakes a day. -Water? 60oz of water daily. Elaina tea. Recent exercise/activity changes: limited due to fatigure over the past 6 months. Was walking, fishing, active, with grandchildren. Vitamins/Labs: Vitamin D, B12 injection 1xmonth. No constipation, dysphagia No GERD. Taking omeprazole as advised by PCP. Nausea - caused by food choices - greasy, high carb, portion sizes. Got a good system until this past year. Has nausea, reglan and scopolamine patch as needed. Hypoglycemia - after most meals with have high BS 300s within 30min of eating. Will then feel dizzy, light headed. Feeling more fatigue. Has not passed out. Dumping Syndrome - if has a lot of high carb/sugar products. Diarrhea - since surgery has had daily. 3xday. No longer having dark stools over the past week. No NSAIDs. Caffeine - 6 cups daily. No ETOH or nicotine use Weight History: 07/17/2024 12:20 PM -- What is your highest lifetime weight? 236 What is your lowest weight since surgery? (In pounds) 142 Initial Weight (lbs): 162.4 lbs Weight: 73.7 kg (162 lb 6.4 oz) Cumulative weight loss (lbs): 0 Weight Loss Percentage: 0% Waist Circumference (cm): 90 cm Wt Readings from Last 5 Encounters: 07/17/24 73.7 kg (162 lb 6.4 oz) 07/17/2024 12:20 PM Questions Regarding Co-Morbidities and Health Concerns Reviewed With Patient Pre-diabetes Never Diabetes II Never High Blood Pressure Gone Away High cholesterol Gone away Heartburn/Reflux Gone away Sleep apnea Never PCOS Never Back pain Improved Joint pain Improved Lower leg swelling Never Anxiety and depression - well controlled typically. Followed by therapist. 07/17/2024 12:20 PM Eating Habits How many meals do you eat per day? 4 Do you snack between meals? Sometimes How much food are you eating at each meal? Greater than 1 cup Are you able to separate your meals and liquids by at least 30 minutes? Sometimes Are you able to avoid liquid calories? Sometimes 07/17/2024 12:20 PM Exercise Questions Reviewed With Patient How often do you exercise? Never What keeps you from being more active? I am as active as I can possbily be Social History: 07/17/2024 12:20 PM -- Are you smoking? No Are you drinking alcohol? No Medications: Current Outpatient Medications Medication Sig Dispense Refill acetaminophen (TYLENOL) 500 MG tablet Take 1,000 mg by mouth. albuterol (PROAIR HFA/PROVENTIL HFA/VENTOLIN HFA) 108 (90 Base) MCG/ACT inhaler Inhale 1 puff into the lungs as needed for shortness of breath, wheezing or cough. blood glucose (NO BRAND SPECIFIED) test strip USE TO TEST FOUR TIMES DAILY blood glucose monitoring (SOFTCLIX) lancets Blood Glucose Monitoring Suppl (ACCU-CHEK GUIDE) w/Device KIT USE DIRECTED FOR TESTING FOUR TIMES DAILY. cyanocobalamin (CYANOCOBALAMIN) 1000 mcg/mL injection ADMINISTER 1 ML UNDER THE SKIN EVERY 4 WEEKS ergocalciferol (ERGOCALCIFEROL) 1.25 MG (30630 UT) capsule Take 50,000 Units by mouth once a week. fluticasone-salmeterol (ADVAIR) 250-50 MCG/ACT inhaler Inhale 1 puff into the lungs daily. LORazepam (ATIVAN) 1 MG tablet prn metoclopramide (REGLAN) 5 MG tablet Take 5 mg by mouth as needed. omeprazole (PRILOSEC) [address] capsule Take 20 mg by mouth 2 times daily. ondansetron (ZOFRAN ODT) [address] 4 mg under the tongue. scopolamine (TRANSDERM) 1 MG/3DAYS [address] 1 patch onto the skin. No current facility-administered medications for this visit. 07/17/2024 12:20 PM -- Do you avoid NSAIDs such as (Ibuprofen, Aleve, Naproxen, Advil)? Yes ROS: GI: 07/17/2024 12:20 PM -- Vomiting No Diarrhea Yes Constipation No Swallowing trouble No Abdominal pain Yes Heartburn No Skin: 07/17/2024 12:20 PM BAR RBS ROS - SKIN Rash in skin folds No Psych: 07/17/2024 12:20 PM -- Depression No Anxiety Yes Female Only: 07/17/2024 12:20 PM BAR RBS ROS - Female only None of the above Stress urinary incontinence No 07/12/2024 11:28 AM GABBIE Score (Last Two) GABBIE Raw Score 10 Activation Score 0 GABBIE Level 1 Patient-reported Objective BP 127/75 (BP Location: Left arm, Patient Position: Sitting, Cuff Size: Adult Regular) Pulse 67 Ht 1.575 m (5' 2) Wt 73.7 kg (162 lb 6.4 oz) SpO2 99% BMI 29.70 kg/m?? Physical Exam GENERAL: alert and no distress EYES: Eyes grossly normal to inspection. No discharge or erythema, or obvious scleral/conjunctival abnormalities. RESP: No audible wheeze, cough, or visible cyanosis. SKIN: Visible skin clear. No significant rash, abnormal pigmentation or lesions. NEURO: Cranial nerves grossly intact. Mentation and speech appropriate for age. PSYCH: Appropriate affect, tone, and pace of words Sincerely, Jayde Powell PA-C The longitudinal plan of care for the diagnosis(es)/condition(s) as documented were addressed during this visit. Due to the added complexity in care, I will continue to support Roseanna in the subsequent management and with ongoing continuity of care. M1 ARMOR CREWMAN documented in this encounter Nursing Notes * Ligia Rincon - 07/17/2024 1:00 PM CST (?? Chief Complaint Patient presents with New Patient New re-establish, MWM ??) (??Weight: 73.7 kg (162 lb 6.4 oz)??) (??Height: 157.5 cm (5' 2)??) (??BMI (Calculated): 29.7??) (?) (?) (?) (?) (?) (?) (??BP: 127/75??) (?) (?) (?) (??Pulse: 67??) (?) (??SpO2: 99 %??) (??There is no problem list on file for this patient. ??) (?? Current Outpatient Medications Medication Sig Dispense Refill acetaminophen (TYLENOL) 500 MG tablet Take 1,000 mg by mouth. albuterol (PROAIR HFA/PROVENTIL HFA/VENTOLIN HFA) 108 (90 Base) MCG/ACT inhaler Inhale 1 puff into the lungs as needed for shortness of breath, wheezing or cough. blood glucose (NO BRAND SPECIFIED) test strip USE TO TEST FOUR TIMES DAILY blood glucose monitoring (SOFTCLIX) lancets Blood Glucose Monitoring Suppl (ACCU-CHEK GUIDE) w/Device KIT USE DIRECTED FOR TESTING FOUR TIMES DAILY. cyanocobalamin (CYANOCOBALAMIN) 1000 mcg/mL injection ADMINISTER 1 ML UNDER THE SKIN EVERY 4 WEEKS D3-50 1.25 MG (57616 UT) capsule Take 1,250 mcg by mouth once a week. ergocalciferol (ERGOCALCIFEROL) 1.25 MG (87539 UT) capsule Take 50,000 Units by mouth once a week. fluticasone-salmeterol (ADVAIR) 250-50 MCG/ACT inhaler Inhale 1 puff into the lungs daily. LORazepam (ATIVAN) 1 MG tablet prn metoclopramide (REGLAN) 5 MG tablet Take 5 mg by mouth as needed. omeprazole (PRILOSEC) [address] capsule Take 20 mg by mouth 2 times daily. ondansetron (ZOFRAN ODT) [address] 4 mg under the tongue. ondansetron (ZOFRAN) 2 MG/ML SOLN Inject 0.1 mg/kg into the vein as needed for nausea or vomiting. scopolamine (TRANSDERM) 1 MG/3DAYS [address] 1 patch onto the skin. Cyanocobalamin (B-12 COMPLIANCE INJECTION IJ) Inject as directed every 30 days. (Patient not taking: Reported on 07/17/2024) ??) (??Diabetes Eval: ??) (??Pain Eval: Mild Pain (2)??) (??Wound Eval: ??) (?? History Smoking Status Never Smokeless Tobacco Never ??) (??Signed By: Ligia Rincon; July 17, 2024; 1:19 PM??) M1 ARMOR CREWMAN documented in this encounter Miscellaneous Notes * Assessment & Plan Note - Jayde Powell PA-C - 07/23/2024 6:30 PM M1 ARMOR CREWMAN Associated Problem(s): Reactive hypoglycemia For the past year started to have reactive hypoglycemia symptoms. Feeling dizzy/lightheaded around 30min after eating and with increase in activity. PCP referred her to dietitian. Dietitian advised her to increase complex carbs to 250g daily and decrease in protein. This did not help with symptoms,and lead to a 20lbs weight gain. She has slowly been decreasing her carbs. Today we dicussed pairing carbs with proteins, and decreasing carbs and increasing proteins again. She feels very relieved this will be next steps. Can also consider GLP-1 or TORe procedure if symptoms do not improve. M1 ARMOR CREWMAN * Assessment & Plan Note - Jayde Powell PA-C - 07/23/2024 6:27 PM M1 ARMOR CREWMAN Associated Problem(s): S/P gastric bypass S/p RYBP 10/24/20 in [place]. 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 She currently has a GI bleed due to unknown etiology. She is being worked up by GI, EGD and colonoscopy are negative. Shedoes not currently have melena. M1 ARMOR CREWMAN documented in this encounter Plan of Treatment Upcoming Encounters Date Type Department Care Team (Late st Contact Info) Description 09/15/2024 10:00 AM M1 ARMOR CREWMAN Virtual Visit [facility] [address] [phone] Candy Mackenzie, RD [address] [place], [place] [id number] 12/15/2024 2:30 PM CDT Virtual Visit [facility] [address] [phone] Jayde Powell PA-C [address] [place] [id number] documented as of this encounter Results * (ABNORMAL) Comprehensive metabolic panel (07/17/2024 3:26 PM M1 ARMOR CREWMAN) Sodium 144 135 - 145 mmol/L 07/18/2024 7:51 PM M1 ARMOR CREWMAN [facility] Potassium 4.8 3.4 - 5.3 mmol/L 07/18/2024 7:51 PM M1 ARMOR CREWMAN [facility] Carbon Dioxide (CO2) 24 22 - 29 mmol/L 07/18/2024 7:51 PM M1 ARMOR CREWMAN [facility] Anion Gap 14 7 - 15 mmol/L 07/18/2024 7:51 PM M1 ARMOR CREWMAN [facility] Urea Nitrogen 14.9 8.0 - 23.0 mg/dL 07/18/2024 7:51 PM M1 ARMOR CREWMAN [facility] Creatinine 0.75 0.51 - 0.95 mg/dL 07/18/2024 7:51 PM M1 ARMOR CREWMAN [facility] GFR Estimate 89 >60 mL/min/1.7 3m2 07/18/2024 7:51 PM M1 ARMOR CREWMAN [facility] Comment:eGFR calculated usin 2020 CKD-EPI equation. Calcium 9.5 8.8 - 10.4 mg/dL 07/18/2024 7:51 PM M1 ARMOR CREWMAN [facility] Comment:Reference intervals for this test were updated on 03/14/2024 to reflect our healthy population more accurately. There may be differences in the flagging of prior results with similar values performed with this method. Those prior results can be interpreted in the context of the updated reference intervals. Chloride 106 98 - 107 mmol/L 07/18/2024 7:51 PM M1 ARMOR CREWMAN [facility] Glucose 100(H) 70 - 99 mg/dL 07/18/2024 7:51 PM M1 ARMOR CREWMAN [facility] Alkaline Phosphatase 110 40 - 150 U/L 07/18/2024 7:51 PM M1 ARMOR CREWMAN [facility] AST 28 0 - 45 U/L 07/18/2024 7:51 PM M1 ARMOR CREWMAN [facility] ALT 16 0 - 50 U/L 07/18/2024 7:51 PM M1 ARMOR CREWMAN [facility] Protein Total 6.6 6.4 - 8.3 g/dL 07/18/2024 7:51 PM M1 ARMOR CREWMAN [facility] Albumin 4.2 3.5 - 5.2 g/dL 07/18/2024 7:51 PM M1 ARMOR CREWMAN [facility] Bilirubin Total 0.2 <=1.2 mg/dL 07/18/2024 7:51 PM M1 ARMOR CREWMAN [facility] Blood BLOOD SPECIMEN / Unknown Venipuncture / Unknown 07/17/2024 3:26 PM M1 ARMOR CREWMAN 07/17/2024 3:26 PM M1 ARMOR CREWMAN Jayde Powell PA-C LAB - BLOOD ORDERABLES Ann l Result [facility] [address], [address] [place] [address], [facility] * (ABNORMAL) Iron and iron binding capacity (07/17/2024 3:26 PM M1 ARMOR CREWMAN) Iron 18(L) 37 - 145 ug/dL 07/18/2024 7:51 PM M1 ARMOR CREWMAN [facility] Iron Binding Capacity 339 240 - 430 ug/dL 07/18/2024 7:51 PM M1 ARMOR CREWMAN [facility] Iron Sat Index 5(L) 15 - 46 % 07/18/2024 7:51 PM M1 ARMOR CREWMAN [facility] Blood BLOOD SPECIMEN / Unknown Venipuncture / Unknown 07/17/2024 3:26 PM M1 ARMOR CREWMAN 07/17/2024 3:26 PM M1 ARMOR CREWMAN Jayde Pradokrystyna HARP-C LAB - BLOOD ORDERABLES Ann l Result Performing Organization Address City/[facility]/ZIP Co de Phone Number [facility] [address], [address] [place] [address] * Zinc (07/17/2024 3:26 PM M1 ARMOR CREWMAN) [facility] Zinc, Serum/Plasma 73.0 60.0 - 120.0 ug/dL 07/19/2024 10:43 PM M1 ARMOR CREWMAN [facility] Comment: INTERPRETIVE INFORMATION: Zinc, Serum or [...] developed and its performance characteristics determined by [facility]. It has not been cleared or approved by the US Food and Drug Administration. This test was performed in a CLIA certified laboratory and is intended for clinical purposes. Performed By: [facility] [address] [place] [id number] Medical Oncologist: Hubert Allen MD, PhD CLIA Number: [id number] Blood BLOOD SPECIMEN / Unknown Venipuncture / Unknown 07/17/2024 3:26 PM M1 ARMOR CREWMAN 07/17/2024 3:26 PM M1 ARMOR CRE[address] Result [facility] [place]de [place] Andre [facility] LAB - BLOOD ORDERABLES Ann l Result Performing Organization Address [facility]/ZIP Co de Phone Number [facility] [employer] [address] [place] [phone] [phone] * Vitamin D Deficiency (07/17/2024 3:26 PM M1 ARMOR CREWMAN) Pathologist [facility] Vitamin D, Total (25-Hydroxy) 39 20 - 50 ng/mL 07/18/2024 7:51 PM M1 ARMOR CREWMAN [facility] Comment:optimum levels Blood BLOOD SPECIMEN / Unknown Venipuncture / Unknown 07/17/2024 3:26 PM M1 ARMOR CREWMAN 07/17/2024 3:26 PM M1 ARMOR CREWMAN Narrative [facility] - 07/18/2024 7:51 PM M1 ARMOR CREWMAN Season, race, dietary intake, and treatment affect the concentration of 00-wbgpcrq-Gbeszuy D. Values may decrease during winter months and increase during summer months. Vitamin D determination is routinely performed by an immunoassay specific for 25 hydroxyvitamin D3. If an individual is on vitamin D2(ergocalciferol) supplementation, please specify 25 [place] vitamin D2 and D3 level determination by LCMSMS test VITD23. Jayde Powell PA-C LAB - BLOOD ORDERABLES Ann l Result LABORATORY [facility] [address] [facility] * Vitamin B12 (07/17/2024 3:26 PM M1 ARMOR CREWMAN) [facility] Vitamin B12 554 232 - 1,245 pg/mL 07/18/2024 7:51 PM M1 ARMOR CREWMAN [facility] Blood BLOOD SPECIMEN / Unknown Venipuncture / Unknown 07/17/2024 3:26 PM M1 ARMOR CREWMAN 07/17/2024 3:26 PM M1 ARMOR CREWMAN Jayde Powell PA-C LAB - BLOOD ORDERABLES Ann l Result LABORATORY [facility] [address] [facility] * Vitamin A (07/17/2024 3:26 PM M1 ARMOR CREWMAN) [facility] Vitamin A 0.55 0.30 - 1.20 mg/L 07/21/2024 11:35 AM M1 ARMOR CREWMAN [facility] Retinol Palmitate 0.02 0.00 - 0.10 mg/L 07/21/2024 11:35 AM M1 ARMOR CREWMAN [facility] Vitamin A Interp Normal 07/21/20 11:35 AM M1 ARMOR CREWMAN [facility] Comment: This test was developed and its performance characteristics determined by [facility]. It has not been cleared or approved by the US Food and Drug Administration. This test was performed in a CLIA certified laboratory and is intended for clinical purposes. Performed By: [facility] [employer] [address] [place] [address] Medical Oncologist: Hubert Allen MD, PhD CLIA Number: [id number] Blood BLOOD SPECIMEN / Unknown Venipuncture / Unknown 07/17/2024 3:26 PM M1 ARMOR CREWMAN 07/17/2024 3:26 PM M1 ARMOR CREWMAN Jayde Powell PA-C LAB - BLOOD ORDERABLES Ann l Result Performing Organization Address City/[facility]/ZIP Co de Phone Number [address] [phone] [phone] * Parathyroid Hormone Intact (07/17/2024 3:26 PM M1 ARMOR CREWMAN) Pathologist [facility] Parathyroid Hormone Intact 44 15 - 65 pg/mL 07/18/2024 5:00 PM M1 ARMOR CREWMAN [facility] Blood BLOOD SPECIMEN / Unknown Venipuncture / Unknown 07/17/2024 3:26 PM M1 ARMOR CREWMAN 07/17/2024 3:26 PM M1 ARMOR CREWMAN Narrative [facility] - 07/18/2024 5:00 PM M1 ARMOR CREWMAN This result was obtained with the Randy Elecsys PTH STAT assay. This reference range differs from PTH assays used in other [facility] laboratories. Jayde Powell PA-C LAB - BLOOD ORDERABLES Ann l Result [facility] [address] [facility], [address] [place] [address], [facility] * Ferritin (07/17/2024 3:26 PM M1 ARMOR CREWMAN) Pathologist [facility] Ferritin 43 11 - 328 ng/mL 07/18/2024 7:51 PM M1 ARMOR CREWMAN [facility] Blood BLOOD SPECIMEN / Unknown Venipuncture / Unknown 07/17/2024 3:26 PM M1 ARMOR CREWMAN 07/17/2024 3:26 PM M1 ARMOR CREWMAN Jayde Powell PA-C LAB - BLOOD ORDERABLES Ann l Result Performing Organization Address City/State/[facility] Co de Phone Number [facility] [address] [facility] [place] [phone] * (ABNORMAL) CBC with platelets (07/17/2024 3:26 PM M1 ARMOR CREWMAN) [facility] WBC Count 5.6 4.0 - 11.0 10e3/uL 07/17/2024 3:40 PM M1 ARMOR CREWMAN [facility] RBC Count 3.22(L) 3.80 - 5.20 10e6/uL 07/17/2024 3:40 PM M1 ARMOR CREWMAN [facility] Hemoglobin 9.5(L) 11.7 - 15.7 g/dL 07/17/2024 3:40 PM M1 ARMOR CREWMAN [facility] Hematocrit 29.2(L) 35.0 - 47.0 % 07/17/2024 3:40 PM M1 ARMOR CREWMAN [facility] MCV 91 78 - 100 fL 07/17/2024 3:40 PM M1 ARMOR CREWMAN [facility] MCH 29.5 26.5 - 33.0 pg 07/17/2024 3:40 PM M1 ARMOR CREWMAN [facility] MCHC 32.5 31.5 - 36.5 g/dL 07/17/2024 3:40 PM M1 ARMOR CREWMAN [facility] RDW 13.6 10.0 - 15.0 % 07/17/2024 3:40 PM M1 ARMOR CREWMAN [facility] Platelet Count 310 150 - 450 10e3/uL 07/17/2024 3:40 PM M1 ARMOR CREWMAN [facility] Blood BLOOD SPECIMEN / Unknown Venipuncture / Unknown 07/17/2024 3:26 PM M1 ARMOR CREWMAN 07/17/2024 3:26 PM M1 ARMOR CREWMAN Jayde Powell PA-C LAB - BLOOD ORDERABLES Ann l Result [facility] [place] [facility] [address] [facility] Lab (no room number, 1st floor of clinic) [place] [address], [facility] documented in this encounter Visit Diagnoses Diagnosis Reactive hypoglycemia- Primary Hypoglycemia, unspecified Hypoglycemia Hypoglycemia, unspecified S/P gastric bypass Bariatric surgery status Intestinal malabsorption, unspecified type Iron deficiency anemia due to chronic blood loss Iron deficiency anemia secondary to blood loss (chronic) Overweight (BMI 25.0-29.9) Overweight Hx of obesity Personal history of other specified diseases documented in this encounter Care Teams Biometrics Head Relationship Specialty Start Date End Date Julio Cesar Antoine MD [facility] [address], [place] [id number] PCP - General Family Medicine 04/12/24 documented as of this encounter
--- OUTSIDE RECORDS SUMMARY | 2024-08-08 14:48 | XMS_ITS | Encounter Summary ---
Author Organization [facility] Address [address] [place] [address] Care Team Providers Care Crtt Name Role Phone Julio Cesar Antoine MD Primary Care Provider Encounter Details Date Type Department Care Team (Latest Contact Info) Description 07/12/2024 Travel Social History Tobacco Use Types Packs/Day Years Used Date Smoking Tobacco: Never Assessed Comments Unknown Sex and Gender Information Value Date Recorded Sex Assigned at Not on file Legal Sex Female 7:09 AM CDT Gender Identity Not on file Sexual Orientation Not on file documented as of this encounter Plan of Treatment Upcoming Encounters Date Type Department Care Team (Late st Contact Info) Description 09/15/2024 10:00 AM GOVERNMENT RELATIONS ANALYST Virtual Visit [facility] [address] [phone] Candy Mackenzie, RD [address] [place] [phone] 12/15/2024 2:30 PM CDT Virtual Visit [facility] [address] [address] Jayde Powell PA-C [address] [place] [phone] documented as of this encounter Visit Diagnoses Not on filedocumented in this encounter Care Teams Crtt Relationship Specialty Start Date End Date Julio Cesar Antoine MD [facility] [address] [place] [address] PCP - General Family Medicine 04/12/24 documented as of this encounter
--- OUTSIDE RECORDS SUMMARY | 2024-08-08 14:48 | XMS_ITS | Clinical Summary ---
Author Organization [facility] Care Address [address] [place] [address] Phone Care Team Providers Care Service Person Name Role Phone Julio Cesar Antoine Primary Care Provider [phone] Brendan Vargas Unavailable [phone] Source Comments This disclosure is being made pursuant to the Care Everywhere program,applicable federal and state laws, and may not contain all informationavailable regarding this patient.[facility] Practices Allergies Active Allergy Reactions Criticality Noted [...] Not on file Is the patient a d ependent adult ? Not on file 11/08/2023 Do you [...] 77 04/24/2022 1:51 PM CDT Temperature 36.5 C (97.7 F) 04/24/2022 1:51 PM CDT Respiratory Rate 18 04/09/2022 12:38 PM CDT [...] (1 of 2 - PCV) 1967 HIV [place] Screening 1976 HCV Screening 1979 Tetanus Diphtheria Pertussis (1 - Tdap) 1980 Cervical Cancer Screening 1982 Lipid Disorder Screening [address] Colonography 2006 Colonoscopy 2006 Colorectal Screening 2006 FIT-DNA 2006 FIT 2006 FOBT 2006 Flex Sigmoidoscopy 2006 Zoster Vaccine (1 of 2) 2011 RSV Vaccine (1 - Risk 60-74 years 1-dose series) 04/01 [id number]-[id number]-ObW-2 Vaccine (2023- season) 20 24 Influenza Vaccine: Seasonal (#1) 04/30/2024 Insurance BC/BS PLUS MEDICAID OF [place] MEDICARE A & B Advance Directives For more information, please contact: [phone] * Full Code (Latest Code Status on File) Date Activated Date Inactivated Comments 04/06/2022 8:57 AM 04/09/2022 5:04 PM * Full Code Date Activated Date Inactivated Comments 04/06/2022 2:42 AM 04/06/2022 8:57 AM Care Teams Service Person Relationship Specialty Start Date End Date Julio Cesar Antoine [address] [place] [address] PCP - General Family Practice 04/06/22 Brendan Vargas [address] [place] [address] Procedure Tech General Surgery 04/07/22
--- OUTSIDE RECORDS SUMMARY | 2024-08-08 14:48 | XMS_ITS | Encounter Summary ---
Author Organization [facility] Care Address [address] [place] [address] Phone Care Team Providers Care Wharf Laborer Name Role Phone Julio Cesar Antoine Primary Care Provider [phone] Brendan Vargas Unavailable Encounter Details Date Type Department Care Team (Late st Contact Info) Description 04/09/2022 Pharmacy Visit [facility] - Pharmacy - Discharge [address] [place] [address] Social History Tobacco Use Types [...] documented as of this encounter Care Teams Wharf Laborer Relationship Specialty Start Date End Date Julio Cesar Antoine [address] [facility] [place] [address] PCP - General Family Practice 04/06/22 Brendan Vargas [address] [place] [address] Licensed Direct Entry Midwife General Surgery 04/07/22 documented as of this encounter
--- OUTSIDE RECORDS SUMMARY | 2024-08-08 14:48 | XMS_ITS | Clinical Summary ---
Author Organization [facility] Address [address] [place] [address] Care Team Providers Care Millwright Name Role Phone Patient, None Per Primary Care Provider Unavaila ble Source Comments This disclosure is being made pursuant to the [employer] program and maynot contain all information available regarding this patient.[facility] Medications fluticasone-una meterol (ADVAIR DISKUS) 250-50 MCG/ACT [...] 82 04/05/2022 9:25 PM CDT Temperature 36.4 C (97.5 F) 04/05/2022 9:25 PM CDT Respiratory Rate 16 04/05/2022 9:25 PM CDT [...] Teen/Adult (1 - Tdap) 1980 FOBT/FIT 1981 Pap Smear 1982 Zoster (Shingles) Vaccine 50 + [...] age to complete this topic Insurance MEDICARE [facility] OUT OF STATE Care Teams Millwright Relationship Specialty Start Date End Date Patient, None Per PCP - General 04/05/22
--- OUTSIDE RECORDS SUMMARY | 2024-08-08 14:48 | XMS_ITS | Referral Summary ---
Author Organization [facility] Care Address [address] [place] [address] Phone Care Team Providers Care Grinder Needle Tip Name Role Phone Julio Cesar Antoine Primary Care Provider [phone] Brendan Vargas Unavailable [phone] Source Comments This disclosure is being made pursuant to the Care Everywhere program,applicable federal and state laws, and may not contain all informationavailable regarding this patient.[facility] Practices Allergies Active Allergy Reactions Criticality [...] Plan of Treatment Not on file Insurance BC/[place] MED[place] A & B Advance Directives For more information, please contact: [phone] * Full Code (Latest Code Status on File) Date Activated Date Inactivated Comments 04/06/2022 8:57 AM 04/09/2022 5:04 PM * Full Code Date Activated Date Inactivated Comments 04/06/2022 2:42 AM 04/06/2022 8:57 AM Care Teams Grinder Needle Tip Relationship Specialty Start Date End Date Julio Cesar Antoine [address] [place] [address] PCP - General Family Practice 04/06/22 Brendan Vargas [address] [place] [address] Banana Expert General Surgery 04/07/22
--- OUTSIDE RECORDS SUMMARY | 2024-08-08 14:48 | XMS_ITS | Clinical Summary ---
Author Organization [facility] Address [place], [place] [address] Care Team Providers Care Senior Industrial Engineer Name Role Phone Julio Cesar Antoine MD Primary Care Provider + [facility] - Unavailabl e Allergies Active Allergy Reactions Criticality Noted Date Comments Ipratropium *Unknown,Angioedema 08/01/2022 Oxycodone *Unknown,Nausea And Vomiting Low 022 Medications CITALOPRAM HYDROBROMIDE (CELEXA ORAL) Take 20 mg by mouth at bedtime. Active ASPIRIN ORAL Take 81 mg by mouth once daily. Active metoprolol (LOPRESSOR) 25 mg tablet Take 0.5 tablets by mouth 2 times daily. 30 tablet 0 07/06/20 12 Active rx HYDROcodone-acetam inophen, 5-325 mg, (NORCO) tablet (ED DC MED)Indications:Ac maame pain of right wrist Take 1 tablet by mouth every 4 hours if needed 4 tablet 07/21/20 17 Active traMADoL (ULTRAM) 50 mg tablet Take [...] 1,000 mcg intramuscular every 4 weeks. Active HYDROcodone-acetam inophen (NORCO) 5-325 mg per tablet Take 1 [...] (Dissolvable tablet) Active traMADoL (ULTRAM) 50 mg tabletIndications: Small bowel volvulus (HC) Take 1 Tablet (50 mg) by mouth every 4 hours if needed for Severe Pain. 15 Tablet 2 11:33 AM SPECIAL FORCES SPECIALIST 08/03/20 22 Active acetaminophen (TYLENOL EXTRA STRGTH) 500 mg tablet Take 2 Tablets (1,000 mg) by mouth every 6 hours if needed for Pain (For mild pain 1st choice. May take either Tylenol tablet or liquid, if both ordered.). Max acetaminophen dose: 4000mg in 24 hrs. 0 08/03/20 22 Active ondansetron (ZOFRAN ODT) 4 mg disintegrating tabletIndications: Small bowel volvulus (HC) Place 1 Tablet (4 mg) on the tongue every 8 hours if needed for Nausea/Vomiting. 30 Tablet 2 11:33 AM SPECIAL FORCES SPECIALIST 08/03/20 22 Active scopolamine 1mg over 3 days (TRANSDERM SCOP) patchIndications:P ost-operative nausea and vomiting Apply 1 Patch on dry, clean, hairless skin every 72 hours. 4 Patch 2 11:33 AM SPECIAL FORCES SPECIALIST 08/03/20 22 Active Active Problems Problem Noted Date Diagnosed [...] Encounters Date Type Department Care Team Description 07/18/2024 Lab Requisition [facility] [phone] Olivia Rosas MD 07/06/2024 Lab Requisition [facility] [phone] Brad Harper MD from Last 3 Months Family History Medical [...] and Fami ly Not on file 12/08/2022 Comments No Sex and Gender Information Value Date Recorded Sex Assigned at Not on file Legal Sex Female 6:50 PM SPECIAL FORCES SPECIALIST Gender Identity Not on file Sexual Orientation Not on file Obstetrics History Last Filed Vital Signs Vital Sign Reading Time Taken Comments Blood Pressure 145/70 08/03/2022 8:00 AM SPECIAL FORCES SPECIALIST Pulse 86 08/03/2022 8:00 AM SPECIAL FORCES SPECIALIST Temperature 36.7 C (98 F) 08/03/2022 8:00 AM SPECIAL FORCES SPECIALIST Respiratory Rate 16 08/03/2022 8:00 AM SPECIAL FORCES SPECIALIST Oxygen Saturation 95% 08/03/2022 8:00 AM SPECIAL FORCES SPECIALIST Inhaled Oxygen Concentration - - Weight 66.7 kg (147 lb) 08/01/2022 10:35 PM SPECIAL FORCES SPECIALIST Height 157.5 cm (5' 2) 08/01/2022 10:35 PM SPECIAL FORCES SPECIALIST Body Mass Index 26.89 08/01/2022 10:35 PM SPECIAL FORCES SPECIALIST Plan of Treatment Health Maintenance Due [...] age 45-75 07/06/2017 07/06/2012 COVID-19 vaccine series (2023- season) 2024 Influenza for age 50-64 04/30/2024 RSV vaccine for adults or (1 - 1-dose 75+ series) 2036 Pneumococcal series for age 6-64 Aged Out No longer eligible based on patient's age to complete this topic Procedures Procedure Name Priority Date/Time Associated Diagnosis Comments LAB TRACKING EVENT Routine 07/17/2024 8: 10 AM SPECIAL FORCES SPECIALIST PATH TISSUE EXAM Routine 07/17/2024 8:10 AM SPECIAL FORCES SPECIALIST LAB TRACKING EVENT Routine 07/06/2024 1: 07 PM SPECIAL FORCES SPECIALIST PATH TISSUE EXAM Routine 07/06/2024 1:07 PM SPECIAL FORCES SPECIALIST LIPID PANEL Early AM 07/06/2012 6:15 AM SPECIAL FORCES SPECIALIST from Last 3 Months or Most Recently Relevant to Health Maintenance Results * LAB TRACKING EVENT (07/17/2024 8:10 AM SPECIAL FORCES SPECIALIST) Only the most recent of2 resultswithin the time period is included. Other (Other) Client Collect / Unknown 07/17/2024 8:10 AM SPECIAL FORCES SPECIALIST 07/18/2024 7:43 AM SPECIAL FORCES SPECIALIST us Olivia Rosas MD LAB BILL ONLY Final Re sult [facility] [address] [place] [address], [place] * PATH TISSUE EXAM (07/17/2024 8:10 AM SPECIAL FORCES SPECIALIST) Only the most recent of2 resultswithin the time period is included. Case Report Pathology Report Case: [id number] Authorizing Provider: Olivia Rosas MD Collected: 07/17/2024 0810 Ordering Location: [facility] Received: 07/18/2024 1436 Pathologist: Chriss Ojeda MD Specimen: Splenic Flexure Polyp 07/20/2024 2:00 PM SPECIAL FORCES SPECIALIST [facility] Final Diagnosis A) COLON, SPLENIC FLEXURE, POLYPECTOMY: 1. Tubular adenoma 2. Negative for high grade dysplasia 3. Per the colonoscopy report: a. Polyp size: 8 mm b. Resection: Complete c. Retrieval: Complete 07/20/2024 2:00 PM [facility] Clinical Information Ms. Montague is a 64 y.o. with occult GI blood loss Colonoscopy findings: Single splenic flexure polyp, completely removed. Diverticulosis in the descending and sigmoid colon. 07/20/2024 2:00 PM SPECIAL FORCES SPECIALIST [facility] Gross Description A) Received in formalin are 4 molina mucosal fragments ranging from 3 mm to 7 mm in greatest dimension, which are entirely submitted in one cassette. It is labeled with the patient's name and designated splenic flexure polyp. Kathrin Barr 07/18/2024 3:15 PM 07/20/2024 2:00 PM [facility] Microscopic Description The final diagnosis is based on microscopic examination of appropriate sections of all specimens. 07/20/2024 2:00 PM SPECIAL FORCES SPECIALIST [facility] Additional Information Interpreted at [facility] - [address], [place] [address] 07/20/2024 2:00 PM SPECIAL FORCES SPECIALIST [facility] Other (Splenic Flexure Polyp) 07/17/2024 8:10 AM SPECIAL FORCES SPECIALIST 07/18/2024 2:36 PM SPECIAL FORCES SPECIALIST us Olivia Rosas MD PATHOLOGY/CYTOLOGY Final Result [facility] [address] [place] [address], * (ABNORMAL) LIPID PANEL (07/06/2012 6:15 AM SPECIAL FORCES SPECIALIST) CHOLESTEROL,TOTA L 220(H) 100 - 199 mg/dL [facility] TRIGLYCERIDES 109 <150 mg/dL [facility] HDL CHOLESTEROL 39(L) >40 mg/dL [facility] CHOL/HDL RATIO 5.64(H) <4.50 [facility] NON-HDL CHOLESTEROL 181 Undefined mg/dL [facility] LDL CHOLESTEROL 159(H) <131 mg/dL [facility] PATIENT STATUS Fasting [facility] Blood specimen (specimen) BLOOD SPECIMEN / Unknown 07/06/2012 6:15 AM SPECIAL FORCES SPECIALIST 07/05/2012 10:36 PM SPECIAL FORCES SPECIALIST us Jody Zapata MD CHEMISTRY Final Resul t [facility] [place]NAL ZIP [address] [address] [place] [address] from Last 3 Months or Most Recently Relevant to Health Maintenance Insurance MEDICARE PART A HB ONLY MEDICARE PART B HB ONLY MEDICARE [place] [address] [address] [place] [address] Advance Directives * Full Code (Latest Code Status on File) Date Activated Date Inactivated Comments 08/02/2022 12:22 AM 08/03/2022 4:29 PM Question Answer Comments Code Status Discussion: Other * Full Code Date Activated Date Inactivated Comments 07/05/2012 10:28 PM 07/06/2012 3:11 PM Care Teams Senior Industrial Engineer Relationship Specialty Start Date End Date Julio Cesar Antoine MD [address] [place] [address] PCP - General Family Practice 08/01/22 [facility] - [address] [place] [address] 08/01/22
--- NOTE | 2024-08-08 15:00 | CRLHL7_ITS ---
For Patients: As a result of the Century Cures Act, medical imaging exams and procedure reports are released immediately into your electronic medical record. You may view this report before your referring provider. If you have questions, please contact your health care provider. Indication: Anemia Technique: Abdomen 2 view. Comparison: CT 04/12/2024 Findings: Postop changes gastric bypass and cholecystectomy. 2 cm circumscribed radiodensity located in the right upper quadrant appears to be within the hepatic flexure or duodenal. No dilated bowel loops. No air-fluid levels. No free air. No pleural effusion. Impression: 2 cm structure within the bowel consistent with a swallowed radiopaque density. No bowel obstruction. Dictated by Julio Cesar Argueta MD @ 08/09/2024 9:05:14 AM (Electronically Signed)
== END 2024-08-08 14:45 | disposition home or self-care (01) ==
LOC: RAD 14:45
PROVIDERS: PCP Family Medicine; Visit Provider Internal Medicine Gastroenterology
DX: D64.9 Anemia, unspecified (principal); K52.9 Noninfective gastroenteritis and colitis, unspecified; R10.32 Left lower quadrant pain; R42 Dizziness and giddiness; R53.82 Chronic fatigue, unspecified
CPT/HCPCS: 74019

== ENCOUNTER 2024-08-10 07:49 | Outpatient (RCR) | payer MEDICARE, BC, SELFPAY ==
--- NOTE | 2024-07-26 10:15 | URNOTE ---
Received request for prior authorization for Iron Dextran ([id number]). No PA required as Pt has Medicare primary. Services are based on medical necessity and follow medicare guidelines. [facility] website no PA needed for [id number].
[2024-08-10 08:00] VITALS: BP 128/71; PULSE 73; RESP 18; TEMP 35.8; O2SAT 98
[2024-08-10] MEDS: IRON DEXTRAN COMPLEX 25 MG in 0.9 % SODIUM CHLORIDE 100 ml 100 ML 402 MG IVPB (08:35)
[2024-08-10 08:55] VITALS: BP 126/71; PULSE 71; RESP 16; O2SAT 96
[2024-08-10] MEDS: IRON DEXTRAN COMPLEX 975 MG in 0.9 % SODIUM CHLORIDE 250 ml 250 ML 270 MG IVPB (10:03)
[2024-08-10 11:09] VITALS: BP 120/73; PULSE 80; RESP 16; O2SAT 98
== END 2025-02-06 23:59 | disposition home or self-care (01) ==
LOC: CCIC 07:49
PROVIDERS: PCP Family Medicine; Referring Provider Family Medicine; Visit Provider Family Medicine
DX: D50.9 Iron deficiency anemia, unspecified (principal)
CPT/HCPCS: 96365; J1750; J7050